=== PATIENT | male | born 1935 | race Caucasian/White ===

== ENCOUNTER 2018-02-05 09:19 | Inpatient (IN) ==
[2018-02-05] MEDS ORDERED: Diphtheria/Tetanus/Pertussis Vaccine Inj 0.5 ML Syringe IM ONE (10:17)
[2018-02-05 10:35] LABS: Baso # (Auto) 0.5 th/mm3 (0.0-0.2); Baso % (Auto) 2.2 % (0.0-2.0); Eos # (Auto) 0.1 th/mm3 (0.0-0.4); Eos % (Auto) 0.6 % (0.0-4.0); Hematocrit 30.2 % (39.0-51.0); Hemoglobin 9.6 gm/dL (13.0-17.0); Lymph # (Auto) 8.7 th/mm3 (1.0-4.8); Lymph % (Auto) 35.6 % (9.0-44.0); Mean Corpuscular Hemoglobin 27.3 pg (27.0-34.0); Mean Corpuscular Volume 85.4 fL (80.0-100.0); Mean Platelet Volume 8.2 fL (7.0-11.0); Mono # (Auto) 1.6 th/mm3 (0.0-0.9); Mono % (Auto) 6.5 % (0.0-8.0); Neut # (Auto) 13.5 th/mm3 (1.8-7.7); Neut % (Auto) 55.1 % (16.0-70.0); Platelet Count 221 th/mm3 (150-450); Red Blood Count 3.53 mil/mm3 (4.50-5.90); Red Cell Distribution Width 14.1 % (11.6-17.2); White Blood Count 24.4 th/mm3 (4.0-11.0)
[2018-02-05 10:59] LABS: Bilirubin,Urine Negative (Negative); Clarity,Urine Slightly Cloudy (Clear); Color,Urine Yellow (Yellw/Straw); Glucose,Urine (UA) Negative (Negative); Leukocyte Esterase,Urine Moderate (Negative); Nitrite,Urine Positive (Negative)
[2018-02-05 11:00] LABS: Chloride 103 meq/L (98-107); Lymphocytes 48 % (9-44); Monocytes 3 % (0-8); Potassium 4.5 meq/L (3.5-5.1); Sodium 138 meq/L (136-145)
[2018-02-05 11:01] LABS: Platelet Estimate Normal (Normal); Platelet Morphology Normal (Normal)
[2018-02-05] MEDS ORDERED: Tetanus/Diphtheria Toxoid Adult Vaccine Inj 0.5 ML Vial IM ONE (11:01)
[2018-02-05 11:03] LABS: Calcium 8.7 mg/dL (8.5-10.1)
[2018-02-05 11:04] LABS: Albumin 2.7 g/dL (3.4-5.0); Anion Gap 11 meq/L (5-15); Blood Urea Nitrogen 38 mg/dL (7-18); Carbon Dioxide 23.6 meq/L (21.0-32.0); Glucose,Random 108 mg/dL (74-106)
[2018-02-05 11:06] LABS: Prothrombin Time 94.6 sec (9.8-11.6)
[2018-02-05 11:07] LABS: Alanine Aminotransferase 26 U/L (12-78); Aspartate Aminotransferase 32 U/L (15-37); Glomerular Filtration Rate 49 mL/min (>89)
[2018-02-05 11:07] LABS: WBC,Urine 0-5 /hpf (0-5)
[2018-02-05 11:08] LABS: Bacteria,Urine Moderate /hpf; RBC,Urine 0-3 /hpf (0-3); Squamous Epithelial Cell,Urine 0-5 /hpf (0-5)
[2018-02-05 11:09] LABS: Total Protein 6.1 g/dL (6.4-8.2)
[2018-02-05 11:10] LABS: Alkaline Phosphatase 63 U/L (45-117)
[2018-02-05 11:49] LABS: INR 9.5 Ratio
--- NOTE | 2018-02-05 11:50 | CT ---
EXAM DATE: 02/05/2018 11:41 AM EDT AGE/SEX: 82 years / Male INDICATIONS: Multiple falls in three days. CLINICAL DATA: This is the patient's initial encounter. Patient reports that signs and symptoms have been present for 3 days and indicates a pain score of 6/10. MEDICAL/SURGICAL HISTORY: Hypertension. Cardiovascular disease. Anticoagulant therapy. Pacemaker. Bilateral hip repair. RADIATION DOSE: 63.01 CTDI (mGy) COMPARISON: [facility] – [place], MRI BRAIN W/O CONTRAST, 07/31/2011. . TECHNIQUE: CT of the head without contrast. Using automated exposure control and adjustment of the mA and/or kV according to patient size, radiation dose was kept as low as reasonably achievable to ob tain optimal diagnostic quality images. DICOM format image data is available electronically for revi ew and comparison. FINDINGS: There is no evidence for intracranial hemorrhage, mass effect, mass lesions, edema, or extra-axial fl uid collections. The visualized bony structures appear intact. The ventricles are normal size for t he patient's age. There are no signs of acute infarction for technique. CONCLUSION: Unremarkable study. Electronically signed by: Abby Keyes MD 02/05/2018 11:48 AM EDT
--- NOTE | 2018-02-05 12:00 | ED ---
HPI General Chief complaint: Fall Stated complaint: Rt Knee gave out Time Seen by Provider: 02/05/18 10:00 Source: patient and family Mode of arrival: ambulatory History of Present Illness HPI narrative: 82yM presenting with multiple falls. The patient states that he has chronic right knee "problems" but was told by his orthopedist that he is not a candidate for a knee replacement. He normally uses a walker to ambulate, and lives alone, but says over the past several days he's had multiple falls because "my knee keeps giving out from under me". He admits to hitting his head 1-2 times but denies LOC. Denies fever or chills, dizziness, headache, chest pain, palpitations, or dyspnea. He takes coumadin for A fib, denies any other anticoagulants/ antiplatelets. Family history is non-contributory. Related Data Home Medications Medication Instructions Recorded Confirmed hydrochlorothiazide 25 mg PO DAILY 02/05/18 02/05/18 lisinopril 10 mg PO DAILY 02/05/18 02/05/18 lovastatin 20 mg PO BID 02/05/18 02/05/18 metoprolol succinate 50 mg PO DAILY 02/05/18 02/05/18 warfarin 7.5 mg PO DAILY 02/05/18 02/05/18 Allergies Allergy/AdvReac Type Severity Reaction Status Date / Time No Known Allergies Allergy Unknown NKA Uncoded 02/05/18 09:31 Review of Systems Except as stated in HPI: all other systems reviewed are negative Constitutional Denies fever(s) Eyes Denies blurry vision ENT Denies nasal congestion Cardiovascular Denies chest pain Respiratory Denies cough Gastrointestinal Denies nausea Genitourinary Denies dysuria Musculoskeletal Comments: Chronic low back pain, unchanged from baseline Chronic right knee pain/ stiffness, unchanged from baseline Neurologic Denies confusion Psychiatric Denies confusion PMFSH History History Provided By: Patient Medical History Medical History A-fib (Acute) Hyperlipemia (Acute) Hypertension (Acute) Social History Social History Substance History: No History of Abuse Second Hand Smoke Exposure: No Smoking Status: Never smoker How Often Do You Have a Drink Containing Alcohol: Never Recent Travel in [facility] within the Last 8 Weeks: No Recent Out of Country Travel within the Last 8 Weeks: No Immunization History Tetanus Immunization: <5 Years Hx Influenza Vaccine This Season: No Exam Const General: healthy appearing and no acute distress [facility] Head: normocephalic and atraumatic Face and sinus: normal facial exam Other: No raccoon eyes or Blanchard's sign No epistaxis or septal hematoma No intraoral trauma Eyes General: appearance normal, both eyes and all related structures Other: Pupils 3 mm and reactive bilaterally Neck Other: No midline C spine tenderness Chest Chest: normal inspection of the chest Resp Effort & Inspection: normal respiratory effort Auscultation: no rhonchi and no wheezes Cardio Rate: regular rate Rhythm: abnormal rhythm GI Inspection: non-distended Palpation: soft and nontender Back/Spine/Pelvis Other: Ecchymoses to right posterior shoulder and back that appear to be of varying ages No midline thoracolumbar tenderness or step-off Pelvis stable, leg lengths equal No tenderness, normal ROM of right knee, negative anterior/ posterior drawer tests Skin Other: Scaly rash to bilateral lower extremities 2 cm skin tear to dorsum of right hand, no active bleeding Multiple ecchymoses to all 4 extremities that appear to be of varying ages Neuro General: alert, awake, oriented x3 and no focal motor deficits Other: GCS 15, speech clear and fluent, answers all questions appropriately, no focal deficits Psych Affect: normal affect Course Initial Documented Vital Signs Temperature 97.4 F L 02/05/18 09:25 Pulse Rate 95 H 02/05/18 09:25 Respiratory Rate 18 02/05/18 09:25 Blood Pressure 129/66 02/05/18 09:25 Pulse Oximetry 98 02/05/18 09:25 Last Documented Vital Signs Temperature 97.4 F L 02/05/18 09:25 Pulse Rate 95 H 02/05/18 09:25 Respiratory Rate 18 02/05/18 09:25 Blood Pressure 129/66 02/05/18 09:25 Pulse Oximetry 98 02/05/18 09:25 Medical Decision Making [facility] Narrative Medical decision making narrative: Assessment: 82yM presenting with multiple falls, on coumadin Plan: Update tetanus/ local wound care Labs, including INR [place]- CT scan Reassess Addendum: Patient found to have a UTI and supratherapeutic INR, BUN/ creat 38/ 1.40 (no previous labs on file). CT scan shows no ICH or fractures, but pancreatic mass with satellite lesions concerning for metastatic pancreatic cancer and portal vein thrombus. The patient reports 8 lb recent weight loss but no night sweats, early satiety, or abdominal pain. I had a long conversation with the patient regarding these results and my plan to keep him in the hospital. The patient does not wish to have chest compressions/ defibrillation or intubation, so I updated his code status to DNR/ DNI. I informed him of my plan to keep him in the hospital for IV fluids, antibiotics, consultation, and monitoring of INR. He understands and agrees with plan. An opportunity to ask questions was provided. Case discussed with Dr. Hickey, who agrees with admission and requests [facility] [place]. Patient's INR not reversed due to portal vein thrombus. Differential Diagnosis Differential Diagnosis: Differential diagnosis includes, but is not limited to: ICH, fracture, solid organ injury, UTI, electrolyte abnormality, dehydration, anemia, coagulopathy Lab Data Lab results reviewed: Yes I reviewed the patient's lab results. Result diagrams: 02/05/18 10:30 02/05/18 10:30 Lab Results 02/05/18 02/05/18 02/05/18 Range/Units 10:30 10:30 10:30 CBC w Diff Slide review pending WBC 24.4 H (4.0-11.0) th/mm3 RBC 3.53 L (4.50-5.90) mil/mm3 Hgb 9.6 L (13.0-17.0) gm/dL Hct 30.2 L (39.0-51.0) % MCV 85.4 (80.0-100.0) fL MCH 27.3 (27.0-34.0) pg MCHC 32.0 (32.0-36.0) % RDW 14.1 (11.6-17.2) % Plt Count 221 (150-450) th/mm3 MPV 8.2 (7.0-11.0) fL Neut % (Auto) 55.1 (16.0-70.0) % Lymph % (Auto) 35.6 (9.0-44.0) % Chaves % (Auto) 6.5 (0.0-8.0) % Eos % (Auto) 0.6 (0.0-4.0) % Baso % (Auto) 2.2 H (0.0-2.0) % Neut # (Auto) 13.5 H (1.8-7.7) th/mm3 Lymph # (Auto) 8.7 H (1.0-4.8) th/mm3 Chaves # (Auto) 1.6 H (0.0-0.9) th/mm3 Eos # (Auto) 0.1 (0.0-0.4) th/mm3 Baso # (Auto) 0.5 H (0.0-0.2) th/mm3 WBC Differential Manual diff final Seg Neuts % (Manual) 49 (16-70) % Lymphocytes % (Manual) 48 H (9-44) % Monocytes % (Manual) 3 (0-8) % Abs Neuts (Manual) 12.0 H (1.8-7.7) th/mm3 Differential Comment . Platelet Estimate Normal (Normal) Platelet Morphology Normal (Normal) PT 94.6 H (9.8-11.6) sec INR 9.5 H* Ratio Sodium 138 (136-145) meq/L Potassium 4.5 (3.5-5.1) meq/L Chloride 103 (98-107) meq/L Carbon Dioxide 23.6 (21.0-32.0) meq/L Anion Gap 11 (5-15) meq/L BUN 38 H (7-18) mg/dL Creatinine 1.40 H (0.60-1.30) mg/dL Estimated GFR 49 L (>89) mL/min Random Glucose 108 H (74-106) mg/dL Calcium 8.7 (8.5-10.1) mg/dL Total Bilirubin 0.8 (0.2-1.0) mg/dL AST 32 (15-37) U/L ALT 26 (12-78) U/L Alkaline Phosphatase 63 (45-117) U/L Total Protein 6.1 L (6.4-8.2) g/dL Albumin 2.7 L (3.4-5.0) g/dL Ur Collection Type Urine Color (Yellw/Straw) Urine Clarity (Clear) Urine pH (5.0-8.5) Ur Specific [place] (1.002-1.035) Urine Protein (Neg-Trace) mg/dL Urine Glucose (UA) (Negative) mg/dL Urine Ketones (Negative) mg/dL Urine Occult Blood (Negative) Urine Nitrate (Negative) Urine Bilirubin (Negative) Urine Urobilinogen (Less than 2) mg/dL Ur Leukocyte Esterase (Negative) Urine RBC (0-3) /hpf Urine WBC (0-5) /hpf Urine WBC Clumps (None) Ur Squamous Epith Cells (0-5) /hpf Urine Bacteria (None) /hpf Micro UA Comment Urine Culture Comments Blood Type Blood Type Recheck Antibody Screen 02/05/18 02/05/18 Range/Units 10:30 10:50 CBC w Diff WBC (4.0-11.0) th/mm3 RBC (4.50-5.90) mil/mm3 Hgb (13.0-17.0) gm/dL Hct (39.0-51.0) % MCV (80.0-100.0) fL MCH (27.0-34.0) pg MCHC (32.0-36.0) % RDW (11.6-17.2) % Plt Count (150-450) th/mm3 MPV (7.0-11.0) fL Neut % (Auto) (16.0-70.0) % Lymph % (Auto) (9.0-44.0) % Chaves % (Auto) (0.0-8.0) % Eos % (Auto) (0.0-4.0) % Baso % (Auto) (0.0-2.0) % Neut # (Auto) (1.8-7.7) th/mm3 Lymph # (Auto) (1.0-4.8) th/mm3 Chaves # (Auto) (0.0-0.9) th/mm3 Eos # (Auto) (0.0-0.4) th/mm3 Baso # (Auto) (0.0-0.2) th/mm3 WBC Differential Seg Neuts % (Manual) (16-70) % Lymphocytes % (Manual) (9-44) % Monocytes % (Manual) (0-8) % Abs Neuts (Manual) (1.8-7.7) th/mm3 Differential Comment Platelet Estimate (Normal) Platelet Morphology (Normal) PT (9.8-11.6) sec INR Ratio Sodium (136-145) meq/L Potassium (3.5-5.1) meq/L Chloride (98-107) meq/L Carbon Dioxide (21.0-32.0) meq/L Anion Gap (5-15) meq/L BUN (7-18) mg/dL Creatinine (0.60-1.30) mg/dL Estimated GFR (>89) mL/min Random Glucose (74-106) mg/dL Calcium (8.5-10.1) mg/dL Total Bilirubin (0.2-1.0) mg/dL AST (15-37) U/L ALT (12-78) U/L Alkaline Phosphatase (45-117) U/L Total Protein (6.4-8.2) g/dL Albumin (3.4-5.0) g/dL Ur Collection Type Clean catch Urine Color Yellow (Yellw/Straw) Urine Clarity Slightly cloudy (Clear) Urine pH 6.0 (5.0-8.5) Ur Specific [place] 1.010 (1.002-1.035) Urine Protein Trace (Neg-Trace) mg/dL Urine Glucose (UA) Negative (Negative) mg/dL Urine Ketones Negative (Negative) mg/dL Urine Occult Blood Trace (Negative) Urine Nitrate Positive H (Negative) Urine Bilirubin Negative (Negative) Urine Urobilinogen 1.0 (Less than 2) mg/dL Ur Leukocyte Esterase Moderate H (Negative) Urine RBC 0-3 (0-3) /hpf Urine WBC 0-5 (0-5) /hpf Urine WBC Clumps Occasional H (None) Ur Squamous Epith Cells 0-5 (0-5) /hpf Urine Bacteria Moderate H (None) /hpf Micro UA Comment Culture indicated Urine Culture Comments Culture indicated Blood Type O Negative Blood Type Recheck Not needed Antibody Screen Negative Imaging Data Radiologist's impression: Cervical Spine CT 02/05/18 10:17 CONCLUSION: 1. Extensive bilateral neck lymphadenopathy suspicious for metastatic disease or lymphoma. 2. There is a lytic bone lesion within the T3 vertebral body. 3. Multilevel degenerative disc disease throughout the cervical spine, as above. No spinal canal stenosis is identified. There areas of neural foraminal narrowing at multiple levels but is most severe on the right at C5-C6. Head CT 02/05/18 10:17 CONCLUSION: Unremarkable study. Abdomen/Pelvis CT 02/05/18 11:10 CONCLUSION: 1. 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 2. Pathological adenopathy throughout the abdomen and pelvis highly suspicious for metastatic disease. 3. Lytic lesion involving the bony structures the largest one involving the T11 vertebrae and right posterior iliac bone almost certainly metastatic. 4. Possible thrombus within main portal vein. Chest CT 02/05/18 11:10 CONCLUSION: Mass process involving the T10 vertebral body with some degree of canal encroachment which is not optimally evaluated on this conventional CT. CT myelography may be useful for correlation. At least a couple of small right lung nodules and enlarged mediastinal lymph nodes noted. Discharge Plan Discharge Disposition Patient Disposition: 30 Still Patient Discharge Condition Condition: Fair Discharge Details Diagnosis: Acute UTI, Acute kidney injury, Metastasis from pancreatic cancer, Portal vein thrombosis, Supratherapeutic INR, Multiple falls, Multiple contusions Physicians Team ED Provider: Marialuisa Ortega Primary Care Provider: Alexandro Moeller Rxs /Orders / Referrals /Forms Prescriptions: No Action metoprolol succinate 50 mg Tablet Extended Release 24 Hr 50 mg PO DAILY RF: 0 lisinopril 10 mg Tablet 10 mg PO DAILY RF: 0 hydrochlorothiazide 25 mg Tablet 25 mg PO DAILY RF: 0 lovastatin 20 mg Tablet 20 mg PO BID RF: 0 warfarin 7.5 mg Tablet 7.5 mg PO DAILY RF: 0 Status ED Status: Ready for Discharge
--- NOTE | 2018-02-05 12:01 | CT ---
EXAM DATE: 02/05/2018 11:49 AM EDT AGE/SEX: 82 years / Male INDICATIONS: Multiple falls in three days. CLINICAL DATA: This is the patient's initial encounter. Patient reports that signs and symptoms have been present for 3 days and indicates a pain score of 6/10. MEDICAL/SURGICAL HISTORY: Hypertension. Cardiovascular disease. Anticoagulant therapy. Pacema ker. Bilateral hip repair. RADIATION DOSE: 26.64 CTDI (mGy) COMPARISON: No prior exams available for comparison. TECHNIQUE: Contiguous axial images were obtained using helical multirow detector technique. The vol umetric data was post-processed with multiplanar reconstruction in oblique axial, sagittal, and coron al planes. Using automated exposure control and adjustment of the mA and/or kV according to patient s ize, radiation dose was kept as low as reasonably achievable to obtain optimal diagnostic quality emperatriz ges. DICOM format image data is available electronically for review and comparison. FINDINGS: Vertebrae: No fracture is identified. Vertebral body height is maintained. There is a 13 mm lucent l esion within the right superior aspect of the T3 vertebral body with an appearance suspicious for a b one lesion. No other bone lesion is seen in the cervical spine. There is no prevertebral soft tissue swelling. Alignment: No anterolisthesis or retrolisthesis. The craniocervical junction and C1-C2 level demonstrate no significant abnormality. C2-C3: There is bilateral facet arthrosis with fusion of the facet joints on the right. No disc josé iation, spinal canal stenosis, or neural foraminal stenosis is appreciated. C3-C4: There is severe left facet arthrosis with possible fusion of the facet joints. There is a sma ll posterior disc osteophyte complex with bilateral uncovertebral osteophytes. No spinal canal stenos is is present. There is mild to moderate left neural foraminal stenosis. C4-C5: Decreased disc height with endplate osteophytes anteriorly. There is mild right sided arthros is. Diffuse posterior disc osteophyte complex is present with right uncovertebral osteophyte. There i s mild bilateral neural foraminal stenosis, right greater than left. No canal stenosis is appreciated . C5-C6: Decreased disc height with endplate osteophytes anteriorly and chronic degenerative endplate changes. There is diffuse posterior disc osteophyte complex with right uncovertebral osteophyte. No s unruly canal stenosis is present. There is moderate to severe right neural foraminal stenosis. Minimal left neural foraminal narrowing is also present. C6-C7: Decreased disc height with endplate sclerosis and anterior endplate osteophytes. There is a d iffuse disc bulge. No significant spinal canal stenosis is appreciated. C7-T1: The canal is not well visualized but no definite canal or neural foraminal stenosis is seen. Other: There is extensive lymphadenopathy within the neck bilaterally in the visualized superior aspe ct of the mediastinum. CONCLUSION: 1. Extensive bilateral neck lymphadenopathy suspicious for metastatic disease or lymphoma. 2. There is a lytic bone lesion within the T3 vertebral body. 3. Multilevel degenerative disc disease throughout the cervical spine, as above. No spinal canal mario nosis is identified. There areas of neural foraminal narrowing at multiple levels but is most severe on the right at C5-C6. Electronically signed by: Anant Chilel MD 02/05/2018 12:00 PM EDT
--- NOTE | 2018-02-05 12:03 | CT ---
EXAM DATE: 02/05/2018 11:45 AM EDT AGE/SEX: 82 years / Male INDICATIONS: Multiple falls in three days. CLINICAL DATA: This is the patient's initial encounter. Patient reports that signs and symptoms have been present for 3 days and indicates a pain score of 7/10. MEDICAL/SURGICAL HISTORY: Hypertension. Cardiovascular disease. Anticoagulant therapy. Pacema ker. Bilateral hip repair. RADIATION DOSE: 24.88 CTDI (mGy) ; Combined studies COMPARISON: No prior exams available for comparison. TECHNIQUE: Multiple contiguous axial images were obtained through the abdomen. Images were obtained using multiple row detector helical technique. Using automated exposure control and adjustment of the mA and/or kV according to patient size, radiation dose was kept as low as reasonably achievable to o btain optimal diagnostic quality images. DICOM format image data is available electronically for rev iew and comparison. FINDINGS: Abdomen CT: The liver, spleen, adrenals are unremarkable. There are multiple simple cysts in the kidneys the larg est measures almost 5.1 cm on the right and there is a small approximate 7 mm spontaneously dense nod ule in the right kidney with a separate one that measures almost the same probably complicated cyst a s well. There is an approximate 3.5 cm mass in the region of the head of the pancreas. This could be a necrotic lymph node versus a primary pancreatic malignancy and there are smaller lymph nodes surrou nding it extending into the marya hepatis. There is question of thrombus within the main portal vein measures almost 2 cm in size. There is no evidence for any appreciable free fluid, or bowel obstructi on. There is retroperitoneal adenopathy which extends all the way down to iliac bifurcation and invol ves bilateral common iliac regions the largest one measures almost 2.3 cm in size at the level of the renal hilum on the left side. There are also multiple small mesenteric lymph nodes throughout with h azy appearance the mesentery. There is a lytic lesion involving the T11 vertebrae measures 2.8 cm in size with slight degree of retropulsed fragment towards the left side without any significant thecal sac stenosis. There is also an approximate 2.9 cm lytic lesion in the right posterior iliac bone. The se are suspicious for metastatic disease. There may be other lytic lesions involving the posterior po rtion of L4 vertebrae on the left side. Coronary calcifications are seen and the bilateral total hip arthroplasties bilaterally. Pelvic CT: There is no evidence for mass, abscess formation within the pelvis. Significant facet arthrosis is s een L5-S1 bilaterally. There is an approximate 2.2 cm lymph node in the left groin which is pathologi sariah with smaller lymph nodes in bilateral groin which may not be pathological. There is an approximat e 3 cm lymph node in the right external iliac chain with pathological lymph nodes involving bilateral external iliac chains the largest one on the left side measures almost 2 cm in size. Multiple lymph nodes are seen bilaterally and metastatic disease is suspected. There is no evidence for acute fractu re. CONCLUSION: 1. 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 2. Pathological adenopathy throughout the abdomen and pelvis highly suspicious for metastatic diseas e. 3. Lytic lesion involving the bony structures the largest one involving the T11 vertebrae and right posterior iliac bone almost certainly metastatic. 4. Possible thrombus within main portal vein. Electronically signed by: Abby Keyes MD 02/05/2018 12:02 PM EDT
--- NOTE | 2018-02-05 12:12 | CT ---
EXAM DATE: 02/05/2018 11:46 AM EDT AGE/SEX: 82 years / Male INDICATIONS: Multiple falls in three days. CLINICAL DATA: This is the patient's initial encounter. Patient reports that signs and symptoms have been present for 3 days and indicates a pain score of 7/10. MEDICAL/SURGICAL HISTORY: Hypertension. Cardiovascular disease. Anticoagulant therapy. Pacemaker. Bilateral hip repair. RADIATION DOSE: 24.88 CTDI (mGy) ; Combined studies COMPARISON: No prior exams available for comparison. TECHNIQUE: Multiple contiguous axial images were obtained through the chest without contrast. Image s were obtained in suspended respiration using multiple row detector helical technique. Using automa talib exposure control and adjustment of the mA and/or kV according to patient size, radiation dose was kept as low as reasonably achievable to obtain optimal diagnostic quality images. DICOM format imag e data is available electronically for review and comparison. FINDINGS: There are couple small nodular densities in the right lung, largest a 9 mm spiculated nodule in the c entral right lung. There is no evidence of consolidative infiltrate. There are multiple moderately prominent central mediastinal lymph nodes with enlarged nodes seen in t he paratracheal, precarinal, subcarinal and prevascular regions. Coronary artery calcifications are present. There is no evidence of axillary adenopathy. There is a soft tissue density process replacing much of the T10 vertebral body and there is associat ed pathologic fracturing and collapse of the vertebra. There is minimal bony retropulsion. Small righ t paracentral posterior vertebral body lesion appears to encroach somewhat on the epidural space. CONCLUSION: Mass process involving the T10 vertebral body with some degree of canal encroachment which is not opt imally evaluated on this conventional CT. CT myelography may be useful for correlation. At least a couple of small right lung nodules and enlarged mediastinal lymph nodes noted. Electronically signed by: Anant Young MD 02/05/2018 12:11 PM EDT
[2018-02-05] MEDS ORDERED: Sodium Chlor 0.9% Inj 500 ML IV.SIG ONE (12:31)
[2018-02-05] MEDS ORDERED: Temazepam 15 MG Capsule PO PRN (13:08)
[2018-02-05] MEDS ORDERED: Bisacodyl 10 MG Supp RECTAL PRN (13:08)
--- NOTE | 2018-02-05 14:34 | P.PNPAL ---
Palliative care consulted to assist with goals of medical treatment for Mr. Fish. Spoke with patient's niece, Bessy to obtain additional information. Bessy was unaware Mr. Fish was in the hospital. Verbalizes she spoke with him on Monday and knew he was having more frequent falls and was going to follow-up with his PCP today. Bessy tells me Mr. Fish has a pacemaker, no defibrillator. Verbalizes he was diagnosed with a blood disorder in previous years. Unaware of other medical conditions. Bessy tells me Mr. Fish has no family. He is , no children, parents (per previous records: mother-stomach [place], father- [place]), and no siblings. She states her and her sister are the only family he has. Bessy is unaware of any written advanced directives but believes Mr. Fish would designate her as health care surrogate as they are close and remain in close contact. She seems to have reasonable knowledge of his medical condition. Also states Mr. Fish has no issues with his cognition and has remained able to make his own medical decisions. States he has a friend who moved over from the [facility] to assist Mr. Fish with his ADLs. I have asked patient's RN to assist with completing health care surrogate designation and connecting patient and niece while he is here in the hospital. Palliative care will meet with Mr. Fish for full consultation Monday02/06/18.
--- NOTE | 2018-02-05 15:09 | P.HPIM ---
History of Present Illness Primary Care Physician: Alexandro Moeller MD Chief Complaint: falls History of Present Illness: Patient is an 82-year-old gentleman with a history of atrial fibrillation on Coumadin who comes in after progressive weakness and a fall. He called his friend and his friend around to the hospital. Over the last several months patient has progressive lower extremity weakness. He attributed this to his right knee which has significant osteoarthritic changes. He has also experienced some urinary incontinence over the last several weeks. He has at least 2 falls and had progressively used canes and now a walker. He notes no fevers or chills. He notes no back pain is not any nausea and vomiting or belly pain. He finally came to the emergency room today and was found to have profound weakness. In the course of the ER visit patient did have both CT of the chest and abdomen which showed pancreatic mass as well as metastatic changes to T10 through 11 as well and is progressive adenopathy from previous evaluations. Patient has not had any fevers or chills. He notes no nelly back pain. He was also found to have an INR of 9.6. He takes Coumadin for atrial fibrillation. He notes no new antibiotics or changes in his prescription. Normally he also with the events and cardiology office and his INR has been in the 2-3 range appropriately for his diagnosis. He had fallen does have significant amount of ecchymotic skin injuries. There is no nelly bleeding. He has not had any belly pain or jaundice. He has been admitted to the hospital for further evaluation. He is recommended for admission and treatment in the hospital - Diagnosis (1) Acute UTI (2) Metastasis from pancreatic cancer (3) Portal vein thrombosis (4) Supratherapeutic INR (5) Multiple falls (6) Afib (7) HTN (hypertension) (8) Lymphoma Inpatient Certification: I certify that the inpatient services were ordered in accordance with Medicare regulations governing the order. This includes certification that hospital inpatient services are reasonable and necessary and in the case of services not specified as inpatient-only under 42 CFR 419.22(n), that they are appropriately provided as inpatient services in accordance to with the 2-midnight benchmark under 43 CFR 412.3(e) Estimated Total Length of Stay (Days): 3 Plans for Post Hospital Care: Not yet determined Review of Systems All other systems reviewed negative except as stated in HPI Constitutional: Reports weight loss (Intentional due to cardiology suggested lifestyle changes) Cardiovascular: Reports leg swelling (Which is chronic) Genitourinary: Reports urinary incontinence (For several week) Musculoskeletal: Reports abnormal walking, Reports back pain Neurologic: Reports unsteadiness, Reports weakness Hematologic/Lymphatic: Reports easy bruising PMFSH - History History Provided By: Patient - Medical History Medical History: Medical History (Last Updated 02/05/18 @ 15:44 by Rama Hickey MD) A-fib Bladder cancer Hyperlipemia Hypertension Lymphoma - Surgical History Surgical History: Surgical History (Last Updated 02/05/18 @ 15:29 by Rama Hickey MD) History of hip replacement - Family History Family History: Family History (Last Updated 02/05/18 @ 15:30 by Rama Hickey MD) Other CAD (coronary artery disease) Colon cancer Stomach cancer - Tobacco History Second Hand Smoke Exposure: No Tobacco Use In Past 30 Days: No Smoking Status: Never smoker - Alcohol History How Often Do You Have a Drink Containing Alcohol: 4 or more times a week - Substance Use History Substance History: No History of Abuse - Travel History Recent Travel in the USA Within the Last 8 Weeks: No Recent Travel Out of the Country Within the Last 8 Weeks: No - Immunization History Tetanus Immunization: <5 Years Hx Influenza Vaccine This Season: Yes Medications and Allergies Active Medications: Active Medications Al Hydroxide/Mg Hydroxide (Milk Of Magnesia Liq) 30 ml PO Q12H PRN PRN Reason: Mild Constipation Bisacodyl (Dulcolax Supp) 10 mg RECTAL DAILY PRN PRN Reason: SEVERE CONSITIPATION Lactulose (Lactulose Liq) 30 ml PO DAILY PRN PRN Reason: SEVERE CONSITIPATION Senna/Docusate Sodium (Angela-Colace) 1 tab PO BID SORIN Sennosides (Senokot) 17.2 mg PO Q12HR PRN PRN Reason: Moderate Constipation Temazepam (Restoril) 15 mg PO HS PRN PRN Reason: INSOMNIA Allergies Allergy/AdvReac Type Severity Reaction Status Date / Time No Known Allergies Allergy Unknown NKA Uncoded 02/05/18 09:31 Home Medications Medication Instructions Recorded Confirmed Type hydrochlorothiazide 25 mg PO DAILY 02/05/18 02/05/18 History lisinopril 10 mg PO DAILY 02/05/18 02/05/18 History lovastatin 20 mg PO BID 02/05/18 02/05/18 History metoprolol succinate 50 mg PO DAILY 02/05/18 02/05/18 History warfarin 7.5 mg PO DAILY 02/05/18 02/05/18 History Exam Vital signs: Vital Signs 02/05/18 09:25 02/05/18 13:35 Temperature 97.4 F L 98.0 F Pulse Rate 95 H 66 Respiratory Rate 18 19 Blood Pressure 129/66 111/57 L Pulse Oximetry 98 97 Intake & Output 02/04/18 02/05/18 02/05/18 18:59 06:59 18:59 Weight 97.8 kg Narrative: GENERAL: Patient calm resting and without complaints SKIN: Warm and dry. diffuse ecchymotic injuries, wound legs bilat EYES: Pupils equal and round. No scleral icterus. No injection or drainage. ENT: External ear exam normal. No acute nasal bleeding or discharge. Mucous membranes pink and moist. CARDIOVASCULAR: Regular rate and rhythm. No murmurs gallops or rubs appreciated RESPIRATORY: Good air flow and effort without accessory muscle use. Clear to auscultation. Breath sounds equal bilaterally. GASTROINTESTINAL: Abdomen soft, non-tender, nondistended. Hepatic and splenic margins not palpable. MUSCULOSKELETAL: Extremities without clubbing, cyanosis, but there is woody edema bilat legs. No obvious deformities. NEUROLOGICAL: Awake and alert. No obvious cranial nerve deficits. Motor grossly within normal limits. Five out of 5 muscle strength in the arms and legs. Normal speech. Results - Labs CBC & Chem 7: 02/05/18 10:30 02/05/18 10:30 Labs: Short CBC 02/05/18 Range/Units 10:30 WBC 24.4 H (4.0-11.0) th/mm3 Hgb 9.6 L (13.0-17.0) gm/dL Hct 30.2 L (39.0-51.0) % Plt Count 221 (150-450) th/mm3 BMP 02/05/18 10:30 Sodium 138 Potassium 4.5 Chloride 103 Carbon Dioxide 23.6 BUN 38 H Creatinine 1.40 H Calcium 8.7 Liver Function 02/05/18 Range/Units 10:30 Total Bilirubin 0.8 (0.2-1.0) mg/dL AST 32 (15-37) U/L ALT 26 (12-78) U/L Alkaline Phosphatase 63 (45-117) U/L Albumin 2.7 L (3.4-5.0) g/dL Urine 02/05/18 Range/Units 10:50 Urine Color Yellow (Yellw/Straw) Urine Clarity Slightly cloudy (Clear) Urine pH 6.0 (5.0-8.5) Ur Specific Badger 1.010 (1.002-1.035) Urine Protein Trace (Neg-Trace) mg/dL Urine Glucose (UA) Negative (Negative) mg/dL - Imaging Impressions Cervical Spine CT 02/05/18 10:17 CONCLUSION: 1. Extensive bilateral neck lymphadenopathy suspicious for metastatic disease or lymphoma. 2. There is a lytic bone lesion within the T3 vertebral body. 3. Multilevel degenerative disc disease throughout the cervical spine, as above. No spinal canal stenosis is identified. There areas of neural foraminal narrowing at multiple levels but is most severe on the right at C5-C6. Head CT 02/05/18 10:17 CONCLUSION: Unremarkable study. Abdomen/Pelvis CT 02/05/18 11:10 CONCLUSION: 1. 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 2. Pathological adenopathy throughout the abdomen and pelvis highly suspicious for metastatic disease. 3. Lytic lesion involving the bony structures the largest one involving the T11 vertebrae and right posterior iliac bone almost certainly metastatic. 4. Possible thrombus within main portal vein. Chest CT 02/05/18 11:10 CONCLUSION: Mass process involving the T10 vertebral body with some degree of canal encroachment which is not optimally evaluated on this conventional CT. CT myelography may be useful for correlation. At least a couple of small right lung nodules and enlarged mediastinal lymph nodes noted. Caprini VTE Risk Assessment Caprini VTE Risk Assessment: Moderate/High Risk (score >= 2) VTE Pharmacological Exception Reason: Coagulopathy,INR elevated Caprini Risk Assessment Model: Point Value = 1 Point Value = 2 Point Value = 3 Point Value = 5 Age 41-60 Minor surgery BMI > 25 kg/m2 Swollen legs Varicose veins or History of unexplained or recurrent spontaneous Oral contraceptives or hormone replacement Sepsis (< 1 month) Serious lung disease, including pneumonia (< 1 month) Abnormal pulmonary function Acute myocardial infarction Congestive heart failure (< 1 month) History of inflammatory bowel disease Medical patient at bed rest Age 61-74 Arthroscopic surgery Major open surgery (> 45 min) Laparoscopic surgery (> 45 min) Malignancy Confined to bed (> 72 hours) Immobilizing plaster cast Central venous access Age >= 75 History of VTE Family history of VTE Factor V Leiden Prothrombin [id number] Lupus anticoagulant Anticardiolipin antibodies Elevated serum homocysteine Heparin-induced thrombocytopenia Other congenital or acquired thrombophilia Stroke (< 1 month) Elective arthroplasty Hip, pelvis, or leg fracture Acute spinal cord injury (< 1 month) Prophylaxis Regimen: Total Risk Factor Score Risk Level Prophylaxis Regimen 0-1 Low Early ambulation 2 Moderate Order ONE of the following: *Sequential Compression Device (SCD) *Heparin 5000 units SQ BID 3-4 Higher Order ONE of the following medications: *Heparin 5000 units SQ TID *Enoxaparin/Lovenox 40 mg SQ daily (WT < 150 kg, CrCl > 30 mL/min) *Enoxaparin/Lovenox 30 mg SQ daily (WT < 150 kg, CrCl > 10-29 mL/min) *Enoxaparin/Lovenox 30 mg SQ BID (WT < 150 kg, CrCl > 30 mL/min) AND/OR *Sequential Compression Device (SCD) 5 or more Highest Order ONE of the following medications: *Heparin 5000 units SQ TID (Preferred with Epidurals) *Enoxaparin/Lovenox 40 mg SQ daily (WT < 150 kg, CrCl > 30 mL/min) *Enoxaparin/Lovenox 30 mg SQ daily (WT < 150 kg, CrCl > 10-29 mL/min) *Enoxaparin/Lovenox 30 mg SQ BID (WT < 150 kg, CrCl > 30 mL/min) AND *Sequential Compression Device (SCD) Assessment and Plan - Assessment (1) Acute UTI Code(s): N39.0 - Urinary tract infection, site not specified Status: Acute Plan: rocephin, follow cultures (2) Metastasis from pancreatic cancer Code(s): C79.9 - Secondary malignant neoplasm of unspecified site; C25.9 - Malignant neoplasm of pancreas, unspecified Status: Acute Plan: Likely pancreatic cancer with metastases to bone, follow-up with oncology Continue with palliative care care consult to help plan goals of care Continue with hydrocodone for pain as needed Patient would not like to be aggressive if there is no life expectancy to be gained (3) Portal vein thrombosis Code(s): I81 - Portal vein thrombosis Status: Acute Plan: Currently anticoagulated with Coumadin, INR 9.6 We will continue to follow INR Avoid reversal due to thrombotic event Coumadin diagnosis atrial fibrillation (4) Supratherapeutic INR Code(s): R79.1 - Abnormal coagulation profile Status: Acute Plan: The allergy clear may be from hypermetabolic status due to malignancy Hold warfarin for now and follow up INR Patient does have a portal vein thrombus which will require anticoagulation (5) Multiple falls Code(s): R29.6 - Repeated falls Status: Acute Plan: Worrisome due to recent urinary incontinence, with new vertebral metastases (T10 , T11, T3), patient denies lower extremity pain and has chronic osteoarthritis of the right knee May be a candidate for neurosurgical intervention versus kyphoplasty Cord impingement concerning Patient would like to avoid back surgery if at all possible Continue supportive care for now Rehab measures (6) Afib Code(s): I48.91 - Unspecified atrial fibrillation Status: Acute Plan: Currently controlled on metoprolol, warfarin held due to elevated INR (7) HTN (hypertension) Code(s): I10 - Essential (primary) hypertension Status: Acute Plan: stable on HCTZ, lisinopril, metoprolol (8) Lymphoma Code(s): C85.90 - Non-Hodgkin lymphoma, unspecified, unspecified site Status: Acute Plan: History of stable lymphoma under observation, also history of bladder cancer Patient leukocytosis may be due to dehydration versus acute phase reaction from urinary tract infection Follow closely H&P: Quality - VTE Deep Vein Thrombosis/Pulmonary Embolism Present on Admission: No
[2018-02-05] MEDS ORDERED: Phytonadione 5 MG/SWFI 5 ML Oral Syringe PO ONE (19:00)
--- NOTE | 2018-02-05 19:00 | P.CON ---
History of Present Illness Service: Hematology/oncology Consult date: 02/05/18 Primary Care Provider: Alexandro Moeller MD Chief Complaint: Recurrent falls at home. Severe back pain. History of Present Illness: Mr. 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 He was diagnosed initially in 1979 while living in [place], he had been under the care of my associate Dr. Pate and her most recent notes dating back to 2016 the patient had been on observation alone. Additionally, the patient reports having a history of bladder cancer, he reports being diagnosed in the year 1999, for management of his bladder carcinoma he underwent transurethral resection of the bladder tumor (TURBT followed by BCG infusions within the bladder). Mr. Fish reports being in his usual fair state of health up until last Monday, he reports falling on 2 occasions that day which prompted his presentation to the [facility]. The emergency department he underwent multiple scans including CT scan of the head, CT scan of the neck, CT scan of the thorax, abdomen and pelvis. Multiple abnormalities were identified including diffuse shotty lymphadenopathy involving the cervical lymph nodes, mediastinal lymph nodes and intra-abdominal lymph nodes. These findings are consistent with his history of chronic lymphocytic leukemia/small lymphocytic lymphoma (CLL/SLL). Additional concerning findings included lytic/destructive lesions involving multiple vertebral bodies as well as findings concerning for a portal vein thrombosis (CT imaging was performed without intravenous contrast) . Additional abnormalities included supratherapeutic INR; the patient had been on therapeutic anticoagulation with warfarin which typically had been under good control. Patient's INR at the time of presentation was 9.6. Mr. Fish himself is a poor historian, he did not mention any history of chronic lymphocytic leukemia, much of the historical details have been obtained from the EMR. Subjectively; his only complaint is that of pain in his shoulder (right shoulder ) as well as his mid and lower back. He tells me his legs feel weak and are chronically swollen. Review of Systems other (Poor historian.) Constitutional: Reports body ache(s), Reports fatigue, Reports weight loss (15 pound weight loss.), Denies chills, Denies increased appetite, Denies lack of energy Eyes: Denies blind spots, Denies blurry vision, Denies bulging eyes, Denies change in vision Ears, Nose, Mouth, and Throat: Reports dizziness, Denies abnormal hearing, Denies bleeding gums, Denies bad breath, Denies change in voice, Denies dental pain, Denies difficulty swallowing, Denies dry mouth, Denies facial pain, Denies headache(s), Denies hearing loss Cardiovascular: Reports shortness of breath with activity, Denies chest pain, Denies chest pain at rest, Denies chest pain with activity, Denies excessive sweating, Denies fainting, Denies fast heart rate, Denies foot swelling, Denies generalized swelling Respiratory: Denies change in phlegm color, Denies chest congestion, Denies cough, Denies coughing up blood, Denies excessive phlegm production, Denies pain on inspiration, Denies pain with cough, Denies shortness of breath, Denies shortness of breath with activity Gastrointestinal: Denies abdominal pain, Denies belching, Denies black, tarry stools, Denies bright, red blood in stools, Denies change in stools, Denies difficulty swallowing, Denies heartburn, Denies incontinent of stools, Denies nausea, Denies pain with swallowing, Denies vomiting, Denies vomiting blood Genitourinary: Denies blood in urine, Denies difficulty urinating Musculoskeletal: Reports abnormal walking, Reports back pain, Reports body aches , Reports decreased muscle mass, Reports joint pain, Denies deformity, Denies joint swelling, Denies limited joint movement, Denies loss of height Skin/Breast: Denies bleeding lesions Comments: Chronic lower extremity edema and redness. Neurologic: Reports abnormal walking, Reports lack of coordination, Denies localized weakness Comments: Difficulty balancing. Psychiatric: Reports memory loss, Denies abnormal sleep pattern, Denies anxiety , Denies change in appetite, Denies confusion, Denies depression Endocrine: Denies cold intolerance, Denies excessive sweating, Denies flushing Hematologic/Lymphatic: Denies easy bleeding Allergic/Immunologic: Denies GI upset with certain foods, Denies hives, Denies itchy eyes PMFSH - History History Provided By: Patient - Medical History Medical History: Medical History (Last Updated 02/05/18 @ 18:51 by Roque Singh MD) A-fib Bladder cancer Bladder cancer Chronic lymphocytic leukemia Hyperlipemia Hypertension Lymphoma - Surgical History Surgical History: Surgical History (Last Updated 02/05/18 @ 18:51 by Roque Singh MD) H/O cystoscopy History of cystoscopy History of hip replacement - Family History Family History: Family History (Last Updated 02/05/18 @ 15:30 by Rama Hickey MD) Other CAD (coronary artery disease) Colon cancer Stomach cancer - Tobacco History Second Hand Smoke Exposure: No Tobacco Use In Past 30 Days: No Smoking Status: Former smoker Tobacco Type: Cigarettes Packs Per Day: 0.5 Years Smoked: 15 - Alcohol History How Often Do You Have a Drink Containing Alcohol: 4 or more times a week - Substance Use History Substance History: No History of Abuse - Travel History Recent Travel in the [place] Within the Last 8 Weeks: No Recent Travel Out of the Country Within the Last 8 Weeks: No - Immunization History Tetanus Immunization: <5 Years Hx Influenza Vaccine This Season: Yes Medications and Allergies Active Medications: Active Medications Hydrocodone Bitart/Acetaminophen ([place] 7.5/325) 1 tab PO Q6H PRN PRN Reason: PAIN SCALE 1 TO 10 Al Hydroxide/Mg Hydroxide (Milk Of Magnesia Liq) 30 ml PO Q12H PRN PRN Reason: Mild Constipation Bisacodyl (Dulcolax Supp) 10 mg RECTAL DAILY PRN PRN Reason: SEVERE CONSITIPATION Ceftriaxone Sodium 1,000 mg/ (Sodium Chloride) 100 mls @ 200 mls/hr IV.SIG Q24H SORIN Lactulose (Lactulose Liq) 30 ml PO DAILY PRN PRN Reason: SEVERE CONSITIPATION Phytonadione (Mephyton) 5 mg PO ONCE ONE Stop: 02/05/18 18:38 Senna/Docusate Sodium (Angela-Colace) 1 tab PO BID SORIN Sennosides (Senokot) 17.2 mg PO Q12HR PRN PRN Reason: Moderate Constipation Temazepam (Restoril) 15 mg PO HS PRN PRN Reason: INSOMNIA Allergies Allergy/AdvReac Type Severity Reaction Status Date / Time No Known Allergies Allergy Unknown NKA Uncoded 02/05/18 09:31 Home Medications Medication Instructions Recorded Confirmed Type hydrochlorothiazide 25 mg PO DAILY 02/05/18 02/05/18 History lisinopril 10 mg PO DAILY 02/05/18 02/05/18 History lovastatin 20 mg PO BID 02/05/18 02/05/18 History metoprolol succinate 50 mg PO DAILY 02/05/18 02/05/18 History warfarin 7.5 mg PO DAILY 02/05/18 02/05/18 History Physical Exam Vital signs: Vital Signs 02/05/18 09:25 02/05/18 13:35 Temperature 97.4 F L 98.0 F Pulse Rate 95 H 66 Respiratory Rate 18 19 Blood Pressure 129/66 111/57 L Pulse Oximetry 98 97 Intake & Output 02/04/18 02/05/18 02/05/18 18:59 06:59 18:59 Weight 97.8 kg - Constitutional no acute distress - Routine HEENT Exam Head: Present: normocephalic Eye: Present: EOMI, PERRL, conjunctivae pink. Absent: conjunctival icterus, scleral injection ENT: Present: mucous membranes moist, oropharynx clear. Absent: mucous membranes dry - Routine Neck Exam Present: supple, full ROM, lymphadenopathy. Absent: JVD - Routine Respiratory Exam Present: CTA bilaterally. Absent: accessory muscle use, respiratory distress, rhonchi, wheezes, crackles - Routine Cardiovascular Exam Present: RRR, S1, S2, murmur - Routine Abdominal Exam Present: soft. Absent: tenderness, distended, rebound, guarding, mass, hernia - Routine Extremities Exam Present: edema. Absent: cyanosis - Routine Skin Exam Present: intact (Erythema, chronic venous stasis changes and scaling of bilateral lower extremities.) - Routine Neurological Exam Present: alert, oriented X3, CN II-XII intact. Absent: sensory deficit, motor deficit - Detailed Neurological Exam: Coma Scale Eye Opening: Spontaneous - Routine Psychiatric Exam Present: normal affect, anxious Assessment and Plan - Plan Mr. Fish is an 82-year-old man with a long-standing history of chronic lymphocytic leukemia/small lymphocytic lymphoma (low-grade) initially diagnosed in 1979. He also reportedly has a history of bladder carcinoma which was treated in the early 1999s with "scraping" of the bladder followed by BCG instillation within the bladder. Additional medical comorbid conditions include A. fib, chronic anticoagulation with warfarin, hypertension as well as osteoarthritis. The patient reports being in his usual fair state of health up until last February 02, he reports falling twice. As a result he reports having impact to his right shoulder as well as on his mid and lower back. He reports having persistent pain in these areas which is why he came into the emergency department. Imaging studies revealed destructive bony lesions which are described as lytic involving the vertebral bodies. Additional findings include shoddy lymphadenopathy diffusely involving the cervical, mediastinal and intra- abdominal lymph nodes, there was some concern of possible underlying portal vein thrombosis as well though the CT scan was without intravenous contrast. Recommendations: 1. Supratherapeutic INR: I requested oral vitamin K 5 mg p.o. 1. Repeat PT/ INR levels in the morning. Re-dose oral vitamin K if PT/INR remains supratherapeutic. 2. Diffuse shotty lymphadenopathy: Related to chronic lymphocytic leukemia/ small lymphocytic lymphoma. Therapeutic intervention at this time is not needed. This dates back to 1979 and his CLL has to date not require therapeutic intervention. 3. Destructive/lytic bony lesions: In my opinion this represents a secondary disorder, I will request a PSA level and a serum protein electrophoresis and serum immunofixation. Differential diagnoses include metastatic epithelioid malignancy such as prostate carcinoma or bladder carcinoma and also includes malignant hematologic disorder such as plasma cell disorders i.e. multiple myeloma. Ultimately, a CT-guided biopsy of the right posterior iliac spine which is heavily involved with a destructive lesion may be the most easy to access involved bony lesion to obtain tissue for pathologic evaluation. 4. Metastatic disease to the vertebral bodies: This patient may require MRI evaluation to rule out spinal cord compression. I did talk to him about referral to the [facility] for evaluation by neurosurgery and radiation oncology, the patient interestingly declines. He tells me he would not like to be transferred anywhere at least for 2 days because he is expecting company. Continue ongoing care. Code Status: Full. Discussed Condition With: Patient. Nurse.
[2018-02-05] MEDS: Senna/Docusate Sodium 8.6/50 MG Tablet PO SCH (20:03)
[2018-02-06 05:22] LABS: INR 5.5 Ratio; Prothrombin Time 55.5 sec (9.8-11.6)
--- NOTE | 2018-02-06 09:04 | P.PN ---
Subjective Interval history: Pt is sitting on the bed in mild discomfort secondary to inability to move around. Reports 5/10 localized pain in midback, unchanged from previous days. Denies SOB, CP, Abdominal pain, fever, chills. Pt states that yesterday he met with Dr. Singh who recommended moving the [facility] hospital for further management of his condition. He states that he is considering that option and would like his friend to speak with Dr. Singh so he can get a better understanding of what his treatment in the [facility] hospital might entail. Physical Exam Vital signs: Vital Signs 02/05/18 09:25 02/05/18 13:35 02/05/18 20:00 Temperature 97.4 F L 98.0 F 99.4 F Pulse Rate 95 H 66 66 Respiratory Rate 18 19 18 Blood Pressure 129/66 111/57 L 95/45 L Pulse Oximetry 98 97 100 02/06/18 00:00 02/06/18 00:39 02/06/18 04:00 Temperature 99 F 98.9 F Pulse Rate 70 67 Respiratory Rate 20 24 Blood Pressure 98/46 L 128/65 100/50 L Pulse Oximetry 98 100 Intake & Output 02/05/18 02/06/18 02/06/18 18:59 06:59 18:59 Intake Total 120 / 120 Output Total 360 / 360 200 / 200 Balance -360 / -360 -80 / -80 Weight 97.8 kg 94 kg Intake: Oral 120 / 120 Output: Urine 360 / 360 200 / 200 Other: # Incontinent Voids 2 - Constitutional no acute distress - Routine HEENT Exam Head: Present: normocephalic, atraumatic Eye: Present: EOMI, PERRL, normal accommodation ENT: Present: mucous membranes moist - Routine Neck Exam Present: supple, full ROM - Routine Respiratory Exam Present: CTA bilaterally. Absent: accessory muscle use - Routine Cardiovascular Exam Present: RRR, S1, S2 - Routine Abdominal Exam Present: soft, normoactive bowel sounds - Routine Skin Exam Present: wounds, ecchymosis - Routine Neurological Exam Present: alert, oriented X3, CN II-XII intact - Routine Psychiatric Exam Present: normal affect Results - Labs CBC & Chem 7: 02/05/18 10:30 02/05/18 10:30 Laboratory Results - last 24 hr 02/05/18 02/05/18 02/05/18 10:30 10:30 10:30 CBC w Diff Slide review pending WBC 24.4 H RBC 3.53 L Hgb 9.6 L Hct 30.2 L MCV 85.4 MCH 27.3 MCHC 32.0 RDW 14.1 Plt Count 221 MPV 8.2 Neut % (Auto) 55.1 Lymph % (Auto) 35.6 Clay % (Auto) 6.5 Eos % (Auto) 0.6 Baso % (Auto) 2.2 H Neut # (Auto) 13.5 H Lymph # (Auto) 8.7 H Clay # (Auto) 1.6 H Eos # (Auto) 0.1 Baso # (Auto) 0.5 H WBC Differential Manual diff final Seg Neuts % (Manual) 49 Lymphocytes % (Manual) 48 H Monocytes % (Manual) 3 Abs Neuts (Manual) 12.0 H Differential Comment . Platelet Estimate Normal Platelet Morphology Normal PT 94.6 H INR 9.5 H* Sodium 138 Potassium 4.5 Chloride 103 Carbon Dioxide 23.6 Anion Gap 11 BUN 38 H Creatinine 1.40 H Estimated GFR 49 L Random Glucose 108 H Calcium 8.7 Total Bilirubin 0.8 AST 32 ALT 26 Alkaline Phosphatase 63 Total Creatine Kinase Total Protein 6.1 L Albumin 2.7 L Ur Collection Type Urine Color Urine Clarity Urine pH Ur Specific [place] Urine Protein Urine Glucose (UA) Urine Ketones Urine Occult Blood Urine Nitrate Urine Bilirubin Urine Urobilinogen Ur Leukocyte Esterase Urine RBC Urine WBC Urine WBC Clumps Ur Squamous Epith Cells Urine Bacteria Micro UA Comment Urine Culture Comments Blood Type Blood Type Recheck Antibody Screen 02/05/18 02/05/18 02/05/18 10:30 10:50 16:35 CBC w Diff WBC RBC Hgb Hct MCV MCH MCHC RDW Plt Count MPV Neut % (Auto) Lymph % (Auto) Clay % (Auto) Eos % (Auto) Baso % (Auto) Neut # (Auto) Lymph # (Auto) Clay # (Auto) Eos # (Auto) Baso # (Auto) WBC Differential Seg Neuts % (Manual) Lymphocytes % (Manual) Monocytes % (Manual) Abs Neuts (Manual) Differential Comment Platelet Estimate Platelet Morphology PT INR Sodium Potassium Chloride Carbon Dioxide Anion Gap BUN Creatinine Estimated GFR Random Glucose Calcium Total Bilirubin AST ALT Alkaline Phosphatase Total Creatine Kinase 197 Total Protein Albumin Ur Collection Type Clean catch Urine Color Yellow Urine Clarity Slightly cloudy Urine pH 6.0 Ur Specific [place] 1.010 Urine Protein Trace Urine Glucose (UA) Negative Urine Ketones Negative Urine Occult Blood Trace Urine Nitrate Positive H Urine Bilirubin Negative Urine Urobilinogen 1.0 Ur Leukocyte Esterase Moderate H Urine RBC 0-3 Urine WBC 0-5 Urine WBC Clumps Occasional H Ur Squamous Epith Cells 0-5 Urine Bacteria Moderate H Micro UA Comment Culture indicated Urine Culture Comments Culture indicated Blood Type O Negative Blood Type Recheck Not needed Antibody Screen Negative 02/06/18 04:40 CBC w Diff WBC RBC Hgb Hct MCV MCH MCHC RDW Plt Count MPV Neut % (Auto) Lymph % (Auto) Clay % (Auto) Eos % (Auto) Baso % (Auto) Neut # (Auto) Lymph # (Auto) Clay # (Auto) Eos # (Auto) Baso # (Auto) WBC Differential Seg Neuts % (Manual) Lymphocytes % (Manual) Monocytes % (Manual) Abs Neuts (Manual) Differential Comment Platelet Estimate Platelet Morphology PT 55.5 H D INR 5.5 Sodium Potassium Chloride Carbon Dioxide Anion Gap BUN Creatinine Estimated GFR Random Glucose Calcium Total Bilirubin AST ALT Alkaline Phosphatase Total Creatine Kinase Total Protein Albumin Ur Collection Type Urine Color Urine Clarity Urine pH Ur Specific [place] Urine Protein Urine Glucose (UA) Urine Ketones Urine Occult Blood Urine Nitrate Urine Bilirubin Urine Urobilinogen Ur Leukocyte Esterase Urine RBC Urine WBC Urine WBC Clumps Ur Squamous Epith Cells Urine Bacteria Micro UA Comment Urine Culture Comments Blood Type Blood Type Recheck Antibody Screen - Imaging Impressions Cervical Spine CT 02/05/18 10:17 CONCLUSION: 1. Extensive bilateral neck lymphadenopathy suspicious for metastatic disease or lymphoma. 2. There is a lytic bone lesion within the T3 vertebral body. 3. Multilevel degenerative disc disease throughout the cervical spine, as above. No spinal canal stenosis is identified. There areas of neural foraminal narrowing at multiple levels but is most severe on the right at C5-C6. Head CT 02/05/18 10:17 CONCLUSION: Unremarkable study. Abdomen/Pelvis CT 02/05/18 11:10 CONCLUSION: 1. 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 2. Pathological adenopathy throughout the abdomen and pelvis highly suspicious for metastatic disease. 3. Lytic lesion involving the bony structures the largest one involving the T11 vertebrae and right posterior iliac bone almost certainly metastatic. 4. Possible thrombus within main portal vein. Chest CT 02/05/18 11:10 CONCLUSION: Mass process involving the T10 vertebral body with some degree of canal encroachment which is not optimally evaluated on this conventional CT. CT myelography may be useful for correlation. At least a couple of small right lung nodules and enlarged mediastinal lymph nodes noted. Assessment and Plan - Plan 1. Supratherapeutic INR: VITAMIN k 5 MG POx1 was ordered by Dr. Singh. INR levels have come down to 5.5. maintain INR at the therapeutic level of 2.5
--- NOTE | 2018-02-06 10:18 | P.CONPAL ---
Consult Service: Palliative Care Requesting Physician: Rama Hickey Reason for Consult: a. To assist with evaluation and management of symptoms including: Pain, weakness b. To assist medical decision maker(s) with: better understanding of current medical conditions; weighing benefits/burdens of medical treatment options; making medical treatment decisions. Primary Care Provider: Alexandro Moeller MD History of Present Illness History of Present Illness: This is a very pleasant 82-year-old male who presents to [facility] p.o. with multiple falls. He does have chronic right knee weakness but is not a candidate for knee replacement. He does complain of progressive lower extremity weakness which he previously attributed to his right knee, which has significant osteoarthritic changes. He also complains of some recent urinary incontinence. He normally ambulates with a walker, lives alone but has had several falls over the last few days due to progressive knee weakness. He states he hit the right side of his head on a bench during his last fall but denies loss of consciousness. He presented to [facility] with profound lower extremity weakness. He complains of back pain secondary to immobility radiating down the right leg primarily which is relieved by repositioning and movement. He has a history of atrial fibrillation for which he takes Coumadin and his presenting INR was 9.5. He received vitamin K and repeat INR today shows 5.5. He also has a history of chronic, low-grade, lymphocytic leukemia/small lymphocytic lymphoma for which he follows with Dr. Pate, which has not required treatment. He also has a history of bladder cancer diagnosed in 1999 and underwent TURBT followed by BCG infusions within the bladder. Presenting labs showed WBC 24.4, hemoglobin 9.6, hematocrit 30.2, platelets 221 , PT 94.6, INR 9.5, sodium 138, potassium 4.5, BUN 2038, creatinine 1.40, random glucose 108, calcium 8.7, AST 32, ALT 26, alkaline phosphatase 63, total protein 6.1, albumin 2.7, urinalysis is submitted for culture, showing positive nitrite, moderate leukocyte esterase and moderate bacteria. Imaging studies were completed with CT of the cervical spine showing extensive bilateral neck lymphadenopathy suspicious for metastatic disease or lymphoma, lytic bone lesion within the T3 vertebral body, multilevel degenerative disc disease throughout the C-spine, no spinal canal stenosis identified, areas of neural foraminal narrowing at multiple levels, most severe on the right side of C5-C6. CT of the head was unremarkable. CT of the abdomen and pelvis without contrast showed a large necrotic mass in the head of the pancreas versus malignant adenopathy, pathological adenopathy throughout the abdomen and pelvis , highly suspicious for metastatic disease, lytic lesion involving the bony structures, largest involving the T11 vertebrae and right posterior iliac bone, almost certainly metastatic and possible thrombus within the main portal vein. Chest CT showed a mass process involving the T10 vertebral body with some degree of canal encroachment, not optimally evaluated on the conventional CT. CT myelography recommended. At least a couple of small right lung nodules and enlarged mediastinal lymph nodes were noted. This is an alert, oriented elderly male, sitting up in bed with his friend at bedside giving a clear history and expressing his wishes to simply. He has determined that he will accept the transfer to the [facility] to be evaluated by neurosurgery but states he "does not want to have any kind of surgery". He will consider chemotherapy and radiation for treatment if offered but states he wants to be a DO NOT RESUSCITATE status. He has identified his knees Bessy and his friend, NITHYA as his primary and secondary healthcare surrogate respectively and that paperwork has been placed on the chart. He is pending transfer at this time. Palliative care has been consulted to assist with symptom management and goals of care. . Function/Cognitive Trajectory: He lives alone and has been experiencing progressive weakness over the last few months. Initially walking with a cane he then progressed to ambulating with a walker and is now suffering recurrent falls secondary to lower extremity weakness, likely related to the metastatic processes affecting the spine. Review of the records indicate that his mentation has been intermittently diminished over his hospital course, but today he is quite clear and cognitively sharp. . Review of Systems Constitutional: Reports body ache(s), Reports fatigue, Reports weakness, Reports weight loss Ears, Nose, Mouth, and Throat: Reports poor balance Cardiovascular: Reports irregular heart rhythm, Reports leg sores Genitourinary: Reports urinary frequency (Intermittent, new onset) Musculoskeletal: Reports abnormal walking, Reports back pain, Reports muscle weakness Skin/Breast: Reports dry skin Neurologic: Reports frequent falls Hematologic/Lymphatic: Reports easy bruising PMFSH - History History Provided By: Patient - Medical History Medical History: Medical History (Last Reviewed 02/21/18 @ 09:02 by Rama Anton) A-fib Bladder cancer Bladder cancer Chronic lymphocytic leukemia Hyperlipemia Hypertension Lymphoma - Surgical History Surgical History: Surgical History (Last Reviewed 02/21/18 @ 09:02 by Rama Anton) H/O cystoscopy History of cystoscopy History of hip replacement - Family History Family History: Family History (Last Reviewed 02/15/18 @ 18:38 by Abran Gonsales MD) Other CAD (coronary artery disease) Colon cancer Stomach cancer - Tobacco History Second Hand Smoke Exposure: No Tobacco Use In Past 30 Days: No Smoking Status: Former smoker Tobacco Type: Cigarettes Packs Per Day: 0.5 Years Smoked: 15 - Alcohol History How Often Do You Have a Drink Containing Alcohol: 4 or more times a week - Substance Use History Substance History: No History of Abuse - Travel History Recent Travel in the [place] Within the Last 8 Weeks: No Recent Travel Out of the Country Within the Last 8 Weeks: No - Immunization History Tetanus Immunization: <5 Years Hx Influenza Vaccine This Season: Yes Medications and Allergies Allergies Allergy/AdvReac Type Severity Reaction Status Date / Time No Known Allergies Allergy Unknown NKA Uncoded 02/05/18 09:31 Active Medications: Active Medications Hydrocodone Bitart/Acetaminophen ([place] 7.5/325) 1 tab PO Q6H PRN PRN Reason: PAIN SCALE 1 TO 10 Al Hydroxide/Mg Hydroxide (Milk Of Magnesia Liq) 30 ml PO Q12H PRN PRN Reason: Mild Constipation Bisacodyl (Dulcolax Supp) 10 mg RECTAL DAILY PRN PRN Reason: SEVERE CONSITIPATION Ceftriaxone Sodium 1,000 mg/ (Sodium Chloride) 100 mls @ 200 mls/hr IV.SIG Q24H SORIN Lactulose (Lactulose Liq) 30 ml PO DAILY PRN PRN Reason: SEVERE CONSITIPATION Senna/Docusate Sodium (Angela-Colace) 1 tab PO BID SORIN Last Admin: 02/05/18 20:03 Dose: 1 tab Sennosides (Senokot) 17.2 mg PO Q12HR PRN PRN Reason: Moderate Constipation Temazepam (Restoril) 15 mg PO HS PRN PRN Reason: INSOMNIA Advance Directives Living Will: Unknown Healthcare Surrogate: Yes Health Care Surrogate Name and Number: Primary) Bessy Jimenez (Neice) ; NITHYA Boucher (friend) (73 Power of Inspector Agricultural Commodities: Unknown Documented care wishes: States his advanced directives are at home and not available to us at this time. He has made himself a DO NOT RESUSCITATE status. . Today's verbally stated goals: He is willing to extend his workup to evaluate possible interventions, but states he is not interested in surgical interventions. He may consider interventional radiology for kyphoplasty and chemotherapy and radiation, dependent on the results of further workup. . Family/friends goals: NITHYA, friend, at bedside supports patient's wishes. . Ethical and Legal Issues: None noted. . Physical Exam Vital Signs: Vital Signs - 24 hr 02/05/18 13:35 02/05/18 20:00 02/06/18 00:00 Temperature 98.0 F 99.4 F 99 F Pulse Rate 66 66 70 Respiratory Rate 19 18 20 Blood Pressure 111/57 L 95/45 L 98/46 L Pulse Oximetry 97 100 98 02/06/18 00:39 02/06/18 04:00 Temperature 98.9 F Pulse Rate 67 Respiratory Rate 24 Blood Pressure 128/65 100/50 L Pulse Oximetry 100 I&O: Intake & Output 02/04/18 02/05/18 02/06/18 02/07/18 06:59 06:59 06:59 06:59 Intake Total 120 / 120 Output Total 560 / 560 Balance -440 / -440 Weight 215 lb 9.793 oz 207 lb 3.752 oz Physical Exam: CONSTITUTIONAL/GENERAL: This is an adequately nourished patient, in no apparent distress. TUBES/LINES/DRAINS: PIV SKIN: No jaundice, rashes, or lesions. Ecchymoses on all extremities. Small, dressed wounds on lower extremities. Skin temperature appropriate. Not diaphoretic. HEAD: Atraumatic. Normocephalic. EYES: Pupils equal and round and reactive. Extraocular motions intact. No scleral icterus. No injection or drainage. Fundi not examined. ENT: Hearing grossly normal. Nose without bleeding or purulent drainage. Throat without visible erythema, exudates, masses, or lesions. NECK: Trachea midline. Supple, nontender. No palpable thyroid enlargement or nodularity. CARDIOVASCULAR: S1, S2, irregular rhythm, controlled rate, 2/6 systolic ejection murmur, no rub no gallop. Pacer spikes seen on bedside EKG monitoring. No JVD. Peripheral pulses symmetric. RESPIRATORY/CHEST: Symmetric, unlabored respirations. Clear to auscultation. Breath sounds equal bilaterally. No wheezes, rales, or rhonchi. GASTROINTESTINAL: Abdomen soft, non-tender, nondistended. No hepato-splenomegaly , or palpable masses. No guarding. Bowel sounds present. GENITOURINARY: Without palpable bladder distension. Escobedo catheter in place. MUSCULOSKELETAL: Extremities without clubbing, cyanosis, or edema. Lower extremity skin darkened with bruising and chronic vascular changes. No mottling or clubbing. LYMPHATICS: Palpable cervical adenopathy. NEUROLOGICAL: Awake and alert. Motor and sensory grossly within normal limits. Follows commands. Cognitively sharp. Moves all extremities. PSYCHIATRIC: No obvious anxiety/depression. no apparent hallucinations or other psychotic thought process. . Diagnostic Tests Laboratory: Laboratory Results - last 72 hr 02/05/18 02/05/18 02/05/18 10:30 10:30 10:30 CBC w Diff Slide review pending WBC 24.4 H RBC 3.53 L Hgb 9.6 L Hct 30.2 L MCV 85.4 MCH 27.3 MCHC 32.0 RDW 14.1 Plt Count 221 MPV 8.2 Neut % (Auto) 55.1 Lymph % (Auto) 35.6 [place] % (Auto) 6.5 Eos % (Auto) 0.6 Baso % (Auto) 2.2 H Neut # (Auto) 13.5 H Lymph # (Auto) 8.7 H [place] # (Auto) 1.6 H Eos # (Auto) 0.1 Baso # (Auto) 0.5 H WBC Differential Manual diff final Seg Neuts % (Manual) 49 Lymphocytes % (Manual) 48 H Monocytes % (Manual) 3 Abs Neuts (Manual) 12.0 H Differential Comment . Platelet Estimate Normal Platelet Morphology Normal PT 94.6 H INR 9.5 H* Sodium 138 Potassium 4.5 Chloride 103 Carbon Dioxide 23.6 Anion Gap 11 BUN 38 H Creatinine 1.40 H Estimated GFR 49 L Random Glucose 108 H Calcium 8.7 Total Bilirubin 0.8 AST 32 ALT 26 Alkaline Phosphatase 63 Total Creatine Kinase Total Protein 6.1 L Albumin 2.7 L Ur Collection Type Urine Color Urine Clarity Urine pH Ur Specific [place] Urine Protein Urine Glucose (UA) Urine Ketones Urine Occult Blood Urine Nitrate Urine Bilirubin Urine Urobilinogen Ur Leukocyte Esterase Urine RBC Urine WBC Urine WBC Clumps Ur Squamous Epith Cells Urine Bacteria Micro UA Comment Urine Culture Comments Blood Type Blood Type Recheck Antibody Screen 02/05/18 02/05/18 02/05/18 10:30 10:50 16:35 CBC w Diff WBC RBC Hgb Hct MCV MCH MCHC RDW Plt Count MPV Neut % (Auto) Lymph % (Auto) [place] % (Auto) Eos % (Auto) Baso % (Auto) Neut # (Auto) Lymph # (Auto) [place] # (Auto) Eos # (Auto) Baso # (Auto) WBC Differential Seg Neuts % (Manual) Lymphocytes % (Manual) Monocytes % (Manual) Abs Neuts (Manual) Differential Comment Platelet Estimate Platelet Morphology PT INR Sodium Potassium Chloride Carbon Dioxide Anion Gap BUN Creatinine Estimated GFR Random Glucose Calcium Total Bilirubin AST ALT Alkaline Phosphatase Total Creatine Kinase 197 Total Protein Albumin Ur Collection Type Clean catch Urine Color Yellow Urine Clarity Slightly cloudy Urine pH 6.0 Ur Specific [place] 1.010 Urine Protein Trace Urine Glucose (UA) Negative Urine Ketones Negative Urine Occult Blood Trace Urine Nitrate Positive H Urine Bilirubin Negative Urine Urobilinogen 1.0 Ur Leukocyte Esterase Moderate H Urine RBC 0-3 Urine WBC 0-5 Urine WBC Clumps Occasional H Ur Squamous Epith Cells 0-5 Urine Bacteria Moderate H Micro UA Comment Culture indicated Urine Culture Comments Culture indicated Blood Type O Negative Blood Type Recheck Not needed Antibody Screen Negative 02/06/18 04:40 CBC w Diff WBC RBC Hgb Hct MCV MCH MCHC RDW Plt Count MPV Neut % (Auto) Lymph % (Auto) [place] % (Auto) Eos % (Auto) Baso % (Auto) Neut # (Auto) Lymph # (Auto) [place] # (Auto) Eos # (Auto) Baso # (Auto) WBC Differential Seg Neuts % (Manual) Lymphocytes % (Manual) Monocytes % (Manual) Abs Neuts (Manual) Differential Comment Platelet Estimate Platelet Morphology PT 55.5 H D INR 5.5 Sodium Potassium Chloride Carbon Dioxide Anion Gap BUN Creatinine Estimated GFR Random Glucose Calcium Total Bilirubin AST ALT Alkaline Phosphatase Total Creatine Kinase Total Protein Albumin Ur Collection Type Urine Color Urine Clarity Urine pH Ur Specific [place] Urine Protein Urine Glucose (UA) Urine Ketones Urine Occult Blood Urine Nitrate Urine Bilirubin Urine Urobilinogen Ur Leukocyte Esterase Urine RBC Urine WBC Urine WBC Clumps Ur Squamous Epith Cells Urine Bacteria Micro UA Comment Urine Culture Comments Blood Type Blood Type Recheck Antibody Screen Result Diagrams: 02/21/18 09:02 02/21/18 09:02 Imaging: Cervical Spine CT 02/05/18 10:17 CONCLUSION: 1. Extensive bilateral neck lymphadenopathy suspicious for metastatic disease or lymphoma. 2. There is a lytic bone lesion within the T3 vertebral body. 3. Multilevel degenerative disc disease throughout the cervical spine, as above. No spinal canal stenosis is identified. There areas of neural foraminal narrowing at multiple levels but is most severe on the right at C5-C6. Head CT 02/05/18 10:17 CONCLUSION: Unremarkable study. Abdomen/Pelvis CT 02/05/18 11:10 CONCLUSION: 1. 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 2. Pathological adenopathy throughout the abdomen and pelvis highly suspicious for metastatic disease. 3. Lytic lesion involving the bony structures the largest one involving the T11 vertebrae and right posterior iliac bone almost certainly metastatic. 4. Possible thrombus within main portal vein. Chest CT 02/05/18 11:10 CONCLUSION: Mass process involving the T10 vertebral body with some degree of canal encroachment which is not optimally evaluated on this conventional CT. CT myelography may be useful for correlation. At least a couple of small right lung nodules and enlarged mediastinal lymph nodes noted. Patient/Family Conference Present at Family Conference: Spoke with patient and his friend NITHYA at bedside. Reviewed palliative care purpose and focus, as well as below listed items. Patient stated that he did have all of his advanced directives in order at home. I did explain that we did not have access to that information and that a healthcare surrogate completion during hospitalization would ensure that those he chose would be his decision makers, rather than defaulting to [facility] statutes hierarchy for decision-makers. Patient was agreeable to complete the form which was done with his nurse, Freddy. Patient did state that as of yesterday he was unclear about his goals but after consideration overnight, he was in agreement with transfer to the [facility] for evaluation by neurosurgery and to hear their recommendations as well as further oncology workup. Per my discussion with Dr. Hickey, that transfer has been requested and is pending. Palliative care contact information was provided to the patient for any further questions or concerns. Patient advised that we would follow him once transferred to the [facility]. . Issues Discussed: * Palliative care role, purpose, approach * Additional medical, psychosocial, and spiritual history * Patients general health, functional status, and cognitive changes in the months leading up to the current hospitalization * Patient/family understanding of the current medical problems * Patient/family understanding of prognosis * Patients goals of care as best understood from advance directives and/or conversations and/or values * Current medical treatment options and benefits/burdens of those options * Likely scenarios comparing ongoing aggressive care with a transition to comfort measures only * Questions answered to the best of my ability * Palliative care contact information provided Assessment and Plan Pertinent Non-Medical Issues: Psychosocial: He was born in [facility] and moved to [place] in 1994 for better weather. He retired from the [employer], where he worked most of his life. He was previously but now . He has no children. His parents and his siblings are . 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 Legal: Healthcare surrogate form has been completed naming his niece, Bessy Jimenez , as primary and Gerardo Boucher as secondary. Ethical issues impacting care: None noted. . Important Contacts: Niece: Bessy Jimenez , Friend: Gerardo Boucher . Prognosis: His prognosis is guarded. He has progressive weakness in his spine and imaging studies show multiple nearly certain metastatic lesions affecting the spinal column as well as a mass in the pancreas and widespread lymphadenopathy, which may be related to his CLL or metastatic malignancy. While he is willing to undergo chemotherapy and radiation, he is unwilling to undergo surgery. Given the comorbidities and his current state of debility, he is likely to suffer further decline and complications. Further workup planned once transferred to the [facility] which may clarify the diagnosis and prognosis. . Code Status: No Code DNR Plan: PLAN: Legal decision maker: Patient is currently capacitated to make his own decisions but has completed a healthcare surrogate naming his niece, Bessy and his friend, Gerardo, as primary and alternate surrogates in case of his incapacitation. Goals: Aggressive short of resuscitation. CODE STATUS: DO NOT RESUSCITATE SYMPTOMS: * Pain: He complains of sharp intermittent pain in his back and right leg secondary to immobility which he states resolved with repositioning and movement. He has multiple wounds on his legs, right forehead and also complains of right shoulder pain status post fall. He has hydrocodone/ acetaminophen 7.5/325 mg available every 6 hours as needed. He has taken no doses thus far. * Weakness: Likely secondary to spinal compression related to metastatic process. He is being transferred to [facility] for neurosurgery evaluation but is at this time declining any surgical interventions. He would consider kyphoplasty but does not wish surgery at this time. Without surgery this is likely to be progressive and debilitating. SUMMARY This is an 82-year-old male with a history of CLL, chronically monitored by Dr. Pate, not under active treatment at this time. He now presents with progressive weakness, pancreatic mass, widespread lymphadenopathy and destructive lesions of the spine, highly suspicious for metastasis. He is willing to undergo further workup to determine if chemotherapy and radiation are viable options, once further evaluated by oncology, but is unwilling to proceed with surgery at this time. Prognosis is guarded pending further oncology workup and possible biopsy to further delineate the type of cancer and any potential treatments. . Palliative care will continue to follow the patient during hospital course as condition evolves, to assist patient/decision-maker with understanding of their medical conditions, weighing benefits/burdens of treatment options, for clarification of goals of treatment. Additionally will assist with any symptoms of palliative concern. . Appreciation Thank you for the opportunity to participate in the care of Alen Fish. Attestation Collaborating Comments: Chart reviewed. Case discussed with palliative care FAMILY SERVICES SPECIALIST. Above FAMILY SERVICES SPECIALIST note reviewed and I concur. . Attestation: To help prompt me to consider important information that might be impacting today's encounter and assessment, information from prior notes written by myself or my colleagues may have been "brought forward" into today's note. My signature on this note, however, is an attestation that I personally performed the exam, history, and/or decision-making noted today, and, unless otherwise indicated, the interactions with patient, family, and staff as well as the review of records all occurred today. I also attest that the listed assessment and stated plan reflect my best clinical judgment today based on the combination of historical information, prior notes, and today's exam/ interactions. When time spent is documented, it refers only to time spent today by the signer, or if indicated, combined time spent today by collaborating physician/nurse practitioner. .
--- NOTE | 2018-02-06 10:34 | P.PNIM ---
Subjective Interval history: Patient seen and evaluated in follow-up for new possibly metastatic lesions, back pain and elevated INR. No bleeding overnight. Hemoglobin is stable, INR is 5.5 after vitamin K. Patient is now agreeable to further evaluation and possible treatment at the main hospital. Hematology oncology down palliative care. Patient reports some pain and was educated on as needed administration of medications by nursing staff. Care plan discussed with SCREENING NURSE Physical Exam Vital signs: Vital Signs 02/05/18 13:35 02/05/18 20:00 02/06/18 00:00 Temperature 98.0 F 99.4 F 99 F Pulse Rate 66 66 70 Respiratory Rate 19 18 20 Blood Pressure 111/57 L 95/45 L 98/46 L Pulse Oximetry 97 100 98 02/06/18 00:39 02/06/18 04:00 Temperature 98.9 F Pulse Rate 67 Respiratory Rate 24 Blood Pressure 128/65 100/50 L Pulse Oximetry 100 Intake & Output 02/05/18 02/06/18 02/06/18 18:59 06:59 18:59 Intake Total 120 / 120 Output Total 360 / 360 200 / 200 Balance -360 / -360 -80 / -80 Weight 97.8 kg 94 kg Intake: Oral 120 / 120 Output: Urine 360 / 360 200 / 200 Other: # Incontinent Voids 2 Results - Labs CBC & Chem 7: 02/05/18 10:30 02/05/18 10:30 Laboratory Results - last 24 hr 02/05/18 02/05/18 02/05/18 10:30 10:30 10:30 CBC w Diff Slide review pending WBC 24.4 H RBC 3.53 L Hgb 9.6 L Hct 30.2 L MCV 85.4 MCH 27.3 MCHC 32.0 RDW 14.1 Plt Count 221 MPV 8.2 Neut % (Auto) 55.1 Lymph % (Auto) 35.6 Wood % (Auto) 6.5 Eos % (Auto) 0.6 Baso % (Auto) 2.2 H Neut # (Auto) 13.5 H Lymph # (Auto) 8.7 H Wood # (Auto) 1.6 H Eos # (Auto) 0.1 Baso # (Auto) 0.5 H WBC Differential Manual diff final Seg Neuts % (Manual) 49 Lymphocytes % (Manual) 48 H Monocytes % (Manual) 3 Abs Neuts (Manual) 12.0 H Differential Comment . Platelet Estimate Normal Platelet Morphology Normal PT 94.6 H INR 9.5 H* Sodium 138 Potassium 4.5 Chloride 103 Carbon Dioxide 23.6 Anion Gap 11 BUN 38 H Creatinine 1.40 H Estimated GFR 49 L Random Glucose 108 H Calcium 8.7 Total Bilirubin 0.8 AST 32 ALT 26 Alkaline Phosphatase 63 Total Creatine Kinase Total Protein 6.1 L Albumin 2.7 L Ur Collection Type Urine Color Urine Clarity Urine pH Ur Specific [place] Urine Protein Urine Glucose (UA) Urine Ketones Urine Occult Blood Urine Nitrate Urine Bilirubin Urine Urobilinogen Ur Leukocyte Esterase Urine RBC Urine WBC Urine WBC Clumps Ur Squamous Epith Cells Urine Bacteria Micro UA Comment Urine Culture Comments Blood Type Blood Type Recheck Antibody Screen 02/05/18 02/05/18 02/05/18 10:30 10:50 16:35 CBC w Diff WBC RBC Hgb Hct MCV MCH MCHC RDW Plt Count MPV Neut % (Auto) Lymph % (Auto) Wood % (Auto) Eos % (Auto) Baso % (Auto) Neut # (Auto) Lymph # (Auto) Wood # (Auto) Eos # (Auto) Baso # (Auto) WBC Differential Seg Neuts % (Manual) Lymphocytes % (Manual) Monocytes % (Manual) Abs Neuts (Manual) Differential Comment Platelet Estimate Platelet Morphology PT INR Sodium Potassium Chloride Carbon Dioxide Anion Gap BUN Creatinine Estimated GFR Random Glucose Calcium Total Bilirubin AST ALT Alkaline Phosphatase Total Creatine Kinase 197 Total Protein Albumin Ur Collection Type Clean catch Urine Color Yellow Urine Clarity Slightly cloudy Urine pH 6.0 Ur Specific [place] 1.010 Urine Protein Trace Urine Glucose (UA) Negative Urine Ketones Negative Urine Occult Blood Trace Urine Nitrate Positive H Urine Bilirubin Negative Urine Urobilinogen 1.0 Ur Leukocyte Esterase Moderate H Urine RBC 0-3 Urine WBC 0-5 Urine WBC Clumps Occasional H Ur Squamous Epith Cells 0-5 Urine Bacteria Moderate H Micro UA Comment Culture indicated Urine Culture Comments Culture indicated Blood Type O Negative Blood Type Recheck Not needed Antibody Screen Negative 02/06/18 04:40 CBC w Diff WBC RBC Hgb Hct MCV MCH MCHC RDW Plt Count MPV Neut % (Auto) Lymph % (Auto) Wood % (Auto) Eos % (Auto) Baso % (Auto) Neut # (Auto) Lymph # (Auto) Wood # (Auto) Eos # (Auto) Baso # (Auto) WBC Differential Seg Neuts % (Manual) Lymphocytes % (Manual) Monocytes % (Manual) Abs Neuts (Manual) Differential Comment Platelet Estimate Platelet Morphology PT 55.5 H D INR 5.5 Sodium Potassium Chloride Carbon Dioxide Anion Gap BUN Creatinine Estimated GFR Random Glucose Calcium Total Bilirubin AST ALT Alkaline Phosphatase Total Creatine Kinase Total Protein Albumin Ur Collection Type Urine Color Urine Clarity Urine pH Ur Specific [place] Urine Protein Urine Glucose (UA) Urine Ketones Urine Occult Blood Urine Nitrate Urine Bilirubin Urine Urobilinogen Ur Leukocyte Esterase Urine RBC Urine WBC Urine WBC Clumps Ur Squamous Epith Cells Urine Bacteria Micro UA Comment Urine Culture Comments Blood Type Blood Type Recheck Antibody Screen - Imaging Impressions Cervical Spine CT 02/05/18 10:17 CONCLUSION: 1. Extensive bilateral neck lymphadenopathy suspicious for metastatic disease or lymphoma. 2. There is a lytic bone lesion within the T3 vertebral body. 3. Multilevel degenerative disc disease throughout the cervical spine, as above. No spinal canal stenosis is identified. There areas of neural foraminal narrowing at multiple levels but is most severe on the right at C5-C6. Head CT 02/05/18 10:17 CONCLUSION: Unremarkable study. Abdomen/Pelvis CT 02/05/18 11:10 CONCLUSION: 1. 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 2. Pathological adenopathy throughout the abdomen and pelvis highly suspicious for metastatic disease. 3. Lytic lesion involving the bony structures the largest one involving the T11 vertebrae and right posterior iliac bone almost certainly metastatic. 4. Possible thrombus within main portal vein. Chest CT 02/05/18 11:10 CONCLUSION: Mass process involving the T10 vertebral body with some degree of canal encroachment which is not optimally evaluated on this conventional CT. CT myelography may be useful for correlation. At least a couple of small right lung nodules and enlarged mediastinal lymph nodes noted. Assessment and Plan - Assessment (1) Acute UTI Code(s): N39.0 - Urinary tract infection, site not specified Status: Acute Plan: rocephin, follow cultures (2) Portal vein thrombosis Code(s): I81 - Portal vein thrombosis Status: Acute Plan: Currently anticoagulated with Coumadin, INR 5.5 after vitamin K Goal 2.5 Coumadin diagnosis atrial fibrillation (3) Supratherapeutic INR Code(s): R79.1 - Abnormal coagulation profile Status: Acute Plan: Etiology unclear from hypermetabolic status due to malignancy Hold warfarin for now and follow up INR, vitamin K per hematology Patient does have a portal vein thrombus which will require anticoagulation (4) Multiple falls Code(s): R29.6 - Repeated falls Status: Acute Plan: Worrisome due to recent urinary incontinence, with new vertebral metastases (T10 , T11, T3), patient denies lower extremity pain but has back pain and has chronic osteoarthritis of the right knee May be a candidate for neurosurgical intervention versus kyphoplasty Cord impingement concerning Follow-up neurosurgery, consult pending Possible IR for biopsy (5) Afib Code(s): I48.91 - Unspecified atrial fibrillation Status: Acute Plan: Currently controlled on metoprolol, warfarin held due to elevated INR (6) HTN (hypertension) Code(s): I10 - Essential (primary) hypertension Status: Acute Plan: stable on HCTZ, lisinopril, metoprolol (7) Lymphoma Code(s): C85.90 - Non-Hodgkin lymphoma, unspecified, unspecified site Status: Acute Plan: History of stable lymphoma under observation, also history of bladder cancer Patient leukocytosis may be due to dehydration versus acute phase reaction from urinary tract infection Follow closely (8) Multiple lesions of metastatic malignancy Code(s): C79.9 - Secondary malignant neoplasm of unspecified site Status: Acute Plan: Rule out metastatic malignancy to bone (possible pancreatic, prostatic versus plasma cell source) workup in progress, oncology consult appreciated Continue with palliative care care consult to help plan goals of care Continue with hydrocodone for pain as needed Patient agreeable to exploring options of treatment - Plan Discharge Planning: Transfer to main hospital for further evaluation by neurosurgery and possible vertebral biopsy when INR improved
[2018-02-06] MEDS: Senna/Docusate Sodium 8.6/50 MG Tablet PO SCH ×2 (11:13→21:06)
[2018-02-07 03:29] LABS: Free PSA/PSA Ratio 0.26 ratio
[2018-02-07 04:39] LABS: Hematocrit 28.3 % (39.0-51.0); Hemoglobin 8.8 gm/dL (13.0-17.0); Mean Corpuscular HGB Conc 31.2 % (32.0-36.0); Mean Corpuscular Hemoglobin 26.8 pg (27.0-34.0); Mean Corpuscular Volume 85.8 fL (80.0-100.0); Mean Platelet Volume 8.3 fL (7.0-11.0); Platelet Count 193 th/mm3 (150-450); Red Cell Distribution Width 13.8 % (11.6-17.2)
[2018-02-07 04:50] LABS: Potassium 4.3 meq/L (3.5-5.1)
[2018-02-07 04:52] LABS: INR 1.7 Ratio; Prothrombin Time 17.6 sec (9.8-11.6)
[2018-02-07 04:53] LABS: Calcium 8.5 mg/dL (8.5-10.1); Carbon Dioxide 25.7 meq/L (21.0-32.0)
[2018-02-07] MEDS: Senna/Docusate Sodium 8.6/50 MG Tablet PO SCH ×2 (09:24→20:28)
[2018-02-07] MEDS ORDERED: Heparin Drip 25,000 UNIT/250 ML BAG IV.CONT PRN (10:02)
[2018-02-07 11:21] LABS: Hematocrit 28.2 % (39.0-51.0); Hemoglobin 9.3 gm/dL (13.0-17.0); Mean Corpuscular Hemoglobin 27.9 pg (27.0-34.0); Mean Corpuscular Volume 84.6 fL (80.0-100.0); Mean Platelet Volume 8.5 fL (7.0-11.0); Platelet Count 197 th/mm3 (150-450); Red Blood Count 3.33 mil/mm3 (4.50-5.90); Red Cell Distribution Width 13.9 % (11.6-17.2); White Blood Count 19.3 th/mm3 (4.0-11.0)
--- NOTE | 2018-02-07 11:36 | P.PNIM ---
Subjective Interval history: Seen and evaluated in follow-up for possible spinal metastatic lesions. Continue with plans for diagnostic studies and treatment modalities per hematology INR improved 1.7. No active bleeding. Physical Exam Vital signs: Vital Signs 02/06/18 12:00 02/06/18 13:29 02/06/18 15:54 Temperature 99.3 F 98.2 F Pulse Rate 72 66 Respiratory Rate 25 H 31 H 28 H Blood Pressure 107/58 L Pulse Oximetry 95 97 02/06/18 16:00 02/06/18 20:00 02/06/18 21:07 Temperature 99 F Pulse Rate 72 67 Respiratory Rate 20 22 Blood Pressure 102/50 L Pulse Oximetry 93 L 02/07/18 00:00 02/07/18 04:00 02/07/18 08:00 Temperature 97.9 F 98.3 F 98.4 F Pulse Rate 65 69 76 Respiratory Rate 20 18 18 Blood Pressure 97/46 L 101/49 L 107/67 Pulse Oximetry 100 Intake & Output 02/06/18 02/07/18 02/07/18 18:59 06:59 18:59 Intake Total 940 / 940 240 / 240 Output Total 620 / 620 400 / 400 Balance 320 / 320 -160 / -160 Weight 94 kg 95.3 kg Intake: IV 700 / 700 Rocephin Inj 1,000 MG In NS Inj 100 / 100 100 ML @ 200 mls/hr IV.SIG Q24H SORIN Rx#:[id number] Oral 240 / 240 240 / 240 Output: Urine 620 / 620 400 / 400 Other: # Bowel Movements 0 0 Narrative: GENERAL: Patient calm resting and without complaints SKIN: Multiple ecchymotic skin EYES: Pupils equal and round. No scleral icterus. No injection or drainage. ENT: External ear exam normal. No acute nasal bleeding or discharge. Mucous membranes pink and moist. CARDIOVASCULAR: Regular rate and rhythm. No murmurs gallops or rubs appreciated RESPIRATORY: Good air flow and effort without accessory muscle use. Clear to auscultation. Breath sounds equal bilaterally. GASTROINTESTINAL: Abdomen soft, non-tender, nondistended. Hepatic and splenic margins not palpable. MUSCULOSKELETAL: Extremities without clubbing, cyanosis, or edema. No obvious deformities. NEUROLOGICAL: Awake and alert. No obvious cranial nerve deficits. Motor grossly within normal limits. 3 out of 5 muscle strength in the arms and legs. Normal speech. Results - Labs CBC & Chem 7: 02/07/18 11:07 02/07/18 04:15 Laboratory Results - last 24 hr 02/05/18 02/06/18 02/06/18 10:50 04:40 04:40 WBC RBC Hgb Hct MCV MCH MCHC RDW Plt Count MPV PT INR Sodium Potassium Chloride Carbon Dioxide Anion Gap BUN Creatinine Estimated GFR Random Glucose Calcium CA 19-9 Antigen Less than 1.2 Free PSA 1.1 Total PSA 4.3 PSA Free/Total Ratio 0.26 Ur Collection Type Clean catch Urine Color Yellow Urine Clarity Slightly cloudy Urine pH 6.0 Ur Specific [place] 1.010 Urine Protein Trace Urine Glucose (UA) Negative Urine Ketones Negative Urine Occult Blood Trace Urine Nitrate Positive H Urine Bilirubin Negative Urine Urobilinogen 1.0 Ur Leukocyte Esterase Moderate H Urine RBC 0-3 Urine WBC 0-5 Urine WBC Clumps Occasional H Ur Squamous Epith Cells 0-5 Urine Bacteria Moderate H Micro UA Comment Culture indicated Urine Culture Comments Culture indicated 02/07/18 02/07/18 02/07/18 04:15 04:15 04:15 WBC 21.0 H RBC 3.30 L Hgb 8.8 L Hct 28.3 L MCV 85.8 MCH 26.8 L MCHC 31.2 L RDW 13.8 Plt Count 193 MPV 8.3 PT 17.6 H D INR 1.7 Sodium 140 Potassium 4.3 Chloride 107 Carbon Dioxide 25.7 Anion Gap 7 BUN 26 H Creatinine 1.10 Estimated GFR 64 L Random Glucose 102 Calcium 8.5 CA 19-9 Antigen Free PSA Total PSA PSA Free/Total Ratio Ur Collection Type Urine Color Urine Clarity Urine pH Ur Specific [place] Urine Protein Urine Glucose (UA) Urine Ketones Urine Occult Blood Urine Nitrate Urine Bilirubin Urine Urobilinogen Ur Leukocyte Esterase Urine RBC Urine WBC Urine WBC Clumps Ur Squamous Epith Cells Urine Bacteria Micro UA Comment Urine Culture Comments 02/07/18 11:07 WBC 19.3 H RBC 3.33 L Hgb 9.3 L Hct 28.2 L MCV 84.6 MCH 27.9 MCHC 33.0 RDW 13.9 Plt Count 197 MPV 8.5 PT INR Sodium Potassium Chloride Carbon Dioxide Anion Gap BUN Creatinine Estimated GFR Random Glucose Calcium CA 19-9 Antigen Free PSA Total PSA PSA Free/Total Ratio Ur Collection Type Urine Color Urine Clarity Urine pH Ur Specific [place] Urine Protein Urine Glucose (UA) Urine Ketones Urine Occult Blood Urine Nitrate Urine Bilirubin Urine Urobilinogen Ur Leukocyte Esterase Urine RBC Urine WBC Urine WBC Clumps Ur Squamous Epith Cells Urine Bacteria Micro UA Comment Urine Culture Comments Microbiology 02/05/18 10:50 Clean Catch Urine Urine Culture - Final Klebsiella oxytoca Assessment and Plan - Assessment (1) Acute UTI Code(s): N39.0 - Urinary tract infection, site not specified Status: Acute Plan: Klebsiella oxytoca Bactrim twice daily (2) Portal vein thrombosis Code(s): I81 - Portal vein thrombosis Status: Acute Plan: Currently anticoagulated with Coumadin, INR 1.5 after vitamin K Goal 2.5, add heparin gtt Coumadin diagnosis atrial fibrillation, portal vein thrombosis (3) Supratherapeutic INR Code(s): R79.1 - Abnormal coagulation profile Status: Acute Plan: s/p vit k per hematology (4) Multiple falls Code(s): R29.6 - Repeated falls Status: Acute Plan: Worrisome due to recent urinary incontinence, with new vertebral metastases (T10 , T11, T3), patient denies lower extremity pain but has back pain and has chronic osteoarthritis of the right knee May be a candidate for neurosurgical intervention versus kyphoplasty Cord impingement concerning Follow-up neurosurgery, consult pending Possible IR for biopsy (5) Afib Code(s): I48.91 - Unspecified atrial fibrillation Status: Acute Plan: Currently controlled on metoprolol, warfarin held due to elevated INR (6) HTN (hypertension) Code(s): I10 - Essential (primary) hypertension Status: Acute Plan: stable on HCTZ, lisinopril, metoprolol (7) Lymphoma Code(s): C85.90 - Non-Hodgkin lymphoma, unspecified, unspecified site Status: Acute Plan: History of stable lymphoma under observation, also history of bladder cancer Patient leukocytosis may be due to dehydration versus acute phase reaction from urinary tract infection Follow closely (8) Multiple lesions of metastatic malignancy Code(s): C79.9 - Secondary malignant neoplasm of unspecified site Status: Acute Plan: Rule out metastatic malignancy to bone (possible pancreatic, prostatic versus plasma cell source) workup in progress, oncology consult appreciated Continue with palliative care care consult to help plan goals of care Continue with hydrocodone for pain as needed Patient agreeable to exploring options of treatment - Plan Discharge Planning: Transfer to [facility] for further evaluation by neurosurgery and possible vertebral biopsy when INR improved
[2018-02-07 11:40] LABS: Activated Partial Thrombo Time 38.7 sec (24.3-30.1); INR 1.7 Ratio; Prothrombin Time 16.7 sec (9.8-11.6)
--- NOTE | 2018-02-07 12:23 | P.DIET ---
Nutritional Evaluation Type of nutrition evaluation: initial Nutrition screening: Weight Loss > 10 lbs Screening comments: 15-lb loss in the last 10-months Subjective Subjective Comments: Pt reports a good appetite. PO intake 100% for breakfast today. Objective - Diagnosis Metastatic Pancreatic Cancer, ABRAHAN, UTI, Supratherapeutic INR - Objective Shell body weight: 75.5 kg (166-lb) % IBW: 125 Body Weight Used for Calculations: IBW Energy Needs - Lower Range (kCal/kg): 25 Energy Needs - Upper Range (kCal/kg): 30 Lower Limit kCal/kg (kCals): 1,886 Upper Limit kCal/kg (kCals): 2,265 Lower Limit Protein Factor (Grams per Kg): 1.1 Upper Limit Protein Factor (Grams per Kg): 1.4 Lower Protein Needs (Protein): 83 Upper Protein Needs (Protein): 106 Fluid Factor (ml/kg): 30 Estimated Fluid Needs (ml): 2,265 Dietitian Reviewed in Medical Record: Current diet, Curent medications, Intake & Output, Labs, Medical history Diet Order: Regular Oral Diet Intake Amount: Good 75-90% Objective Comments: PMH: AFib, HTN, hyperlipidemia, bladder cancer, lymphocytic leukemia/small lymphocytic lymphoma -BM, -UOP 1020ml Assessment Assessment: Pt is at nutritional risk r/t diagnosis and recent unintentional wt loss. Adequate po intake 50% or greater for meals here. Assess need for a nutritional supplement as appropriate. Labs reviewed. Dietitian will follow. Recommendations: 1. Assess need for a nutritional supplement as appropriate 2. Dietitian will follow Dietitian to Monitor: Lab values, Intake & Output, Weight change, PO Intake, Medical course
[2018-02-08 06:08] LABS: Hematocrit 28.1 % (39.0-51.0); Hemoglobin 8.7 gm/dL (13.0-17.0); Mean Corpuscular HGB Conc 31.1 % (32.0-36.0); Mean Corpuscular Hemoglobin 26.4 pg (27.0-34.0); Mean Corpuscular Volume 84.7 fL (80.0-100.0); Mean Platelet Volume 8.3 fL (7.0-11.0); Platelet Count 180 th/mm3 (150-450); Red Blood Count 3.31 mil/mm3 (4.50-5.90); Red Cell Distribution Width 14.8 % (11.6-17.2)
[2018-02-08 06:14] LABS: INR 1.7 Ratio; Prothrombin Time 17.4 sec (9.8-11.6)
[2018-02-08] MEDS: hydroCHLOROthiazide 25 MG Tablet PO SCH (08:43)
[2018-02-08] MEDS: Lisinopril 10 MG Tablet PO SCH (08:43)
[2018-02-08] MEDS: Senna/Docusate Sodium 8.6/50 MG Tablet PO SCH ×2 (08:43→23:59)
--- NOTE | 2018-02-08 12:59 | P.PN ---
Physical Exam Vital signs: Vital Signs 02/07/18 16:00 02/07/18 17:31 02/07/18 20:00 Temperature 98.2 F 98.6 F 98.7 F Pulse Rate 78 86 74 Respiratory Rate 18 18 Blood Pressure 115/56 L 119/65 119/64 Pulse Oximetry 98 94 L 97 02/08/18 00:00 02/08/18 04:00 02/08/18 08:00 Temperature 99 F 98.3 F 99.7 F H Pulse Rate 79 63 79 Respiratory Rate 16 16 18 Blood Pressure 163/77 H 138/75 116/60 Pulse Oximetry 98 94 L 97 Intake & Output 02/07/18 02/08/18 02/08/18 18:59 06:59 18:59 Intake Total 280 / 280 480 / 480 Output Total 475 / 475 300 / 300 Balance -195 / -195 180 / 180 Weight 93.7 kg Intake: IV 40 / 40 Heparin/D5W 25,000 U/250 mL 25, 40 / 40 000 unit In 250 ml @ Per Protocol IV.CONT TITRATE PRN Rx #:[id number] Oral 240 / 240 480 / 480 Output: Urine 475 / 475 300 / 300 Other: # Voids 3 Date of Last Bowel Movement 02/03/18 02/01/18 Narrative: Subjective Interval history: Follow-up for possible spinal metastatic lesions. The patient is in bed he does not appear in acute distress he says he feels fairly well. Patient complains of back pain and thinks his arthritis and does not believe his anything else however wants further workup. No radiculopathy. Continue with plans for diagnostic studies and treatment modalities per hematology. Patient denies any fever or chills. No nausea or vomiting no diarrhea or constipation. No active bleeding. Physical Exam GENERAL: Patient calm resting and without complaints SKIN: Multiple ecchymotic skin CARDIOVASCULAR: Regular rate and rhythm. No murmurs gallops or rubs appreciated RESPIRATORY: Good air flow and effort without accessory muscle use. Clear to auscultation. Breath sounds equal bilaterally. GASTROINTESTINAL: Abdomen soft, non-tender, nondistended. Hepatic and splenic margins not palpable. MUSCULOSKELETAL: Extremities without clubbing, cyanosis, or edema. No obvious deformities. NEUROLOGICAL: Awake and alert. No obvious cranial nerve deficits. Motor grossly within normal limits. 3 out of 5 muscle strength in the arms and legs. Normal speech. Assessment and Plan (1) Acute UTI Code(s): N39.0 - Urinary tract infection, site not specified Status: Acute Plan: Klebsiella oxytoca Bactrim twice daily (2) Portal vein thrombosis Code(s): I81 - Portal vein thrombosis Status: Acute Plan: Currently anticoagulated with Coumadin, INR 1.5 after vitamin K Goal 2.5, add heparin gtt Coumadin diagnosis atrial fibrillation, portal vein thrombosis (3) Supratherapeutic INR Code(s): R79.1 - Abnormal coagulation profile Status: Acute Plan: s/p vit k per hematology (4) Multiple falls Code(s): R29.6 - Repeated falls Status: Acute Plan: Worrisome due to recent urinary incontinence, with new vertebral metastases (T10 , T11, T3), patient denies lower extremity pain but has back pain and has chronic osteoarthritis of the right knee May be a candidate for neurosurgical intervention versus kyphoplasty Cord impingement concerning Follow-up neurosurgery, consult pending Possible IR for biopsy (5) Afib Code(s): I48.91 - Unspecified atrial fibrillation Status: Acute Plan: Currently controlled on metoprolol, warfarin held due to elevated INR (6) HTN (hypertension) Code(s): I10 - Essential (primary) hypertension Status: Acute Plan: stable on HCTZ, lisinopril, metoprolol (7) Lymphoma Code(s): C85.90 - Non-Hodgkin lymphoma, unspecified, unspecified site Status: Acute Plan: History of stable lymphoma under observation, also history of bladder cancer Patient leukocytosis may be due to dehydration versus acute phase reaction from urinary tract infection Follow closely (8) Multiple lesions of metastatic malignancy Code(s): C79.9 - Secondary malignant neoplasm of unspecified site Status: Acute Plan: Rule out metastatic malignancy to bone (possible pancreatic, prostatic versus plasma cell source) workup in progress, oncology consult appreciated Continue with palliative care care consult to help plan goals of care Continue with hydrocodone for pain as needed Patient agreeable to exploring options of treatment Discharge Planning: Pending improvement, neurosurgery eval, poss BM Bx Results - Labs CBC & Chem 7: 02/08/18 05:40 02/07/18 04:15 Laboratory Results - last 24 hr 02/07/18 02/08/18 02/08/18 16:04 05:40 05:40 WBC 18.0 H RBC 3.31 L Hgb 8.7 L Hct 28.1 L MCV 84.7 MCH 26.4 L MCHC 31.1 L RDW 14.8 Plt Count 180 MPV 8.3 PT 17.4 H INR 1.7 APTT 35.1 H Microbiology 02/05/18 10:50 Clean Catch Urine Urine Culture - Final Klebsiella oxytoca Assessment and Plan - Assessment (1) Acute UTI Code(s): N39.0 - Urinary tract infection, site not specified Status: Acute Plan: Klebsiella oxytoca Bactrim twice daily (2) Portal vein thrombosis Code(s): I81 - Portal vein thrombosis Status: Acute Plan: Currently anticoagulated with Coumadin, INR 1.5 after vitamin K Goal 2.5, add heparin gtt Coumadin diagnosis atrial fibrillation, portal vein thrombosis (3) Supratherapeutic INR Code(s): R79.1 - Abnormal coagulation profile Status: Acute Plan: s/p vit k per hematology (4) Multiple falls Code(s): R29.6 - Repeated falls Status: Acute Plan: Worrisome due to recent urinary incontinence, with new vertebral metastases (T10 , T11, T3), patient denies lower extremity pain but has back pain and has chronic osteoarthritis of the right knee May be a candidate for neurosurgical intervention versus kyphoplasty Cord impingement concerning Follow-up neurosurgery, consult pending Possible IR for biopsy (5) Afib Code(s): I48.91 - Unspecified atrial fibrillation Status: Acute Plan: Currently controlled on metoprolol, warfarin held due to elevated INR (6) HTN (hypertension) Code(s): I10 - Essential (primary) hypertension Status: Acute Plan: stable on HCTZ, lisinopril, metoprolol (7) Lymphoma Code(s): C85.90 - Non-Hodgkin lymphoma, unspecified, unspecified site Status: Acute Plan: History of stable lymphoma under observation, also history of bladder cancer Patient leukocytosis may be due to dehydration versus acute phase reaction from urinary tract infection Follow closely (8) Multiple lesions of metastatic malignancy Code(s): C79.9 - Secondary malignant neoplasm of unspecified site Status: Acute Plan: Rule out metastatic malignancy to bone (possible pancreatic, prostatic versus plasma cell source) workup in progress, oncology consult appreciated Continue with palliative care care consult to help plan goals of care Continue with hydrocodone for pain as needed Patient agreeable to exploring options of treatment
[2018-02-08 22:24] LABS: Kappa Lambda Ratio 1.63 (1.57-3.93)
[2018-02-09 07:55] LABS: Hematocrit 29.8 % (39.0-51.0); Hemoglobin 9.3 gm/dL (13.0-17.0); Mean Corpuscular HGB Conc 31.3 % (32.0-36.0); Mean Corpuscular Hemoglobin 26.9 pg (27.0-34.0); Mean Corpuscular Volume 86.1 fL (80.0-100.0); Mean Platelet Volume 8.9 fL (7.0-11.0); Platelet Count 190 th/mm3 (150-450); Red Blood Count 3.46 mil/mm3 (4.50-5.90); Red Cell Distribution Width 14.8 % (11.6-17.2); White Blood Count 23.2 th/mm3 (4.0-11.0)
[2018-02-09 08:03] LABS: INR 1.8 Ratio; Prothrombin Time 18.5 sec (9.8-11.6)
[2018-02-09] MEDS: Senna/Docusate Sodium 8.6/50 MG Tablet PO SCH ×2 (08:26→22:04)
[2018-02-09] MEDS: Lisinopril 10 MG Tablet PO SCH (08:27)
[2018-02-09] MEDS: hydroCHLOROthiazide 25 MG Tablet PO SCH (08:27)
--- NOTE | 2018-02-09 08:49 | P.PN ---
Physical Exam Vital signs: Vital Signs 02/08/18 12:00 02/08/18 16:00 02/08/18 20:00 Temperature 98.7 F 99.1 F Pulse Rate 89 88 74 Respiratory Rate 18 18 Blood Pressure 102/50 L 106/78 Pulse Oximetry 97 100 02/08/18 21:15 02/09/18 00:00 02/09/18 04:00 Temperature 98.7 F 98.5 F Pulse Rate 68 69 65 Respiratory Rate 17 17 Blood Pressure 121/54 L 115/54 L Pulse Oximetry 100 02/09/18 04:32 02/09/18 08:00 Temperature 98.4 F 98.5 F Pulse Rate 79 69 Respiratory Rate 17 18 Blood Pressure 108/60 118/66 Pulse Oximetry 99 94 L Intake & Output 02/08/18 02/09/18 02/09/18 18:59 06:59 18:59 Intake Total 710 / 710 150 / 150 Output Total 600 / 600 450 / 450 Balance 110 / 110 -300 / -300 Weight 90.8 kg Intake: Oral 710 / 710 150 / 150 Output: Urine 600 / 600 450 / 450 Other: Date of Last Bowel Movement 02/01/18 02/09/18 # Incontinent Bowel Movements 5 Narrative: Subjective Interval history: Follow-up for possible spinal metastatic lesions. With pain in his back. No radiculopathy. Feels tired. No chest pain or shortness of breath. Physical Exam GENERAL: Patient calm resting and without complaints SKIN: Multiple ecchymotic skin CARDIOVASCULAR: Regular rate and rhythm. No murmurs gallops or rubs appreciated RESPIRATORY: Good air flow and effort without accessory muscle use. Clear to auscultation. Breath sounds equal bilaterally. GASTROINTESTINAL: Abdomen soft, non-tender, nondistended. Hepatic and splenic margins not palpable. MUSCULOSKELETAL: Extremities without clubbing, cyanosis, or edema. No obvious deformities. NEUROLOGICAL: Awake and alert. No obvious cranial nerve deficits. Motor grossly within normal limits. 3 out of 5 muscle strength in the arms and legs. Normal speech. Assessment and Plan (1) Acute UTI Code(s): N39.0 - Urinary tract infection, site not specified Status: Acute Plan: Klebsiella oxytoca Bactrim twice daily (2) Portal vein thrombosis Code(s): I81 - Portal vein thrombosis Status: Acute Plan: Currently anticoagulated with Coumadin, INR 1.5 after vitamin K Goal 2.5, add heparin gtt Coumadin diagnosis atrial fibrillation, portal vein thrombosis (3) Supratherapeutic INR Code(s): R79.1 - Abnormal coagulation profile Status: Acute Plan: s/p vit k per hematology (4) Multiple falls Code(s): R29.6 - Repeated falls Status: Acute Plan: Worrisome due to recent urinary incontinence, with new vertebral metastases (T10 , T11, T3), patient denies lower extremity pain but has back pain and has chronic osteoarthritis of the right knee May be a candidate for neurosurgical intervention versus kyphoplasty Cord impingement concerning Follow-up neurosurgery, consult pending Possible IR for biopsy (5) Afib Code(s): I48.91 - Unspecified atrial fibrillation Status: Acute Plan: Currently controlled on metoprolol, warfarin held due to elevated INR (6) HTN (hypertension) Code(s): I10 - Essential (primary) hypertension Status: Acute Plan: stable on HCTZ, lisinopril, metoprolol (7) Lymphoma Code(s): C85.90 - Non-Hodgkin lymphoma, unspecified, unspecified site Status: Acute Plan: History of stable lymphoma under observation, also history of bladder cancer Patient leukocytosis may be due to dehydration versus acute phase reaction from urinary tract infection Follow closely (8) Multiple lesions of metastatic malignancy Code(s): C79.9 - Secondary malignant neoplasm of unspecified site Status: Acute Plan: Rule out metastatic malignancy to bone (possible pancreatic, prostatic versus plasma cell source) workup in progress, oncology consult appreciated Continue with palliative care care consult to help plan goals of care Continue with hydrocodone for pain as needed Patient agreeable to exploring options of treatment Status post biopsy posterior right ilac bone by IR on 02/09/18 Discharge Planning: Pending improvement, neurosurgery eval, poss BM Bx Results - Labs CBC & Chem 7: 02/09/18 05:50 02/07/18 04:15 Laboratory Results - last 24 hr 02/06/18 02/06/18 02/09/18 04:40 04:40 05:50 WBC 23.2 H RBC 3.46 L Hgb 9.3 L Hct 29.8 L MCV 86.1 MCH 26.9 L MCHC 31.3 L RDW 14.8 Plt Count 190 MPV 8.9 PT INR Total Protein (PEP) 5.0 L Albumin (PEP) 2.79 L Albumin/Globulin Ratio 1.26 L Klobz-9-Zzyaglmuk 0.40 H Ukpge-3-Xxidweojd 0.88 Beta Globulins 0.66 Gamma Globulins 0.28 L IgG 214 L IgA 53 L IgM 17 L [place]/Lambda Ratio 1.63 [place] Light Chain Anal 52 L Lambda Light Chain Anal 32 L 02/09/18 05:50 WBC RBC Hgb Hct MCV MCH MCHC RDW Plt Count MPV PT 18.5 H INR 1.8 Total Protein (PEP) Albumin (PEP) Albumin/Globulin Ratio Kiylr-8-Arfmfitzh Hrgvp-6-Bxzvhlfxe Beta Globulins Gamma Globulins IgG IgA IgM [place]/Lambda Ratio [place] Light Chain Anal Lambda Light Chain Anal - Procedures Status post biopsy posterior right ilac bone by IR on 02/09/18 Assessment and Plan - Assessment (1) Acute UTI Code(s): N39.0 - Urinary tract infection, site not specified Status: Acute Plan: Klebsiella oxytoca Bactrim twice daily (2) Portal vein thrombosis Code(s): I81 - Portal vein thrombosis Status: Acute Plan: Currently anticoagulated with Coumadin, INR 1.5 after vitamin K Goal 2.5, add heparin gtt Coumadin diagnosis atrial fibrillation, portal vein thrombosis (3) Supratherapeutic INR Code(s): R79.1 - Abnormal coagulation profile Status: Acute Plan: s/p vit k per hematology (4) Multiple falls Code(s): R29.6 - Repeated falls Status: Acute Plan: Worrisome due to recent urinary incontinence, with new vertebral metastases (T10 , T11, T3), patient denies lower extremity pain but has back pain and has chronic osteoarthritis of the right knee May be a candidate for neurosurgical intervention versus kyphoplasty Cord impingement concerning Follow-up neurosurgery, consult pending Possible IR for biopsy (5) Afib Code(s): I48.91 - Unspecified atrial fibrillation Status: Acute Plan: Currently controlled on metoprolol, warfarin held due to elevated INR (6) HTN (hypertension) Code(s): I10 - Essential (primary) hypertension Status: Acute Plan: stable on HCTZ, lisinopril, metoprolol (7) Lymphoma Code(s): C85.90 - Non-Hodgkin lymphoma, unspecified, unspecified site Status: Acute Plan: History of stable lymphoma under observation, also history of bladder cancer Patient leukocytosis may be due to dehydration versus acute phase reaction from urinary tract infection Follow closely (8) Multiple lesions of metastatic malignancy Code(s): C79.9 - Secondary malignant neoplasm of unspecified site Status: Acute Plan: Rule out metastatic malignancy to bone (possible pancreatic, prostatic versus plasma cell source) workup in progress, oncology consult appreciated Continue with palliative care care consult to help plan goals of care Continue with hydrocodone for pain as needed Patient agreeable to exploring options of treatment
[2018-02-09] MEDS ORDERED: fentaNYL Citrate Inj 100 MCG/2 ML Ampul ONE ×2 (09:38)
--- NOTE | 2018-02-09 10:33 | P.RAD ---
Post CT Procedure Prog Note - Pre Procedure Diagnosis (1) Bone lesion - Post Procedure Diagnosis (1) Bone lesion - Procedure Information Supervising Radiologist: Anant Chilel MD Estimated blood loss (mL): 1 Anesthesia: Conscious Sedation - Plan of Activity Patient to Unit: ROPU Patient condition: Good See PACS Report for procedural detail/treatment. Biopsy CT right Bone Site: posterior right ilac bone Specimen: Core Biopsy Plan: to ROPU for one hour then return to floor
--- NOTE | 2018-02-09 15:14 | P.PNONC ---
Subjective Interval history: Afebrile Pt resting in bed, just returned from biopsy. States he feel "out of sorts" since his CT biopsy. Denies SOB Denies chest pain Objective Vital Signs/Intake & Output: Vital Signs 02/08/18 16:00 02/08/18 20:00 02/08/18 21:15 Temperature 99.1 F 98.7 F Pulse Rate 88 74 68 Respiratory Rate 18 17 Blood Pressure 106/78 121/54 L Pulse Oximetry 100 02/09/18 00:00 02/09/18 04:00 02/09/18 04:32 Temperature 98.5 F 98.4 F Pulse Rate 69 65 79 Respiratory Rate 17 17 Blood Pressure 115/54 L 108/60 Pulse Oximetry 100 99 02/09/18 08:00 02/09/18 10:29 02/09/18 10:40 Temperature 98.5 F 97.8 F 97.9 F Pulse Rate 60 69 68 Respiratory Rate 18 18 18 Blood Pressure 118/66 93/50 L 96/51 L Pulse Oximetry 94 L 92 L 91 L 02/09/18 10:44 02/09/18 11:14 02/09/18 11:44 Temperature Pulse Rate 68 62 79 Respiratory Rate 18 20 18 Blood Pressure 101/54 L 106/62 115/46 L Pulse Oximetry 96 95 90 L 02/09/18 12:14 Temperature Pulse Rate 71 Respiratory Rate 18 Blood Pressure 122/56 L Pulse Oximetry 92 L Intake & Output 02/08/18 02/09/18 02/09/18 18:59 06:59 18:59 Intake Total 710 / 710 150 / 150 Output Total 600 / 600 450 / 450 100 / 100 Balance 110 / 110 -300 / -300 -100 / -100 Weight 200 lb 2.876 oz Intake: Oral 710 / 710 150 / 150 Output: Urine 600 / 600 450 / 450 100 / 100 Other: Date of Last Bowel Movement 02/01/18 02/09/18 02/09/18 # Incontinent Bowel Movements 5 Result Diagrams: 02/09/18 05:50 02/07/18 04:15 Laboratory Results: Laboratory Results - last 24 hr 02/06/18 02/06/18 02/09/18 04:40 04:40 05:50 WBC 23.2 H RBC 3.46 L Hgb 9.3 L Hct 29.8 L MCV 86.1 MCH 26.9 L MCHC 31.3 L RDW 14.8 Plt Count 190 MPV 8.9 PT INR Total Protein (PEP) 5.0 L Albumin (PEP) 2.79 L Albumin/Globulin Ratio 1.26 L Rqbpc-8-Wbfgkwset 0.40 H Wmbwx-3-Wmizxuosp 0.88 Beta Globulins 0.66 Gamma Globulins 0.28 L PEP Pathologist Comment IgG 214 L IgA 53 L IgM 17 L [place]/Lambda Ratio 1.63 [facility] Interpretation [place] Light Chain Anal 52 L Lambda Light Chain Anal 32 L 02/09/18 05:50 WBC RBC Hgb Hct MCV MCH MCHC RDW Plt Count MPV PT 18.5 H INR 1.8 Total Protein (PEP) Albumin (PEP) Albumin/Globulin Ratio Sbtay-0-Ynqhiqubs Geixq-1-Vxwdbxzat Beta Globulins Gamma Globulins PEP Pathologist Comment IgG IgA IgM [place]/Lambda Ratio [facility] Interpretation [place] Light Chain Anal Lambda Light Chain Anal Culture Results: Microbiology 02/05/18 10:50 Urine Culture - Final Clean Catch Urine Klebsiella oxytoca Medications: Active Medications Generic Name Dose Route Start Last Admin Trade Name Freq PRN Reason Stop Dose Admin Hydrocodone Bitart/Acetaminophen 1 tab 02/05/18 15:37 02/08/18 08:48 [place] 7.5/325 PO 1 tab Q6H PRN Administration PAIN SCALE 1 TO 10 Al Hydroxide/Mg Hydroxide 30 ml 02/05/18 13:08 02/08/18 15:27 Milk Of Magnesia Liq PO 30 ml Q12H PRN Administration Mild Constipation Hydrochlorothiazide 25 mg 02/08/18 09:00 02/09/18 08:27 Hydrodiuril PO 25 mg DAILY SORIN Administration Heparin Sodium/Dextrose 25,000 unit in 250 mls @ 0 mls/hr 02/07/18 10:02 14:50 Heparin/D5w 25,000 U/250 Ml IV.CONT Infused TITRATE PRN Titration Per Protocol Protocol Per Protocol Lactulose 30 ml 02/05/18 13:08 02/08/18 17:19 Lactulose Liq PO 30 ml DAILY PRN Administration SEVERE CONSITIPATION Lisinopril 10 mg 02/08/18 09:00 02/09/18 08:27 Prinivil PO 10 mg DAILY SORIN Administration Metoprolol Succinate 50 mg 02/08/18 09:00 02/09/18 08:26 Toprol Xl PO 50 mg DAILY SORIN Administration Senna/Docusate Sodium 1 tab 02/05/18 21:00 02/09/18 08:26 [place]-Colace PO Not Given BID SORIN Trimethoprim/Sulfamethoxazole 1 tab 02/07/18 11:30 02/09/18 08:27 Bactrim Ds PO 1 tab Q12HR SORIN Administration Objective Remarks: GENERAL: Elderly male resting in bed in no obvious distress SKIN: Warm and dry. HEAD: Normocephalic. EYES: No scleral icterus. No injection or drainage. NECK: Supple, trachea midline. No JVD or lymphadenopathy. CARDIOVASCULAR: Regular rate and rhythm without murmurs. RESPIRATORY: Breath sounds equal bilaterally. No accessory muscle use. GASTROINTESTINAL: Abdomen soft, non-tender, nondistended. EXTREMITIES: Skin dry. No edema. MUSCULOSKELETAL: Adequate muscle tone. NEUROLOGICAL: Normal speech. Moving all extremities. No obvious focal deficit. Assessment/Plan - Plan 82-year-old male with history of low-grade CLL admitted with multiple falls found to have portal vein thrombosis, pancreatic head mass and multiple lytic lesions on T11 vertebra and right posterior iliac bone 1. Await biopsy results 2. Consult physical therapy for evaluation - Attending Statement The exam, history, and the medical decision-making described in the above note were completed with the assistance of the mid-level provider. I reviewed and agree with the findings presented. I attest that I had a [id number]-[id number] encounter with the patient on the same day, and personally performed and documented my assessment and findings in the medical record. c/o weakness and pain at the bx site. Chart reviewed, pt seen. s/p bx bone lesion today. Pt has PPM , can not do MRI. Will get CT T/L spine for possible cord compression.
--- NOTE | 2018-02-09 16:17 | CT ---
EXAM DATE: 02/09/2018 12:57 PM EDT AGE/SEX: 82 years / Male INDICATIONS: Anemia. CLINICAL DATA: This is the patient's initial encounter. Patient reports that signs and symptoms have been present for 1 day and indicates a pain score of 0/10. MEDICAL/SURGICAL HISTORY: Carcinoma, bladder. Leukemia. Lymphoma. . Bilateral hip replacement COMPARISON: [facility], CT ABDOMEN & PELVIS W/O CONTRAST, 02/05/2018. . BIOPSY SITE: Left pelvic MEDICATION(S): 2mg midazolam (Versed) IV 100mcg fentanyl (Sublimaze) IV DEVICE(S): 11 gauge Bone marrow biopsy needle . . PROCEDURE: CT guided right posterior iliac bone biopsy Prior to the procedure informed consent was obtained. Any appropriate prior imaging studies were rev iewed. Using automated exposure control and adjustment of the mA and/or kV according to patient size, radiat ion dose was kept as low as reasonably achievable to obtain optimal diagnostic quality images. DICOM format image data is available electronically for review and comparison. The site was prepped in a sterile fashion. Full sterile technique was used, including cap, mask, mario rile gloves and gown and a large sterile sheet. Hand hygiene and 2% chlorhexidine and/or betadine/al cohol prep was utilized per protocol for cutaneous antisepsis. The skin and subcutaneous tissues wer e infiltrated with local anesthetic solution. With CT guidance the lytic lesion in the right posterior iliac bone was localized. Biopsy was perform ed using the prescribed needle as above. Adequate hemostasis was obtained with compression at the pu ncture site. Follow-up CT scan reveals no hemorrhage. The patient tolerated the procedure well and there were no complications. The patient was returned to the Radiology Outpatient Unit in stable condition. CONCLUSION: Uncomplicated CT guided biopsy of the lytic lesion in the right posterior iliac bone. Electronically signed by: Anant Chilel MD 02/09/2018 4:16 PM EDT
[2018-02-10] MEDS: Lisinopril 10 MG Tablet PO SCH (08:24)
[2018-02-10] MEDS: hydroCHLOROthiazide 25 MG Tablet PO SCH (08:24)
[2018-02-10] MEDS: Senna/Docusate Sodium 8.6/50 MG Tablet PO SCH ×2 (08:24→20:51)
--- NOTE | 2018-02-10 10:09 | P.PNONC ---
Subjective Interval history: Afebrile Patient resting in bed in no obvious distress Per nurse he was refusing CT scan Discussed with patient that he will be unable to get out of bed until he has had this to rule out cord compression Patient now agrees No acute complaints Objective Vital Signs/Intake & Output: Vital Signs 02/09/18 10:29 02/09/18 10:40 02/09/18 10:44 Temperature 97.8 F 97.9 F Pulse Rate 69 68 68 Respiratory Rate 18 18 18 Blood Pressure 93/50 L 96/51 L 101/54 L Pulse Oximetry 92 L 91 L 96 02/09/18 11:14 02/09/18 11:44 02/09/18 12:14 Temperature Pulse Rate 62 79 71 Respiratory Rate 20 18 18 Blood Pressure 106/62 115/46 L 122/56 L Pulse Oximetry 95 90 L 92 L 02/09/18 16:00 02/09/18 20:00 02/10/18 00:00 Temperature 98.6 F 98.2 F 98.6 F Pulse Rate 76 68 83 Respiratory Rate 18 16 18 Blood Pressure 116/63 110/54 L 96/46 L Pulse Oximetry 92 L 94 L 93 L 02/10/18 04:00 02/10/18 04:51 02/10/18 07:00 Temperature 97.6 F Pulse Rate 69 76 75 Respiratory Rate 18 Blood Pressure 120/66 Pulse Oximetry 99 02/10/18 08:17 Temperature 98.4 F Pulse Rate 74 Respiratory Rate 18 Blood Pressure 106/54 L Pulse Oximetry 97 Intake & Output 02/09/18 02/10/18 02/10/18 18:59 06:59 18:59 Intake Total 670 / 670 240 / 240 Output Total 500 / 500 300 / 300 Balance 170 / 170 -60 / -60 Intake: Oral 670 / 670 240 / 240 Output: Urine 500 / 500 300 / 300 Other: # Voids 1 Date of Last Bowel Movement 02/09/18 02/09/18 02/09/18 Result Diagrams: 02/09/18 05:50 02/07/18 04:15 Laboratory Results: Laboratory Results - last 24 hr 02/06/18 02/06/18 04:40 04:40 PEP Pathologist Comment [facility] Interpretation Culture Results: Microbiology 02/05/18 10:50 Urine Culture - Final Clean Catch Urine Klebsiella oxytoca Imaging Studies: Impressions Bone Biopsy CT 02/09/18 09:38 CONCLUSION: Uncomplicated CT guided biopsy of the lytic lesion in the right posterior iliac bone. Medications: Active Medications Generic Name Dose Route Start Last Admin Trade Name Freq PRN Reason Stop Dose Admin Hydrocodone Bitart/Acetaminophen 1 tab 02/05/18 15:37 02/09/18 19:33 [place] 7.5/325 PO 1 tab Q6H PRN Administration PAIN SCALE 1 TO 10 Al Hydroxide/Mg Hydroxide 30 ml 02/05/18 13:08 02/08/18 15:27 Milk Of Magnesia Liq PO 30 ml Q12H PRN Administration Mild Constipation Hydrochlorothiazide 25 mg 02/08/18 09:00 02/10/18 08:24 Hydrodiuril PO 25 mg DAILY SORIN Administration Heparin Sodium/Dextrose 25,000 unit in 250 mls @ 0 mls/hr 02/07/18 10:02 14:50 Heparin/D5w 25,000 U/250 Ml IV.CONT Infused TITRATE PRN Titration Per Protocol Protocol Per Protocol Lactulose 30 ml 02/05/18 13:08 02/08/18 17:19 Lactulose Liq PO 30 ml DAILY PRN Administration SEVERE CONSITIPATION Lisinopril 10 mg 02/08/18 09:00 02/10/18 08:24 Prinivil PO 10 mg DAILY SORIN Administration Metoprolol Succinate 50 mg 02/08/18 09:00 02/10/18 08:24 Toprol Xl PO 50 mg DAILY SORIN Administration Senna/Docusate Sodium 1 tab 02/05/18 21:00 02/10/18 08:24 Angela-Colace PO Not Given BID SORIN Trimethoprim/Sulfamethoxazole 1 tab 02/07/18 11:30 02/10/18 08:24 Bactrim Ds PO 1 tab Q12HR SORIN Administration Objective Remarks: GENERAL: Elderly male resting in bed in no obvious distress SKIN: Warm and dry. HEAD: Normocephalic. EYES: No scleral icterus. No injection or drainage. NECK: Supple, trachea midline. No JVD or lymphadenopathy. CARDIOVASCULAR: Regular rate and rhythm without murmurs. RESPIRATORY: Breath sounds equal bilaterally. No accessory muscle use. GASTROINTESTINAL: Abdomen soft, non-tender, nondistended. EXTREMITIES: Chronic venous stasis changes to bilateral lower extremities with scaling noted MUSCULOSKELETAL: Adequate muscle tone. NEUROLOGICAL: Normal speech. Moving all extremities. No obvious focal deficit. Assessment/Plan - Plan 82-year-old male with history of low-grade CLL as well as bladder cancer admitted with multiple falls found to have portal vein thrombosis, pancreatic head mass and multiple lytic lesions on T11 vertebra and right posterior iliac bone 1. Await biopsy results 2. Patient to have CT scan of the lumbar and thoracic today to rule out cord compression. 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 3. Anticipate resuming anticoagulation later today for patient's history of A. fib and new finding of portal vein thrombosis. Will check coags and CBC prior. - Attending Statement The exam, history, and the medical decision-making described in the above note were completed with the assistance of the mid-level provider. I reviewed and agree with the findings presented. I attest that I had a [id number]-ufgn encounter with the patient on the same day, and personally performed and documented my assessment and findings in the medical record. Large Necrotic pancreatic mass CT guided biopsy of right iliac pending Afib with RVR--now rate controlled with metoprolol Start Heparin 5000unit sq q8 monitor for bleeding
--- NOTE | 2018-02-10 10:09 | P.PN ---
Physical Exam Vital signs: Vital Signs 02/09/18 10:29 02/09/18 10:40 02/09/18 10:44 Temperature 97.8 F 97.9 F Pulse Rate 69 68 68 Respiratory Rate 18 18 18 Blood Pressure 93/50 L 96/51 L 101/54 L Pulse Oximetry 92 L 91 L 96 02/09/18 11:14 02/09/18 11:44 02/09/18 12:14 Temperature Pulse Rate 62 79 71 Respiratory Rate 20 18 18 Blood Pressure 106/62 115/46 L 122/56 L Pulse Oximetry 95 90 L 92 L 02/09/18 16:00 02/09/18 20:00 02/10/18 00:00 Temperature 98.6 F 98.2 F 98.6 F Pulse Rate 76 68 83 Respiratory Rate 18 16 18 Blood Pressure 116/63 110/54 L 96/46 L Pulse Oximetry 92 L 94 L 93 L 02/10/18 04:00 02/10/18 04:51 02/10/18 07:00 Temperature 97.6 F Pulse Rate 69 76 75 Respiratory Rate 18 Blood Pressure 120/66 Pulse Oximetry 99 02/10/18 08:17 Temperature 98.4 F Pulse Rate 74 Respiratory Rate 18 Blood Pressure 106/54 L Pulse Oximetry 97 Intake & Output 02/09/18 02/10/18 02/10/18 18:59 06:59 18:59 Intake Total 670 / 670 240 / 240 Output Total 500 / 500 300 / 300 Balance 170 / 170 -60 / -60 Intake: Oral 670 / 670 240 / 240 Output: Urine 500 / 500 300 / 300 Other: # Voids 1 Date of Last Bowel Movement 02/09/18 02/09/18 02/09/18 Narrative: Subjective Interval history: Follow-up for possible spinal metastatic lesions. Pain in his back is improved. No radiculopathy. Feels tired. No chest pain or shortness of breath. Physical Exam GENERAL: Patient calm resting and without complaints SKIN: Multiple ecchymotic skin CARDIOVASCULAR: Regular rate and rhythm. No murmurs gallops or rubs appreciated RESPIRATORY: Good air flow and effort without accessory muscle use. Clear to auscultation. Breath sounds equal bilaterally. GASTROINTESTINAL: Abdomen soft, non-tender, nondistended. Hepatic and splenic margins not palpable. MUSCULOSKELETAL: Extremities without clubbing, cyanosis, or edema. No obvious deformities. NEUROLOGICAL: Awake and alert. No obvious cranial nerve deficits. Motor grossly within normal limits. 3 out of 5 muscle strength in the arms and legs. Normal speech. Assessment and Plan (1) Acute UTI Code(s): N39.0 - Urinary tract infection, site not specified Status: Acute Plan: Klebsiella oxytoca Bactrim twice daily (2) Portal vein thrombosis Code(s): I81 - Portal vein thrombosis Status: Acute Plan: Currently anticoagulated with Coumadin, INR 1.5 after vitamin K Goal 2.5, add heparin gtt Coumadin diagnosis atrial fibrillation, portal vein thrombosis (3) Supratherapeutic INR Code(s): R79.1 - Abnormal coagulation profile Status: Acute Plan: s/p vit k per hematology (4) Multiple falls Code(s): R29.6 - Repeated falls Status: Acute Plan: Worrisome due to recent urinary incontinence, with new vertebral metastases (T10 , T11, T3), patient denies lower extremity pain but has back pain and has chronic osteoarthritis of the right knee May be a candidate for neurosurgical intervention versus kyphoplasty Cord impingement concerning Follow-up neurosurgery, consult pending S/p bone marrow biopsy results pending Plan for CT scan of the lumbar and thoracic today to rule out cord compression. 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 Discussed with hem/onc plan for resuming anticoagulation later today for patient's history of A. fib and new finding of portal vein thrombosis. Check coags and CBC prior. (5) Afib Code(s): I48.91 - Unspecified atrial fibrillation Status: Acute Plan: Currently controlled on metoprolol, warfarin held due to elevated INR (6) HTN (hypertension) Code(s): I10 - Essential (primary) hypertension Status: Acute Plan: stable on HCTZ, lisinopril, metoprolol (7) Lymphoma Code(s): C85.90 - Non-Hodgkin lymphoma, unspecified, unspecified site Status: Acute Plan: History of stable lymphoma under observation, also history of bladder cancer Patient leukocytosis may be due to dehydration versus acute phase reaction from urinary tract infection Follow closely (8) Multiple lesions of metastatic malignancy Code(s): C79.9 - Secondary malignant neoplasm of unspecified site Status: Acute Plan: Rule out metastatic malignancy to bone (possible pancreatic, prostatic versus plasma cell source) workup in progress, oncology consult appreciated Continue with palliative care care consult to help plan goals of care Continue with hydrocodone for pain as needed Patient agreeable to exploring options of treatment Status post biopsy posterior right ilac bone by IR on 02/09/18 Discharge Planning: Pending improvement, had bone marrow bx. Plan for CT patient initially refused. He agrees to it today Discussed with the patient, nurse, Shannan WEI from hem/onc Resume anticoagulation for Afib when cleared by Hem/onc Results - Labs CBC & Chem 7: 02/09/18 05:50 02/07/18 04:15 Laboratory Results - last 24 hr 02/06/18 02/06/18 04:40 04:40 PEP Pathologist Comment [facility] Interpretation - Imaging Impressions Bone Biopsy CT 02/09/18 09:38 CONCLUSION: Uncomplicated CT guided biopsy of the lytic lesion in the right posterior iliac bone. - Procedures Status post biopsy posterior right ilac bone by IR on 02/09/18 Assessment and Plan - Assessment (1) Acute UTI Code(s): N39.0 - Urinary tract infection, site not specified Status: Acute Plan: Klebsiella oxytoca Bactrim twice daily (2) Portal vein thrombosis Code(s): I81 - Portal vein thrombosis Status: Acute Plan: Currently anticoagulated with Coumadin, INR 1.5 after vitamin K Goal 2.5, add heparin gtt Coumadin diagnosis atrial fibrillation, portal vein thrombosis (3) Supratherapeutic INR Code(s): R79.1 - Abnormal coagulation profile Status: Acute Plan: s/p vit k per hematology (4) Multiple falls Code(s): R29.6 - Repeated falls Status: Acute Plan: Worrisome due to recent urinary incontinence, with new vertebral metastases (T10 , T11, T3), patient denies lower extremity pain but has back pain and has chronic osteoarthritis of the right knee May be a candidate for neurosurgical intervention versus kyphoplasty Cord impingement concerning Follow-up neurosurgery, consult pending Possible IR for biopsy (5) Afib Code(s): I48.91 - Unspecified atrial fibrillation Status: Acute Plan: Currently controlled on metoprolol, warfarin held due to elevated INR (6) HTN (hypertension) Code(s): I10 - Essential (primary) hypertension Status: Acute Plan: stable on HCTZ, lisinopril, metoprolol (7) Lymphoma Code(s): C85.90 - Non-Hodgkin lymphoma, unspecified, unspecified site Status: Acute Plan: History of stable lymphoma under observation, also history of bladder cancer Patient leukocytosis may be due to dehydration versus acute phase reaction from urinary tract infection Follow closely (8) Multiple lesions of metastatic malignancy Code(s): C79.9 - Secondary malignant neoplasm of unspecified site Status: Acute Plan: Rule out metastatic malignancy to bone (possible pancreatic, prostatic versus plasma cell source) workup in progress, oncology consult appreciated Continue with palliative care care consult to help plan goals of care Continue with hydrocodone for pain as needed Patient agreeable to exploring options of treatment
[2018-02-10 12:57] LABS: INR 2.3 Ratio; Prothrombin Time 23.5 sec (9.8-11.6)
[2018-02-10] MEDS ORDERED: Heparin - SQ 10,000 UNITS/ML Vial SQ SCH (14:00)
--- NOTE | 2018-02-10 17:21 | CT ---
EXAM DATE: 02/10/2018 4:33 PM EDT AGE/SEX: 82 years / Male INDICATIONS: Upper back pain. CLINICAL DATA: This is the patient's initial encounter. Patient reports that signs and symptoms have been present for 1 day and indicates a pain score of 7/10. MEDICAL/SURGICAL HISTORY: Carcinoma, bladder. Leukemia. Lymphoma. None. RADIATION DOSE: 39.86 CTDI (mGy) ; Combined studies COMPARISON: [facility], CT CERVICAL SPINE W/O CONTRAST, 02/05/2018. . TECHNIQUE: Contiguous axial images were acquired using a multirow detector CT scanner without contra st. Multiplanar reconstruction in the sagittal and coronal planes was performed. Using automated exp osure control and adjustment of the mA and/or kV according to patient size, radiation dose was kept a s low as reasonably achievable to obtain optimal diagnostic quality images. DICOM format image data is available electronically for review and comparison. FINDINGS: Vertebrae: Sagittal images demonstrate destructive change and sclerosis involving the T10 vertebral body with mild invagination of the superior and inferior endplates and mild loss of height of the lef t side of the vertebral body. The other vertebral bodies are intact. There are mild degenerative colin ges and osteopenia. There is a mild scoliosis. Alignment: Normal. No subluxation. The axial images demonstrate mild diffuse degenerative changes. Destructive changes are again noted i nvolving the T10 vertebral body with areas of abnormal lucency as well as sclerosis. There is surroun ding soft tissue swelling. There is mild retropulsion of portions of the posterior vertebral body wit h mild mass effect on the anterior thecal sac. The neural foramina are patent. Sclerosis and destruct real change extends into the pedicles. No definite anterior extradural component is identified on the soft tissue images. The other vertebral bodies are intact and there is no visualized disc protrusion. Small bilateral pleural effusions are noted. CONCLUSION: 1. Destructive change and sclerosis involving the T10 vertebra consistent with metastatic disease. T here is mild retropulsion of portions of vertebral body with mild flattening the anterior thecal sac. There is surrounding soft tissue prominence. Electronically signed by: Joao Baez MD 02/10/2018 5:19 PM EDT
--- NOTE | 2018-02-10 18:01 | CT ---
EXAM DATE: 02/10/2018 5:36 PM EDT AGE/SEX: 82 years / Male INDICATIONS: Lower back pain. CLINICAL DATA: This is the patient's initial encounter. Patient reports that signs and symptoms have been present for 1 day and indicates a pain score of 7/10. MEDICAL/SURGICAL HISTORY: Carcinoma, bladder. Lymphoma. Leukemia. None. RADIATION DOSE: 39.86 CTDI (mGy) ; Combined studies COMPARISON: No prior exams available for comparison. TECHNIQUE: Contiguous axial images were acquired with a multirow detector CT scanner without contras t. Multiplanar reconstructions in the sagittal and coronal plane were also performed. Using automate d exposure control and adjustment of the mA and/or kV according to patient size, radiation dose was k ept as low as reasonably achievable to obtain optimal diagnostic quality images. DICOM format image data is available electronically for review and comparison. FINDINGS: Destructive lesion of the anterior and mid T10 vertebral body as described on thoracic CT report. Devyn tebral body height in the lumbar vertebral bodies is maintained. There is grade 1 anterolisthesis at L5-S1.. There is mild curvature of the lumbar spine convex to the left. Interspace narrowing with end plate sclerosis and vacuum phenomenon is present at L2-S1. 4 cm exophytic cyst from the lower pole of the right kidney. There is a destructive lesion in the posterior right iliac bone medial and superio rly measuring 3 cm. There is cortical destruction and some expansion; this lesion has recently been b iopsied.. T12-L1: The thecal sac has a normal diameter. No evidence of disc bulge or protrusion. The neural foramina are patent bilaterally. L1-L2: The thecal sac has a normal diameter. No evidence of disc bulge or protrusion. The neural f oramina are patent bilaterally. L2-L3: Broad ridge of osteophytes causes flattening of the ventral margin of thecal sac and stop south ral foramen remain patent. L3-L4: Broad ridge of osteophytes causes flattening the ventral margin of thecal sac. There is later al disc protrusion in the far lateral position on the right side. L4-L5: Osteophytic ridging asymmetric to the left side causes severe left-sided bony neural foramina l stenosis. There is moderate neural foraminal stenosis on the right side. L5-S1: Bilateral pars defects with sclerosis bilaterally. The thecal sac is normal dimension. There is mild bony neural foraminal stenosis. CONCLUSION: 1. Expansile, lytic, lesion involving the posterior superior medial iliac bone measuring 3 cm, suspi cious for metastatic disease. 2. 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 3. Multilevel discogenic degenerative changes throughout the lumbar spine with left lumbar scoliosis . Electronically signed by: Gerardo Nava MD 02/10/2018 6:00 PM EDT
[2018-02-11 06:04] LABS: Baso # (Auto) 0.1 th/mm3 (0.0-0.2); Baso % (Auto) 0.3 % (0.0-2.0); Eos # (Auto) 0.3 th/mm3 (0.0-0.4); Eos % (Auto) 1.4 % (0.0-4.0); Hematocrit 28.6 % (39.0-51.0); Lymph # (Auto) 12.2 th/mm3 (1.0-4.8); Lymph % (Auto) 61.6 % (9.0-44.0); Mean Corpuscular HGB Conc 31.5 % (32.0-36.0); Mean Corpuscular Hemoglobin 26.9 pg (27.0-34.0); Mean Corpuscular Volume 85.6 fL (80.0-100.0); Mean Platelet Volume 8.5 fL (7.0-11.0); Mono # (Auto) 0.3 th/mm3 (0.0-0.9); Mono % (Auto) 1.8 % (0.0-8.0); Neut # (Auto) 6.9 th/mm3 (1.8-7.7); Neut % (Auto) 34.9 % (16.0-70.0); Platelet Count 180 th/mm3 (150-450); Red Blood Count 3.34 mil/mm3 (4.50-5.90); Red Cell Distribution Width 14.9 % (11.6-17.2); White Blood Count 19.8 th/mm3 (4.0-11.0)
--- NOTE | 2018-02-11 08:37 | P.PN ---
Physical Exam Vital signs: Vital Signs 02/10/18 11:00 02/10/18 11:15 02/10/18 14:54 Temperature 98.4 F 98.7 F Pulse Rate 67 70 74 Respiratory Rate 18 18 Blood Pressure 120/67 111/63 Pulse Oximetry 98 97 02/10/18 15:00 02/10/18 20:00 02/10/18 20:29 Temperature 98.3 F Pulse Rate 69 73 89 Respiratory Rate 18 Blood Pressure 108/54 L Pulse Oximetry 99 02/11/18 00:00 02/11/18 04:00 02/11/18 04:15 Temperature 97.9 F 98.3 F Pulse Rate 71 75 81 Respiratory Rate 18 16 Blood Pressure 114/79 109/66 Pulse Oximetry 94 L 95 Intake & Output 02/10/18 02/11/18 02/11/18 18:59 06:59 18:59 Intake Total 960 / 960 240 / 240 Output Total 600 / 600 500 / 500 Balance 360 / 360 -260 / -260 Intake: Oral 960 / 960 240 / 240 Output: Urine 600 / 600 500 / 500 Other: Date of Last Bowel Movement 02/09/18 02/09/18 # Bowel Movements 0 Narrative: Subjective Interval history: Follow-up for possible spinal metastatic lesions. He is in bed says he feels improved today however he feels weak he might need correction facility. He however will prefer to go home with home health says he has support at home. Less back pain today. No radiculopathy. CT scan review with radiology sees no compression of the spinal cord. PT consulted. Physical Exam GENERAL: Patient calm resting and without complaints SKIN: Multiple ecchymotic skin CARDIOVASCULAR: Regular rate and rhythm. No murmurs gallops or rubs appreciated RESPIRATORY: Good air flow and effort without accessory muscle use. Clear to auscultation. Breath sounds equal bilaterally. GASTROINTESTINAL: Abdomen soft, non-tender, nondistended. Hepatic and splenic margins not palpable. MUSCULOSKELETAL: Extremities without clubbing, cyanosis, or edema. No obvious deformities. NEUROLOGICAL: Awake and alert. No obvious cranial nerve deficits. Motor grossly within normal limits. 3 out of 5 muscle strength in the arms and legs. Normal speech. Assessment and Plan (1) Acute UTI Code(s): N39.0 - Urinary tract infection, site not specified Status: Acute Plan: Klebsiella oxytoca Bactrim twice daily (2) Portal vein thrombosis Code(s): I81 - Portal vein thrombosis Status: Acute Plan: Currently anticoagulated with Coumadin, INR 1.5 after vitamin K Goal 2.5, add heparin gtt Coumadin diagnosis atrial fibrillation, portal vein thrombosis (3) Supratherapeutic INR Code(s): R79.1 - Abnormal coagulation profile Status: Acute Plan: s/p vit k per hematology (4) Multiple falls Code(s): R29.6 - Repeated falls Status: Acute Plan: Worrisome due to recent urinary incontinence, with new vertebral metastases (T10 , T11, T3), patient denies lower extremity pain but has back pain and has chronic osteoarthritis of the right knee May be a candidate for neurosurgical intervention versus kyphoplasty Cord impingement concerning Follow-up neurosurgery, consult pending S/p bone marrow biopsy results pending S/p CT scan of the lumbar and thoracic no cord compression. 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 Discussed with hem/onc plan for resuming anticoagulation for patient's history of A. fib and new finding of portal vein thrombosis. (5) Afib Code(s): I48.91 - Unspecified atrial fibrillation Status: Acute Plan: Currently controlled on metoprolol, warfarin held due to elevated INR (6) HTN (hypertension) Code(s): I10 - Essential (primary) hypertension Status: Acute Plan: stable on HCTZ, lisinopril, metoprolol (7) Lymphoma Code(s): C85.90 - Non-Hodgkin lymphoma, unspecified, unspecified site Status: Acute Plan: History of stable lymphoma under observation, also history of bladder cancer Patient leukocytosis may be due to dehydration versus acute phase reaction from urinary tract infection Follow closely (8) Multiple lesions of metastatic malignancy Code(s): C79.9 - Secondary malignant neoplasm of unspecified site Status: Acute Plan: Rule out metastatic malignancy to bone (possible pancreatic, prostatic versus plasma cell source) workup in progress, oncology consult appreciated Continue with palliative care care consult to help plan goals of care Continue with hydrocodone for pain as needed Patient agreeable to exploring options of treatment Status post biopsy posterior right ilac bone by IR on 02/09/18 Discharge Planning: Pending improvement, had bone marrow bx. Plan for CT patient initially refused. He agrees to it today Discussed with the patient, nurse, Shannan PA from hem/onc Resume anticoagulation for Afib per Hem/onc Results - Labs CBC & Chem 7: 02/11/18 04:31 02/07/18 04:15 Laboratory Results - last 24 hr 02/10/18 02/10/18 02/11/18 11:43 11:43 04:31 WBC 19.8 H RBC 3.34 L Hgb 9.0 L Hct 28.6 L MCV 85.6 MCH 26.9 L MCHC 31.5 L RDW 14.9 Plt Count 180 MPV 8.5 Prelim Diff (Auto) Slide review pending Neut % (Auto) 34.9 Lymph % (Auto) 61.6 H Gallia % (Auto) 1.8 Eos % (Auto) 1.4 Baso % (Auto) 0.3 Neut # (Auto) 6.9 Lymph # (Auto) 12.2 H Gallia # (Auto) 0.3 Eos # (Auto) 0.3 Baso # (Auto) 0.1 Differential Comment . PT 23.5 H INR 2.3 APTT 49.1 H - Imaging Impressions Lumbar Spine CT 02/10/18 00:00 CONCLUSION: 1. Expansile, lytic, lesion involving the posterior superior medial iliac bone measuring 3 cm, suspicious for metastatic disease. 2. 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 3. Multilevel discogenic degenerative changes throughout the lumbar spine with left lumbar scoliosis. Thoracic Spine CT 02/10/18 00:00 CONCLUSION: 1. Destructive change and sclerosis involving the T10 vertebra consistent with metastatic disease. There is mild retropulsion of portions of vertebral body with mild flattening the anterior thecal sac. There is surrounding soft tissue prominence. - Procedures Status post biopsy posterior right ilac bone by IR on 02/09/18 Assessment and Plan - Assessment (1) Acute UTI Code(s): N39.0 - Urinary tract infection, site not specified Status: Acute Plan: Klebsiella oxytoca Bactrim twice daily (2) Portal vein thrombosis Code(s): I81 - Portal vein thrombosis Status: Acute Plan: Currently anticoagulated with Coumadin, INR 1.5 after vitamin K Goal 2.5, add heparin gtt Coumadin diagnosis atrial fibrillation, portal vein thrombosis (3) Supratherapeutic INR Code(s): R79.1 - Abnormal coagulation profile Status: Acute Plan: s/p vit k per hematology (4) Multiple falls Code(s): R29.6 - Repeated falls Status: Acute Plan: Worrisome due to recent urinary incontinence, with new vertebral metastases (T10 , T11, T3), patient denies lower extremity pain but has back pain and has chronic osteoarthritis of the right knee May be a candidate for neurosurgical intervention versus kyphoplasty Cord impingement concerning Follow-up neurosurgery, consult pending Possible IR for biopsy (5) Afib Code(s): I48.91 - Unspecified atrial fibrillation Status: Acute Plan: Currently controlled on metoprolol, warfarin held due to elevated INR (6) HTN (hypertension) Code(s): I10 - Essential (primary) hypertension Status: Acute Plan: stable on HCTZ, lisinopril, metoprolol (7) Lymphoma Code(s): C85.90 - Non-Hodgkin lymphoma, unspecified, unspecified site Status: Acute Plan: History of stable lymphoma under observation, also history of bladder cancer Patient leukocytosis may be due to dehydration versus acute phase reaction from urinary tract infection Follow closely (8) Multiple lesions of metastatic malignancy Code(s): C79.9 - Secondary malignant neoplasm of unspecified site Status: Acute Plan: Rule out metastatic malignancy to bone (possible pancreatic, prostatic versus plasma cell source) workup in progress, oncology consult appreciated Continue with palliative care care consult to help plan goals of care Continue with hydrocodone for pain as needed Patient agreeable to exploring options of treatment
[2018-02-11] MEDS: Senna/Docusate Sodium 8.6/50 MG Tablet PO SCH ×2 (08:50→20:33)
[2018-02-11] MEDS: hydroCHLOROthiazide 25 MG Tablet PO SCH (08:50)
[2018-02-11] MEDS: Lisinopril 10 MG Tablet PO SCH (08:50)
[2018-02-11 09:34] LABS: Lymphocytes 53 % (9-44); Monocytes 3 % (0-8); Platelet Estimate Normal (Normal); Platelet Morphology Normal (Normal)
--- NOTE | 2018-02-11 10:02 | P.PNONC ---
Subjective Interval history: Afebrile Patient reports he had some back pain after his CAT scan last night Denies any radiculopathy Has some left leg weakness however he reports this is been going on for years Objective Vital Signs/Intake & Output: Vital Signs 02/10/18 11:00 02/10/18 11:15 02/10/18 14:54 Temperature 98.4 F 98.7 F Pulse Rate 67 70 74 Respiratory Rate 18 18 Blood Pressure 120/67 111/63 Pulse Oximetry 98 97 02/10/18 15:00 02/10/18 20:00 02/10/18 20:29 Temperature 98.3 F Pulse Rate 69 73 89 Respiratory Rate 18 Blood Pressure 108/54 L Pulse Oximetry 99 02/11/18 00:00 02/11/18 04:00 02/11/18 04:15 Temperature 97.9 F 98.3 F Pulse Rate 71 75 81 Respiratory Rate 18 16 Blood Pressure 114/79 109/66 Pulse Oximetry 94 L 95 02/11/18 07:00 02/11/18 08:42 Temperature 97.6 F Pulse Rate 74 66 Respiratory Rate 18 Blood Pressure 120/64 Pulse Oximetry 98 Intake & Output 02/10/18 02/11/18 02/11/18 18:59 06:59 18:59 Intake Total 960 / 960 240 / 240 Output Total 600 / 600 500 / 500 Balance 360 / 360 -260 / -260 Intake: Oral 960 / 960 240 / 240 Output: Urine 600 / 600 500 / 500 Other: Date of Last Bowel Movement 02/09/18 02/09/18 02/09/18 # Bowel Movements 0 Result Diagrams: 02/11/18 04:31 02/07/18 04:15 Laboratory Results: Laboratory Results - last 24 hr 02/10/18 02/10/18 02/11/18 11:43 11:43 04:31 WBC 19.8 H RBC 3.34 L Hgb 9.0 L Hct 28.6 L MCV 85.6 MCH 26.9 L MCHC 31.5 L RDW 14.9 Plt Count 180 MPV 8.5 Prelim Diff (Auto) Slide review pending Neut % (Auto) 34.9 Lymph % (Auto) 61.6 H [place] % (Auto) 1.8 Eos % (Auto) 1.4 Baso % (Auto) 0.3 Neut # (Auto) 6.9 Lymph # (Auto) 12.2 H [place] # (Auto) 0.3 Eos # (Auto) 0.3 Baso # (Auto) 0.1 WBC Differential Manual diff final Seg Neuts % (Manual) 44 Lymphocytes % (Manual) 53 H Monocytes % (Manual) 3 Abs Neuts (Manual) 8.7 H Differential Comment . Platelet Estimate Normal Platelet Morphology Normal PT 23.5 H INR 2.3 APTT 49.1 H Imaging Studies: Impressions Lumbar Spine CT 02/10/18 00:00 CONCLUSION: 1. Expansile, lytic, lesion involving the posterior superior medial iliac bone measuring 3 cm, suspicious for metastatic disease. 2. 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 3. Multilevel discogenic degenerative changes throughout the lumbar spine with left lumbar scoliosis. Thoracic Spine CT 02/10/18 00:00 CONCLUSION: 1. Destructive change and sclerosis involving the T10 vertebra consistent with metastatic disease. There is mild retropulsion of portions of vertebral body with mild flattening the anterior thecal sac. There is surrounding soft tissue prominence. Medications: Active Medications Generic Name Dose Route Start Last Admin Trade Name Freq PRN Reason Stop Dose Admin Hydrocodone Bitart/Acetaminophen 1 tab 02/05/18 15:37 02/10/18 20:50 [place] 7.5/325 PO 1 tab Q6H PRN Administration PAIN SCALE 1 TO 10 Al Hydroxide/Mg Hydroxide 30 ml 02/05/18 13:08 02/08/18 15:27 Milk Of Magnesia Liq PO 30 ml Q12H PRN Administration Mild Constipation Heparin Sodium (Porcine) 5,000 units 02/10/18 14:00 02/10/18 13:09 Heparin Inj SQ 5,000 units Q8HR SORIN Administration Hydrochlorothiazide 25 mg 02/08/18 09:00 02/11/18 08:50 Hydrodiuril PO 25 mg DAILY SORIN Administration Lactulose 30 ml 02/05/18 13:08 02/08/18 17:19 Lactulose Liq PO 30 ml DAILY PRN Administration SEVERE CONSITIPATION Lisinopril 10 mg 02/08/18 09:00 02/11/18 08:50 Prinivil PO 10 mg DAILY SORIN Administration Metoprolol Succinate 50 mg 02/08/18 09:00 02/11/18 08:50 Toprol Xl PO 50 mg DAILY SORIN Administration Senna/Docusate Sodium 1 tab 02/05/18 21:00 02/11/18 08:50 Angela-Colace PO 1 tab BID SORIN Administration Trimethoprim/Sulfamethoxazole 1 tab 02/07/18 11:30 02/11/18 08:50 Bactrim Ds PO 1 tab Q12HR SORIN Administration Objective Remarks: GENERAL: Elderly male resting in bed in no obvious distress SKIN: Warm and dry. HEAD: Normocephalic. EYES: No scleral icterus. No injection or drainage. NECK: Supple, trachea midline. No JVD or lymphadenopathy. CARDIOVASCULAR: Regular rate and rhythm without murmurs. RESPIRATORY: Breath sounds equal bilaterally. No accessory muscle use. GASTROINTESTINAL: Abdomen soft, non-tender, nondistended. EXTREMITIES: Chronic venous stasis changes to bilateral lower extremities with scaling noted MUSCULOSKELETAL: Generalized weakness. NEUROLOGICAL: Normal speech. Moving all extremities. No obvious focal deficit. Assessment/Plan - Plan 82-year-old male with history of low-grade CLL as well as bladder cancer admitted with multiple falls found to have portal vein thrombosis, pancreatic head mass and multiple lytic lesions on T11 vertebra and right posterior iliac bone 1. Await biopsy results 2. CT scan of lumbar and thoracic spine show no obvious cord compression. Discussed with radiologist Dr. Baez over the phone. 3. Patient continues to have coagulopathy with elevated INR. Subcu heparin on hold. 4. Anticipate physical therapy today. - Attending Statement The exam, history, and the medical decision-making described in the above note were completed with the assistance of the mid-level provider. I reviewed and agree with the findings presented. I attest that I had a [id number] encounter with the patient on the same day, and personally performed and documented my assessment and findings in the medical record. Biopsy results pending Coagulopathy Vitamin K depletion. give vitamin K prn Start Heparin 5000 sq bid
[2018-02-11 14:21] LABS: Activated Partial Thrombo Time 45.3 sec (24.3-30.1); INR 2.4 Ratio; Prothrombin Time 23.8 sec (9.8-11.6)
[2018-02-11 16:53] LABS: Hepatitits B Surface Antigen Nonreactive (Nonreactive)
[2018-02-11 17:27] LABS: Hepatitis A IgM Antibody Nonreactive (Nonreactive)
[2018-02-11] MEDS ORDERED: Phytonadione 2.5 MG/SWFI 2.5 ML Oral Syringe PO ONE (19:46)
[2018-02-11] MEDS ORDERED: Phytonadione 5 MG/SWFI 5 ML Oral Syringe PO ONE (21:45)
[2018-02-12] MEDS: Lisinopril 10 MG Tablet PO SCH (08:34)
[2018-02-12] MEDS: Senna/Docusate Sodium 8.6/50 MG Tablet PO SCH ×2 (08:34→20:32)
[2018-02-12] MEDS: Heparin - SQ 10,000 UNITS/ML Vial SQ SCH ×2 (08:34→20:32)
[2018-02-12] MEDS: hydroCHLOROthiazide 25 MG Tablet PO SCH (08:34)
[2018-02-12 09:37] LABS: Prothrombin Time 20.7 sec (9.8-11.6)
[2018-02-12 09:49] LABS: Albumin 2.4 g/dL (3.4-5.0); Anion Gap 9 meq/L (5-15); Aspartate Aminotransferase 19 U/L (15-37); Blood Urea Nitrogen 21 mg/dL (7-18); Calcium 8.6 mg/dL (8.5-10.1); Carbon Dioxide 26.8 meq/L (21.0-32.0); Chloride 101 meq/L (98-107); Glomerular Filtration Rate 51 mL/min (>89); Glucose,Random 86 mg/dL (74-106); Potassium 4.7 meq/L (3.5-5.1); Sodium 137 meq/L (136-145)
[2018-02-12 09:51] LABS: Alanine Aminotransferase 21 U/L (12-78)
[2018-02-12 09:53] LABS: Alkaline Phosphatase 75 U/L (45-117); Total Protein 5.9 g/dL (6.4-8.2)
[2018-02-12 10:08] LABS: Baso % (Auto) 0.2 % (0.0-2.0); Eos # (Auto) 0.2 th/mm3 (0.0-0.4); Hematocrit 28.8 % (39.0-51.0); Lymph # (Auto) 9.3 th/mm3 (1.0-4.8); Lymph % (Auto) 49.7 % (9.0-44.0); Mean Corpuscular HGB Conc 31.4 % (32.0-36.0); Mean Corpuscular Hemoglobin 26.2 pg (27.0-34.0); Mean Corpuscular Volume 83.6 fL (80.0-100.0); Mean Platelet Volume 8.6 fL (7.0-11.0); Mono # (Auto) 0.5 th/mm3 (0.0-0.9); Mono % (Auto) 2.9 % (0.0-8.0); Neut # (Auto) 8.7 th/mm3 (1.8-7.7); Neut % (Auto) 46.2 % (16.0-70.0); Platelet Count 179 th/mm3 (150-450); Red Blood Count 3.45 mil/mm3 (4.50-5.90); Red Cell Distribution Width 14.7 % (11.6-17.2); White Blood Count 18.8 th/mm3 (4.0-11.0)
[2018-02-12 12:32] LABS: Eosinophils 1 % (0-4); Lymphocytes 67 % (9-44); Monocytes 1 % (0-8)
--- NOTE | 2018-02-12 12:34 | P.PNONC ---
Subjective Interval history: Afebrile. Patient denies any pain at this time, stating that the pain medications are controlling his pain. He is sitting in the chair, visiting with some friend. He reports that he is urinating and having bowel movements and he was able to walk with assistance however he states his balance is off and this is frightening to him. Objective Vital Signs/Intake & Output: Vital Signs 02/11/18 15:00 02/11/18 15:09 02/11/18 20:00 Temperature 98.1 F 98.3 F Pulse Rate 67 74 67 Respiratory Rate 18 18 Blood Pressure 104/56 L 113/58 L Pulse Oximetry 94 L 93 L 02/12/18 00:00 02/12/18 04:00 02/12/18 04:03 Temperature 98.0 F 98.3 F Pulse Rate 66 71 68 Respiratory Rate 18 18 Blood Pressure 110/62 115/58 L Pulse Oximetry 94 L 93 L 02/12/18 08:40 02/12/18 10:33 02/12/18 12:03 Temperature 98.5 F 98.2 F Pulse Rate 79 77 76 Respiratory Rate 20 18 Blood Pressure 112/57 L 104/62 Pulse Oximetry 93 L 95 Intake & Output 02/11/18 02/12/18 02/12/18 18:59 06:59 18:59 Intake Total 720 / 720 240 / 240 Output Total 750 / 750 550 / 550 Balance -30 / -30 -310 / -310 Intake: Oral 720 / 720 240 / 240 Output: Urine 750 / 750 550 / 550 Other: # Voids 6 Date of Last Bowel Movement 02/09/18 02/09/18 02/09/18 Result Diagrams: 02/12/18 08:15 02/12/18 08:15 Laboratory Results: Laboratory Results - last 24 hr 02/11/18 02/11/18 02/12/18 13:49 15:39 08:15 WBC RBC Hgb Hct MCV MCH MCHC RDW Plt Count MPV Prelim Diff (Auto) Neut % (Auto) Lymph % (Auto) [place] % (Auto) Eos % (Auto) Baso % (Auto) Neut # (Auto) Lymph # (Auto) [place] # (Auto) Eos # (Auto) Baso # (Auto) Differential Comment PT 23.8 H 20.7 H INR 2.4 2.0 APTT 45.3 H 46.0 H Sodium Potassium Chloride Carbon Dioxide Anion Gap BUN Creatinine Estimated GFR Random Glucose Calcium Total Bilirubin AST ALT Alkaline Phosphatase Total Protein Albumin Hepatitis A IgM Ab Nonreactive Hep Bs Antigen Nonreactive Hep B Core IgM Ab Nonreactive Hep C IgG Ab Nonreactive 02/12/18 02/12/18 08:15 08:15 WBC 18.8 H RBC 3.45 L Hgb 9.0 L Hct 28.8 L MCV 83.6 MCH 26.2 L MCHC 31.4 L RDW 14.7 Plt Count 179 MPV 8.6 Prelim Diff (Auto) Slide review pending Neut % (Auto) 46.2 Lymph % (Auto) 49.7 H [place] % (Auto) 2.9 Eos % (Auto) 1.0 Baso % (Auto) 0.2 Neut # (Auto) 8.7 H Lymph # (Auto) 9.3 H [place] # (Auto) 0.5 Eos # (Auto) 0.2 Baso # (Auto) 0.0 Differential Comment . PT INR APTT Sodium 137 Potassium 4.7 Chloride 101 Carbon Dioxide 26.8 Anion Gap 9 BUN 21 H Creatinine 1.34 H Estimated GFR 51 L Random Glucose 86 Calcium 8.6 Total Bilirubin 0.6 AST 19 ALT 21 Alkaline Phosphatase 75 Total Protein 5.9 L Albumin 2.4 L Hepatitis A IgM Ab Hep Bs Antigen Hep B Core IgM Ab Hep C IgG Ab Medications: Active Medications Generic Name Dose Route Start Last Admin Trade Name Freq PRN Reason Stop Dose Admin Hydrocodone Bitart/Acetaminophen 1 tab 02/05/18 15:37 02/12/18 12:04 [place] 7.5/325 PO 1 tab Q6H PRN Administration PAIN SCALE 1 TO 10 Al Hydroxide/Mg Hydroxide 30 ml 02/05/18 13:08 02/08/18 15:27 Milk Of Magnesia Liq PO 30 ml Q12H PRN Administration Mild Constipation Heparin Sodium (Porcine) 5,000 units 02/11/18 21:00 02/12/18 08:34 Heparin Inj SQ 5,000 units Q12HR SORIN Administration Hydrochlorothiazide 25 mg 02/08/18 09:00 02/12/18 08:34 Hydrodiuril PO 25 mg DAILY SORIN Administration Lactulose 30 ml 02/05/18 13:08 02/08/18 17:19 Lactulose Liq PO 30 ml DAILY PRN Administration SEVERE CONSITIPATION Lisinopril 10 mg 02/08/18 09:00 02/12/18 08:34 Prinivil PO 10 mg DAILY SORIN Administration Metoprolol Succinate 50 mg 02/08/18 09:00 02/12/18 08:34 Toprol Xl PO 50 mg DAILY SORIN Administration Senna/Docusate Sodium 1 tab 02/05/18 21:00 02/12/18 08:34 Angela-Colace PO 1 tab BID SORIN Administration Trimethoprim/Sulfamethoxazole 1 tab 02/07/18 11:30 02/12/18 08:34 Bactrim Ds PO 1 tab Q12HR SORIN Administration Objective Remarks: GENERAL: Elderly male sitting in the chair. In no acute distress. SKIN: Warm and dry. HEAD: Normocephalic. EYES: No scleral icterus. No injection or drainage. NECK: Supple, trachea midline. CARDIOVASCULAR: Regular rate and rhythm without murmurs. RESPIRATORY: Breath sounds equal bilaterally. No accessory muscle use. GASTROINTESTINAL: Abdomen soft, non-tender, nondistended. EXTREMITIES: Chronic venous stasis changes to bilateral lower extremities with scaling noted. One small dressing to bilateral shins, dry/intact. MUSCULOSKELETAL: Generalized weakness. NEUROLOGICAL: Normal speech. Moving all extremities. No obvious focal deficit. Assessment/Plan - Plan 82-year-old male with history of low-grade CLL as well as bladder cancer admitted with multiple falls found to have portal vein thrombosis, pancreatic head mass and multiple lytic lesions on T11 vertebra and right posterior iliac bone 1. Biopsy results are still pending. 2. Patient continues to have coagulopathy with elevated INR, suspect vitamin K deficiency. Subcu heparin has been restarted and the patient received vitamin K yesterday. We will continue to monitor coags. 3. Anticipate physical therapy today. 4. Awaiting neuro-surg consultation. - Attending Statement The exam, history, and the medical decision-making described in the above note were completed with the assistance of the mid-level provider. I reviewed and agree with the findings presented. I attest that I had a [id number] encounter with the patient on the same day, and personally performed and documented my assessment and findings in the medical record. C/O back pain and leg weakness. Bx result still pending. N/S input pending. Vit K for coagulopathy
[2018-02-12 12:37] LABS: Smudge Cells Present
[2018-02-12 12:38] LABS: Platelet Estimate Normal (Normal); Platelet Morphology Normal (Normal)
--- NOTE | 2018-02-12 14:22 | P.PN ---
Physical Exam Vital signs: Vital Signs 02/11/18 15:00 02/11/18 15:09 02/11/18 20:00 Temperature 98.1 F 98.3 F Pulse Rate 67 74 67 Respiratory Rate 18 18 Blood Pressure 104/56 L 113/58 L Pulse Oximetry 94 L 93 L 02/12/18 00:00 02/12/18 04:00 02/12/18 04:03 Temperature 98.0 F 98.3 F Pulse Rate 66 71 68 Respiratory Rate 18 18 Blood Pressure 110/62 115/58 L Pulse Oximetry 94 L 93 L 02/12/18 08:40 02/12/18 10:33 02/12/18 12:03 Temperature 98.5 F 98.2 F Pulse Rate 79 77 76 Respiratory Rate 20 18 Blood Pressure 112/57 L 104/62 Pulse Oximetry 93 L 95 Intake & Output 02/11/18 02/12/18 02/12/18 18:59 06:59 18:59 Intake Total 720 / 720 240 / 240 Output Total 750 / 750 550 / 550 Balance -30 / -30 -310 / -310 Intake: Oral 720 / 720 240 / 240 Output: Urine 750 / 750 550 / 550 Other: # Voids 6 Date of Last Bowel Movement 02/09/18 02/09/18 02/09/18 Narrative: Subjective Interval history: Follow-up for possible spinal metastatic lesions. He is in the chair says he feels very weak in his legs since the weakness is not new however denies radiculopathy or focal deficit. Wounds lower extremity are getting worse will consult wound care. No fever or chills no nausea or vomiting. Eating fairly well Physical Exam GENERAL: Patient calm resting and without complaints SKIN: Multiple ecchymotic skin, bilateral lower extremity wounds CARDIOVASCULAR: Regular rate and rhythm. No murmurs gallops or rubs appreciated RESPIRATORY: Good air flow and effort without accessory muscle use. Clear to auscultation. Breath sounds equal bilaterally. GASTROINTESTINAL: Abdomen soft, non-tender, nondistended. Hepatic and splenic margins not palpable. MUSCULOSKELETAL: Extremities without clubbing, cyanosis, or edema. No obvious deformities. NEUROLOGICAL: Awake and alert. No obvious cranial nerve deficits. Motor grossly within normal limits. 3 out of 5 muscle strength in the arms and legs. Normal speech. Assessment and Plan (1) Acute UTI Code(s): N39.0 - Urinary tract infection, site not specified Status: Acute Plan: Klebsiella oxytoca Bactrim twice daily (2) Portal vein thrombosis Code(s): I81 - Portal vein thrombosis Status: Acute Plan: Currently anticoagulated with Coumadin, INR 1.5 after vitamin K Goal 2.5, add heparin gtt Coumadin diagnosis atrial fibrillation, portal vein thrombosis (3) Supratherapeutic INR Code(s): R79.1 - Abnormal coagulation profile Status: Acute Plan: s/p vit k per hematology (4) Multiple falls Code(s): R29.6 - Repeated falls Status: Acute Plan: Worrisome due to recent urinary incontinence, with new vertebral metastases (T10 , T11, T3), patient denies lower extremity pain but has back pain and has chronic osteoarthritis of the right knee May be a candidate for neurosurgical intervention versus kyphoplasty Cord impingement concerning Follow-up neurosurgery, consult pending S/p bone marrow biopsy results pending S/p CT scan of the lumbar and thoracic no cord compression. 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 Discussed with hem/onc plan for resuming anticoagulation for patient's history of A. fib and new finding of portal vein thrombosis. (5) Afib Code(s): I48.91 - Unspecified atrial fibrillation Status: Acute Plan: Currently controlled on metoprolol, warfarin held due to elevated INR (6) HTN (hypertension) Code(s): I10 - Essential (primary) hypertension Status: Acute Plan: stable on HCTZ, lisinopril, metoprolol (7) Lymphoma Code(s): C85.90 - Non-Hodgkin lymphoma, unspecified, unspecified site Status: Acute Plan: History of stable lymphoma under observation, also history of bladder cancer Patient leukocytosis may be due to dehydration versus acute phase reaction from urinary tract infection Follow closely (8) Multiple lesions of metastatic malignancy Code(s): C79.9 - Secondary malignant neoplasm of unspecified site Status: Acute Plan: Rule out metastatic malignancy to bone (possible pancreatic, prostatic versus plasma cell source) workup in progress, oncology consult appreciated Continue with palliative care care consult to help plan goals of care Continue with hydrocodone for pain as needed Patient agreeable to exploring options of treatment Status post biopsy posterior right ilac bone by IR on 02/09/18 9. Bilateral lower extremity wounds. Consult wound care Discharge Planning: Pending improvement, had bone marrow bx. Plan for CT patient initially refused. He agrees to it today Discussed with the patient, nurse, Shannan WEI from hem/onc Resume anticoagulation for Afib per Hem/onc Results - Labs CBC & Chem 7: 02/12/18 08:15 02/12/18 08:15 Laboratory Results - last 24 hr 02/11/18 02/11/18 02/12/18 13:49 15:39 08:15 WBC RBC Hgb Hct MCV MCH MCHC RDW Plt Count MPV Prelim Diff (Auto) Neut % (Auto) Lymph % (Auto) [place] % (Auto) Eos % (Auto) Baso % (Auto) Neut # (Auto) Lymph # (Auto) [place] # (Auto) Eos # (Auto) Baso # (Auto) WBC Differential Seg Neuts % (Manual) Band Neuts % (Manual) Lymphocytes % (Manual) Monocytes % (Manual) Eosinophils % (Manual) Abs Neuts (Manual) Differential Comment Smudge Cells Platelet Estimate Platelet Morphology PT 23.8 H 20.7 H INR 2.4 2.0 APTT 45.3 H 46.0 H Sodium Potassium Chloride Carbon Dioxide Anion Gap BUN Creatinine Estimated GFR Random Glucose Calcium Total Bilirubin AST ALT Alkaline Phosphatase Total Protein Albumin Hepatitis A IgM Ab Nonreactive Hep Bs Antigen Nonreactive Hep B Core IgM Ab Nonreactive Hep C IgG Ab Nonreactive 02/12/18 02/12/18 08:15 08:15 WBC 18.8 H RBC 3.45 L Hgb 9.0 L Hct 28.8 L MCV 83.6 MCH 26.2 L MCHC 31.4 L RDW 14.7 Plt Count 179 MPV 8.6 Prelim Diff (Auto) Slide review pending Neut % (Auto) 46.2 Lymph % (Auto) 49.7 H [place] % (Auto) 2.9 Eos % (Auto) 1.0 Baso % (Auto) 0.2 Neut # (Auto) 8.7 H Lymph # (Auto) 9.3 H [place] # (Auto) 0.5 Eos # (Auto) 0.2 Baso # (Auto) 0.0 WBC Differential Manual diff final Seg Neuts % (Manual) 30 Band Neuts % (Manual) 1 Lymphocytes % (Manual) 67 H Monocytes % (Manual) 1 Eosinophils % (Manual) 1 Abs Neuts (Manual) 5.8 Differential Comment . Smudge Cells Present H Platelet Estimate Normal Platelet Morphology Normal PT INR APTT Sodium 137 Potassium 4.7 Chloride 101 Carbon Dioxide 26.8 Anion Gap 9 BUN 21 H Creatinine 1.34 H Estimated GFR 51 L Random Glucose 86 Calcium 8.6 Total Bilirubin 0.6 AST 19 ALT 21 Alkaline Phosphatase 75 Total Protein 5.9 L Albumin 2.4 L Hepatitis A IgM Ab Hep Bs Antigen Hep B Core IgM Ab Hep C IgG Ab - Procedures Status post biopsy posterior right ilac bone by IR on 02/09/18 Assessment and Plan - Assessment (1) Acute UTI Code(s): N39.0 - Urinary tract infection, site not specified Status: Acute Plan: Klebsiella oxytoca Bactrim twice daily (2) Portal vein thrombosis Code(s): I81 - Portal vein thrombosis Status: Acute Plan: Currently anticoagulated with Coumadin, INR 1.5 after vitamin K Goal 2.5, add heparin gtt Coumadin diagnosis atrial fibrillation, portal vein thrombosis (3) Supratherapeutic INR Code(s): R79.1 - Abnormal coagulation profile Status: Acute Plan: s/p vit k per hematology (4) Multiple falls Code(s): R29.6 - Repeated falls Status: Acute Plan: Worrisome due to recent urinary incontinence, with new vertebral metastases (T10 , T11, T3), patient denies lower extremity pain but has back pain and has chronic osteoarthritis of the right knee May be a candidate for neurosurgical intervention versus kyphoplasty Cord impingement concerning Follow-up neurosurgery, consult pending Possible IR for biopsy (5) Afib Code(s): I48.91 - Unspecified atrial fibrillation Status: Acute Plan: Currently controlled on metoprolol, warfarin held due to elevated INR (6) HTN (hypertension) Code(s): I10 - Essential (primary) hypertension Status: Acute Plan: stable on HCTZ, lisinopril, metoprolol (7) Lymphoma Code(s): C85.90 - Non-Hodgkin lymphoma, unspecified, unspecified site Status: Acute Plan: History of stable lymphoma under observation, also history of bladder cancer Patient leukocytosis may be due to dehydration versus acute phase reaction from urinary tract infection Follow closely (8) Multiple lesions of metastatic malignancy Code(s): C79.9 - Secondary malignant neoplasm of unspecified site Status: Acute Plan: Rule out metastatic malignancy to bone (possible pancreatic, prostatic versus plasma cell source) workup in progress, oncology consult appreciated Continue with palliative care care consult to help plan goals of care Continue with hydrocodone for pain as needed Patient agreeable to exploring options of treatment
--- NOTE | 2018-02-12 15:33 | P.CONNS ---
History of Present Illness Service: neurosurg Consult date: 02/12/18 Requesting Physician: Karina Morrow Reason for Consult: spine metastasis Primary Care Provider: Alexandro Moeller MD Chief Complaint: Recurrent falls at home. Severe back pain. History of Present Illness: This is an 82-year-old male with a history of atrial fibrillation on Coumadin who was admitted to [facility] after progressive weakness and a fall. He called his friend and his friend around to the hospital. Over the last several months he developed back pain and progressive lower extremity weakness. He attributed this to his right knee which has significant osteoarthritic changes. He has also experienced some urinary incontinence over the last several weeks. He has at least 2 falls and had progressively used canes and now a walker. He notes no fevers or chills. He notes no back pain is not any nausea and vomiting or belly pain. He finally came to the emergency room today and was found to have profound weakness. In the course of the ER visit patient did have both CT of the chest and abdomen which showed pancreatic mass as well as metastatic changes to T10 through 11 as well and is progressive adenopathy from previous evaluations. Patient has not had any fevers or chills. He was also found to have an INR of 9.6. He takes Coumadin for atrial fibrillation. He notes no new antibiotics or changes in his prescription. Normally he also with the events and cardiology office and his INR has been in the 2-3 range appropriately for his diagnosis. He had fallen does have significant amount of ecchymotic skin injuries. There is no bleeding at this time. He has been admitted to the hospital for further evaluation. He then. Neurosurgical consultation was requested Review of Systems All other systems reviewed negative except as stated in HPI PMFSH - History History Provided By: Patient - Medical History Medical History: Medical History (Last Reviewed 02/15/18 @ 18:38 by Abran Gonsales MD) A-fib Bladder cancer Bladder cancer Chronic lymphocytic leukemia Hyperlipemia Hypertension Lymphoma - Surgical History Surgical History: Surgical History (Last Reviewed 02/15/18 @ 18:38 by Abran Gonsales MD) H/O cystoscopy History of cystoscopy History of hip replacement - Family History Family History: Family History (Last Reviewed 02/15/18 @ 18:38 by Abran Gonsales MD) Other CAD (coronary artery disease) Colon cancer Stomach cancer - Tobacco History Second Hand Smoke Exposure: No Tobacco Use In Past 30 Days: No Smoking Status: Former smoker Tobacco Type: Cigarettes Packs Per Day: 0.5 Years Smoked: 15 - Alcohol History How Often Do You Have a Drink Containing Alcohol: 4 or more times a week - Substance Use History Substance History: No History of Abuse - Travel History Recent Travel in the [place] Within the Last 8 Weeks: No Recent Travel Out of the Country Within the Last 8 Weeks: No - Immunization History Tetanus Immunization: <5 Years Hx Influenza Vaccine This Season: Yes Medications and Allergies Active Medications: Active Medications Hydrocodone Bitart/Acetaminophen ([place] 7.5/325) 1 tab PO Q6H PRN PRN Reason: PAIN SCALE 1 TO 10 Last Admin: 02/12/18 12:04 Dose: 1 tab Al Hydroxide/Mg Hydroxide (Milk Of Magnesia Liq) 30 ml PO Q12H PRN PRN Reason: Mild Constipation Last Admin: 02/08/18 15:27 Dose: 30 ml Bisacodyl (Dulcolax Supp) 10 mg RECTAL DAILY PRN PRN Reason: SEVERE CONSITIPATION Heparin Sodium (Porcine) (Heparin Inj) 5,000 units SQ Q12HR [facility] Last Admin: 02/12/18 08:34 Dose: 5,000 units Hydrochlorothiazide (Hydrodiuril) 25 mg PO DAILY [facility] Last Admin: 02/12/18 08:34 Dose: 25 mg Lactulose (Lactulose Liq) 30 ml PO DAILY PRN PRN Reason: SEVERE CONSITIPATION Last Admin: 02/08/18 17:19 Dose: 30 ml Lisinopril (Prinivil) 10 mg PO DAILY [facility] Last Admin: 02/12/18 08:34 Dose: 10 mg Metoprolol Succinate (Toprol Xl) 50 mg PO DAILY [facility] Last Admin: 02/12/18 08:34 Dose: 50 mg Senna/Docusate Sodium (Angela-Colace) 1 tab PO BID [facility] Last Admin: 02/12/18 08:34 Dose: 1 tab Sennosides (Senokot) 17.2 mg PO Q12HR PRN PRN Reason: Moderate Constipation Temazepam (Restoril) 15 mg PO HS PRN PRN Reason: INSOMNIA Trimethoprim/Sulfamethoxazole (Bactrim Ds) 1 tab PO Q12HR [facility] Last Admin: 02/12/18 08:34 Dose: 1 tab Allergies Allergy/AdvReac Type Severity Reaction Status Date / Time No Known Allergies Allergy Unknown NKA Uncoded 02/05/18 09:31 Home Medications Medication Instructions Recorded Confirmed Type hydrochlorothiazide 25 mg PO DAILY 02/05/18 02/05/18 History lisinopril 10 mg PO DAILY 02/05/18 02/05/18 History lovastatin 20 mg PO BID 02/05/18 02/05/18 History metoprolol succinate 50 mg PO DAILY 02/05/18 02/05/18 History warfarin 7.5 mg PO DAILY 02/05/18 02/05/18 History gabapentin 200 mg PO HS 02/10/18 02/10/18 History Exam Vital signs: Vital Signs 02/11/18 20:00 02/12/18 00:00 02/12/18 04:00 Temperature 98.3 F 98.0 F 98.3 F Pulse Rate 67 66 71 Respiratory Rate 18 18 18 Blood Pressure 113/58 L 110/62 115/58 L Pulse Oximetry 93 L 94 L 93 L 02/12/18 04:03 02/12/18 08:40 02/12/18 10:33 Temperature 98.5 F Pulse Rate 68 79 77 Respiratory Rate 20 Blood Pressure 112/57 L Pulse Oximetry 93 L 02/12/18 12:03 Temperature 98.2 F Pulse Rate 76 Respiratory Rate 18 Blood Pressure 104/62 Pulse Oximetry 95 Intake & Output 02/11/18 02/12/18 02/12/18 18:59 06:59 18:59 Intake Total 720 / 720 240 / 240 Output Total 750 / 750 550 / 550 Balance -30 / -30 -310 / -310 Intake: Oral 720 / 720 240 / 240 Output: Urine 750 / 750 550 / 550 Other: # Voids 6 Date of Last Bowel Movement 02/09/18 02/09/18 02/09/18 Narrative: The patient is alert, awake. Comfortable, in no acute distress. Speech is fluent. Cranial nerve examination: pupils to be equal, round and reactive to light. Extra-ocular movements are intact. Facial motor and sensory function are normal and symmetrical. Gross hearing appears intact. Sternocleidomastoid and trapezius muscles are symmetrical. Other cranial nerves are intact. Neck is soft and supple with a good range of motion without pain. Muscle strength is normal in all muscle groups of both upper and lower extremities. Sensory examination is intact to light touch and pin prick in both the upper and lower extremities. Deep tendon reflexes are symmetrical in both upper and lower extremities. There is a bilateral plantar flexion response. Cerebellar examination is unremarkable, without deficits. Lungs are clear Heart regular rhythm is regular rate Skin warm and dry Results - Laboratory Findings CBC and BMP: 02/12/18 08:15 02/12/18 08:15 Abnormal lab findings: Abnormal Labs 02/05/18 02/05/18 02/05/18 10:30 10:30 10:30 WBC 24.4 H RBC 3.53 L Hgb 9.6 L Hct 30.2 L MCH MCHC Lymph % (Auto) Baso % (Auto) 2.2 H Neut # (Auto) 13.5 H Lymph # (Auto) 8.7 H [place] # (Auto) 1.6 H Baso # (Auto) 0.5 H Lymphocytes % (Manual) 48 H Abs Neuts (Manual) 12.0 H Smudge Cells PT 94.6 H INR 9.5 H* APTT BUN 38 H Creatinine 1.40 H Estimated GFR 49 L Random Glucose 108 H Total Protein 6.1 L Total Protein (PEP) Albumin 2.7 L Albumin (PEP) Albumin/Globulin Ratio Ajrxh-2-Azfyrtszl Gamma Globulins Urine Nitrate Ur Leukocyte Esterase Urine WBC Clumps Urine Bacteria IgG IgA IgM Farner Light Chain Anal Lambda Light Chain Anal 02/05/18 02/06/18 02/06/18 10:50 04:40 04:40 WBC RBC Hgb Hct MCH MCHC Lymph % (Auto) Baso % (Auto) Neut # (Auto) Lymph # (Auto) [place] # (Auto) Baso # (Auto) Lymphocytes % (Manual) Abs Neuts (Manual) Smudge Cells PT INR APTT BUN Creatinine Estimated GFR Random Glucose Total Protein Total Protein (PEP) 5.0 L Albumin Albumin (PEP) 2.79 L Albumin/Globulin Ratio 1.26 L Imeij-9-Yjjlpdmmi 0.40 H Gamma Globulins 0.28 L Urine Nitrate Positive H Ur Leukocyte Esterase Moderate H Urine WBC Clumps Occasional H Urine Bacteria Moderate H IgG 214 L IgA 53 L IgM 17 L Farner Light Chain Anal 52 L Lambda Light Chain Anal 32 L 02/06/18 02/07/18 02/07/18 04:40 04:15 04:15 WBC 21.0 H RBC 3.30 L Hgb 8.8 L Hct 28.3 L MCH 26.8 L MCHC 31.2 L Lymph % (Auto) Baso % (Auto) Neut # (Auto) Lymph # (Auto) [place] # (Auto) Baso # (Auto) Lymphocytes % (Manual) Abs Neuts (Manual) Smudge Cells PT 55.5 H D 17.6 H D INR APTT BUN Creatinine Estimated GFR Random Glucose Total Protein Total Protein (PEP) Albumin Albumin (PEP) Albumin/Globulin Ratio Mzokf-6-Mwxtjmoie Gamma Globulins Urine Nitrate Ur Leukocyte Esterase Urine WBC Clumps Urine Bacteria IgG IgA IgM Farner Light Chain Anal Lambda Light Chain Anal 02/07/18 02/07/18 02/07/18 04:15 11:07 11:07 WBC 19.3 H RBC 3.33 L Hgb 9.3 L Hct 28.2 L MCH MCHC Lymph % (Auto) Baso % (Auto) Neut # (Auto) Lymph # (Auto) [place] # (Auto) Baso # (Auto) Lymphocytes % (Manual) Abs Neuts (Manual) Smudge Cells PT 16.7 H INR APTT 38.7 H BUN 26 H Creatinine Estimated GFR 64 L Random Glucose Total Protein Total Protein (PEP) Albumin Albumin (PEP) Albumin/Globulin Ratio Ceedg-0-Yjmaclqky Gamma Globulins Urine Nitrate Ur Leukocyte Esterase Urine WBC Clumps Urine Bacteria IgG IgA IgM Farner Light Chain Anal Lambda Light Chain Anal 02/07/18 02/08/18 02/08/18 16:04 05:40 05:40 WBC 18.0 H RBC 3.31 L Hgb 8.7 L Hct 28.1 L MCH 26.4 L MCHC 31.1 L Lymph % (Auto) Baso % (Auto) Neut # (Auto) Lymph # (Auto) [place] # (Auto) Baso # (Auto) Lymphocytes % (Manual) Abs Neuts (Manual) Smudge Cells PT 17.4 H INR APTT 35.1 H BUN Creatinine Estimated GFR Random Glucose Total Protein Total Protein (PEP) Albumin Albumin (PEP) Albumin/Globulin Ratio Ovbes-2-Bmyilowql Gamma Globulins Urine Nitrate Ur Leukocyte Esterase Urine WBC Clumps Urine Bacteria IgG IgA IgM Farner Light Chain Anal Lambda Light Chain Anal 02/09/18 02/09/18 02/10/18 05:50 05:50 11:43 WBC 23.2 H RBC 3.46 L Hgb 9.3 L Hct 29.8 L MCH 26.9 L MCHC 31.3 L Lymph % (Auto) Baso % (Auto) Neut # (Auto) Lymph # (Auto) [place] # (Auto) Baso # (Auto) Lymphocytes % (Manual) Abs Neuts (Manual) Smudge Cells PT 18.5 H INR APTT 49.1 H BUN Creatinine Estimated GFR Random Glucose Total Protein Total Protein (PEP) Albumin Albumin (PEP) Albumin/Globulin Ratio Jczif-8-Xopghprps Gamma Globulins Urine Nitrate Ur Leukocyte Esterase Urine WBC Clumps Urine Bacteria IgG IgA IgM Farner Light Chain Anal Lambda Light Chain Anal 02/10/18 02/11/18 02/11/18 11:43 04:31 13:49 WBC 19.8 H RBC 3.34 L Hgb 9.0 L Hct 28.6 L MCH 26.9 L MCHC 31.5 L Lymph % (Auto) 61.6 H Baso % (Auto) Neut # (Auto) Lymph # (Auto) 12.2 H [place] # (Auto) Baso # (Auto) Lymphocytes % (Manual) 53 H Abs Neuts (Manual) 8.7 H Smudge Cells PT 23.5 H 23.8 H INR APTT 45.3 H BUN Creatinine Estimated GFR Random Glucose Total Protein Total Protein (PEP) Albumin Albumin (PEP) Albumin/Globulin Ratio Ykpfv-5-Adjvdcxta Gamma Globulins Urine Nitrate Ur Leukocyte Esterase Urine WBC Clumps Urine Bacteria IgG IgA IgM Farner Light Chain Anal Lambda Light Chain Anal 02/12/18 02/12/18 02/12/18 08:15 08:15 08:15 WBC 18.8 H RBC 3.45 L Hgb 9.0 L Hct 28.8 L MCH 26.2 L MCHC 31.4 L Lymph % (Auto) 49.7 H Baso % (Auto) Neut # (Auto) 8.7 H Lymph # (Auto) 9.3 H [place] # (Auto) Baso # (Auto) Lymphocytes % (Manual) 67 H Abs Neuts (Manual) Smudge Cells Present H PT 20.7 H INR APTT 46.0 H BUN 21 H Creatinine 1.34 H Estimated GFR 51 L Random Glucose Total Protein 5.9 L Total Protein (PEP) Albumin 2.4 L Albumin (PEP) Albumin/Globulin Ratio Yfeui-1-Qixfqsmkv Gamma Globulins Urine Nitrate Ur Leukocyte Esterase Urine WBC Clumps Urine Bacteria IgG IgA IgM Farner Light Chain Anal Lambda Light Chain Anal Assessment and Plan - Plan I reviewed his clinical and radiological studies including Cervical Spine CT 02/05/18 10:17 CONCLUSION: 1. Extensive bilateral neck lymphadenopathy suspicious for metastatic disease or lymphoma. 2. There is a lytic bone lesion within the T3 vertebral body. 3. Multilevel degenerative disc disease throughout the cervical spine, as above. No spinal canal stenosis is identified. There areas of neural foraminal narrowing at multiple levels but is most severe on the right at C5-C6. Head CT 02/05/18 10:17 CONCLUSION: Unremarkable study. Abdomen/Pelvis CT 02/05/18 11:10 CONCLUSION: 1. 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 2. Pathological adenopathy throughout the abdomen and pelvis highly suspicious for metastatic disease. 3. Lytic lesion involving the bony structures the largest one involving the T11 vertebrae and right posterior iliac bone almost certainly metastatic. 4. Possible thrombus within main portal vein. Chest CT 02/05/18 11:10 CONCLUSION: Mass process involving the T10 vertebral body with some degree of canal encroachment which is not optimally evaluated on this conventional CT. CT myelography may be useful for correlation. At least a couple of small right lung nodules and enlarged mediastinal lymph nodes noted. Bone Biopsy CT 02/09/18 09:38 CONCLUSION: Uncomplicated CT guided biopsy of the lytic lesion in the right posterior iliac bone. Lumbar Spine CT 02/10/18 00:00 CONCLUSION: 1. Expansile, lytic, lesion involving the posterior superior medial iliac bone measuring 3 cm, suspicious for metastatic disease. 2. 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 3. Multilevel discogenic degenerative changes throughout the lumbar spine with left lumbar scoliosis. Thoracic Spine CT 02/10/18 00:00 CONCLUSION: 1. Destructive change and sclerosis involving the T10 vertebra consistent with metastatic disease. There is mild retropulsion of portions of vertebral body with mild flattening the anterior thecal sac. There is surrounding soft tissue prominence. 82 year old male T10 destructive lesion. Awaiting biopsy results CT scan of lumbar and thoracic spine show no obvious cord compression. 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, follow-up with oncology Continue with palliative care care consult to help plan goals of care Continue with hydrocodone for pain as needed Patient would not like to be aggressive if there is no life expectancy to be gained Portal vein thrombosis Code(s): I81 - Portal vein thrombosis Status: Acute Plan: Currently anticoagulated with Coumadin, INR 9.6 We will continue to follow INR Avoid reversal due to thrombotic event Coumadin diagnosis atrial fibrillation Supratherapeutic INR Code(s): R79.1 - Abnormal coagulation profile Status: Acute Plan: The allergy clear may be from hypermetabolic status due to malignancy Hold warfarin for now and follow up INR Patient does have a portal vein thrombus which will require anticoagulation Multiple falls Code(s): R29.6 - Repeated falls Status: Acute Plan: Worrisome due to recent urinary incontinence, with new vertebral metastases (T10 , T11, T3), patient denies lower extremity pain and has chronic osteoarthritis of the right knee May be a candidate for neurosurgical intervention versus kyphoplasty Cord impingement concerning Patient would like to avoid back surgery if at all possible Continue supportive care for now Rehab measures Afib Code(s): I48.91 - Unspecified atrial fibrillation Status: Acute Plan: Currently controlled on metoprolol, warfarin held due to elevated INR HTN (hypertension) Code(s): I10 - Essential (primary) hypertension Status: Acute Plan: stable on HCTZ, lisinopril, metoprolol Lymphoma Code(s): 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 Consult wound care, greatly appreciate recommendations, orders for wound care are in. Right shoulder pain. History of fall 2 weeks prior to admission. X-ray rviewed no fractures. Patient has limited ROM. Will consult OT. Moderate to severe protein sariah malnutrition. Low albumin, muscle waisting, weak handgrip, decrease PO intake. Change diet to regular add ensure to diet. consult funeral greeter. Encourage PO intake. Caprini VTE Risk Assessment Caprini VTE Risk Assessment: Moderate/High Risk (score >= 2) VTE Pharmacological Exception Reason: Coagulopathy,INR elevated Caprini Risk Assessment Model: Point Value = 1 Point Value = 2 Point Value = 3 Point Value = 5 Age 41-60 Minor surgery BMI > 25 kg/m2 Swollen legs Varicose veins or History of unexplained or recurrent spontaneous Oral contraceptives or hormone replacement Sepsis (< 1 month) Serious lung disease, including pneumonia (< 1 month) Abnormal pulmonary function Acute myocardial infarction Congestive heart failure (< 1 month) History of inflammatory bowel disease Medical patient at bed rest Age 61-74 Arthroscopic surgery Major open surgery (> 45 min) Laparoscopic surgery (> 45 min) Malignancy Confined to bed (> 72 hours) Immobilizing plaster cast Central venous access Age >= 75 History of VTE Family history of VTE Factor V Leiden Prothrombin [id number] Lupus anticoagulant Anticardiolipin antibodies Elevated serum homocysteine Heparin-induced thrombocytopenia Other congenital or acquired thrombophilia Stroke (< 1 month) Elective arthroplasty Hip, pelvis, or leg fracture Acute spinal cord injury (< 1 month) Prophylaxis Regimen: Total Risk Factor Score Risk Level Prophylaxis Regimen 0-1 Low Early ambulation 2 Moderate Order ONE of the following: *Sequential Compression Device (SCD) *Heparin 5000 units SQ BID 3-4 Higher Order ONE of the following medications: *Heparin 5000 units SQ TID *Enoxaparin/Lovenox 40 mg SQ daily (WT < 150 kg, CrCl > 30 mL/min) *Enoxaparin/Lovenox 30 mg SQ daily (WT < 150 kg, CrCl > 10-29 mL/min) *Enoxaparin/Lovenox 30 mg SQ BID (WT < 150 kg, CrCl > 30 mL/min) AND/OR *Sequential Compression Device (SCD) 5 or more Highest Order ONE of the following medications: *Heparin 5000 units SQ TID (Preferred with Epidurals) *Enoxaparin/Lovenox 40 mg SQ daily (WT < 150 kg, CrCl > 30 mL/min) *Enoxaparin/Lovenox 30 mg SQ daily (WT < 150 kg, CrCl > 10-29 mL/min) *Enoxaparin/Lovenox 30 mg SQ BID (WT < 150 kg, CrCl > 30 mL/min) AND *Sequential Compression Device (SCD)
[2018-02-13] MEDS: Phytonadione 5 MG/SWFI 5 ML Oral Syringe PO SCH ×2 (00:11→09:16)
[2018-02-13] MEDS: Lisinopril 10 MG Tablet PO SCH (09:16)
[2018-02-13] MEDS: hydroCHLOROthiazide 25 MG Tablet PO SCH (09:16)
[2018-02-13] MEDS: Senna/Docusate Sodium 8.6/50 MG Tablet PO SCH ×2 (09:17→22:13)
[2018-02-13] MEDS: Heparin - SQ 10,000 UNITS/ML Vial SQ SCH ×2 (09:17→22:13)
--- NOTE | 2018-02-13 13:05 | P.PN ---
Physical Exam Vital signs: Vital Signs 02/12/18 17:02 02/12/18 20:20 02/13/18 00:00 Temperature 98.0 F 98.0 F 98 F Pulse Rate 77 66 60 Respiratory Rate 18 Blood Pressure 117/58 L 125/72 116/62 Pulse Oximetry 94 L 95 02/13/18 04:36 02/13/18 08:05 02/13/18 11:18 Temperature 98.4 F 98.5 F 98.2 F Pulse Rate 70 68 71 Respiratory Rate 18 Blood Pressure 126/71 109/54 L 114/62 Pulse Oximetry 93 L 95 93 L 02/13/18 11:35 Temperature Pulse Rate Respiratory Rate 18 Blood Pressure Pulse Oximetry Intake & Output 02/12/18 02/13/18 02/13/18 18:59 06:59 18:59 Intake Total 860 / 860 Output Total 900 / 900 1250 / 1250 Balance -40 / -40 -1250 / -1250 Intake: Oral 860 / 860 Output: Urine 900 / 900 1250 / 1250 Other: Date of Last Bowel Movement 02/09/18 02/11/18 02/09/18 Narrative: Subjective Interval history: Follow-up for possible spinal metastatic lesions. Complaining of right shoulder pain since he fell 2 weeks ago will do x-ray. Otherwise since no back pain. No nausea vomiting not eating much as he does not have much appetite. Had some physical therapy Physical Exam GENERAL: Patient calm resting and without complaints SKIN: Multiple ecchymotic skin, bilateral lower extremity wounds CARDIOVASCULAR: Regular rate and rhythm. No murmurs gallops or rubs appreciated RESPIRATORY: Good air flow and effort without accessory muscle use. Clear to auscultation. Breath sounds equal bilaterally. GASTROINTESTINAL: Abdomen soft, non-tender, nondistended. Hepatic and splenic margins not palpable. MUSCULOSKELETAL: Extremities without clubbing, cyanosis, or edema. No obvious deformities. NEUROLOGICAL: Awake and alert. No obvious cranial nerve deficits. Motor grossly within normal limits. 3 out of 5 muscle strength in the arms and legs. Normal speech. Assessment and Plan (1) Acute UTI Code(s): N39.0 - Urinary tract infection, site not specified Status: Acute Plan: Klebsiella oxytoca Bactrim twice daily (2) Portal vein thrombosis Code(s): I81 - Portal vein thrombosis Status: Acute Plan: Currently anticoagulated with Coumadin, INR 1.5 after vitamin K Goal 2.5, add heparin gtt Coumadin diagnosis atrial fibrillation, portal vein thrombosis (3) Supratherapeutic INR Code(s): R79.1 - Abnormal coagulation profile Status: Acute Plan: s/p vit k per hematology (4) Multiple falls Code(s): R29.6 - Repeated falls Status: Acute Plan: Worrisome due to recent urinary incontinence, with new vertebral metastases (T10 , T11, T3), patient denies lower extremity pain but has back pain and has chronic osteoarthritis of the right knee May be a candidate for neurosurgical intervention versus kyphoplasty Cord impingement concerning Follow-up neurosurgery, consult pending S/p bone marrow biopsy results pending S/p CT scan of the lumbar and thoracic no cord compression. 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 Discussed with hem/onc plan for resuming anticoagulation for patient's history of A. fib and new finding of portal vein thrombosis. (5) Afib Code(s): I48.91 - Unspecified atrial fibrillation Status: Acute Plan: Currently controlled on metoprolol, warfarin held due to elevated INR (6) HTN (hypertension) Code(s): I10 - Essential (primary) hypertension Status: Acute Plan: stable on HCTZ, lisinopril, metoprolol (7) Lymphoma Code(s): C85.90 - Non-Hodgkin lymphoma, unspecified, unspecified site Status: Acute Plan: History of stable lymphoma under observation, also history of bladder cancer Patient leukocytosis may be due to dehydration versus acute phase reaction from urinary tract infection Follow closely (8) Multiple lesions of metastatic malignancy Code(s): C79.9 - Secondary malignant neoplasm of unspecified site Status: Acute Plan: Rule out metastatic malignancy to bone (possible pancreatic, prostatic versus plasma cell source) workup in progress, oncology consult appreciated Continue with palliative care care consult to help plan goals of care Continue with hydrocodone for pain as needed Patient agreeable to exploring options of treatment Status post biopsy posterior right ilac bone by IR on 02/09/18 9. Bilateral lower extremity wounds. Consult wound care 10. Right shoulder pain. History of fall 2 weeks prior to admission. X-ray. Discharge Planning: Pending improvement, had bone marrow bx. Plan for CT patient initially refused. He agrees to it today Discussed with the patient, nurse Resume anticoagulation for Afib per Hem/onc Results - Labs CBC & Chem 7: 02/12/18 08:15 02/12/18 08:15 - Procedures Status post biopsy posterior right ilac bone by IR on 02/09/18 Assessment and Plan - Assessment (1) Acute UTI Code(s): N39.0 - Urinary tract infection, site not specified Status: Acute Plan: Klebsiella oxytoca Bactrim twice daily (2) Portal vein thrombosis Code(s): I81 - Portal vein thrombosis Status: Acute Plan: Currently anticoagulated with Coumadin, INR 1.5 after vitamin K Goal 2.5, add heparin gtt Coumadin diagnosis atrial fibrillation, portal vein thrombosis (3) Supratherapeutic INR Code(s): R79.1 - Abnormal coagulation profile Status: Acute Plan: s/p vit k per hematology (4) Multiple falls Code(s): R29.6 - Repeated falls Status: Acute Plan: Worrisome due to recent urinary incontinence, with new vertebral metastases (T10 , T11, T3), patient denies lower extremity pain but has back pain and has chronic osteoarthritis of the right knee May be a candidate for neurosurgical intervention versus kyphoplasty Cord impingement concerning Follow-up neurosurgery, consult pending Possible IR for biopsy (5) Afib Code(s): I48.91 - Unspecified atrial fibrillation Status: Acute Plan: Currently controlled on metoprolol, warfarin held due to elevated INR (6) HTN (hypertension) Code(s): I10 - Essential (primary) hypertension Status: Acute Plan: stable on HCTZ, lisinopril, metoprolol (7) Lymphoma Code(s): C85.90 - Non-Hodgkin lymphoma, unspecified, unspecified site Status: Acute Plan: History of stable lymphoma under observation, also history of bladder cancer Patient leukocytosis may be due to dehydration versus acute phase reaction from urinary tract infection Follow closely (8) Multiple lesions of metastatic malignancy Code(s): C79.9 - Secondary malignant neoplasm of unspecified site Status: Acute Plan: Rule out metastatic malignancy to bone (possible pancreatic, prostatic versus plasma cell source) workup in progress, oncology consult appreciated Continue with palliative care care consult to help plan goals of care Continue with hydrocodone for pain as needed Patient agreeable to exploring options of treatment
--- NOTE | 2018-02-13 14:33 | P.PNWCN ---
Wound Care Nurse Consult Description: Consult for wound management of bilateral legs per Dr Morrow Communicated with: [id number] [address] Dr Recommendation: Change left anterior lower leg dressing Q5D and PRN for saturation or dislodgement. 1. Remove donovan and 4x4's. 2. Gently cleanse wound with NS and gauze. 3. Apply Puracol to wound bed and cover with 4x4's 4. Secure with rolled gauze and tape. 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 Additional information: Patient seen on [facility] for bilateral lower extremity wounds. Wound/Pressure Injury - Patient Status Premedicated for Pain Prior to Dressing Change: No - Wound Left Anterior Leg Wound Assessment: Ongoing Wound Type: Traumatic Wound Is This a Chronic Wound: Yes Requested from Provider a Wound Care Consult: Yes (Dr Morrow) Length: 2 (cm) Width: 3.3 (cm) Depth: 0.4 (cm) Wound Bed Appearance: Red Wound Bed Appearance: granulated tissue Surrounding Tissue Temperature: Warm (dry flaking) Drainage Description: Sanguinous Drainage Amount: Scant Drainage Odor: No Odor Dressing Status: Changed Cleansing Solution: Saline Wound Packing Type: Collagen (Puracol) Primary Dressing: Gauze Pad Cover Dressing: Gauze Roll/Wrap Wound Dressing Change Date: 02/13/18 Wound Margin Description: irregular Right Anterior Leg Wound Bed Appearance: Red (dry scab) Drainage Amount: None Dressing Status: Changed (hydrocolloid ) Cleansing Solution: Saline Primary Dressing: Hydrocolloid Wound Dressing Change Date: 02/13/18
--- NOTE | 2018-02-13 15:02 | P.PNONC ---
Subjective Interval history: c/o weakness and pain Objective Vital Signs/Intake & Output: Vital Signs 02/12/18 17:02 02/12/18 20:20 02/13/18 00:00 Temperature 98.0 F 98.0 F 98 F Pulse Rate 77 66 60 Respiratory Rate 18 17 17 Blood Pressure 117/58 L 125/72 116/62 Pulse Oximetry 94 L 95 02/13/18 04:36 02/13/18 08:05 02/13/18 11:18 Temperature 98.4 F 98.5 F 98.2 F Pulse Rate 70 68 71 Respiratory Rate 17 18 Blood Pressure 126/71 109/54 L 114/62 Pulse Oximetry 93 L 95 93 L 02/13/18 11:35 Temperature Pulse Rate Respiratory Rate 18 Blood Pressure Pulse Oximetry Intake & Output 02/12/18 02/13/18 02/13/18 18:59 06:59 18:59 Intake Total 860 / 860 Output Total 900 / 900 1250 / 1250 Balance -40 / -40 -1250 / -1250 Intake: Oral 860 / 860 Output: Urine 900 / 900 1250 / 1250 Other: Date of Last Bowel Movement 02/09/18 02/11/18 02/09/18 Result Diagrams: 02/12/18 08:15 02/12/18 08:15 Medications: Active Medications Generic Name Dose Route Start Last Admin Trade Name Freq PRN Reason Stop Dose Admin Hydrocodone Bitart/Acetaminophen 1 tab 02/05/18 15:37 02/13/18 09:54 [place] 7.5/325 PO 1 tab Q6H PRN Administration PAIN SCALE 1 TO 10 Al Hydroxide/Mg Hydroxide 30 ml 02/05/18 13:08 02/08/18 15:27 Milk Of Magnesia Liq PO 30 ml Q12H PRN Administration Mild Constipation Heparin Sodium (Porcine) 5,000 units 02/11/18 21:00 02/13/18 09:17 Heparin Inj SQ 5,000 units Q12HR SORIN Administration Hydrochlorothiazide 25 mg 02/08/18 09:00 02/13/18 09:16 Hydrodiuril PO 25 mg DAILY SORIN Administration Lactulose 30 ml 02/05/18 13:08 02/13/18 09:16 Lactulose Liq PO 30 ml DAILY PRN Administration SEVERE CONSITIPATION Lisinopril 10 mg 02/08/18 09:00 02/13/18 09:16 Prinivil PO 10 mg DAILY SORIN Administration Metoprolol Succinate 50 mg 02/08/18 09:00 02/13/18 09:17 Toprol Xl PO 50 mg DAILY SORIN Administration Phytonadione 5 mg 02/12/18 20:30 02/13/18 09:16 Mephyton Liq PO 5 mg DAILY SORIN Administration Senna/Docusate Sodium 1 tab 02/05/18 21:00 02/13/18 09:17 Angela-Colace PO 1 tab BID SORIN Administration Trimethoprim/Sulfamethoxazole 1 tab 02/07/18 11:30 02/13/18 09:17 Bactrim Ds PO 1 tab Q12HR SORIN Administration Objective Remarks: GENERAL: Well-nourished, well-developed patient. SKIN: Warm and dry. HEAD: Normocephalic. EYES: No scleral icterus. No injection or drainage. NECK: Supple, trachea midline. No JVD or lymphadenopathy. LYMPHATIC: No adenopathy. CARDIOVASCULAR: Regular rate and rhythm without murmurs. RESPIRATORY: Breath sounds equal bilaterally. No accessory muscle use. GASTROINTESTINAL: Abdomen soft, non-tender, nondistended. EXTREMITIES: No cyanosis, or edema. NEUROLOGICAL: Awake, alert, and oriented x3. PSYCHIATRIC: Appropriate mood and affect; insight and judgment normal. Assessment/Plan (1) Lytic lesion of bone on x-ray Code(s): M89.9 - Disorder of bone, unspecified Status: Acute (2) Pancreatic mass Code(s): K86.9 - Disease of pancreas, unspecified Status: Acute (3) Portal vein thrombosis Code(s): I81 - Portal vein thrombosis Status: Acute - Plan 82-year-old male with history of low-grade CLL as well as bladder cancer admitted with multiple falls found to have portal vein thrombosis, pancreatic head mass and multiple lytic lesions on T11 vertebra and right posterior iliac bone 1. Biopsy results are still pending. 2. Vit K for coagulopathy . We will continue to monitor coags. 3. Anticipate bx report soon. 4. neuro-surg consultation reviewed. Not a cadidate for surg. TLSO brace. 5. I will be OOT till monday and will ask Dr Roque Singh to follow him
--- NOTE | 2018-02-13 15:59 | XR ---
EXAM DATE: 02/13/2018 3:55 PM EDT AGE/SEX: 82 years / Male INDICATIONS: Hit lateral side of shoulder on the end of a table. CLINICAL DATA: This is the patient's initial encounter. Patient reports that signs and symptoms have been present for 1 day and indicates a pain score of 5/10. MEDICAL/SURGICAL HISTORY: None. None. COMPARISON: No prior exams available for comparison. FINDINGS: Bony structures are intact and in normal alignment. Mild degenerative changes are present in the acro mioclavicular joint. There is eburnation of the inferior chromium. Osseous density is normal. Soft t issues are unremarkable. No radiopaque foreign bodies seen. CONCLUSION: Negative trauma study with no acute fracture or malalignment. Electronically signed by: Joao Baez MD 02/13/2018 3:58 PM EDT
--- NOTE | 2018-02-13 17:18 | P.PNNS ---
Subjective Interval history: his is an 82-year-old male with a history of atrial fibrillation on Coumadin who was admitted to [facility] after progressive weakness and a fall. He called his friend and his friend around to the hospital. Over the last several months he developed back pain and progressive lower extremity weakness. He attributed this to his right knee which has significant osteoarthritic changes. He has also experienced some urinary incontinence over the last several weeks. He has at least 2 falls and had progressively used canes and now a walker. He notes no fevers or chills. He notes no back pain is not any nausea and vomiting or belly pain. He finally came to the emergency room today and was found to have profound weakness. In the course of the ER visit patient did have both CT of the chest and abdomen which showed pancreatic mass as well as metastatic changes to T10 through 11 as well and is progressive adenopathy from previous evaluations. Patient has not had any fevers or chills. He was also found to have an INR of 9.6. He takes Coumadin for atrial fibrillation. He notes no new antibiotics or changes in his prescription. Normally he also with the events and cardiology office and his INR has been in the 2-3 range appropriately for his diagnosis. He had fallen does have significant amount of ecchymotic skin injuries. There is no bleeding at this time. He has been admitted to the hospital for further evaluation. He then. Neurosurgical consultation was requested 02/13. back pain is controlled. Reports shoulder xray. Pathology is pending Physical Exam Vital signs: Vital Signs 02/12/18 20:20 02/13/18 00:00 02/13/18 04:36 Temperature 98.0 F 98 F 98.4 F Pulse Rate 66 60 70 Respiratory Rate 17 17 17 Blood Pressure 125/72 116/62 126/71 Pulse Oximetry 94 L 95 93 L 02/13/18 08:05 02/13/18 11:18 02/13/18 11:35 Temperature 98.5 F 98.2 F Pulse Rate 68 71 Respiratory Rate 18 18 18 Blood Pressure 109/54 L 114/62 Pulse Oximetry 95 93 L 02/13/18 15:15 Temperature 98 F Pulse Rate 71 Respiratory Rate 18 Blood Pressure 122/58 L Pulse Oximetry 96 Intake & Output 02/12/18 02/13/18 02/13/18 18:59 06:59 18:59 Intake Total 860 / 860 600 / 600 Output Total 900 / 900 1250 / 1250 Balance -40 / -40 -1250 / -1250 600 / 600 Intake: Oral 860 / 860 600 / 600 Output: Urine 900 / 900 1250 / 1250 Other: Date of Last Bowel Movement 02/09/18 02/11/18 02/09/18 # Bowel Movements 4 Narrative: Mr Fish is alert, awake. Comfortable, in no acute distress. Speech is fluent. Cranial nerve examination: pupils to be equal, round and reactive to light. Extra-ocular movements are intact. Facial motor and sensory function are normal and symmetrical. Gross hearing appears intact. Sternocleidomastoid and trapezius muscles are symmetrical. Other cranial nerves are intact. Neck is soft and supple with a good range of motion without pain. Muscle strength is normal in all muscle groups of both upper and lower extremities. Sensory examination is intact to light touch and pin prick in both the upper and lower extremities. Deep tendon reflexes are symmetrical in both upper and lower extremities. There is a bilateral plantar flexion response. Cerebellar examination is unremarkable, without deficits. Lungs are clear Heart regular rhythm is regular rate Skin warm and dry Assessment and Plan - Plan I reviewed his clinical and radiological studies including Cervical Spine CT 02/05/18 10:17 CONCLUSION: 1. Extensive bilateral neck lymphadenopathy suspicious for metastatic disease or lymphoma. 2. There is a lytic bone lesion within the T3 vertebral body. 3. Multilevel degenerative disc disease throughout the cervical spine, as above. No spinal canal stenosis is identified. There areas of neural foraminal narrowing at multiple levels but is most severe on the right at C5-C6. Head CT 02/05/18 10:17 CONCLUSION: Unremarkable study. Abdomen/Pelvis CT 02/05/18 11:10 CONCLUSION: 1. 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 2. Pathological adenopathy throughout the abdomen and pelvis highly suspicious for metastatic disease. 3. Lytic lesion involving the bony structures the largest one involving the T11 vertebrae and right posterior iliac bone almost certainly metastatic. 4. Possible thrombus within main portal vein. Chest CT 02/05/18 11:10 CONCLUSION: Mass process involving the T10 vertebral body with some degree of canal encroachment which is not optimally evaluated on this conventional CT. CT myelography may be useful for correlation. At least a couple of small right lung nodules and enlarged mediastinal lymph nodes noted. Bone Biopsy CT 02/09/18 09:38 CONCLUSION: Uncomplicated CT guided biopsy of the lytic lesion in the right posterior iliac bone. Lumbar Spine CT 02/10/18 00:00 CONCLUSION: 1. Expansile, lytic, lesion involving the posterior superior medial iliac bone measuring 3 cm, suspicious for metastatic disease. 2. 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 3. Multilevel discogenic degenerative changes throughout the lumbar spine with left lumbar scoliosis. Thoracic Spine CT 02/10/18 00:00 CONCLUSION: 1. Destructive change and sclerosis involving the T10 vertebra consistent with metastatic disease. There is mild retropulsion of portions of vertebral body with mild flattening the anterior thecal sac. There is surrounding soft tissue prominence. 82 year old male T10 destructive lesion. Awaiting biopsy results CT scan of lumbar and thoracic spine show no obvious cord compression. 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, follow-up with oncology Continue with palliative care care consult to help plan goals of care Continue with hydrocodone for pain as needed Patient would not like to be aggressive if there is no life expectancy to be gained Portal vein thrombosis Code(s): I81 - Portal vein thrombosis Status: Acute Plan: Currently anticoagulated with Coumadin, INR 9.6 We will continue to follow INR Avoid reversal due to thrombotic event Coumadin diagnosis atrial fibrillation Supratherapeutic INR Code(s): R79.1 - Abnormal coagulation profile Status: Acute Plan: The allergy clear may be from hypermetabolic status due to malignancy Hold warfarin for now and follow up INR Patient does have a portal vein thrombus which will require anticoagulation Multiple falls Code(s): R29.6 - Repeated falls Status: Acute Plan: Worrisome due to recent urinary incontinence, with new vertebral metastases (T10 , T11, T3), patient denies lower extremity pain and has chronic osteoarthritis of the right knee May be a candidate for neurosurgical intervention versus kyphoplasty Cord impingement concerning Patient would like to avoid back surgery if at all possible Continue supportive care for now Rehab measures Afib Code(s): I48.91 - Unspecified atrial fibrillation Status: Acute Plan: Currently controlled on metoprolol, warfarin held due to elevated INR HTN (hypertension) Code(s): I10 - Essential (primary) hypertension Status: Acute Plan: stable on HCTZ, lisinopril, metoprolol Lymphoma Code(s): C85.90 - Non-Hodgkin lymphoma, unspecified, unspecified site Status: Acute Plan: History of stable lymphoma under observation, also history of bladder cancer Patient leukocytosis may be due to dehydration versus acute phase reaction from urinary tract infection Follow closely Caprini VTE Risk Assessment Caprini VTE Risk Assessment: Moderate/High Risk (score >= 2) VTE Pharmacological Exception Reason: Coagulopathy,INR elevated Caprini Risk Assessment Model: Point Value = 1 Point Value = 2 Point Value = 3 Point Value = 5 Age 41-60 Minor surgery BMI > 25 kg/m2 Swollen legs Varicose veins or History of unexplained or recurrent spontaneous Oral contraceptives or hormone replacement Sepsis (< 1 month) Serious lung disease, including pneumonia (< 1 month) Abnormal pulmonary function Acute myocardial infarction Congestive heart failure (< 1 month) History of inflammatory bowel disease Medical patient at bed rest Age 61-74 Arthroscopic surgery Major open surgery (> 45 min) Laparoscopic surgery (> 45 min) Malignancy Confined to bed (> 72 hours) Immobilizing plaster cast Central venous access Age >= 75 History of VTE Family history of VTE Factor V Leiden Prothrombin [id number] Lupus anticoagulant Anticardiolipin antibodies Elevated serum homocysteine Heparin-induced thrombocytopenia Other congenital or acquired thrombophilia Stroke (< 1 month) Elective arthroplasty Hip, pelvis, or leg fracture Acute spinal cord injury (< 1 month) Prophylaxis Regimen: Total Risk Factor Score Risk Level Prophylaxis Regimen 0-1 Low Early ambulation 2 Moderate Order ONE of the following: *Sequential Compression Device (SCD) *Heparin 5000 units SQ BID 3-4 Higher Order ONE of the following medications: *Heparin 5000 units SQ TID *Enoxaparin/Lovenox 40 mg SQ daily (WT < 150 kg, CrCl > 30 mL/min) *Enoxaparin/Lovenox 30 mg SQ daily (WT < 150 kg, CrCl > 10-29 mL/min) *Enoxaparin/Lovenox 30 mg SQ BID (WT < 150 kg, CrCl > 30 mL/min) AND/OR *Sequential Compression Device (SCD) 5 or more Highest Order ONE of the following medications: *Heparin 5000 units SQ TID (Preferred with Epidurals) *Enoxaparin/Lovenox 40 mg SQ daily (WT < 150 kg, CrCl > 30 mL/min) *Enoxaparin/Lovenox 30 mg SQ daily (WT < 150 kg, CrCl > 10-29 mL/min) *Enoxaparin/Lovenox 30 mg SQ BID (WT < 150 kg, CrCl > 30 mL/min) AND *Sequential Compression Device (SCD)
[2018-02-13] MEDS: Lactic Acid (Ammonium Lactate) 12% Lotion 225 GM Bottle TOPICAL SCH (23:20)
[2018-02-14] MEDS: Phytonadione 5 MG/SWFI 5 ML Oral Syringe PO SCH (08:51)
[2018-02-14] MEDS: Lisinopril 10 MG Tablet PO SCH (08:51)
[2018-02-14] MEDS: Senna/Docusate Sodium 8.6/50 MG Tablet PO SCH ×2 (08:52→21:00)
[2018-02-14] MEDS: hydroCHLOROthiazide 25 MG Tablet PO SCH (08:52)
[2018-02-14] MEDS: Heparin - SQ 10,000 UNITS/ML Vial SQ SCH ×2 (08:53→21:00)
[2018-02-14] MEDS: Lactic Acid (Ammonium Lactate) 12% Lotion 225 GM Bottle TOPICAL SCH ×2 (09:00→21:01)
--- NOTE | 2018-02-14 14:23 | P.PN ---
Physical Exam Vital signs: Vital Signs 02/13/18 15:15 02/13/18 20:00 02/14/18 00:00 Temperature 98 F 99.8 F H 99.4 F Pulse Rate 71 67 68 Respiratory Rate 18 20 20 Blood Pressure 122/58 L 111/53 L 110/62 Pulse Oximetry 96 93 L 94 L 02/14/18 04:00 02/14/18 07:19 02/14/18 11:32 Temperature 97.5 F L 98.8 F 98.1 F Pulse Rate 71 89 80 Respiratory Rate 18 20 18 Blood Pressure 109/58 L 124/69 116/74 Pulse Oximetry 94 L 95 95 Intake & Output 02/13/18 02/14/18 02/14/18 18:59 06:59 18:59 Intake Total 1820 / 1820 150 / 150 720 / 720 Output Total 275 / 275 550 / 550 200 / 200 Balance 1545 / 1545 -400 / -400 520 / 520 Intake: Oral 1820 / 1820 150 / 150 720 / 720 Output: Urine 275 / 275 550 / 550 200 / 200 Other: Date of Last Bowel Movement 02/13/18 02/13/18 # Bowel Movements 5 Narrative: Subjective Interval history: Follow-up for possible spinal metastatic lesions. Complaining of getting aggravated by physical therapist yesterday. The patient says the physical therapist yesterday had no bed side manners and she should not work with people. Looking at the records patient was seen by Mrs Rosario PT yesterday. He says he was upset thereafter and and was not able to sleep last night also. I did apologize to the patient and I spent a significan amount of time reassuring the patient. Patient feels much better. Spoke with PT therapy today will get another physical therapist to work with the patient. Patient has no back pain at this time. No right shoulder pain however has some limitation with movement of his right shoulder , no fracture seen on X ray. Will consult OT. Wounds in his legs feels better after evaluation of wound care nurse. Physical Exam GENERAL: Patient is in bed appeared anxious and upset of the events happening yesterday with the physical therapist, however after talking with the patient and reassured, the patient felt much better he is less anxious and is very pleasant. SKIN: Multiple ecchymotic skin, bilateral lower extremity wounds dresing in place c/d/i. CARDIOVASCULAR: Regular rate and rhythm. No murmurs gallops or rubs appreciated RESPIRATORY: Good air flow and effort without accessory muscle use. Clear to auscultation. Breath sounds equal bilaterally. GASTROINTESTINAL: Abdomen soft, non-tender, nondistended. Hepatic and splenic margins not palpable. MUSCULOSKELETAL: Extremities without clubbing, cyanosis, or edema. No obvious deformities. NEUROLOGICAL: Awake and alert. No obvious cranial nerve deficits. Motor grossly within normal limits. 3 out of 5 muscle strength in the arms and legs. Normal speech. Assessment and Plan (1) Acute UTI Code(s): N39.0 - Urinary tract infection, site not specified Status: Acute Plan: Klebsiella oxytoca Rocephin IV (2) Portal vein thrombosis Code(s): I81 - Portal vein thrombosis Status: Acute Plan: anticoagulated with Coumadin, INR 1.5 after vitamin K. Presented with supratherapeutic INR of 9 Goal 2.5, add heparin gtt Coumadin diagnosis atrial fibrillation, portal vein thrombosis. Anticoagulation per hem/onc (3) Supratherapeutic INR Code(s): R79.1 - Abnormal coagulation profile Status: Acute Plan: s/p vit k per hematology (4) Multiple falls Code(s): R29.6 - Repeated falls Status: Acute Plan: Worrisome due to recent urinary incontinence, with new vertebral metastases (T10 , T11, T3), patient denies lower extremity pain but has back pain and has chronic osteoarthritis of the right knee May be a candidate for neurosurgical intervention versus kyphoplasty Cord impingement concerning Follow-up neurosurgery, consult pending S/p bone marrow biopsy results pending S/p CT scan of the lumbar and thoracic no cord compression. 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 Discussed with hem/onc plan for resuming anticoagulation for patient's history of A. fib and new finding of portal vein thrombosis. Anticoagulation oer hem/ onc. Patient with T10 destructive lesion. CT scan of lumbar and thoracic spine show no obvious cord compression. Neurosurgery consulted appreciate recommendations. TLSO brace for support He is not a surgical candidate at this time. Consider Radiation therapy (5) Afib Code(s): I48.91 - Unspecified atrial fibrillation Status: Acute Plan: Currently controlled on metoprolol, warfarin held due to elevated INR, coagulopathy . Anticoagulatio oer hem/onc (6) HTN (hypertension) Code(s): I10 - Essential (primary) hypertension Status: Acute Plan: stable on HCTZ, lisinopril, metoprolol Monitor (7) Lymphoma Code(s): C85.90 - Non-Hodgkin lymphoma, unspecified, unspecified site Status: Acute Plan: History of stable lymphoma under observation, also history of bladder cancer Patient leukocytosis may be due to dehydration versus acute phase reaction from urinary tract infection Follow closely (8) Multiple lesions of metastatic malignancy Code(s): C79.9 - Secondary malignant neoplasm of unspecified site Status: Acute Plan: Rule out metastatic malignancy to bone (possible pancreatic, prostatic versus plasma cell source) workup in progress, oncology consult appreciated Destructive change and sclerosis involving the T10 vertebra consistent with metastatic disease. Metastasis from pancreatic cancer. 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 Neurosurgery consulted recommends TLSO and conservative management ( 9 ) Bilateral lower extremity wounds. Consult wound care, greatly appreciate recommendations, orders for wound care are in. (10) Right shoulder pain. History of fall 2 weeks prior to admission. X-ray rviewed no fractures. Patient has limited ROM. Will consult OT. (11) Moderate to severe protein sariah malnutrition. Low albumin, muscle waisting, weak handgrip, decrease PO intake. Change diet to regular add ensure to diet. consult mft. Encourage PO intake. Discharge Planning: Pending improvement. Need rehab at [place]. CM consulted and ff. Had bone marrow bx. Plan for CT patient initially refused. He agreed. Per radiology cT report no evident signs of cord compression. Neurosurgery consulted recommends TLSO and conservative management Bone marrow biopsy is pending. Resume anticoagulation for Afib per Hem/onc Note: The patient complained of physical therapist Mrs Good chandler who evaluated the patient on 02/13/18, discussed with PT and will have other PT following the patient. Patient was reassured. Discussed with the patient, nurse, case management , PT rounding today. Results - Labs CBC & Chem 7: 02/12/18 08:15 02/12/18 08:15 - Imaging Impressions Shoulder X-Ray 02/13/18 00:00 CONCLUSION: Negative trauma study with no acute fracture or malalignment. - Procedures Status post biopsy posterior right ilac bone by IR on 02/09/18 Assessment and Plan - Assessment (1) Acute UTI Code(s): N39.0 - Urinary tract infection, site not specified Status: Acute (2) Portal vein thrombosis Code(s): I81 - Portal vein thrombosis Status: Acute (3) Supratherapeutic INR Code(s): R79.1 - Abnormal coagulation profile Status: Acute (4) Multiple falls Code(s): R29.6 - Repeated falls Status: Acute (5) Afib Code(s): I48.91 - Unspecified atrial fibrillation Status: Acute (6) HTN (hypertension) Code(s): I10 - Essential (primary) hypertension Status: Acute (7) Lymphoma Code(s): C85.90 - Non-Hodgkin lymphoma, unspecified, unspecified site Status: Acute (8) Multiple lesions of metastatic malignancy Code(s): C79.9 - Secondary malignant neoplasm of unspecified site Status: Acute Plan: Rule out metastatic malignancy to bone (possible pancreatic, prostatic versus plasma cell source) workup in progress, oncology consult appreciated Continue with palliative care care consult to help plan goals of care Continue with hydrocodone for pain as needed Patient agreeable to exploring options of treatment
--- NOTE | 2018-02-14 16:23 | CT ---
This report includes an Addendum and supersedes previous reports for this exam. There is a subtle lytic lesion also noted in the T3 vertebral body involving the anterior superior aspect. There is no retropulsion. There are also subtle tiny scattered sclerotic foci in multiple vertebral bodies which could represent early metastatic disease as well. Electronically signed by: Joao Baez MD 02/11/2018 8:43 AM EDT Addendum Dictated By: Joao Baez MD EXAM DATE: 02/10/2018 4:33 PM EDT AGE/SEX: 82 years / Male INDICATIONS: Upper back pain. CLINICAL DATA: This is the patient's initial encounter. Patient reports that signs and symptoms have been present for 1 day and indicates a pain score of 7/ 10. MEDICAL/SURGICAL HISTORY: Carcinoma, bladder. Leukemia. Lymphoma. None. RADIATION DOSE: 39.86 CTDI (mGy) ; Combined studies COMPARISON: [facility], CT CERVICAL SPINE W/O CONTRAST, 02/05/2018. . TECHNIQUE: Contiguous axial images were acquired using a multirow detector CT scanner without contrast. Multiplanar reconstruction in the sagittal and coronal planes was performed. Using automated exposure control and adjustment of the mA and/or kV according to patient size, radiation dose was kept as low as reasonably achievable to obtain optimal diagnostic quality images. DICOM format image data is available electronically for review and comparison. FINDINGS: Vertebrae: Sagittal images demonstrate destructive change and sclerosis involving the T10 vertebral body with mild invagination of the superior and inferior endplates and mild loss of height of the left side of the vertebral body. The other vertebral bodies are intact. There are mild degenerative changes and osteopenia. There is a mild scoliosis. Alignment: Normal. No subluxation. The axial images demonstrate mild diffuse degenerative changes. Destructive changes are again noted involving the T10 vertebral body with areas of abnormal lucency as well as sclerosis. There is surrounding soft tissue swelling. There is mild retropulsion of portions of the posterior vertebral body with mild mass effect on the anterior thecal sac. The neural foramina are patent. Sclerosis and destructive change extends into the pedicles. No definite anterior extradural component is identified on the soft tissue images. The other vertebral bodies are intact and there is no visualized disc protrusion. Small bilateral pleural effusions are noted. CONCLUSION: 1. Destructive change and sclerosis involving the T10 vertebra consistent with metastatic disease. There is mild retropulsion of portions of vertebral body with mild flattening the anterior thecal sac. There is surrounding soft tissue prominence. Electronically signed by: Joao Baez MD 02/10/2018 5:19 PM EDT MTDD
--- NOTE | 2018-02-14 16:50 | P.DIET ---
Nutritional Evaluation Type of nutrition evaluation: follow-up Nutrition screening: Weight Loss > 10 lbs (15# in 10months) Subjective Subjective Comments: Out of room on visit. Objective - Diagnosis Metastatic Pancreatic Cancer, ABRAHAN, UTI, Supratherapeutic INR - Objective % IBW: 120 (STK=238#) Body Weight Used for Calculations: IBW (75.5kg) Energy Needs - Lower Range (kCal/kg): 25 Energy Needs - Upper Range (kCal/kg): 30 Lower Limit kCal/kg (kCals): 1,886 Upper Limit kCal/kg (kCals): 2,265 Lower Limit Protein Factor (Grams per Kg): 1.1 Upper Limit Protein Factor (Grams per Kg): 1.4 Lower Protein Needs (Protein): 83 Upper Protein Needs (Protein): 106 Fluid Factor (ml/kg): 30 Estimated Fluid Needs (ml): 2,265 Dietitian Reviewed in Medical Record: Current diet, Curent medications, Intake & Output, Labs, Medical history Diet Order: Regular Oral Diet Intake Amount: Fair 50-75% Wound Care Note: Reviewed Objective Comments: Meds: Hydrodiuril, Lactulose Labs: BUN 21, crime prevention worker 1.34, eGFR 51 LBM 02/13 Assessment Assessment: Pt remains on a Regular diet. His PO intake is sporadic, oftentimes ranging from 25-75%. He was out of the room on my visit. Pt has hx of CLL. Will provide Ensure BID for added nutrition. Continue Regular diet. Dietitian following. Recommendations: 1. Ensure BID. Dietitian to Monitor: Lab values, Supplement acceptance, Intake & Output, Diet tolerance, Weight change, PO Intake, Medical course
--- NOTE | 2018-02-14 16:58 | P.PNNS ---
Subjective Interval history: This is an 82-year-old male with a history of atrial fibrillation on Coumadin who was admitted to [facility] after progressive weakness and a fall. He called his friend and his friend around to the hospital. Over the last several months he developed back pain and progressive lower extremity weakness. He attributed this to his right knee which has significant osteoarthritic changes. He has also experienced some urinary incontinence over the last several weeks. He has at least 2 falls and had progressively used canes and now a walker. He notes no fevers or chills. He notes no back pain is not any nausea and vomiting or belly pain. He finally came to the emergency room today and was found to have profound weakness. In the course of the ER visit patient did have both CT of the chest and abdomen which showed pancreatic mass as well as metastatic changes to T10 through 11 as well and is progressive adenopathy from previous evaluations. Patient has not had any fevers or chills. He was also found to have an INR of 9.6. He takes Coumadin for atrial fibrillation. He notes no new antibiotics or changes in his prescription. Normally he also with the events and cardiology office and his INR has been in the 2-3 range appropriately for his diagnosis. He had fallen does have significant amount of ecchymotic skin injuries. There is no bleeding at this time. He has been admitted to the hospital for further evaluation. He then. Neurosurgical consultation was requested 02/13. back pain is controlled. Reports shoulder xray. Pathology is pending 02/14. He reports shoulder pain. Xrays showed no fracture Physical Exam Vital signs: Vital Signs 02/13/18 20:00 02/14/18 00:00 02/14/18 04:00 Temperature 99.8 F H 99.4 F 97.5 F L Pulse Rate 67 68 71 Respiratory Rate 20 20 18 Blood Pressure 111/53 L 110/62 109/58 L Pulse Oximetry 93 L 94 L 94 L 02/14/18 07:19 02/14/18 11:32 02/14/18 16:53 Temperature 98.8 F 98.1 F 98.3 F Pulse Rate 89 80 67 Respiratory Rate 20 18 20 Blood Pressure 124/69 116/74 124/65 Pulse Oximetry 95 95 95 Intake & Output 02/13/18 02/14/18 02/14/18 18:59 06:59 18:59 Intake Total 1820 / 1820 150 / 150 960 / 960 Output Total 275 / 275 550 / 550 400 / 400 Balance 1545 / 1545 -400 / -400 560 / 560 Intake: Oral 1820 / 1820 150 / 150 960 / 960 Output: Urine 275 / 275 550 / 550 400 / 400 Other: Date of Last Bowel Movement 02/13/18 02/13/18 # Bowel Movements 5 Narrative: Mr Fish is alert, awake. Comfortable, in no acute distress. Speech is fluent. Cranial nerve examination: pupils to be equal, round and reactive to light. Extra-ocular movements are intact. Facial motor and sensory function are normal and symmetrical. Gross hearing appears intact. Sternocleidomastoid and trapezius muscles are symmetrical. Other cranial nerves are intact. Neck is soft and supple with a good range of motion without pain. Muscle strength is normal in all muscle groups of both upper and lower extremities. Sensory examination is intact to light touch and pin prick in both the upper and lower extremities. Deep tendon reflexes are symmetrical in both upper and lower extremities. There is a bilateral plantar flexion response. Cerebellar examination is unremarkable, without deficits. Lungs are clear Heart regular rhythm is regular rate Skin warm and dry Assessment and Plan - Plan I reviewed his clinical and radiological studies including Shoulder Xrays No fracture Bone Biopsy CT 02/09/18 09:38 CONCLUSION: Uncomplicated CT guided biopsy of the lytic lesion in the right posterior iliac bone. Lumbar Spine CT 02/10/18 00:00 CONCLUSION: 1. Expansile, lytic, lesion involving the posterior superior medial iliac bone measuring 3 cm, suspicious for metastatic disease. 2. 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 3. Multilevel discogenic degenerative changes throughout the lumbar spine with left lumbar scoliosis. Thoracic Spine CT 02/10/18 00:00 CONCLUSION: 1. Destructive change and sclerosis involving the T10 vertebra consistent with metastatic disease. There is mild retropulsion of portions of vertebral body with mild flattening the anterior thecal sac. There is surrounding soft tissue prominence. 82 year old male T10 destructive lesion.. PATHOLOGY is pending Still awaiting biopsy results CT scan of lumbar and thoracic spine show no obvious cord compression. 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, follow-up with oncology Continue with palliative care care consult to help plan goals of care Continue with hydrocodone for pain as needed Patient would not like to be aggressive if there is no life expectancy to be gained Portal vein thrombosis Code(s): I81 - Portal vein thrombosis Status: Acute Plan: Currently anticoagulated with Coumadin, INR 9.6 We will continue to follow INR Avoid reversal due to thrombotic event Coumadin diagnosis atrial fibrillation Supratherapeutic INR Code(s): R79.1 - Abnormal coagulation profile Status: Acute Plan: The allergy clear may be from hypermetabolic status due to malignancy Hold warfarin for now and follow up INR Patient does have a portal vein thrombus which will require anticoagulation Multiple falls Code(s): R29.6 - Repeated falls Status: Acute Plan: Worrisome due to recent urinary incontinence, with new vertebral metastases (T10 , T11, T3), patient denies lower extremity pain and has chronic osteoarthritis of the right knee May be a candidate for neurosurgical intervention versus kyphoplasty Cord impingement concerning Patient would like to avoid back surgery if at all possible Continue supportive care for now Rehab measures Afib Code(s): I48.91 - Unspecified atrial fibrillation Status: Acute Plan: Currently controlled on metoprolol, warfarin held due to elevated INR HTN (hypertension) Code(s): I10 - Essential (primary) hypertension Status: Acute Plan: stable on HCTZ, lisinopril, metoprolol Lymphoma Code(s): 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 Consult wound care, greatly appreciate recommendations, orders for wound care are in. Right shoulder pain. History of fall 2 weeks prior to admission. X-ray rviewed no fractures. Patient has limited ROM. Will consult OT. Moderate to severe protein sariah malnutrition. Low albumin, muscle waisting, weak handgrip, decrease PO intake. Change diet to regular add ensure to diet. consult monotypist. Encourage PO intake. Caprini VTE Risk Assessment Caprini VTE Risk Assessment: Moderate/High Risk (score >= 2) VTE Pharmacological Exception Reason: Coagulopathy,INR elevated Caprini Risk Assessment Model: Point Value = 1 Point Value = 2 Point Value = 3 Point Value = 5 Age 41-60 Minor surgery BMI > 25 kg/m2 Swollen legs Varicose veins or History of unexplained or recurrent spontaneous Oral contraceptives or hormone replacement Sepsis (< 1 month) Serious lung disease, including pneumonia (< 1 month) Abnormal pulmonary function Acute myocardial infarction Congestive heart failure (< 1 month) History of inflammatory bowel disease Medical patient at bed rest Age 61-74 Arthroscopic surgery Major open surgery (> 45 min) Laparoscopic surgery (> 45 min) Malignancy Confined to bed (> 72 hours) Immobilizing plaster cast Central venous access Age >= 75 History of VTE Family history of VTE Factor V Leiden Prothrombin [id number] Lupus anticoagulant Anticardiolipin antibodies Elevated serum homocysteine Heparin-induced thrombocytopenia Other congenital or acquired thrombophilia Stroke (< 1 month) Elective arthroplasty Hip, pelvis, or leg fracture Acute spinal cord injury (< 1 month) Prophylaxis Regimen: Total Risk Factor Score Risk Level Prophylaxis Regimen 0-1 Low Early ambulation 2 Moderate Order ONE of the following: *Sequential Compression Device (SCD) *Heparin 5000 units SQ BID 3-4 Higher Order ONE of the following medications: *Heparin 5000 units SQ TID *Enoxaparin/Lovenox 40 mg SQ daily (WT < 150 kg, CrCl > 30 mL/min) *Enoxaparin/Lovenox 30 mg SQ daily (WT < 150 kg, CrCl > 10-29 mL/min) *Enoxaparin/Lovenox 30 mg SQ BID (WT < 150 kg, CrCl > 30 mL/min) AND/OR *Sequential Compression Device (SCD) 5 or more Highest Order ONE of the following medications: *Heparin 5000 units SQ TID (Preferred with Epidurals) *Enoxaparin/Lovenox 40 mg SQ daily (WT < 150 kg, CrCl > 30 mL/min) *Enoxaparin/Lovenox 30 mg SQ daily (WT < 150 kg, CrCl > 10-29 mL/min) *Enoxaparin/Lovenox 30 mg SQ BID (WT < 150 kg, CrCl > 30 mL/min) AND *Sequential Compression Device (SCD)
[2018-02-15] MEDS: hydroCHLOROthiazide 25 MG Tablet PO SCH (08:31)
[2018-02-15] MEDS: Heparin - SQ 10,000 UNITS/ML Vial SQ SCH ×2 (08:32→20:52)
[2018-02-15] MEDS: Lisinopril 10 MG Tablet PO SCH (08:32)
[2018-02-15] MEDS: Senna/Docusate Sodium 8.6/50 MG Tablet PO SCH ×2 (08:32→20:52)
[2018-02-15] MEDS: Lactic Acid (Ammonium Lactate) 12% Lotion 225 GM Bottle TOPICAL SCH ×2 (11:00→20:52)
[2018-02-15] MEDS: Phytonadione 5 MG/SWFI 5 ML Oral Syringe PO SCH (11:00)
--- NOTE | 2018-02-15 14:38 | P.PN ---
Physical Exam Vital signs: Vital Signs 02/14/18 16:53 02/14/18 20:00 02/15/18 00:00 Temperature 98.3 F 99.1 F 98.2 F Pulse Rate 67 70 67 Respiratory Rate 20 16 17 Blood Pressure 124/65 124/65 121/83 Pulse Oximetry 95 94 L 99 02/15/18 04:00 02/15/18 08:00 Temperature 98.4 F 98.1 F Pulse Rate 72 71 Respiratory Rate 17 18 Blood Pressure 107/57 L 117/65 Pulse Oximetry 92 L 95 Intake & Output 02/14/18 02/15/18 02/15/18 18:59 06:59 18:59 Intake Total 960 / 960 120 / 120 Output Total 400 / 400 700 / 700 Balance 560 / 560 -700 / -700 120 / 120 Weight 88.4 kg Intake: Oral 960 / 960 120 / 120 Output: Urine 400 / 400 700 / 700 Other: Date of Last Bowel Movement 02/13/18 02/13/18 Narrative: Subjective Interval history: Follow-up for possible spinal metastatic lesions. Complaining of getting aggravated by physical therapist yesterday. The patient says the physical therapist yesterday had no bed side manners and she should not work with people. Looking at the records patient was seen by Mrs Rosario PT yesterday. He says he was upset thereafter and and was not able to sleep last night also. I did apologize to the patient and I spent a significan amount of time reassuring the patient. Patient feels much better. Spoke with PT therapy today will get another physical therapist to work with the patient. Patient has no back pain at this time. No right shoulder pain however has some limitation with movement of his right shoulder , no fracture seen on X ray. Will consult OT. Wounds in his legs feels better after evaluation of wound care nurse. Pathology came back, patient with poor prognosis, hospice was consulted. With anxiety start ativan Physical Exam GENERAL: Patient is in bed appeared anxious and upset of the events happening yesterday with the physical therapist, however after talking with the patient and reassured, the patient felt much better he is less anxious and is very pleasant. SKIN: Multiple ecchymotic skin, bilateral lower extremity wounds dresing in place c/d/i. CARDIOVASCULAR: Regular rate and rhythm. No murmurs gallops or rubs appreciated RESPIRATORY: Good air flow and effort without accessory muscle use. Clear to auscultation. Breath sounds equal bilaterally. GASTROINTESTINAL: Abdomen soft, non-tender, nondistended. Hepatic and splenic margins not palpable. MUSCULOSKELETAL: Extremities without clubbing, cyanosis, or edema. No obvious deformities. NEUROLOGICAL: Awake and alert. No obvious cranial nerve deficits. Motor grossly within normal limits. 3 out of 5 muscle strength in the arms and legs. Normal speech. Assessment and Plan (1) Acute UTI Code(s): N39.0 - Urinary tract infection, site not specified Status: Acute Plan: Klebsiella oxytoca Rocephin IV (2) Portal vein thrombosis Code(s): I81 - Portal vein thrombosis Status: Acute Plan: anticoagulated with Coumadin, INR 1.5 after vitamin K. Presented with supratherapeutic INR of 9 Goal 2.5, add heparin gtt Coumadin diagnosis atrial fibrillation, portal vein thrombosis. Anticoagulation per hem/onc (3) Supratherapeutic INR Code(s): R79.1 - Abnormal coagulation profile Status: Acute Plan: s/p vit k per hematology (4) Multiple falls Code(s): R29.6 - Repeated falls Status: Acute Plan: Worrisome due to recent urinary incontinence, with new vertebral metastases (T10 , T11, T3), patient denies lower extremity pain but has back pain and has chronic osteoarthritis of the right knee May be a candidate for neurosurgical intervention versus kyphoplasty Cord impingement concerning Follow-up neurosurgery, consult pending S/p bone marrow biopsy results pending S/p CT scan of the lumbar and thoracic no cord compression. 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 Discussed with hem/onc plan for resuming anticoagulation for patient's history of A. fib and new finding of portal vein thrombosis. Anticoagulation oer hem/ onc. Patient with T10 destructive lesion. CT scan of lumbar and thoracic spine show no obvious cord compression. Neurosurgery consulted appreciate recommendations. TLSO brace for support He is not a surgical candidate at this time. Consider Radiation therapy (5) Afib Code(s): I48.91 - Unspecified atrial fibrillation Status: Acute Plan: Currently controlled on metoprolol, warfarin held due to elevated INR, coagulopathy . 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 Dr Singh hem/onc recommends hospice. Consult hospice Plan: Rule out metastatic malignancy to bone (possible pancreatic, prostatic versus plasma cell source) workup in progress, oncology consult appreciated Destructive change and sclerosis involving the T10 vertebra consistent with metastatic disease. Metastasis from pancreatic cancer. 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 Neurosurgery consulted recommends TLSO and conservative management ( 9 ) Bilateral lower extremity wounds. Consult wound care, greatly appreciate recommendations, orders for wound care are in. (10) Right shoulder pain. History of fall 2 weeks prior to admission. X-ray rviewed no fractures. Patient has limited ROM. Will consult OT. (11) Moderate to severe protein sariah malnutrition. Low albumin, muscle waisting, weak handgrip, decrease PO intake. Change diet to regular add ensure to diet. consult sorter laundry articles. Encourage PO intake. Discharge Planning: Pending improvement. Need rehab at [place]. CM consulted and ff. Had bone marrow bx. Plan for CT patient initially refused. He agreed. Per radiology cT report no evident signs of cord compression. Neurosurgery consulted recommends TLSO and conservative management Bone marrow biopsy is pending. Resume anticoagulation for Afib per Hem/onc Note: The patient complained of physical therapist Mrs Rosariobenji chandler who evaluated the patient on 02/13/18, discussed with PT and will have other PT following the patient. Patient was reassured. Discussed with the patient, nurse, case management Results - Labs CBC & Chem 7: 02/12/18 08:15 02/12/18 08:15 - Imaging Impressions Thoracic Spine CT 02/10/18 00:00 CONCLUSION: 1. Destructive change and sclerosis involving the T10 vertebra consistent with metastatic disease. There is mild retropulsion of portions of vertebral body with mild flattening the anterior thecal sac. There is surrounding soft tissue prominence. - Procedures Status post biopsy posterior right ilac bone by IR on 02/09/18 Assessment and Plan - Assessment (1) Acute UTI Code(s): N39.0 - Urinary tract infection, site not specified Status: Acute Plan: Klebsiella oxytoca Bactrim twice daily (2) Portal vein thrombosis Code(s): I81 - Portal vein thrombosis Status: Acute Plan: Currently anticoagulated with Coumadin, INR 1.5 after vitamin K Goal 2.5, add heparin gtt Coumadin diagnosis atrial fibrillation, portal vein thrombosis (3) Supratherapeutic INR Code(s): R79.1 - Abnormal coagulation profile Status: Acute Plan: s/p vit k per hematology (4) Multiple falls Code(s): R29.6 - Repeated falls Status: Acute Plan: Worrisome due to recent urinary incontinence, with new vertebral metastases (T10 , T11, T3), patient denies lower extremity pain but has back pain and has chronic osteoarthritis of the right knee May be a candidate for neurosurgical intervention versus kyphoplasty Cord impingement concerning Follow-up neurosurgery, consult pending Possible IR for biopsy (5) Afib Code(s): I48.91 - Unspecified atrial fibrillation Status: Acute Plan: Currently controlled on metoprolol, warfarin held due to elevated INR (6) HTN (hypertension) Code(s): I10 - Essential (primary) hypertension Status: Acute Plan: stable on HCTZ, lisinopril, metoprolol (7) Lymphoma Code(s): C85.90 - Non-Hodgkin lymphoma, unspecified, unspecified site Status: Acute Plan: History of stable lymphoma under observation, also history of bladder cancer Patient leukocytosis may be due to dehydration versus acute phase reaction from urinary tract infection Follow closely (8) Multiple lesions of metastatic malignancy Code(s): C79.9 - Secondary malignant neoplasm of unspecified site Status: Acute Plan: Rule out metastatic malignancy to bone (possible pancreatic, prostatic versus plasma cell source) workup in progress, oncology consult appreciated Continue with palliative care care consult to help plan goals of care Continue with hydrocodone for pain as needed Patient agreeable to exploring options of treatment
--- NOTE | 2018-02-15 16:39 | P.PNONC ---
Subjective Interval history: Mr. Fish was seen and examined, vital signs labs, medications and pathology results were reviewed. Subjectively he reports chronic lower back pain and generalized weakness he also reports abdominal distention and lack of appetite. At today's visit I had a long discussion with Mr. 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 Objective Vital Signs/Intake & Output: Vital Signs 02/14/18 16:53 02/14/18 20:00 02/15/18 00:00 Temperature 98.3 F 99.1 F 98.2 F Pulse Rate 67 70 67 Respiratory Rate 20 16 17 Blood Pressure 124/65 124/65 121/83 Pulse Oximetry 95 94 L 99 02/15/18 04:00 02/15/18 08:00 Temperature 98.4 F 98.1 F Pulse Rate 72 71 Respiratory Rate 17 18 Blood Pressure 107/57 L 117/65 Pulse Oximetry 92 L 95 Intake & Output 02/14/18 02/15/18 02/15/18 18:59 06:59 18:59 Intake Total 960 / 960 120 / 120 Output Total 400 / 400 700 / 700 Balance 560 / 560 -700 / -700 120 / 120 Weight 88.4 kg Intake: Oral 960 / 960 120 / 120 Output: Urine 400 / 400 700 / 700 Other: Date of Last Bowel Movement 02/13/18 02/13/18 Result Diagrams: 02/12/18 08:15 02/12/18 08:15 Medications: Active Medications Generic Name Dose Route Start Last Admin Trade Name Freq PRN Reason Stop Dose Admin Hydrocodone Bitart/Acetaminophen 1 tab 02/05/18 15:37 02/15/18 08:32 [place] 7.5/325 PO 1 tab Q6H PRN Administration PAIN SCALE 1 TO 10 Al Hydroxide/Mg Hydroxide 30 ml 02/05/18 13:08 02/08/18 15:27 Milk Of Magnesia Liq PO 30 ml Q12H PRN Administration Mild Constipation Heparin Sodium (Porcine) 5,000 units 02/11/18 21:00 02/15/18 08:32 Heparin Inj SQ 5,000 units Q12HR SORIN Administration Hydrochlorothiazide 25 mg 02/08/18 09:00 02/15/18 08:31 Hydrodiuril PO 25 mg DAILY SORIN Administration Lactic Acid 1 applicatio 02/13/18 21:00 02/14/18 21:01 Lac-Hydrin 12% Lotion TOPICAL 1 applicatio BID SORIN Administration Lactulose 30 ml 02/05/18 13:08 02/13/18 09:16 Lactulose Liq PO 30 ml DAILY PRN Administration SEVERE CONSITIPATION Lisinopril 10 mg 02/08/18 09:00 02/15/18 08:32 Prinivil PO 10 mg DAILY SORIN Administration Metoprolol Succinate 50 mg 02/08/18 09:00 02/15/18 08:32 Toprol Xl PO 50 mg DAILY SORIN Administration Phytonadione 5 mg 02/12/18 20:30 02/14/18 08:51 Mephyton Liq PO 5 mg DAILY SORIN Administration Senna/Docusate Sodium 1 tab 02/05/18 21:00 02/15/18 08:32 Angela-Colace PO 1 tab BID SORIN Administration Trimethoprim/Sulfamethoxazole 1 tab 02/07/18 11:30 02/15/18 08:32 Bactrim Ds PO 1 tab Q12HR SORIN Administration Objective Remarks: GENERAL: Elderly male, chronically ill, sitting up in bed, not acutely distressed. SKIN: Warm and dry. HEAD: Normocephalic. EYES: No scleral icterus. No injection or drainage. NECK: Supple, trachea midline. No JVD or lymphadenopathy. LYMPHATIC: No adenopathy. CARDIOVASCULAR: Regular rhythm S1-S2 no obvious murmurs rubs gallops.. RESPIRATORY: Good air movement bilaterally decreased bibasilar breath sounds, poor inspiratory effort. GASTROINTESTINAL: Protuberant, soft no obvious organ enlargement epigastric tenderness positive bowel sounds. EXTREMITIES: No cyanosis, trace pretibial edema. MUSCULOSKELETAL: Atrophic muscle, decreased muscle mass. NEUROLOGICAL: No obvious focal deficit. Awake, alert, and oriented x3. PSYCHIATRIC: Appropriate mood and affect; insight and judgment normal. Assessment/Plan (1) Lytic lesion of bone on x-ray Code(s): M89.9 - Disorder of bone, unspecified Status: Acute (2) Pancreatic mass Code(s): K86.9 - Disease of pancreas, unspecified Status: Acute (3) Portal vein thrombosis Code(s): I81 - Portal vein thrombosis Status: Acute - Plan 82-year-old male with history of low-grade CLL as well as bladder cancer admitted with multiple falls found to have portal vein thrombosis, pancreatic head mass and multiple lytic lesions on T11 vertebra and right posterior iliac bone. 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 Pathologic findings are not consistent with lymphoma or a plasma cell disorder. 1. 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 Ultimately regardless of primary site pathologic findings suggest a very aggressive malignant process which is metastatic. Treatment options regardless of primary will be palliative in nature. I talked to the patient about various palliative systemic chemotherapy options, I explained to the patient that given his functional status which is quite poor the risk of adverse outcomes related to treatment related toxicity will likely be greater than potential benefit. He explains to me quite clearly that he would prefer no treatment as opposed to undergoing treatment for palliative purposes alone. He tells me he wishes not to deal with systemic therapy associated adverse effects to achieve very modest improvement in survival. He tells me he has been thinking about what he would do in a situation such as this, he would however like to talk to his nieces and some additional family members to let them know of his diagnosis and his decision. He would like to meet with a hospice care nurse just to learn a little bit more about hospice care services. At today's visit the patient's niece who is visiting him from [place] was phoned in on speaker phone and participated in this visit and conversation. She seems very supportive of her uncles decision. I will therefore at this point request hospice to involve themselves. Once the patient has formally made his decision known he may be discharged either to the hospice care center or to home with hospice services. The oncology service will now sign off. Please call should the patient have any additional questions or concerns.
--- NOTE | 2018-02-15 18:32 | P.PNNS ---
Subjective Interval history: This is an 82-year-old male with a history of atrial fibrillation on Coumadin who was admitted to [place] after progressive weakness and a fall. He called his friend and his friend around to the hospital. Over the last several months he developed back pain and progressive lower extremity weakness. He attributed this to his right knee which has significant osteoarthritic changes. He has also experienced some urinary incontinence over the last several weeks. He has at least 2 falls and had progressively used canes and now a walker. He notes no fevers or chills. He notes no back pain is not any nausea and vomiting or belly pain. He finally came to the emergency room today and was found to have profound weakness. In the course of the ER visit patient did have both CT of the chest and abdomen which showed pancreatic mass as well as metastatic changes to T10 through 11 as well and is progressive adenopathy from previous evaluations. Patient has not had any fevers or chills. He was also found to have an INR of 9.6. He takes Coumadin for atrial fibrillation. He notes no new antibiotics or changes in his prescription. Normally he also with the events and cardiology office and his INR has been in the 2-3 range appropriately for his diagnosis. He had fallen does have significant amount of ecchymotic skin injuries. There is no bleeding at this time. He has been admitted to the hospital for further evaluation. He then. Neurosurgical consultation was requested 02/13. back pain is controlled. Reports shoulder xray. Pathology is pending 02/14. He reports shoulder pain. Xrays showed no fracture 02/15. Complaining of getting aggravated by physical therapist yesterday. The patient says the physical therapist yesterday had no bed side manners and she should not work with people. Patient has no back pain at this time. No fracture seen on X ray. Pathology results obtained Physical Exam Vital signs: Vital Signs 02/14/18 20:00 02/15/18 00:00 02/15/18 04:00 Temperature 99.1 F 98.2 F 98.4 F Pulse Rate 70 67 72 Respiratory Rate 16 17 17 Blood Pressure 124/65 121/83 107/57 L Pulse Oximetry 94 L 99 92 L 02/15/18 08:00 02/15/18 12:00 02/15/18 17:41 Temperature 98.1 F 97.7 F 98.9 F Pulse Rate 71 77 67 Respiratory Rate Blood Pressure 117/65 99/58 L 109/56 L Pulse Oximetry 95 93 L 96 Intake & Output 02/14/18 02/15/18 02/15/18 18:59 06:59 18:59 Intake Total 960 / 960 120 / 120 Output Total 400 / 400 700 / 700 Balance 560 / 560 -700 / -700 120 / 120 Weight 88.4 kg Intake: Oral 960 / 960 120 / 120 Output: Urine 400 / 400 700 / 700 Other: Date of Last Bowel Movement 02/13/18 02/13/18 Narrative: Mr Fish is alert, awake. Comfortable, in no acute distress. Speech is fluent. Cranial nerve examination: pupils to be equal, round and reactive to light. Extra-ocular movements are intact. Facial motor and sensory function are normal and symmetrical. Gross hearing appears intact. Sternocleidomastoid and trapezius muscles are symmetrical. Other cranial nerves are intact. Neck is soft and supple with a good range of motion without pain. Muscle strength is normal in all muscle groups of both upper and lower extremities. Sensory examination is intact to light touch and pin prick in both the upper and lower extremities. Deep tendon reflexes are symmetrical in both upper and lower extremities. There is a bilateral plantar flexion response. Cerebellar examination is unremarkable, without deficits. Lungs are clear Heart regular rhythm is regular rate Skin warm and dry Assessment and Plan - Plan 82-year-old male with history of low-grade CLL as well as bladder cancer admitted with multiple falls found to have portal vein thrombosis, pancreatic head mass and multiple lytic lesions on T11 vertebra and right posterior iliac bone. T10 destructive lesion. Awaiting biopsy results CT scan of lumbar and thoracic spine show no obvious cord compression. 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 Pathologic findings are not consistent with lymphoma or a plasma cell disorder. The pathologic findings suggest a very aggressive malignant process which is metastatic. Treatment options regardless of primary will be palliative in nature. I Acute UTI Code(s): N39.0 - Urinary tract infection, site not specified Status: Acute Plan: rocephin, follow cultures Metastasis from pancreatic cancer Code(s): C79.9 - Secondary malignant neoplasm of unspecified site; C25.9 - Malignant neoplasm of pancreas, unspecified Status: Acute Plan: Given his functional status which is quite poor the risk of adverse outcomes related to treatment related toxicity will likely be greater than potential benefit. He explains to me quite clearly that he would prefer no treatment as opposed to undergoing treatment for palliative purposes alone. Portal vein thrombosis Code(s): I81 - Portal vein thrombosis Status: Acute Plan: Currently anticoagulated with Coumadin, INR 9.6 We will continue to follow INR Avoid reversal due to thrombotic event Coumadin diagnosis atrial fibrillation Supratherapeutic INR Code(s): R79.1 - Abnormal coagulation profile Status: Acute Plan: The allergy clear may be from hypermetabolic status due to malignancy Hold warfarin for now and follow up INR Patient does have a portal vein thrombus which will require anticoagulation Multiple falls Code(s): R29.6 - Repeated falls Status: Acute Plan: Worrisome due to recent urinary incontinence, with new vertebral metastases (T10 , T11, T3), patient denies lower extremity pain and has chronic osteoarthritis of the right knee May be a candidate for neurosurgical intervention versus kyphoplasty Cord impingement concerning Patient would like to avoid back surgery if at all possible Continue supportive care for now Rehab measures Afib Code(s): I48.91 - Unspecified atrial fibrillation Status: Acute Plan: Currently controlled on metoprolol, warfarin held due to elevated INR HTN (hypertension) Code(s): I10 - Essential (primary) hypertension Status: Acute Plan: stable on HCTZ, lisinopril, metoprolol Bilateral lower extremity wounds. Consult wound care, greatly appreciate recommendations, orders for wound care are in. Right shoulder pain. History of fall 2 weeks prior to admission. X-ray rviewed no fractures. Patient has limited ROM. Will consult OT. Moderate to severe protein sariah malnutrition. Low albumin, muscle waisting, weak handgrip, decrease PO intake. Change diet to regular add ensure to diet. consult screen roller. Encourage PO intake. Caprini VTE Risk Assessment Caprini VTE Risk Assessment: Moderate/High Risk (score >= 2) VTE Pharmacological Exception Reason: Coagulopathy,INR elevated Caprini Risk Assessment Model: Point Value = 1 Point Value = 2 Point Value = 3 Point Value = 5 Age 41-60 Minor surgery BMI > 25 kg/m2 Swollen legs Varicose veins or History of unexplained or recurrent spontaneous Oral contraceptives or hormone replacement Sepsis (< 1 month) Serious lung disease, including pneumonia (< 1 month) Abnormal pulmonary function Acute myocardial infarction Congestive heart failure (< 1 month) History of inflammatory bowel disease Medical patient at bed rest Age 61-74 Arthroscopic surgery Major open surgery (> 45 min) Laparoscopic surgery (> 45 min) Malignancy Confined to bed (> 72 hours) Immobilizing plaster cast Central venous access Age >= 75 History of VTE Family history of VTE Factor V Leiden Prothrombin [id number] Lupus anticoagulant Anticardiolipin antibodies Elevated serum homocysteine Heparin-induced thrombocytopenia Other congenital or acquired thrombophilia Stroke (< 1 month) Elective arthroplasty Hip, pelvis, or leg fracture Acute spinal cord injury (< 1 month) Prophylaxis Regimen: Total Risk Factor Score Risk Level Prophylaxis Regimen 0-1 Low Early ambulation 2 Moderate Order ONE of the following: *Sequential Compression Device (SCD) *Heparin 5000 units SQ BID 3-4 Higher Order ONE of the following medications: *Heparin 5000 units SQ TID *Enoxaparin/Lovenox 40 mg SQ daily (WT < 150 kg, CrCl > 30 mL/min) *Enoxaparin/Lovenox 30 mg SQ daily (WT < 150 kg, CrCl > 10-29 mL/min) *Enoxaparin/Lovenox 30 mg SQ BID (WT < 150 kg, CrCl > 30 mL/min) AND/OR *Sequential Compression Device (SCD) 5 or more Highest Order ONE of the following medications: *Heparin 5000 units SQ TID (Preferred with Epidurals) *Enoxaparin/Lovenox 40 mg SQ daily (WT < 150 kg, CrCl > 30 mL/min) *Enoxaparin/Lovenox 30 mg SQ daily (WT < 150 kg, CrCl > 10-29 mL/min) *Enoxaparin/Lovenox 30 mg SQ BID (WT < 150 kg, CrCl > 30 mL/min) AND *Sequential Compression Device (SCD)
[2018-02-15] MEDS: LORazepam 0.5 MG Tablet PO PRN (18:43)
[2018-02-16] MEDS: LORazepam 0.5 MG Tablet PO PRN (02:07)
[2018-02-16] MEDS: Senna/Docusate Sodium 8.6/50 MG Tablet PO SCH ×2 (11:27→20:34)
[2018-02-16] MEDS: Lisinopril 10 MG Tablet PO SCH (11:27)
[2018-02-16] MEDS: hydroCHLOROthiazide 25 MG Tablet PO SCH (11:28)
[2018-02-16] MEDS: Heparin - SQ 10,000 UNITS/ML Vial SQ SCH ×2 (11:28→20:34)
[2018-02-16] MEDS: Lactic Acid (Ammonium Lactate) 12% Lotion 225 GM Bottle TOPICAL SCH ×2 (11:29→20:34)
--- NOTE | 2018-02-16 15:21 | P.PN ---
Physical Exam Vital signs: Vital Signs 02/15/18 17:41 02/15/18 20:00 02/16/18 00:00 Temperature 98.9 F 98.4 F 97.9 F Pulse Rate 67 69 76 Respiratory Rate 18 Blood Pressure 109/56 L 101/57 L 126/66 Pulse Oximetry 96 99 98 02/16/18 04:00 02/16/18 08:00 02/16/18 11:31 Temperature 97.5 F L 97.5 F L Pulse Rate 70 72 Respiratory Rate 16 18 2 L Blood Pressure 109/54 L 102/51 L Pulse Oximetry 96 94 L 02/16/18 12:00 Temperature 98 F Pulse Rate 71 Respiratory Rate 18 Blood Pressure Pulse Oximetry 96 Intake & Output 02/15/18 02/16/18 02/16/18 18:59 06:59 18:59 Intake Total 840 / 840 Output Total 1400 / 1400 400 / 400 Balance -560 / -560 -400 / -400 Weight 86.7 kg Intake: Oral 840 / 840 Output: Urine 1400 / 1400 400 / 400 Other: Date of Last Bowel Movement 02/15/18 02/15/18 # Bowel Movements 1 Narrative: Subjective Interval history: Follow-up for possible spinal metastatic lesions. 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 Hem/onc signed off. Hospice consulted. The patient is in bed, he however says he feels fairly well. No n/v/d/c. Says he did sleep very well last night, says anxiety meds helps a lot. No fever or chills. Niece at bedside very supportive Awaiting hospice eval Physical Exam GENERAL: Patient is in bed appeared anxious and upset of the events happening yesterday with the physical therapist, however after talking with the patient and reassured, the patient felt much better he is less anxious and is very pleasant. SKIN: Multiple ecchymotic skin, bilateral lower extremity wounds dresing in place c/d/i. CARDIOVASCULAR: Regular rate and rhythm. No murmurs gallops or rubs appreciated RESPIRATORY: Good air flow and effort without accessory muscle use. Clear to auscultation. Breath sounds equal bilaterally. GASTROINTESTINAL: Abdomen soft, non-tender, nondistended. Hepatic and splenic margins not palpable. MUSCULOSKELETAL: Extremities without clubbing, cyanosis, or edema. No obvious deformities. NEUROLOGICAL: Awake and alert. No obvious cranial nerve deficits. Motor grossly within normal limits. 3 out of 5 muscle strength in the arms and legs. Normal speech. Assessment and Plan (1) Acute UTI Code(s): N39.0 - Urinary tract infection, site not specified Status: Acute Plan: Klebsiella oxytoca Rocephin IV (2) Portal vein thrombosis Code(s): I81 - Portal vein thrombosis Status: Acute Plan: anticoagulated with Coumadin, INR 1.5 after vitamin K. Presented with supratherapeutic INR of 9 Goal 2.5, add heparin gtt Coumadin diagnosis atrial fibrillation, portal vein thrombosis. Anticoagulation per hem/onc (3) Supratherapeutic INR Code(s): R79.1 - Abnormal coagulation profile Status: Acute Plan: s/p vit k per hematology (4) Multiple falls Code(s): R29.6 - Repeated falls Status: Acute Plan: Worrisome due to recent urinary incontinence, with new vertebral metastases (T10 , T11, T3), patient denies lower extremity pain but has back pain and has chronic osteoarthritis of the right knee May be a candidate for neurosurgical intervention versus kyphoplasty Cord impingement concerning Follow-up neurosurgery, consult pending S/p bone marrow biopsy results pending S/p CT scan of the lumbar and thoracic no cord compression. 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 Discussed with hem/onc plan for resuming anticoagulation for patient's history of A. fib and new finding of portal vein thrombosis. Anticoagulation oer hem/ onc. Patient with T10 destructive lesion. CT scan of lumbar and thoracic spine show no obvious cord compression. Neurosurgery consulted appreciate recommendations. TLSO brace for support He is not a surgical candidate at this time. Consider Radiation therapy (5) Afib Code(s): I48.91 - Unspecified atrial fibrillation Status: Acute Plan: Currently controlled on metoprolol, warfarin held due to elevated INR, coagulopathy . 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 Dr Singh hem/onc recommends hospice. Consult hospice Plan: Rule out metastatic malignancy to bone (possible pancreatic, prostatic versus plasma cell source) oncology consult appreciated Destructive change and sclerosis involving the T10 vertebra consistent with metastatic disease. Metastasis from pancreatic cancer. 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 Neurosurgery consulted recommends TLSO and conservative management ( 9 ) Bilateral lower extremity wounds. Consult wound care, greatly appreciate recommendations, orders for wound care are in. (10) Right shoulder pain. History of fall 2 weeks prior to admission. X-ray rviewed no fractures. Patient has limited ROM. Will consult OT. (11) Moderate to severe protein sariah malnutrition. Low albumin, muscle waisting, weak handgrip, decrease PO intake. Change diet to regular add ensure to diet. consult architect in training. Encourage PO intake. Discharge Planning: Pending improvement. Need rehab at [facility]. Patient is however a candidate for hospice. Hospice consulted. CM consulted as welll for DC plan and ff. Had bone marrow bx. Per radiology cT report no evident signs of cord compression. Neurosurgery consulted recommends TLSO and conservative management Bone marrow biopsy with pleyomorphic disease per Dr Singh patient is a candidate for hospice and hem/onc signed off Resume anticoagulation for Afib per Hem/onc Note: The patient complained of physical therapist Mrs Funk rosalino geraldine who evaluated the patient on 02/13/18, discussed with PT and will have other PT following the patient. Patient was reassured. Discussed with the patient, family at bedside his niece, nurse, Dr Singh hem onc DC poss to Hospice Results - Labs CBC & Chem 7: 02/12/18 08:15 02/12/18 08:15 - Procedures Status post biopsy posterior right ilac bone by IR on 02/09/18 Assessment and Plan - Assessment (1) Acute UTI Code(s): N39.0 - Urinary tract infection, site not specified Status: Acute Plan: Klebsiella oxytoca Bactrim twice daily (2) Portal vein thrombosis Code(s): I81 - Portal vein thrombosis Status: Acute Plan: Currently anticoagulated with Coumadin, INR 1.5 after vitamin K Goal 2.5, add heparin gtt Coumadin diagnosis atrial fibrillation, portal vein thrombosis (3) Supratherapeutic INR Code(s): R79.1 - Abnormal coagulation profile Status: Acute Plan: s/p vit k per hematology (4) Multiple falls Code(s): R29.6 - Repeated falls Status: Acute Plan: Worrisome due to recent urinary incontinence, with new vertebral metastases (T10 , T11, T3), patient denies lower extremity pain but has back pain and has chronic osteoarthritis of the right knee May be a candidate for neurosurgical intervention versus kyphoplasty Cord impingement concerning Follow-up neurosurgery, consult pending Possible IR for biopsy (5) Afib Code(s): I48.91 - Unspecified atrial fibrillation Status: Acute Plan: Currently controlled on metoprolol, warfarin held due to elevated INR (6) HTN (hypertension) Code(s): I10 - Essential (primary) hypertension Status: Acute Plan: stable on HCTZ, lisinopril, metoprolol (7) Lymphoma Code(s): C85.90 - Non-Hodgkin lymphoma, unspecified, unspecified site Status: Acute Plan: History of stable lymphoma under observation, also history of bladder cancer Patient leukocytosis may be due to dehydration versus acute phase reaction from urinary tract infection Follow closely (8) Multiple lesions of metastatic malignancy Code(s): C79.9 - Secondary malignant neoplasm of unspecified site Status: Acute Plan: Rule out metastatic malignancy to bone (possible pancreatic, prostatic versus plasma cell source) workup in progress, oncology consult appreciated Continue with palliative care care consult to help plan goals of care Continue with hydrocodone for pain as needed Patient agreeable to exploring options of treatment
--- NOTE | 2018-02-16 19:21 | P.PNNS ---
Subjective Interval history: 02/16. Pain is well controlled. Requests no aggressive therapy Physical Exam Vital signs: Vital Signs 02/15/18 20:00 02/16/18 00:00 02/16/18 04:00 Temperature 98.4 F 97.9 F 97.5 F L Pulse Rate 69 76 70 Respiratory Rate 16 Blood Pressure 101/57 L 126/66 109/54 L Pulse Oximetry 99 98 96 02/16/18 08:00 02/16/18 11:31 02/16/18 12:00 Temperature 97.5 F L 98 F Pulse Rate 72 71 Respiratory Rate 18 2 L 18 Blood Pressure 102/51 L Pulse Oximetry 94 L 96 02/16/18 16:00 Temperature 98.2 F Pulse Rate 70 Respiratory Rate 20 Blood Pressure 106/53 L Pulse Oximetry 93 L Intake & Output 02/16/18 02/16/18 02/17/18 06:59 18:59 06:59 Output Total 400 / 400 Balance -400 / -400 Weight 86.7 kg Output: Urine 400 / 400 Other: Date of Last Bowel Movement 02/15/18 02/15/18 # Bowel Movements 1 Narrative: Mr Fish is alert, awake. Comfortable, in no acute distress. Speech is fluent. Cranial nerve examination: pupils to be equal, round and reactive to light. Extra-ocular movements are intact. Facial motor and sensory function are normal and symmetrical. Gross hearing appears intact. Sternocleidomastoid and trapezius muscles are symmetrical. Other cranial nerves are intact. Neck is soft and supple with a good range of motion without pain. Muscle strength is normal in all muscle groups of both upper and lower extremities. Sensory examination is intact to light touch and pin prick in both the upper and lower extremities. Deep tendon reflexes are symmetrical in both upper and lower extremities. There is a bilateral plantar flexion response. Cerebellar examination is unremarkable, without deficits. Lungs are clear Heart regular rhythm is regular rate Skin warm and dry Assessment and Plan - Plan 82 year old male T10 destructive lesion. Awaiting biopsy results CT scan of lumbar and thoracic spine show no obvious cord compression. 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, follow-up with oncology Continue with palliative care care consult to help plan goals of care Continue with hydrocodone for pain as needed Patient would not like to be aggressive if there is no life expectancy to be gained Portal vein thrombosis Code(s): I81 - Portal vein thrombosis Status: Acute Plan: Currently anticoagulated with Coumadin, INR 9.6 We will continue to follow INR Avoid reversal due to thrombotic event Coumadin diagnosis atrial fibrillation Supratherapeutic INR Code(s): R79.1 - Abnormal coagulation profile Status: Acute Plan: The allergy clear may be from hypermetabolic status due to malignancy Hold warfarin for now and follow up INR Patient does have a portal vein thrombus which will require anticoagulation Multiple falls Code(s): R29.6 - Repeated falls Status: Acute Plan: Worrisome due to recent urinary incontinence, with new vertebral metastases (T10 , T11, T3), patient denies lower extremity pain and has chronic osteoarthritis of the right knee May be a candidate for neurosurgical intervention versus kyphoplasty Cord impingement concerning Patient would like to avoid back surgery if at all possible Continue supportive care for now Rehab measures Afib Code(s): I48.91 - Unspecified atrial fibrillation Status: Acute Plan: Currently controlled on metoprolol, warfarin held due to elevated INR HTN (hypertension) Code(s): I10 - Essential (primary) hypertension Status: Acute Plan: stable on HCTZ, lisinopril, metoprolol Lymphoma Code(s): 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 Consult wound care, greatly appreciate recommendations, orders for wound care are in. Right shoulder pain. History of fall 2 weeks prior to admission. X-ray rviewed no fractures. Patient has limited ROM. Will consult OT. Moderate to severe protein sariah malnutrition. Low albumin, muscle waisting, weak handgrip, decrease PO intake. Change diet to regular add ensure to diet. consult reimbursement specialist. Encourage PO intake. Caprini VTE Risk Assessment Caprini VTE Risk Assessment: Moderate/High Risk (score >= 2) VTE Pharmacological Exception Reason: Coagulopathy,INR elevated Caprini Risk Assessment Model: Point Value = 1 Point Value = 2 Point Value = 3 Point Value = 5 Age 41-60 Minor surgery BMI > 25 kg/m2 Swollen legs Varicose veins or History of unexplained or recurrent spontaneous Oral contraceptives or hormone replacement Sepsis (< 1 month) Serious lung disease, including pneumonia (< 1 month) Abnormal pulmonary function Acute myocardial infarction Congestive heart failure (< 1 month) History of inflammatory bowel disease Medical patient at bed rest Age 61-74 Arthroscopic surgery Major open surgery (> 45 min) Laparoscopic surgery (> 45 min) Malignancy Confined to bed (> 72 hours) Immobilizing plaster cast Central venous access Age >= 75 History of VTE Family history of VTE Factor V Leiden Prothrombin [id number] Lupus anticoagulant Anticardiolipin antibodies Elevated serum homocysteine Heparin-induced thrombocytopenia Other congenital or acquired thrombophilia Stroke (< 1 month) Elective arthroplasty Hip, pelvis, or leg fracture Acute spinal cord injury (< 1 month) Prophylaxis Regimen: Total Risk Factor Score Risk Level Prophylaxis Regimen 0-1 Low Early ambulation 2 Moderate Order ONE of the following: *Sequential Compression Device (SCD) *Heparin 5000 units SQ BID 3-4 Higher Order ONE of the following medications: *Heparin 5000 units SQ TID *Enoxaparin/Lovenox 40 mg SQ daily (WT < 150 kg, CrCl > 30 mL/min) *Enoxaparin/Lovenox 30 mg SQ daily (WT < 150 kg, CrCl > 10-29 mL/min) *Enoxaparin/Lovenox 30 mg SQ BID (WT < 150 kg, CrCl > 30 mL/min) AND/OR *Sequential Compression Device (SCD) 5 or more Highest Order ONE of the following medications: *Heparin 5000 units SQ TID (Preferred with Epidurals) *Enoxaparin/Lovenox 40 mg SQ daily (WT < 150 kg, CrCl > 30 mL/min) *Enoxaparin/Lovenox 30 mg SQ daily (WT < 150 kg, CrCl > 10-29 mL/min) *Enoxaparin/Lovenox 30 mg SQ BID (WT < 150 kg, CrCl > 30 mL/min) AND *Sequential Compression Device (SCD)
[2018-02-16] MEDS: Phytonadione 5 MG/SWFI 5 ML Oral Syringe PO SCH (20:14)
[2018-02-17] MEDS: LORazepam 0.5 MG Tablet PO PRN ×2 (00:06→20:55)
--- NOTE | 2018-02-17 09:26 | P.PN ---
Physical Exam Vital signs: Vital Signs 02/16/18 11:31 02/16/18 12:00 02/16/18 16:00 Temperature 98 F 98.2 F Pulse Rate 71 70 Respiratory Rate 2 L 18 20 Blood Pressure 106/53 L Pulse Oximetry 96 93 L 02/16/18 20:00 02/17/18 00:00 02/17/18 04:00 Temperature 98.0 F 98.3 F 97.6 F Pulse Rate 77 71 69 Respiratory Rate 18 18 18 Blood Pressure 95/52 L 98/55 L 103/59 L Pulse Oximetry 96 96 94 L 02/17/18 08:03 Temperature 98.5 F Pulse Rate 69 Respiratory Rate 16 Blood Pressure 106/58 L Pulse Oximetry 97 Intake & Output 02/16/18 02/17/18 02/17/18 18:59 06:59 18:59 Intake Total 600 / 600 Output Total 575 / 575 350 / 350 Balance 25 / -350 / -350 Weight 87.1 kg Intake: Oral 600 / 600 Output: Urine 575 / 575 350 / 350 Other: Date of Last Bowel Movement 02/15/18 02/15/18 Narrative: Subjective Interval history: Follow-up for spinal metastatic lesions. 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 Hem/onc signed off. Hospice consulted. Feels fairly good today. Says he has no back pain at this time. No n/v/d/c. Less anxious. Sleeping fairly well. No fever or chills. Niece at bedside very supportive, case management and palliative care hospice consulted and following Physical Exam GENERAL: Patient is in bed appeared anxious and upset of the events happening yesterday with the physical therapist, however after talking with the patient and reassured, the patient felt much better he is less anxious and is very pleasant. SKIN: Multiple ecchymotic skin, bilateral lower extremity wounds dresing in place c/d/i. CARDIOVASCULAR: Regular rate and rhythm. No murmurs gallops or rubs appreciated RESPIRATORY: Good air flow and effort without accessory muscle use. Clear to auscultation. Breath sounds equal bilaterally. GASTROINTESTINAL: Abdomen soft, non-tender, nondistended. Hepatic and splenic margins not palpable. MUSCULOSKELETAL: Extremities without clubbing, cyanosis, or edema. No obvious deformities. NEUROLOGICAL: Awake and alert. No obvious cranial nerve deficits. Motor grossly within normal limits. 3 out of 5 muscle strength in the arms and legs. Normal speech. Assessment and Plan (1) Acute UTI Code(s): N39.0 - Urinary tract infection, site not specified Status: Acute Plan: Klebsiella oxytoca Rocephin IV (2) Portal vein thrombosis Code(s): I81 - Portal vein thrombosis Status: Acute Plan: anticoagulated with Coumadin, INR 1.5 after vitamin K. Presented with supratherapeutic INR of 9 Goal 2.5, add heparin gtt Coumadin diagnosis atrial fibrillation, portal vein thrombosis. Anticoagulation per hem/onc (3) Supratherapeutic INR Code(s): R79.1 - Abnormal coagulation profile Status: Acute Plan: s/p vit k per hematology (4) Multiple falls Code(s): R29.6 - Repeated falls Status: Acute Plan: Worrisome due to recent urinary incontinence, with new vertebral metastases (T10 , T11, T3), patient denies lower extremity pain but has back pain and has chronic osteoarthritis of the right knee May be a candidate for neurosurgical intervention versus kyphoplasty Cord impingement concerning Follow-up neurosurgery, consult pending S/p bone marrow biopsy results pending S/p CT scan of the lumbar and thoracic no cord compression. 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 Discussed with hem/onc plan for resuming anticoagulation for patient's history of A. fib and new finding of portal vein thrombosis. Anticoagulation oer hem/ onc. Patient with T10 destructive lesion. CT scan of lumbar and thoracic spine show no obvious cord compression. Neurosurgery consulted appreciate recommendations. TLSO brace for support He is not a surgical candidate at this time. Consider Radiation therapy (5) Afib Code(s): I48.91 - Unspecified atrial fibrillation Status: Acute Plan: Currently controlled on metoprolol, warfarin held due to elevated INR, coagulopathy . 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 Dr Singh hem/onc recommends hospice. Consult hospice Plan: Rule out metastatic malignancy to bone (possible pancreatic, prostatic versus plasma cell source) oncology consult appreciated Destructive change and sclerosis involving the T10 vertebra consistent with metastatic disease. Metastasis from pancreatic cancer. 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 Neurosurgery consulted recommends TLSO and conservative management ( 9 ) Bilateral lower extremity wounds. Consult wound care, greatly appreciate recommendations, orders for wound care are in. (10) Right shoulder pain. History of fall 2 weeks prior to admission. X-ray rviewed no fractures. Patient has limited ROM. Will consult OT. (11) Moderate to severe protein sariah malnutrition. Low albumin, muscle waisting, weak handgrip, decrease PO intake. Change diet to regular add ensure to diet. consult nursing aide. Encourage PO intake. Discharge Planning: Pending improvement. Need rehab at [facility]. Patient is however a candidate for hospice. Hospice consulted. CM consulted as welll for DC plan and ff. Had bone marrow bx. Per radiology cT report no evident signs of cord compression. 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 Patient was reassured. Discussed with the patient, family at bedside his niece, nurse DC poss to Hospice However patient might go to correction facility first thing might consider following with hospice while correction facility. These management consulted for discharge planning. Results - Labs CBC & Chem 7: 02/12/18 08:15 02/12/18 08:15 - Procedures Status post biopsy posterior right ilac bone by IR on 02/09/18 Assessment and Plan - Assessment (1) Acute UTI Code(s): N39.0 - Urinary tract infection, site not specified Status: Acute Plan: Klebsiella oxytoca Bactrim twice daily (2) Portal vein thrombosis Code(s): I81 - Portal vein thrombosis Status: Acute Plan: Currently anticoagulated with Coumadin, INR 1.5 after vitamin K Goal 2.5, add heparin gtt Coumadin diagnosis atrial fibrillation, portal vein thrombosis (3) Supratherapeutic INR Code(s): R79.1 - Abnormal coagulation profile Status: Acute Plan: s/p vit k per hematology (4) Multiple falls Code(s): R29.6 - Repeated falls Status: Acute Plan: Worrisome due to recent urinary incontinence, with new vertebral metastases (T10 , T11, T3), patient denies lower extremity pain but has back pain and has chronic osteoarthritis of the right knee May be a candidate for neurosurgical intervention versus kyphoplasty Cord impingement concerning Follow-up neurosurgery, consult pending Possible IR for biopsy (5) Afib Code(s): I48.91 - Unspecified atrial fibrillation Status: Acute Plan: Currently controlled on metoprolol, warfarin held due to elevated INR (6) HTN (hypertension) Code(s): I10 - Essential (primary) hypertension Status: Acute Plan: stable on HCTZ, lisinopril, metoprolol (7) Lymphoma Code(s): C85.90 - Non-Hodgkin lymphoma, unspecified, unspecified site Status: Acute Plan: History of stable lymphoma under observation, also history of bladder cancer Patient leukocytosis may be due to dehydration versus acute phase reaction from urinary tract infection Follow closely (8) Multiple lesions of metastatic malignancy Code(s): C79.9 - Secondary malignant neoplasm of unspecified site Status: Acute Plan: Rule out metastatic malignancy to bone (possible pancreatic, prostatic versus plasma cell source) workup in progress, oncology consult appreciated Continue with palliative care care consult to help plan goals of care Continue with hydrocodone for pain as needed Patient agreeable to exploring options of treatment
[2018-02-17] MEDS: Senna/Docusate Sodium 8.6/50 MG Tablet PO SCH ×2 (10:06→20:40)
[2018-02-17] MEDS: Heparin - SQ 10,000 UNITS/ML Vial SQ SCH ×2 (10:06→20:41)
[2018-02-17] MEDS: Lisinopril 10 MG Tablet PO SCH (10:07)
[2018-02-17] MEDS: hydroCHLOROthiazide 25 MG Tablet PO SCH (10:08)
[2018-02-17] MEDS: Phytonadione 5 MG/SWFI 5 ML Oral Syringe PO SCH (10:08)
[2018-02-17] MEDS: Lactic Acid (Ammonium Lactate) 12% Lotion 225 GM Bottle TOPICAL SCH ×2 (10:10→20:56)
[2018-02-18] MEDS: Heparin - SQ 10,000 UNITS/ML Vial SQ SCH ×2 (08:37→20:20)
[2018-02-18] MEDS: Senna/Docusate Sodium 8.6/50 MG Tablet PO SCH ×2 (08:38→20:21)
[2018-02-18] MEDS: Lisinopril 10 MG Tablet PO SCH (08:38)
[2018-02-18] MEDS: hydroCHLOROthiazide 25 MG Tablet PO SCH (08:38)
[2018-02-18] MEDS: Lactic Acid (Ammonium Lactate) 12% Lotion 225 GM Bottle TOPICAL SCH ×2 (08:38→20:21)
[2018-02-18] MEDS: Phytonadione 5 MG/SWFI 5 ML Oral Syringe PO SCH (08:39)
[2018-02-18] MEDS ORDERED: Sodium Chlor 0.9% Inj 500 ML IV.SIG ONE (10:12)
--- NOTE | 2018-02-18 11:41 | P.PNIM ---
Subjective Interval history: 02-17 Follow-up for spinal metastatic lesions. 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 Hem/onc signed off. Hospice consulted. Feels fairly good today. Says he has no back pain at this time. No n/v/d/c. Less anxious. Sleeping fairly well. No fever or chills. Niece at bedside very supportive, case management and palliative care hospice consulted and following 02-18 being given fluids today hydrochlorothiazide has been stopped A.m. labs Discussed with RN and patient and case management and oncology Possibly to SNF and maybe hospice with some involved Physical Exam Vital signs: Vital Signs 02/17/18 12:00 02/17/18 16:00 02/17/18 20:00 Temperature 97.5 F L 97.8 F 97.8 F Pulse Rate 80 75 68 Respiratory Rate 18 16 14 Blood Pressure 104/57 L 115/73 117/48 L Pulse Oximetry 98 98 98 02/18/18 00:00 02/18/18 04:00 02/18/18 08:46 Temperature 98 F 97.5 F L 97.7 F Pulse Rate 70 68 81 Respiratory Rate 17 16 18 Blood Pressure 109/57 L 117/56 L 90/49 L Pulse Oximetry 95 95 02/18/18 08:47 02/18/18 08:54 Temperature Pulse Rate Respiratory Rate Blood Pressure 99/51 L Pulse Oximetry 95 Intake & Output 02/17/18 02/18/18 02/18/18 18:59 06:59 18:59 Intake Total 720 / 720 Output Total 725 / 725 375 / 375 Balance -5 / -5 -375 / -375 Weight 86.1 kg Intake: Oral 720 / 720 Output: Urine 725 / 725 375 / 375 Other: Date of Last Bowel Movement 02/15/18 Narrative: GENERAL: Awake alert and oriented 3 talkative and cooperative SKIN: Warm and dry. Wounds are dressed with the right lower extremity --brawny edema old bilateral lower extremity HEAD: Atraumatic. Normocephalic. EYES: Pupils equal and round. No scleral icterus. No injection or drainage. ENT: No nasal bleeding or discharge. Mucous membranes pink and moist. NECK: Trachea midline. No JVD. CARDIOVASCULAR: Regular rate and rhythm. RESPIRATORY: No accessory muscle use. Clear to auscultation. Breath sounds equal bilaterally. GASTROINTESTINAL: Abdomen soft, non-tender, nondistended. Hepatic and splenic margins not palpable. MUSCULOSKELETAL: Extremities without clubbing, cyanosis, or edema. No obvious deformities. NEUROLOGICAL: Awake and alert. No obvious cranial nerve deficits. Motor grossly within normal limits. 3 out of 5 muscle strength in the legs 4 out of 5 in the arms. Normal speech. PSYCHIATRIC: Appropriate mood and affect; insight and judgment normal. Results - Labs CBC & Chem 7: 02/12/18 08:15 02/12/18 08:15 Laboratory Tests 02/05/18 02/05/18 02/05/18 10:30 10:30 10:30 CBC w Diff Slide review pending WBC 24.4 H RBC 3.53 L Hgb 9.6 L Hct 30.2 L MCV 85.4 MCH 27.3 MCHC 32.0 RDW 14.1 Plt Count 221 MPV 8.2 Prelim Diff (Auto) Neut % (Auto) 55.1 Lymph % (Auto) 35.6 [place] % (Auto) 6.5 Eos % (Auto) 0.6 Baso % (Auto) 2.2 H Neut # (Auto) 13.5 H Lymph # (Auto) 8.7 H [place] # (Auto) 1.6 H Eos # (Auto) 0.1 Baso # (Auto) 0.5 H WBC Differential Manual diff final Seg Neuts % (Manual) 49 Band Neuts % (Manual) Lymphocytes % (Manual) 48 H Monocytes % (Manual) 3 Eosinophils % (Manual) Abs Neuts (Manual) 12.0 H Differential Comment . Smudge Cells Platelet Estimate Normal Platelet Morphology Normal PT 94.6 H INR 9.5 H* APTT Sodium 138 Potassium 4.5 Chloride 103 Carbon Dioxide 23.6 Anion Gap 11 BUN 38 H Creatinine 1.40 H Estimated GFR 49 L Random Glucose 108 H Calcium 8.7 Total Bilirubin 0.8 AST 32 ALT 26 Alkaline Phosphatase 63 Total Creatine Kinase Total Protein 6.1 L Total Protein (PEP) Albumin 2.7 L Albumin (PEP) Albumin/Globulin Ratio Qvhoa-1-Cnqhocqos Zhvnv-1-Eilurcjkx Beta Globulins Gamma Globulins PEP Pathologist Comment [place] 19-9 Antigen Free PSA Total PSA PSA Free/Total Ratio Ur Collection Type Urine Color Urine Clarity Urine pH Ur Specific [place] Urine Protein Urine Glucose (UA) Urine Ketones Urine Occult Blood Urine Nitrate Urine Bilirubin Urine Urobilinogen Ur Leukocyte Esterase Urine RBC Urine WBC Urine WBC Clumps Ur Squamous Epith Cells Urine Bacteria Micro UA Comment Urine Culture Comments IgG IgA IgM [place]/Lambda Ratio [place] Interpretation [place] Light Chain Anal Lambda Light Chain Anal Hepatitis A IgM Ab Hep Bs Antigen Hep B Core IgM Ab Hep C IgG Ab Blood Type Blood Type Recheck Antibody Screen 02/05/18 02/05/18 02/05/18 10:30 10:50 16:35 CBC w Diff WBC RBC Hgb Hct MCV MCH MCHC RDW Plt Count MPV Prelim Diff (Auto) Neut % (Auto) Lymph % (Auto) [place] % (Auto) Eos % (Auto) Baso % (Auto) Neut # (Auto) Lymph # (Auto) [place] # (Auto) Eos # (Auto) Baso # (Auto) WBC Differential Seg Neuts % (Manual) Band Neuts % (Manual) Lymphocytes % (Manual) Monocytes % (Manual) Eosinophils % (Manual) Abs Neuts (Manual) Differential Comment Smudge Cells Platelet Estimate Platelet Morphology PT INR APTT Sodium Potassium Chloride Carbon Dioxide Anion Gap BUN Creatinine Estimated GFR Random Glucose Calcium Total Bilirubin AST ALT Alkaline Phosphatase Total Creatine Kinase 197 Total Protein Total Protein (PEP) Albumin Albumin (PEP) Albumin/Globulin Ratio Wjqnr-7-Jfczhgkuu Imavj-2-Wydxloycu Beta Globulins Gamma Globulins PEP Pathologist Comment CA 19-9 Antigen Free PSA Total PSA PSA Free/Total Ratio Ur Collection Type Clean catch Urine Color Yellow Urine Clarity Slightly cloudy Urine pH 6.0 Ur Specific [place] 1.010 Urine Protein Trace Urine Glucose (UA) Negative Urine Ketones Negative Urine Occult Blood Trace Urine Nitrate Positive H Urine Bilirubin Negative Urine Urobilinogen 1.0 Ur Leukocyte Esterase Moderate H Urine RBC 0-3 Urine WBC 0-5 Urine WBC Clumps Occasional H Ur Squamous Epith Cells 0-5 Urine Bacteria Moderate H Micro UA Comment Culture indicated Urine Culture Comments Culture indicated IgG IgA IgM [place]/Lambda Ratio [place] Interpretation [place] Light Chain Anal Lambda Light Chain Anal Hepatitis A IgM Ab Hep Bs Antigen Hep B Core IgM Ab Hep C IgG Ab Blood Type O Negative Blood Type Recheck Not needed Antibody Screen Negative 02/06/18 02/06/18 02/06/18 04:40 04:40 04:40 CBC w Diff WBC RBC Hgb Hct MCV MCH MCHC RDW Plt Count MPV Prelim Diff (Auto) Neut % (Auto) Lymph % (Auto) [place] % (Auto) Eos % (Auto) Baso % (Auto) Neut # (Auto) Lymph # (Auto) [place] # (Auto) Eos # (Auto) Baso # (Auto) WBC Differential Seg Neuts % (Manual) Band Neuts % (Manual) Lymphocytes % (Manual) Monocytes % (Manual) Eosinophils % (Manual) Abs Neuts (Manual) Differential Comment Smudge Cells Platelet Estimate Platelet Morphology PT INR APTT Sodium Potassium Chloride Carbon Dioxide Anion Gap BUN Creatinine Estimated GFR Random Glucose Calcium Total Bilirubin AST ALT Alkaline Phosphatase Total Creatine Kinase Total Protein Total Protein (PEP) 5.0 L Albumin Albumin (PEP) 2.79 L Albumin/Globulin Ratio 1.26 L Yoije-8-Uibkeaayc 0.40 H Vqcsu-2-Trzsjraam 0.88 Beta Globulins 0.66 Gamma Globulins 0.28 L PEP Pathologist Comment [place] 19-9 Antigen Less than 1.2 Free PSA 1.1 Total PSA 4.3 PSA Free/Total Ratio 0.26 Ur Collection Type Urine Color Urine Clarity Urine pH Ur Specific [place] Urine Protein Urine Glucose (UA) Urine Ketones Urine Occult Blood Urine Nitrate Urine Bilirubin Urine Urobilinogen Ur Leukocyte Esterase Urine RBC Urine WBC Urine WBC Clumps Ur Squamous Epith Cells Urine Bacteria Micro UA Comment Urine Culture Comments IgG IgA IgM [place]/Lambda Ratio [place] Interpretation [place] Light Chain Anal Lambda Light Chain Anal Hepatitis A IgM Ab Hep Bs Antigen Hep B Core IgM Ab Hep C IgG Ab Blood Type Blood Type Recheck Antibody Screen 02/06/18 02/06/18 02/07/18 04:40 04:40 04:15 CBC w Diff WBC RBC Hgb Hct MCV MCH MCHC RDW Plt Count MPV Prelim Diff (Auto) Neut % (Auto) Lymph % (Auto) [place] % (Auto) Eos % (Auto) Baso % (Auto) Neut # (Auto) Lymph # (Auto) [place] # (Auto) Eos # (Auto) Baso # (Auto) WBC Differential Seg Neuts % (Manual) Band Neuts % (Manual) Lymphocytes % (Manual) Monocytes % (Manual) Eosinophils % (Manual) Abs Neuts (Manual) Differential Comment Smudge Cells Platelet Estimate Platelet Morphology PT 55.5 H D 17.6 H D INR 5.5 1.7 APTT Sodium Potassium Chloride Carbon Dioxide Anion Gap BUN Creatinine Estimated GFR Random Glucose Calcium Total Bilirubin AST ALT Alkaline Phosphatase Total Creatine Kinase Total Protein Total Protein (PEP) Albumin Albumin (PEP) Albumin/Globulin Ratio Jkudo-8-Jauxsqjeo Zhfik-2-Zymrfdvxz Beta Globulins Gamma Globulins PEP Pathologist Comment CA 19-9 Antigen Free PSA Total PSA PSA Free/Total Ratio Ur Collection Type Urine Color Urine Clarity Urine pH Ur Specific [place] Urine Protein Urine Glucose (UA) Urine Ketones Urine Occult Blood Urine Nitrate Urine Bilirubin Urine Urobilinogen Ur Leukocyte Esterase Urine RBC Urine WBC Urine WBC Clumps Ur Squamous Epith Cells Urine Bacteria Micro UA Comment Urine Culture Comments IgG 214 L IgA 53 L IgM 17 L [place]/Lambda Ratio 1.63 [place] Interpretation [place] Light Chain Anal 52 L Lambda Light Chain Anal 32 L Hepatitis A IgM Ab Hep Bs Antigen Hep B Core IgM Ab Hep C IgG Ab Blood Type Blood Type Recheck Antibody Screen 02/07/18 02/07/18 02/07/18 04:15 04:15 11:07 CBC w Diff WBC 21.0 H 19.3 H RBC 3.30 L 3.33 L Hgb 8.8 L 9.3 L Hct 28.3 L 28.2 L MCV 85.8 84.6 MCH 26.8 L 27.9 MCHC 31.2 L 33.0 RDW 13.8 13.9 Plt Count 193 197 MPV 8.3 8.5 Prelim Diff (Auto) Neut % (Auto) Lymph % (Auto) [place] % (Auto) Eos % (Auto) Baso % (Auto) Neut # (Auto) Lymph # (Auto) [place] # (Auto) Eos # (Auto) Baso # (Auto) WBC Differential Seg Neuts % (Manual) Band Neuts % (Manual) Lymphocytes % (Manual) Monocytes % (Manual) Eosinophils % (Manual) Abs Neuts (Manual) Differential Comment Smudge Cells Platelet Estimate Platelet Morphology PT INR APTT Sodium 140 Potassium 4.3 Chloride 107 Carbon Dioxide 25.7 Anion Gap 7 BUN 26 H Creatinine 1.10 Estimated GFR 64 L Random Glucose 102 Calcium 8.5 Total Bilirubin AST ALT Alkaline Phosphatase Total Creatine Kinase Total Protein Total Protein (PEP) Albumin Albumin (PEP) Albumin/Globulin Ratio Vnxbt-7-Wykntwkzv Oicen-1-Bsozujgyc Beta Globulins Gamma Globulins PEP Pathologist Comment CA 19-9 Antigen Free PSA Total PSA PSA Free/Total Ratio Ur Collection Type Urine Color Urine Clarity Urine pH Ur Specific [place] Urine Protein Urine Glucose (UA) Urine Ketones Urine Occult Blood Urine Nitrate Urine Bilirubin Urine Urobilinogen Ur Leukocyte Esterase Urine RBC Urine WBC Urine WBC Clumps Ur Squamous Epith Cells Urine Bacteria Micro UA Comment Urine Culture Comments IgG IgA IgM [place]/Lambda Ratio [place] Interpretation [place] Light Chain Anal Lambda Light Chain Anal Hepatitis A IgM Ab Hep Bs Antigen Hep B Core IgM Ab Hep C IgG Ab Blood Type Blood Type Recheck Antibody Screen 02/07/18 02/07/18 02/08/18 11:07 16:04 05:40 CBC w Diff WBC RBC Hgb Hct MCV MCH MCHC RDW Plt Count MPV Prelim Diff (Auto) Neut % (Auto) Lymph % (Auto) [place] % (Auto) Eos % (Auto) Baso % (Auto) Neut # (Auto) Lymph # (Auto) [place] # (Auto) Eos # (Auto) Baso # (Auto) WBC Differential Seg Neuts % (Manual) Band Neuts % (Manual) Lymphocytes % (Manual) Monocytes % (Manual) Eosinophils % (Manual) Abs Neuts (Manual) Differential Comment Smudge Cells Platelet Estimate Platelet Morphology PT 16.7 H 17.4 H INR 1.7 1.7 APTT 38.7 H 35.1 H Sodium Potassium Chloride Carbon Dioxide Anion Gap BUN Creatinine Estimated GFR Random Glucose Calcium Total Bilirubin AST ALT Alkaline Phosphatase Total Creatine Kinase Total Protein Total Protein (PEP) Albumin Albumin (PEP) Albumin/Globulin Ratio [place]-1-Hpecbhbdf Tvphq-0-Ozmqtkkxq Beta Globulins Gamma Globulins PEP Pathologist Comment CA 19-9 Antigen Free PSA Total PSA PSA Free/Total Ratio Ur Collection Type Urine Color Urine Clarity Urine pH Ur Specific [place] Urine Protein Urine Glucose (UA) Urine Ketones Urine Occult Blood Urine Nitrate Urine Bilirubin Urine Urobilinogen Ur Leukocyte Esterase Urine RBC Urine WBC Urine WBC Clumps Ur Squamous Epith Cells Urine Bacteria Micro UA Comment Urine Culture Comments IgG IgA IgM [place]/Lambda Ratio [place] Interpretation [place] Light Chain Anal Lambda Light Chain Anal Hepatitis A IgM Ab Hep Bs Antigen Hep B Core IgM Ab Hep C IgG Ab Blood Type Blood Type Recheck Antibody Screen 02/08/18 02/09/18 02/09/18 05:40 05:50 05:50 CBC w Diff WBC 18.0 H 23.2 H RBC 3.31 L 3.46 L Hgb 8.7 L 9.3 L Hct 28.1 L 29.8 L MCV 84.7 86.1 MCH 26.4 L 26.9 L MCHC 31.1 L 31.3 L RDW 14.8 14.8 Plt Count 180 190 MPV 8.3 8.9 Prelim Diff (Auto) Neut % (Auto) Lymph % (Auto) [place] % (Auto) Eos % (Auto) Baso % (Auto) Neut # (Auto) Lymph # (Auto) [place] # (Auto) Eos # (Auto) Baso # (Auto) WBC Differential Seg Neuts % (Manual) Band Neuts % (Manual) Lymphocytes % (Manual) Monocytes % (Manual) Eosinophils % (Manual) Abs Neuts (Manual) Differential Comment Smudge Cells Platelet Estimate Platelet Morphology PT 18.5 H INR 1.8 APTT Sodium Potassium Chloride Carbon Dioxide Anion Gap BUN Creatinine Estimated GFR Random Glucose Calcium Total Bilirubin AST ALT Alkaline Phosphatase Total Creatine Kinase Total Protein Total Protein (PEP) Albumin Albumin (PEP) Albumin/Globulin Ratio Nfotd-7-Dbpuknmsr Wqlof-3-Cwlyxdpbx Beta Globulins Gamma Globulins PEP Pathologist Comment [place] 19-9 Antigen Free PSA Total PSA PSA Free/Total Ratio Ur Collection Type Urine Color Urine Clarity Urine pH Ur Specific [place] Urine Protein Urine Glucose (UA) Urine Ketones Urine Occult Blood Urine Nitrate Urine Bilirubin Urine Urobilinogen Ur Leukocyte Esterase Urine RBC Urine WBC Urine WBC Clumps Ur Squamous Epith Cells Urine Bacteria Micro UA Comment Urine Culture Comments IgG IgA IgM [place]/Lambda Ratio [place] Interpretation [place] Light Chain Anal Lambda Light Chain Anal Hepatitis A IgM Ab Hep Bs Antigen Hep B Core IgM Ab Hep C IgG Ab Blood Type Blood Type Recheck Antibody Screen 02/10/18 02/10/18 02/11/18 11:43 11:43 04:31 CBC w Diff WBC 19.8 H RBC 3.34 L Hgb 9.0 L Hct 28.6 L MCV 85.6 MCH 26.9 L MCHC 31.5 L RDW 14.9 Plt Count 180 MPV 8.5 Prelim Diff (Auto) Slide review pending Neut % (Auto) 34.9 Lymph % (Auto) 61.6 H [place] % (Auto) 1.8 Eos % (Auto) 1.4 Baso % (Auto) 0.3 Neut # (Auto) 6.9 Lymph # (Auto) 12.2 H [place] # (Auto) 0.3 Eos # (Auto) 0.3 Baso # (Auto) 0.1 WBC Differential Manual diff final Seg Neuts % (Manual) 44 Band Neuts % (Manual) Lymphocytes % (Manual) 53 H Monocytes % (Manual) 3 Eosinophils % (Manual) Abs Neuts (Manual) 8.7 H Differential Comment . Smudge Cells Platelet Estimate Normal Platelet Morphology Normal PT 23.5 H INR 2.3 APTT 49.1 H Sodium Potassium Chloride Carbon Dioxide Anion Gap BUN Creatinine Estimated GFR Random Glucose Calcium Total Bilirubin AST ALT Alkaline Phosphatase Total Creatine Kinase Total Protein Total Protein (PEP) Albumin Albumin (PEP) Albumin/Globulin Ratio Ravzd-1-Hvdqtcxjq Hghum-8-Ectoxmlwa Beta Globulins Gamma Globulins PEP Pathologist Comment CA 19-9 Antigen Free PSA Total PSA PSA Free/Total Ratio Ur Collection Type Urine Color Urine Clarity Urine pH Ur Specific [place] Urine Protein Urine Glucose (UA) Urine Ketones Urine Occult Blood Urine Nitrate Urine Bilirubin Urine Urobilinogen Ur Leukocyte Esterase Urine RBC Urine WBC Urine WBC Clumps Ur Squamous Epith Cells Urine Bacteria Micro UA Comment Urine Culture Comments IgG IgA IgM [place]/Lambda Ratio [place] Interpretation [place] Light Chain Anal Lambda Light Chain Anal Hepatitis A IgM Ab Hep Bs Antigen Hep B Core IgM Ab Hep C IgG Ab Blood Type Blood Type Recheck Antibody Screen 02/11/18 02/11/18 02/12/18 13:49 15:39 08:15 CBC w Diff WBC RBC Hgb Hct MCV MCH MCHC RDW Plt Count MPV Prelim Diff (Auto) Neut % (Auto) Lymph % (Auto) [place] % (Auto) Eos % (Auto) Baso % (Auto) Neut # (Auto) Lymph # (Auto) [place] # (Auto) Eos # (Auto) Baso # (Auto) WBC Differential Seg Neuts % (Manual) Band Neuts % (Manual) Lymphocytes % (Manual) Monocytes % (Manual) Eosinophils % (Manual) Abs Neuts (Manual) Differential Comment Smudge Cells Platelet Estimate Platelet Morphology PT 23.8 H 20.7 H INR 2.4 2.0 APTT 45.3 H 46.0 H Sodium Potassium Chloride Carbon Dioxide Anion Gap BUN Creatinine Estimated GFR Random Glucose Calcium Total Bilirubin AST ALT Alkaline Phosphatase Total Creatine Kinase Total Protein Total Protein (PEP) Albumin Albumin (PEP) Albumin/Globulin Ratio Bvrtu-9-Nsiitcnwn Dqgbl-9-Ipdekumxv Beta Globulins Gamma Globulins PEP Pathologist Comment [place] 19-9 Antigen Free PSA Total PSA PSA Free/Total Ratio Ur Collection Type Urine Color Urine Clarity Urine pH Ur Specific [place] Urine Protein Urine Glucose (UA) Urine Ketones Urine Occult Blood Urine Nitrate Urine Bilirubin Urine Urobilinogen Ur Leukocyte Esterase Urine RBC Urine WBC Urine WBC Clumps Ur Squamous Epith Cells Urine Bacteria Micro UA Comment Urine Culture Comments IgG IgA IgM [place]/Lambda Ratio [place] Interpretation [place] Light Chain Anal Lambda Light Chain Anal Hepatitis A IgM Ab Nonreactive Hep Bs Antigen Nonreactive Hep B Core IgM Ab Nonreactive Hep C IgG Ab Nonreactive Blood Type Blood Type Recheck Antibody Screen 02/12/18 02/12/18 08:15 08:15 CBC w Diff WBC 18.8 H RBC 3.45 L Hgb 9.0 L Hct 28.8 L MCV 83.6 MCH 26.2 L MCHC 31.4 L RDW 14.7 Plt Count 179 MPV 8.6 Prelim Diff (Auto) Slide review pending Neut % (Auto) 46.2 Lymph % (Auto) 49.7 H [place] % (Auto) 2.9 Eos % (Auto) 1.0 Baso % (Auto) 0.2 Neut # (Auto) 8.7 H Lymph # (Auto) 9.3 H [place] # (Auto) 0.5 Eos # (Auto) 0.2 Baso # (Auto) 0.0 WBC Differential Manual diff final Seg Neuts % (Manual) 30 Band Neuts % (Manual) 1 Lymphocytes % (Manual) 67 H Monocytes % (Manual) 1 Eosinophils % (Manual) 1 Abs Neuts (Manual) 5.8 Differential Comment . Smudge Cells Present H Platelet Estimate Normal Platelet Morphology Normal PT INR APTT Sodium 137 Potassium 4.7 Chloride 101 Carbon Dioxide 26.8 Anion Gap 9 BUN 21 H Creatinine 1.34 H Estimated GFR 51 L Random Glucose 86 Calcium 8.6 Total Bilirubin 0.6 AST 19 ALT 21 Alkaline Phosphatase 75 Total Creatine Kinase Total Protein 5.9 L Total Protein (PEP) Albumin 2.4 L Albumin (PEP) Albumin/Globulin Ratio Myzrj-5-Pslehtsut Fqmei-0-Kjfwajmri Beta Globulins Gamma Globulins PEP Pathologist Comment CA 19-9 Antigen Free PSA Total PSA PSA Free/Total Ratio Ur Collection Type Urine Color Urine Clarity Urine pH Ur Specific [place] Urine Protein Urine Glucose (UA) Urine Ketones Urine Occult Blood Urine Nitrate Urine Bilirubin Urine Urobilinogen Ur Leukocyte Esterase Urine RBC Urine WBC Urine WBC Clumps Ur Squamous Epith Cells Urine Bacteria Micro UA Comment Urine Culture Comments IgG IgA IgM [place]/Lambda Ratio [place] Interpretation [place] Light Chain Anal Lambda Light Chain Anal Hepatitis A IgM Ab Hep Bs Antigen Hep B Core IgM Ab Hep C IgG Ab Blood Type Blood Type Recheck Antibody Screen - Imaging Cervical Spine CT 02/05/18 10:17 CONCLUSION: 1. Extensive bilateral neck lymphadenopathy suspicious for metastatic disease or lymphoma. 2. There is a lytic bone lesion within the T3 vertebral body. 3. Multilevel degenerative disc disease throughout the cervical spine, as above. No spinal canal stenosis is identified. There areas of neural foraminal narrowing at multiple levels but is most severe on the right at C5-C6. Head CT 02/05/18 10:17 CONCLUSION: Unremarkable study. Abdomen/Pelvis CT 02/05/18 11:10 CONCLUSION: 1. 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 2. Pathological adenopathy throughout the abdomen and pelvis highly suspicious for metastatic disease. 3. Lytic lesion involving the bony structures the largest one involving the T11 vertebrae and right posterior iliac bone almost certainly metastatic. 4. Possible thrombus within main portal vein. Chest CT 02/05/18 11:10 CONCLUSION: Mass process involving the T10 vertebral body with some degree of canal encroachment which is not optimally evaluated on this conventional CT. CT myelography may be useful for correlation. At least a couple of small right lung nodules and enlarged mediastinal lymph nodes noted. Bone Biopsy CT 02/09/18 09:38 CONCLUSION: Uncomplicated CT guided biopsy of the lytic lesion in the right posterior iliac bone. Lumbar Spine CT 02/10/18 00:00 CONCLUSION: 1. Expansile, lytic, lesion involving the posterior superior medial iliac bone measuring 3 cm, suspicious for metastatic disease. 2. 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 3. Multilevel discogenic degenerative changes throughout the lumbar spine with left lumbar scoliosis. Thoracic Spine CT 02/10/18 00:00 CONCLUSION: 1. Destructive change and sclerosis involving the T10 vertebra consistent with metastatic disease. There is mild retropulsion of portions of vertebral body with mild flattening the anterior thecal sac. There is surrounding soft tissue prominence. Shoulder X-Ray 02/13/18 00:00 CONCLUSION: Negative trauma study with no acute fracture or malalignment. - Procedures Status post biopsy posterior right ilac bone by IR on 02/09/18 Assessment and Plan - Assessment (1) Acute UTI Code(s): N39.0 - Urinary tract infection, site not specified Status: Acute (2) Portal vein thrombosis Code(s): I81 - Portal vein thrombosis Status: Acute (3) Supratherapeutic INR Code(s): R79.1 - Abnormal coagulation profile Status: Acute (4) Multiple falls Code(s): R29.6 - Repeated falls Status: Acute (5) Afib Code(s): I48.91 - Unspecified atrial fibrillation Status: Acute (6) HTN (hypertension) Code(s): I10 - Essential (primary) hypertension Status: Acute (7) Lymphoma Code(s): C85.90 - Non-Hodgkin lymphoma, unspecified, unspecified site Status: Acute (8) Multiple lesions of metastatic malignancy Code(s): C79.9 - Secondary malignant neoplasm of unspecified site Status: Acute - Plan (1) Acute UTI Code(s): N39.0 - Urinary tract infection, site not specified Status: Acute Plan: Klebsiella oxytoca Rocephin IV (2) Portal vein thrombosis Code(s): I81 - Portal vein thrombosis Status: Acute Plan: anticoagulated with Coumadin, INR 1.5 after vitamin K. Presented with supratherapeutic INR of 9 Goal 2.5, add heparin gtt Coumadin diagnosis atrial fibrillation, portal vein thrombosis. Anticoagulation per hem/onc (3) Supratherapeutic INR Code(s): R79.1 - Abnormal coagulation profile Status: Acute Plan: s/p vit k per hematology (4) Multiple falls Code(s): R29.6 - Repeated falls Status: Acute Plan: Worrisome due to recent urinary incontinence, with new vertebral metastases (T10 , T11, T3), patient denies lower extremity pain but has back pain and has chronic osteoarthritis of the right knee May be a candidate for neurosurgical intervention versus kyphoplasty Cord impingement concerning Follow-up neurosurgery, consult pending S/p bone marrow biopsy results pending S/p CT scan of the lumbar and thoracic no cord compression. 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 Discussed with hem/onc plan for resuming anticoagulation for patient's history of A. fib and new finding of portal vein thrombosis. Anticoagulation Per hem/ onc. Patient with T10 destructive lesion. CT scan of lumbar and thoracic spine show no obvious cord compression. Neurosurgery consulted appreciate recommendations. TLSO brace for support He is not a surgical candidate at this time. Consider Radiation therapy (5) Afib Code(s): I48.91 - Unspecified atrial fibrillation Status: Acute Plan: Currently controlled on metoprolol, warfarin held due to elevated INR, coagulopathy . Anticoagulatio oer hem/onc (6) HTN (hypertension) Code(s): I10 - Essential (primary) hypertension Status: Acute Plan: stable on lisinopril, metoprolol Monitor -Hold hydrochlorothiazide A.m. 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 Dr Singh hem/onc recommends hospice. Consult hospice Plan: Rule out metastatic malignancy to bone (possible pancreatic, prostatic versus plasma cell source) oncology consult appreciated Destructive change and sclerosis involving the T10 vertebra consistent with metastatic disease. Metastasis from pancreatic cancer. 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 Neurosurgery consulted recommends TLSO and conservative management ( 9 ) Bilateral lower extremity wounds. Consult wound care, greatly appreciate recommendations, orders for wound care are in. (10) Right shoulder pain. History of fall 2 weeks prior to admission. X-ray reviewed no fractures. Patient has limited ROM. Will consult OT. (11) Moderate to severe protein sariah malnutrition. Low albumin, muscle waisting, weak handgrip, decrease PO intake. Change diet to regular add ensure to diet. consult flight deck officer. Encourage PO intake. Discharge Planning: Pending improvement. Need rehab [place]. Patient is however a candidate for hospice. Hospice consulted. CM consulted as well for DC plan and ff. Had bone marrow bx. Per radiology cT report no evident signs of cord compression. 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 These management consulted for discharge planning. Code Status: DNR Discussed Condition With: RN and patient and family and case management and hematology oncology Discharge Planning: Hopefully home in the next day or 2 to rehab may be We will give fluids today A.m. labs
[2018-02-19 07:01] LABS: Alanine Aminotransferase 12 U/L (12-78); Albumin 2.3 g/dL (3.4-5.0); Anion Gap 6 meq/L (5-15); Aspartate Aminotransferase 13 U/L (15-37); Blood Urea Nitrogen 32 mg/dL (7-18); Calcium 8.1 mg/dL (8.5-10.1); Carbon Dioxide 27.4 meq/L (21.0-32.0); Chloride 101 meq/L (98-107); Glomerular Filtration Rate 34 mL/min (>89); Glucose,Random 92 mg/dL (74-106); Magnesium 2.3 mg/dL (1.5-2.5); Phosphorus 3.8 mg/dL (2.5-4.9); Potassium 4.9 meq/L (3.5-5.1); Sodium 134 meq/L (136-145)
[2018-02-19 07:03] LABS: Alkaline Phosphatase 81 U/L (45-117); Total Protein 5.4 g/dL (6.4-8.2)
[2018-02-19] MEDS: Phytonadione 5 MG/SWFI 5 ML Oral Syringe PO SCH (08:24)
[2018-02-19] MEDS: Heparin - SQ 10,000 UNITS/ML Vial SQ SCH ×2 (08:25→21:43)
[2018-02-19] MEDS: Senna/Docusate Sodium 8.6/50 MG Tablet PO SCH ×2 (08:26→21:42)
[2018-02-19] MEDS: Lactic Acid (Ammonium Lactate) 12% Lotion 225 GM Bottle TOPICAL SCH ×2 (08:26→21:43)
[2018-02-19] MEDS: Lisinopril 10 MG Tablet PO SCH (08:31)
[2018-02-19] MEDS ORDERED: Sod Chloride 0.9% Inj 1,000 ML IV.SIG ONE (08:47)
[2018-02-19 11:22] LABS: Baso % (Auto) 0.2 % (0.0-2.0); Eos # (Auto) 0.1 th/mm3 (0.0-0.4); Eos % (Auto) 0.3 % (0.0-4.0); Hematocrit 29.7 % (39.0-51.0); Hemoglobin 9.3 gm/dL (13.0-17.0); Lymph # (Auto) 7.6 th/mm3 (1.0-4.8); Lymph % (Auto) 43.2 % (9.0-44.0); Mean Corpuscular HGB Conc 31.4 % (32.0-36.0); Mean Corpuscular Hemoglobin 26.4 pg (27.0-34.0); Mean Corpuscular Volume 83.9 fL (80.0-100.0); Mean Platelet Volume 8.9 fL (7.0-11.0); Mono # (Auto) 0.9 th/mm3 (0.0-0.9); Mono % (Auto) 5.3 % (0.0-8.0); Platelet Count 191 th/mm3 (150-450); Red Blood Count 3.54 mil/mm3 (4.50-5.90); Red Cell Distribution Width 14.9 % (11.6-17.2); White Blood Count 17.6 th/mm3 (4.0-11.0)
[2018-02-19 11:25] LABS: INR 1.2 Ratio
--- NOTE | 2018-02-19 11:46 | P.PNONC ---
Subjective Interval history: Afebrile. Patient resting comfortably in bed. He has no complaints at this time. He is awaiting discharge to possibly [facility] rehab. He states he ideally would want to just go home, however he lives in a mobile home which is not handicapped accessible. His niece has been assisting him in his affairs. Objective Vital Signs/Intake & Output: Vital Signs 02/18/18 12:00 02/18/18 16:40 02/18/18 20:00 Temperature 97.9 F 98.1 F 97.1 F L Pulse Rate 62 77 73 Respiratory Rate 16 16 16 Blood Pressure 92/47 L 93/55 L 96/49 L Pulse Oximetry 95 95 96 02/19/18 00:00 02/19/18 04:00 02/19/18 08:10 Temperature 98 F 97.5 F L 99.4 F Pulse Rate 75 67 74 Respiratory Rate 16 16 18 Blood Pressure 92/56 L 97/47 L 91/49 L Pulse Oximetry 96 98 94 L 02/19/18 11:12 Temperature 98.7 F Pulse Rate 71 Respiratory Rate 18 Blood Pressure 99/50 L Pulse Oximetry 96 Intake & Output 02/18/18 02/19/18 02/19/18 18:59 06:59 18:59 Intake Total 1940 / 1940 480 / 480 Output Total 650 / 650 250 / 250 Balance 1290 / 1290 230 / 230 Weight 87.1 kg Intake: IV 500 / 500 NS Inj 500 ML @ As Directed IV. 500 / 500 SIG BOLUS ONE Rx#:[id number] Oral 1440 / 1440 480 / 480 Output: Urine 650 / 650 250 / 250 Other: # Voids 2 3 Date of Last Bowel Movement 02/15/18 02/16/18 Result Diagrams: 02/19/18 10:45 02/19/18 06:22 Laboratory Results: Laboratory Results - last 24 hr 02/19/18 02/19/18 02/19/18 06:22 10:45 10:45 WBC 17.6 H RBC 3.54 L Hgb 9.3 L Hct 29.7 L MCV 83.9 MCH 26.4 L MCHC 31.4 L RDW 14.9 Plt Count 191 MPV 8.9 Prelim Diff (Auto) Slide review pending Neut % (Auto) 51.0 Lymph % (Auto) 43.2 [place] % (Auto) 5.3 Eos % (Auto) 0.3 Baso % (Auto) 0.2 Neut # (Auto) 9.0 H Lymph # (Auto) 7.6 H [place] # (Auto) 0.9 Eos # (Auto) 0.1 Baso # (Auto) 0.0 Differential Comment . PT 12.0 H INR 1.2 Sodium 134 L Potassium 4.9 Chloride 101 Carbon Dioxide 27.4 Anion Gap 6 BUN 32 H Creatinine 1.92 H Estimated GFR 34 L Random Glucose 92 Calcium 8.1 L Phosphorus 3.8 Magnesium 2.3 Total Bilirubin 0.5 AST 13 L ALT 12 Alkaline Phosphatase 81 Total Protein 5.4 L Albumin 2.3 L Medications: Active Medications Generic Name Dose Route Start Last Admin Trade Name Freq PRN Reason Stop Dose Admin Hydrocodone Bitart/Acetaminophen 1 tab 02/05/18 15:37 02/19/18 08:25 [place] 7.5/325 PO 1 tab Q6H PRN Administration PAIN SCALE 1 TO 10 Al Hydroxide/Mg Hydroxide 30 ml 02/05/18 13:08 02/08/18 15:27 Milk Of Magnesia Liq PO 30 ml Q12H PRN Administration Mild Constipation Heparin Sodium (Porcine) 5,000 units 02/11/18 21:00 02/19/18 08:25 Heparin Inj SQ 5,000 units Q12HR SORIN Administration Sodium Chloride 1,000 mls @ 75 mls/hr 02/19/18 08:47 02/19/18 09:24 Ns Inj IV.SIG 02/19/18 22:06 75 mls/hr CONT ONE Administration Lactic Acid 1 applicatio 02/13/18 21:00 02/19/18 08:26 Lac-Hydrin 12% Lotion TOPICAL 1 applicatio BID SORIN Administration Lactulose 30 ml 02/05/18 13:08 02/19/18 08:24 Lactulose Liq PO 30 ml DAILY PRN Administration SEVERE CONSITIPATION Lisinopril 10 mg 02/08/18 09:00 02/19/18 08:31 Prinivil PO Not Given DAILY SORIN Lorazepam 0.5 mg 02/15/18 17:39 02/17/18 20:55 Ativan PO 0.5 mg Q6H PRN Administration anxiety/insomnia Metoprolol Succinate 50 mg 02/08/18 09:00 02/19/18 08:31 Toprol Xl PO Not Given DAILY SORIN Phytonadione 5 mg 02/12/18 20:30 02/19/18 08:24 Mephyton Liq PO 5 mg DAILY SORIN Administration Senna/Docusate Sodium 1 tab 02/05/18 21:00 02/19/18 08:26 Angela-Colace PO 1 tab BID SORIN Administration Trimethoprim/Sulfamethoxazole 1 tab 02/07/18 11:30 02/19/18 08:25 Bactrim Ds PO 1 tab Q12HR SORIN Administration Objective Remarks: GENERAL: Elderly male lying in bed, in no acute distress. SKIN: Warm and dry. Dressing to left [place], dry and intact. HEAD: Normocephalic. EYES: No scleral icterus. No injection or drainage. NECK: Supple, trachea midline. CARDIOVASCULAR: Regular rate and rhythm without murmurs. RESPIRATORY: Breath sounds equal bilaterally. No accessory muscle use. GASTROINTESTINAL: Abdomen soft, non-tender, nondistended. EXTREMITIES: Chronic venous stasis changes to bilateral lower extremities with scaling noted. No edema. MUSCULOSKELETAL: Generalized weakness. NEUROLOGICAL: Normal speech. Moving all extremities. No obvious focal deficit. Assessment/Plan (1) Lytic lesion of bone on x-ray Code(s): M89.9 - Disorder of bone, unspecified Status: Acute (2) Pancreatic mass Code(s): K86.9 - Disease of pancreas, unspecified Status: Acute (3) Portal vein thrombosis Code(s): I81 - Portal vein thrombosis Status: Acute - Plan 82-year-old male with history of low-grade CLL as well as bladder cancer admitted with multiple falls found to have portal vein thrombosis, pancreatic head mass and multiple lytic lesions on T11 vertebra and right posterior iliac bone. 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 Pathologic findings are not consistent with lymphoma or a plasma cell disorder. 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 Ultimately regardless of primary site pathologic findings suggest a very aggressive malignant process which is metastatic. Treatment options regardless of primary will be palliative in nature. Options were discussed with the patient about various palliative systemic chemotherapy options. The patient preferred no treatment as opposed to undergoing treatment for palliative purposes alone. The patient, with the assistance of his knees, have decided to pursue a rehab with the possibility of hospice care services if needed upon discharge from rehab. 1. Patient awaiting discharge to a rehab facility. 2. Patient cleared for discharge from an oncology standpoint. Please call if the patient should have any questions or concerns. - Attending Statement The exam, history, and the medical decision-making described in the above note were completed with the assistance of the mid-level provider. I reviewed and agree with the findings presented. I attest that I had a [id number] encounter with the patient on the same day, and personally performed and documented my assessment and findings in the medical record. Denies any new c/o D/W pt path report. He has stage IV incurable cancer. pt has elected for no chemotherapy and desire BSC with hospice. Consult hospice. Pt will be d/c to PO rehab Pt is cleared to be d/c from onc standpoint. Sign off available prn.
[2018-02-19 12:41] LABS: Lymphocytes 38 % (9-44); Monocytes 5 % (0-8); Platelet Estimate Normal (Normal); Platelet Morphology Normal (Normal)
--- NOTE | 2018-02-19 16:27 | P.PNIM ---
Subjective Interval history: 02-17 Follow-up for spinal metastatic lesions. 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 Hem/onc signed off. Hospice consulted. Feels fairly good today. Says he has no back pain at this time. No n/v/d/c. Less anxious. Sleeping fairly well. No fever or chills. Niece at bedside very supportive, case management and palliative care hospice consulted and following 02-18 being given fluids today hydrochlorothiazide has been stopped A.m. labs Discussed with RN and patient and case management and oncology Possibly to SNF and maybe hospice with some involved 02-19 RENAL FUNCTIONS ARE WORSE- GIVE FLUIDS NO NEPHROTOXIC AGENTS HOPEFULLY IMPROVES AND CAN BE DCED TO SNF TOMORROW AM LABS DW RN AND PT AND CM AND ONCOLOGY Physical Exam Vital signs: Vital Signs 02/18/18 16:40 02/18/18 20:00 02/19/18 00:00 Temperature 98.1 F 97.1 F L 98 F Pulse Rate 77 73 75 Respiratory Rate 16 16 16 Blood Pressure 93/55 L 96/49 L 92/56 L Pulse Oximetry 95 96 96 02/19/18 04:00 02/19/18 08:10 02/19/18 11:12 Temperature 97.5 F L 99.4 F 98.7 F Pulse Rate 67 74 71 Respiratory Rate 16 18 18 Blood Pressure 97/47 L 91/49 L 99/50 L Pulse Oximetry 98 94 L 96 02/19/18 14:58 Temperature 89.7 F L Pulse Rate 69 Respiratory Rate 18 Blood Pressure 100/52 L Pulse Oximetry 96 Intake & Output 02/18/18 02/19/18 02/19/18 18:59 06:59 18:59 Intake Total 1940 / 1940 480 / 480 Output Total 650 / 650 250 / 250 Balance 1290 / 1290 230 / 230 Weight 87.1 kg Intake: IV 500 / 500 NS Inj 500 ML @ As Directed IV. 500 / 500 SIG BOLUS ONE Rx#:[id number] Oral 1440 / 1440 480 / 480 Output: Urine 650 / 650 250 / 250 Other: # Voids 2 3 Date of Last Bowel Movement 02/15/18 02/16/18 Narrative: GENERAL: Awake alert and oriented 3 talkative and cooperative SKIN: Warm and dry. Wounds are dressed with the right lower extremity --brawny edema old bilateral lower extremity HEAD: Atraumatic. Normocephalic. EYES: Pupils equal and round. No scleral icterus. No injection or drainage. ENT: No nasal bleeding or discharge. Mucous membranes pink and moist. NECK: Trachea midline. No JVD. CARDIOVASCULAR: Regular rate and rhythm. RESPIRATORY: No accessory muscle use. Clear to auscultation. Breath sounds equal bilaterally. GASTROINTESTINAL: Abdomen soft, non-tender, nondistended. Hepatic and splenic margins not palpable. MUSCULOSKELETAL: Extremities without clubbing, cyanosis, or edema. No obvious deformities. NEUROLOGICAL: Awake and alert. No obvious cranial nerve deficits. Motor grossly within normal limits. 3 out of 5 muscle strength in the legs 4 out of 5 in the arms. Normal speech. PSYCHIATRIC: Appropriate mood and affect; insight and judgment normal. Results - Labs CBC & Chem 7: 02/19/18 10:45 02/19/18 06:22 Laboratory Results - last 24 hr 02/19/18 02/19/18 02/19/18 06:22 10:45 10:45 WBC 17.6 H RBC 3.54 L Hgb 9.3 L Hct 29.7 L MCV 83.9 MCH 26.4 L MCHC 31.4 L RDW 14.9 Plt Count 191 MPV 8.9 Prelim Diff (Auto) Slide review pending Neut % (Auto) 51.0 Lymph % (Auto) 43.2 [place] % (Auto) 5.3 Eos % (Auto) 0.3 Baso % (Auto) 0.2 Neut # (Auto) 9.0 H Lymph # (Auto) 7.6 H [place] # (Auto) 0.9 Eos # (Auto) 0.1 Baso # (Auto) 0.0 WBC Differential Manual diff final Seg Neuts % (Manual) 56 Band Neuts % (Manual) 1 Lymphocytes % (Manual) 38 Monocytes % (Manual) 5 Abs Neuts (Manual) 10.0 H Differential Comment . Platelet Estimate Normal Platelet Morphology Normal PT 12.0 H INR 1.2 Sodium 134 L Potassium 4.9 Chloride 101 Carbon Dioxide 27.4 Anion Gap 6 BUN 32 H Creatinine 1.92 H Estimated GFR 34 L Random Glucose 92 Calcium 8.1 L Phosphorus 3.8 Magnesium 2.3 Total Bilirubin 0.5 AST 13 L ALT 12 Alkaline Phosphatase 81 Total Protein 5.4 L Albumin 2.3 L - Procedures Status post biopsy posterior right ilac bone by IR on 02/09/18 Assessment and Plan - Assessment (1) Acute UTI Code(s): N39.0 - Urinary tract infection, site not specified Status: Acute (2) Portal vein thrombosis Code(s): I81 - Portal vein thrombosis Status: Acute (3) Supratherapeutic INR Code(s): R79.1 - Abnormal coagulation profile Status: Acute (4) Multiple falls Code(s): R29.6 - Repeated falls Status: Acute (5) Afib Code(s): I48.91 - Unspecified atrial fibrillation Status: Acute (6) HTN (hypertension) Code(s): I10 - Essential (primary) hypertension Status: Acute (7) Lymphoma Code(s): C85.90 - Non-Hodgkin lymphoma, unspecified, unspecified site Status: Acute (8) Multiple lesions of metastatic malignancy Code(s): C79.9 - Secondary malignant neoplasm of unspecified site Status: Acute - Plan (1) Acute UTI Code(s): N39.0 - Urinary tract infection, site not specified Status: Acute Plan: Klebsiella oxytoca Rocephin IV (2) Portal vein thrombosis Code(s): I81 - Portal vein thrombosis Status: Acute Plan: anticoagulated with Coumadin, INR 1.5 after vitamin K. Presented with supratherapeutic INR of 9 Goal 2.5, add heparin gtt Coumadin diagnosis atrial fibrillation, portal vein thrombosis. Anticoagulation per hem/onc (3) Supratherapeutic INR Code(s): R79.1 - Abnormal coagulation profile Status: Acute Plan: s/p vit k per hematology (4) Multiple falls Code(s): R29.6 - Repeated falls Status: Acute Plan: Worrisome due to recent urinary incontinence, with new vertebral metastases (T10 , T11, T3), patient denies lower extremity pain but has back pain and has chronic osteoarthritis of the right knee May be a candidate for neurosurgical intervention versus kyphoplasty Cord impingement concerning Follow-up neurosurgery, consult pending S/p bone marrow biopsy results pending S/p CT scan of the lumbar and thoracic no cord compression. 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 Discussed with hem/onc plan for resuming anticoagulation for patient's history of A. fib and new finding of portal vein thrombosis. Anticoagulation Per hem/ onc. Patient with T10 destructive lesion. CT scan of lumbar and thoracic spine show no obvious cord compression. Neurosurgery consulted appreciate recommendations. TLSO brace for support He is not a surgical candidate at this time. Consider Radiation therapy (5) Afib Code(s): I48.91 - Unspecified atrial fibrillation Status: Acute Plan: Currently controlled on metoprolol, warfarin held due to elevated INR, coagulopathy . Anticoagulatio oer hem/onc (6) HTN (hypertension) Code(s): I10 - Essential (primary) hypertension Status: Acute Plan: stable on lisinopril, metoprolol Monitor -Hold hydrochlorothiazide A.m. 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 Dr Singh hem/onc recommends hospice. Consult hospice Plan: Rule out metastatic malignancy to bone (possible pancreatic, prostatic versus plasma cell source) oncology consult appreciated Destructive change and sclerosis involving the T10 vertebra consistent with metastatic disease. Metastasis from pancreatic cancer. 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 Neurosurgery consulted recommends TLSO and conservative management ( 9 ) Bilateral lower extremity wounds. Consult wound care, greatly appreciate recommendations, orders for wound care are in. (10) Right shoulder pain. History of fall 2 weeks prior to admission. X-ray reviewed no fractures. Patient has limited ROM. Will consult OT. (11) Moderate to severe protein sariah malnutrition. Low albumin, muscle waisting, weak handgrip, decrease PO intake. Change diet to regular add ensure to diet. consult process consultant. Encourage PO intake. Discharge Planning: Pending improvement. Need rehab at [place]. Patient is however a candidate for hospice. Hospice consulted. CM consulted as well for DC plan and ff. Had bone marrow bx. Per radiology cT report no evident signs of cord compression. 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 These management consulted for discharge planning. RENAL FUNCTIONS A LITTLE WORSE MONITOR TODAY AND GIVE FLUIDS IF IMPROVED THEN TO SNF TOMORROW Code Status: DNR Discussed Condition With: RN AND CM AND PT AND ONCOLOGY Discharge Planning: Hopefully home in the next day or 2 to rehab may be We will give fluids today A.m. labs
[2018-02-20 07:19] LABS: Hematocrit 28.3 % (39.0-51.0); Hemoglobin 8.8 gm/dL (13.0-17.0); Mean Corpuscular HGB Conc 31.1 % (32.0-36.0); Mean Corpuscular Hemoglobin 26.1 pg (27.0-34.0); Mean Corpuscular Volume 83.9 fL (80.0-100.0); Mean Platelet Volume 9.2 fL (7.0-11.0); Platelet Count 181 th/mm3 (150-450); Red Blood Count 3.38 mil/mm3 (4.50-5.90); Red Cell Distribution Width 15.3 % (11.6-17.2); White Blood Count 17.7 th/mm3 (4.0-11.0)
[2018-02-20 07:53] LABS: Albumin 2.4 g/dL (3.4-5.0); Anion Gap 8 meq/L (5-15); Aspartate Aminotransferase 11 U/L (15-37); Blood Urea Nitrogen 26 mg/dL (7-18); Calcium 8.5 mg/dL (8.5-10.1); Chloride 102 meq/L (98-107); Glomerular Filtration Rate 39 mL/min (>89); Glucose,Random 81 mg/dL (74-106); Magnesium 2.5 mg/dL (1.5-2.5); Potassium 4.6 meq/L (3.5-5.1); Sodium 134 meq/L (136-145)
[2018-02-20 07:54] LABS: Alanine Aminotransferase 12 U/L (12-78); Phosphorus 3.4 mg/dL (2.5-4.9)
[2018-02-20 07:56] LABS: Alkaline Phosphatase 89 U/L (45-117); Total Protein 5.8 g/dL (6.4-8.2)
[2018-02-20] MEDS: Senna/Docusate Sodium 8.6/50 MG Tablet PO SCH ×2 (08:30→20:22)
[2018-02-20] MEDS: Heparin - SQ 10,000 UNITS/ML Vial SQ SCH ×2 (08:30→20:21)
[2018-02-20] MEDS: Phytonadione 5 MG/SWFI 5 ML Oral Syringe PO SCH (08:30)
[2018-02-20] MEDS: Lactic Acid (Ammonium Lactate) 12% Lotion 225 GM Bottle TOPICAL SCH ×2 (08:30→20:22)
[2018-02-20 08:58] LABS: Lymphocytes 51 % (9-44); Monocytes 2 % (0-8); Platelet Estimate Normal (Normal); Platelet Morphology Normal (Normal); Smudge Cells Present
--- NOTE | 2018-02-20 13:37 | P.PNIM ---
Subjective Interval history: 02-17 Follow-up for spinal metastatic lesions. 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 Hem/onc signed off. Hospice consulted. Feels fairly good today. Says he has no back pain at this time. No n/v/d/c. Less anxious. Sleeping fairly well. No fever or chills. Niece at bedside very supportive, case management and palliative care hospice consulted and following 02-18 being given fluids today hydrochlorothiazide has been stopped A.m. labs Discussed with RN and patient and case management and oncology Possibly to SNF and maybe hospice with some involved 02-19 RENAL FUNCTIONS ARE WORSE- GIVE FLUIDS NO NEPHROTOXIC AGENTS HOPEFULLY IMPROVES AND CAN BE DCED TO SNF TOMORROW AM LABS DW RN AND PT AND CM AND ONCOLOGY 02-20 RENAL FUNCTIONS SLOW IMPROVEMENT AM LABS CONTINUE FLUIDS Physical Exam Vital signs: Vital Signs 02/19/18 14:58 02/19/18 20:00 02/20/18 00:00 Temperature 89.7 F L 98.7 F 97.9 F Pulse Rate 69 81 75 Respiratory Rate 18 17 17 Blood Pressure 100/52 L 122/53 L 112/51 L Pulse Oximetry 96 95 99 02/20/18 04:00 02/20/18 08:20 02/20/18 11:21 Temperature 98.8 F 98.4 F 98.4 F Pulse Rate 78 68 65 Respiratory Rate 17 18 18 Blood Pressure 102/49 L 94/71 L 111/59 L Pulse Oximetry 100 96 96 Intake & Output 02/19/18 02/20/18 02/20/18 18:59 06:59 18:59 Intake Total 1680 / 1680 150 / 150 Output Total 725 / 725 1000 / 1000 Balance 955 / 955 -850 / -850 Weight 87 kg Intake: Oral 1680 / 1680 150 / 150 Output: Urine 725 / 725 1000 / 1000 Other: Date of Last Bowel Movement 02/16/18 02/16/18 02/16/18 Narrative: GENERAL: Awake alert and oriented 3 talkative and cooperative SKIN: Warm and dry. Wounds are dressed with the right lower extremity --brawny edema old bilateral lower extremity HEAD: Atraumatic. Normocephalic. EYES: Pupils equal and round. No scleral icterus. No injection or drainage. ENT: No nasal bleeding or discharge. Mucous membranes pink and moist. NECK: Trachea midline. No JVD. CARDIOVASCULAR: Regular rate and rhythm. RESPIRATORY: No accessory muscle use. Clear to auscultation. Breath sounds equal bilaterally. GASTROINTESTINAL: Abdomen soft, non-tender, nondistended. Hepatic and splenic margins not palpable. MUSCULOSKELETAL: Extremities without clubbing, cyanosis, or edema. No obvious deformities. NEUROLOGICAL: Awake and alert. No obvious cranial nerve deficits. Motor grossly within normal limits. 3 out of 5 muscle strength in the legs 4 out of 5 in the arms. Normal speech. PSYCHIATRIC: Appropriate mood and affect; insight and judgment normal. Results - Labs CBC & Chem 7: 02/20/18 05:56 02/20/18 05:56 Laboratory Results - last 24 hr 02/20/18 02/20/18 05:56 05:56 WBC 17.7 H RBC 3.38 L Hgb 8.8 L Hct 28.3 L MCV 83.9 MCH 26.1 L MCHC 31.1 L RDW 15.3 Plt Count 181 MPV 9.2 Prelim Diff (Auto) Manual diff required WBC Differential Manual diff final Seg Neuts % (Manual) 46 Band Neuts % (Manual) 1 Lymphocytes % (Manual) 51 H Monocytes % (Manual) 2 Abs Neuts (Manual) 8.3 H Differential Comment . Smudge Cells Present H Platelet Estimate Normal Platelet Morphology Normal Sodium 134 L Potassium 4.6 Chloride 102 Carbon Dioxide 24.0 Anion Gap 8 BUN 26 H Creatinine 1.68 H Estimated GFR 39 L Random Glucose 81 Calcium 8.5 Phosphorus 3.4 Magnesium 2.5 Total Bilirubin 0.6 AST 11 L ALT 12 Alkaline Phosphatase 89 Total Protein 5.8 L Albumin 2.4 L - Procedures Status post biopsy posterior right ilac bone by IR on 02/09/18 Assessment and Plan - Assessment (1) Acute UTI Code(s): N39.0 - Urinary tract infection, site not specified Status: Acute Plan: Klebsiella ox (2) Portal vein thrombosis Code(s): I81 - Portal vein thrombosis Status: Acute (3) Supratherapeutic INR Code(s): R79.1 - Abnormal coagulation profile Status: Acute (4) Multiple falls Code(s): R29.6 - Repeated falls Status: Acute (5) Afib Code(s): I48.91 - Unspecified atrial fibrillation Status: Acute (6) HTN (hypertension) Code(s): I10 - Essential (primary) hypertension Status: Acute (7) Lymphoma Code(s): C85.90 - Non-Hodgkin lymphoma, unspecified, unspecified site Status: Acute (8) Multiple lesions of metastatic malignancy Code(s): C79.9 - Secondary malignant neoplasm of unspecified site Status: Acute - Plan (1) Acute UTI Code(s): N39.0 - Urinary tract infection, site not specified Status: Acute Plan: Klebsiella oxytoca Rocephin IV (2) Portal vein thrombosis Code(s): I81 - Portal vein thrombosis Status: Acute Plan: anticoagulated with Coumadin, INR 1.5 after vitamin K. Presented with supratherapeutic INR of 9 Goal 2.5, add heparin gtt Coumadin diagnosis atrial fibrillation, portal vein thrombosis. Anticoagulation per hem/onc (3) Supratherapeutic INR Code(s): R79.1 - Abnormal coagulation profile Status: Acute Plan: s/p vit k per hematology (4) Multiple falls Code(s): R29.6 - Repeated falls Status: Acute Plan: Worrisome due to recent urinary incontinence, with new vertebral metastases (T10 , T11, T3), patient denies lower extremity pain but has back pain and has chronic osteoarthritis of the right knee May be a candidate for neurosurgical intervention versus kyphoplasty Cord impingement concerning Follow-up neurosurgery, consult pending S/p bone marrow biopsy results pending S/p CT scan of the lumbar and thoracic no cord compression. 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 Discussed with hem/onc plan for resuming anticoagulation for patient's history of A. fib and new finding of portal vein thrombosis. Anticoagulation Per hem/ onc. Patient with T10 destructive lesion. CT scan of lumbar and thoracic spine show no obvious cord compression. Neurosurgery consulted appreciate recommendations. TLSO brace for support He is not a surgical candidate at this time. Consider Radiation therapy (5) Afib Code(s): I48.91 - Unspecified atrial fibrillation Status: Acute Plan: Currently controlled on metoprolol, warfarin held due to elevated INR, coagulopathy . Anticoagulatio oer hem/onc (6) HTN (hypertension) Code(s): I10 - Essential (primary) hypertension Status: Acute Plan: stable on lisinopril, metoprolol Monitor -Hold hydrochlorothiazide A.m. 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 Dr Singh hem/onc recommends hospice. Consult hospice Plan: Rule out metastatic malignancy to bone (possible pancreatic, prostatic versus plasma cell source) oncology consult appreciated Destructive change and sclerosis involving the T10 vertebra consistent with metastatic disease. Metastasis from pancreatic cancer. 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 Neurosurgery consulted recommends TLSO and conservative management ( 9 ) Bilateral lower extremity wounds. Consult wound care, greatly appreciate recommendations, orders for wound care are in. (10) Right shoulder pain. History of fall 2 weeks prior to admission. X-ray reviewed no fractures. Patient has limited ROM. Will consult OT. (11) Moderate to severe protein sariah malnutrition. Low albumin, muscle waisting, weak handgrip, decrease PO intake. Change diet to regular add ensure to diet. consult bus girl. Encourage PO intake. Discharge Planning: Pending improvement. Need rehab at [place]. Patient is however a candidate for hospice. Hospice consulted. CM consulted as well for DC plan and ff. Had bone marrow bx. Per radiology cT report no evident signs of cord compression. Neurosurgery consulted recommends TLSO and conservative management Bone marrow biopsy with pleomorphic disease per Dr Singh patient is a candidate for hospice and hem/onc signed off Resume anticoagulation for Afib per Hem/onc Discussed with the patient, family at bedside his niece, nurse DC poss to Hospice However patient might go to assisted facility first thing might consider following with hospice while assisted facility. These management consulted for discharge planning. RENAL FUNCTIONS A LITTLE IMPROVED MONITOR TODAY AND GIVE FLUIDS IF IMPROVED THEN TO SNF TOMORROW Code Status: DNR Discussed Condition With: RN AND PT AND FAMILY Discharge Planning: Hopefully home in the next day or 2 to rehab may be We will give fluids today A.m. labs
[2018-02-20] MEDS ORDERED: Sod Chloride 0.9% Inj 1,000 ML IV.CONT SCH (13:45)
[2018-02-21 05:08] VITALS: O2SAT 100
[2018-02-21 08:06] VITALS: BP 109/66; PULSE 68; RESP 18; TEMP 97.3
--- NOTE | 2018-02-21 08:57 | P.PNIM ---
Subjective Interval history: 02-17 Follow-up for spinal metastatic lesions. 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 Hem/onc signed off. Hospice consulted. Feels fairly good today. Says he has no back pain at this time. No n/v/d/c. Less anxious. Sleeping fairly well. No fever or chills. Niece at bedside very supportive, case management and palliative care hospice consulted and following 02-18 being given fluids today hydrochlorothiazide has been stopped A.m. labs Discussed with RN and patient and case management and oncology Possibly to SNF and maybe hospice with some involved 02-19 RENAL FUNCTIONS ARE WORSE- GIVE FLUIDS NO NEPHROTOXIC AGENTS HOPEFULLY IMPROVES AND CAN BE DCED TO SNF TOMORROW AM LABS DW RN AND PT AND CM AND ONCOLOGY 02-20 RENAL FUNCTIONS SLOW IMPROVEMENT AM LABS CONTINUE FLUIDS 02-21 RENAL FUNCTIONS BETTER CAN GO TO SNF TODAY NEEDS AGGRESSIVE PT AND OT AT SNF DW RN AND PT WILL DC TO [facility] TODAY Physical Exam Vital signs: Vital Signs 02/20/18 11:21 02/20/18 15:09 02/20/18 20:00 Temperature 98.4 F 98.3 F 98.3 F Pulse Rate 65 74 61 Respiratory Rate 18 18 17 Blood Pressure 111/59 L 107/60 108/47 L Pulse Oximetry 96 98 97 02/21/18 00:00 02/21/18 04:00 02/21/18 08:03 Temperature 98.2 F 98.2 F 97.3 F L Pulse Rate 72 69 68 Respiratory Rate 16 17 18 Blood Pressure 115/54 L 122/57 L 109/66 Pulse Oximetry 96 100 100 Intake & Output 02/20/18 02/21/18 02/21/18 18:59 06:59 18:59 Intake Total 1680 / 1680 Output Total 1075 / 1075 950 / 950 Balance 605 / 605 -950 / -950 Weight 87.3 kg Intake: Oral 1680 / 1680 Output: Urine 1075 / 1075 950 / 950 Other: Date of Last Bowel Movement 02/20/18 02/20/18 # Bowel Movements 1 Narrative: GENERAL: Awake alert and oriented 3 talkative and cooperative SKIN: Warm and dry. Wounds are dressed with the right lower extremity --brawny edema old bilateral lower extremity HEAD: Atraumatic. Normocephalic. EYES: Pupils equal and round. No scleral icterus. No injection or drainage. ENT: No nasal bleeding or discharge. Mucous membranes pink and moist. NECK: Trachea midline. No JVD. CARDIOVASCULAR: Regular rate and rhythm. RESPIRATORY: No accessory muscle use. Clear to auscultation. Breath sounds equal bilaterally. GASTROINTESTINAL: Abdomen soft, non-tender, nondistended. Hepatic and splenic margins not palpable. MUSCULOSKELETAL: Extremities without clubbing, cyanosis, or edema. No obvious deformities. NEUROLOGICAL: Awake and alert. No obvious cranial nerve deficits. Motor grossly within normal limits. 3 out of 5 muscle strength in the legs 4 out of 5 in the arms. Normal speech. PSYCHIATRIC: Appropriate mood and affect; insight and judgment normal. Results - Labs CBC & Chem 7: 02/21/18 09:02 02/21/18 09:02 Laboratory Results - last 24 hr 02/20/18 05:56 WBC Differential Manual diff final Seg Neuts % (Manual) 46 Band Neuts % (Manual) 1 Lymphocytes % (Manual) 51 H Monocytes % (Manual) 2 Abs Neuts (Manual) 8.3 H Smudge Cells Present H Platelet Estimate Normal Platelet Morphology Normal - Imaging Cervical Spine CT 02/05/18 10:17 CONCLUSION: 1. Extensive bilateral neck lymphadenopathy suspicious for metastatic disease or lymphoma. 2. There is a lytic bone lesion within the T3 vertebral body. 3. Multilevel degenerative disc disease throughout the cervical spine, as above. No spinal canal stenosis is identified. There areas of neural foraminal narrowing at multiple levels but is most severe on the right at C5-C6. Head CT 02/05/18 10:17 CONCLUSION: Unremarkable study. Abdomen/Pelvis CT 02/05/18 11:10 CONCLUSION: 1. 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 2. Pathological adenopathy throughout the abdomen and pelvis highly suspicious for metastatic disease. 3. Lytic lesion involving the bony structures the largest one involving the T11 vertebrae and right posterior iliac bone almost certainly metastatic. 4. Possible thrombus within main portal vein. Chest CT 02/05/18 11:10 CONCLUSION: Mass process involving the T10 vertebral body with some degree of canal encroachment which is not optimally evaluated on this conventional CT. CT myelography may be useful for correlation. At least a couple of small right lung nodules and enlarged mediastinal lymph nodes noted. Bone Biopsy CT 02/09/18 09:38 CONCLUSION: Uncomplicated CT guided biopsy of the lytic lesion in the right posterior iliac bone. Lumbar Spine CT 02/10/18 00:00 CONCLUSION: 1. Expansile, lytic, lesion involving the posterior superior medial iliac bone measuring 3 cm, suspicious for metastatic disease. 2. 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 3. Multilevel discogenic degenerative changes throughout the lumbar spine with left lumbar scoliosis. Thoracic Spine CT 02/10/18 00:00 CONCLUSION: 1. Destructive change and sclerosis involving the T10 vertebra consistent with metastatic disease. There is mild retropulsion of portions of vertebral body with mild flattening the anterior thecal sac. There is surrounding soft tissue prominence. Shoulder X-Ray 02/13/18 00:00 CONCLUSION: Negative trauma study with no acute fracture or malalignment. - Procedures Status post biopsy posterior right iliac bone by IR on 02/09/18 Assessment and Plan - Assessment (1) Acute UTI Code(s): N39.0 - Urinary tract infection, site not specified Status: Resolved (2) Portal vein thrombosis Code(s): I81 - Portal vein thrombosis Status: Acute Plan: Currently anticoagulated with Coumadin, INR 1.5 after vitamin K Goal 2.5, add heparin gtt Coumadin diagnosis atrial fibrillation, portal vein thrombosis (3) Supratherapeutic INR Code(s): R79.1 - Abnormal coagulation profile Status: Acute Plan: s/p vit k per hematology (4) Multiple falls Code(s): R29.6 - Repeated falls Status: Acute Plan: Worrisome due to recent urinary incontinence, with new vertebral metastases (T10 , T11, T3), patient denies lower extremity pain but has back pain and has chronic osteoarthritis of the right knee May be a candidate for neurosurgical intervention versus kyphoplasty Cord impingement concerning Follow-up neurosurgery, consult pending Possible IR for biopsy (5) Afib Code(s): I48.91 - Unspecified atrial fibrillation Status: Acute Plan: Currently controlled on metoprolol, warfarin held due to elevated INR (6) HTN (hypertension) Code(s): I10 - Essential (primary) hypertension Status: Acute Plan: stable on HCTZ, lisinopril, metoprolol (7) Lymphoma Code(s): C85.90 - Non-Hodgkin lymphoma, unspecified, unspecified site Status: Acute Plan: History of stable lymphoma under observation, also history of bladder cancer Patient leukocytosis may be due to dehydration versus acute phase reaction from urinary tract infection Follow closely (8) Multiple lesions of metastatic malignancy Code(s): C79.9 - Secondary malignant neoplasm of unspecified site Status: Acute Plan: Rule out metastatic malignancy to bone (possible pancreatic, prostatic versus plasma cell source) workup in progress, oncology consult appreciated Continue with palliative care care consult to help plan goals of care Continue with hydrocodone for pain as needed Patient agreeable to exploring options of treatment - Plan (1) Acute UTI Code(s): N39.0 - Urinary tract infection, site not specified Status: Acute Plan: Klebsiella oxytoca Rocephin IV (2) Portal vein thrombosis Code(s): I81 - Portal vein thrombosis Status: Acute Plan: anticoagulated with Coumadin, INR 1.5 after vitamin K. Presented with supratherapeutic INR of 9 Goal 2.5, add heparin gtt Coumadin diagnosis atrial fibrillation, portal vein thrombosis. Anticoagulation per hem/onc (3) Supratherapeutic INR Code(s): R79.1 - Abnormal coagulation profile Status: Acute Plan: s/p vit k per hematology (4) Multiple falls Code(s): R29.6 - Repeated falls Status: Acute Plan: Worrisome due to recent urinary incontinence, with new vertebral metastases (T10 , T11, T3), patient denies lower extremity pain but has back pain and has chronic osteoarthritis of the right knee May be a candidate for neurosurgical intervention versus kyphoplasty Cord impingement concerning Follow-up neurosurgery, consult pending S/p bone marrow biopsy results pending S/p CT scan of the lumbar and thoracic no cord compression. 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 Discussed with hem/onc plan for resuming anticoagulation for patient's history of A. fib and new finding of portal vein thrombosis. Anticoagulation Per hem/ onc. Patient with T10 destructive lesion. CT scan of lumbar and thoracic spine show no obvious cord compression. Neurosurgery consulted appreciate recommendations. TLSO brace for support He is not a surgical candidate at this time. Consider Radiation therapy (5) Afib Code(s): I48.91 - Unspecified atrial fibrillation Status: Acute Plan: Currently controlled on metoprolol, warfarin held due to elevated INR, coagulopathy . Anticoagulatio oer hem/onc (6) HTN (hypertension) Code(s): I10 - Essential (primary) hypertension Status: Acute Plan: stable on lisinopril, metoprolol Monitor -Hold hydrochlorothiazide A.m. 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 Dr Singh hem/onc recommends hospice. Consult hospice Plan: Rule out metastatic malignancy to bone (possible pancreatic, prostatic versus plasma cell source) oncology consult appreciated Destructive change and sclerosis involving the T10 vertebra consistent with metastatic disease. Metastasis from pancreatic cancer. 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 Neurosurgery consulted recommends TLSO and conservative management ( 9 ) Bilateral lower extremity wounds. Consult wound care, greatly appreciate recommendations, orders for wound care are in. (10) Right shoulder pain. History of fall 2 weeks prior to admission. X-ray reviewed no fractures. Patient has limited ROM. Will consult OT. (11) Moderate to severe protein sariah malnutrition. Low albumin, muscle waisting, weak handgrip, decrease PO intake. Change diet to regular add ensure to diet. consult coin machine assembler. Encourage PO intake. Discharge Planning: Pending improvement. Need rehab at [place]. Patient is however a candidate for hospice. Hospice consulted. CM consulted as well for DC plan and ff. Had bone marrow bx. Per radiology cT report no evident signs of cord compression. Neurosurgery consulted recommends TLSO and conservative management Bone marrow biopsy with pleomorphic disease per Dr Singh patient is a candidate for hospice and hem/onc signed off Resume anticoagulation for Afib per Hem/onc Discussed with the patient, family at bedside his niece, nurse DC poss to Hospice However patient might go to halfway facility first thing might consider following with hospice while halfway facility. These management consulted for discharge planning. RENAL FUNCTIONS A LITTLE IMPROVED dc to SNF TODAY SEE MED REC SEE DC SUMMARY 9970 FILLED OUT Code Status: DNR Discussed Condition With: RN AND PT AND ONCOLOGY Discharge Planning: TO SNF TODAY
[2018-02-21 09:51] LABS: Baso % (Auto) 0.1 % (0.0-2.0); Eos # (Auto) 0.1 th/mm3 (0.0-0.4); Eos % (Auto) 0.5 % (0.0-4.0); Hematocrit 27.5 % (39.0-51.0); Hemoglobin 8.7 gm/dL (13.0-17.0); Lymph # (Auto) 7.4 th/mm3 (1.0-4.8); Lymph % (Auto) 46.5 % (9.0-44.0); Mean Corpuscular HGB Conc 31.6 % (32.0-36.0); Mean Corpuscular Hemoglobin 26.5 pg (27.0-34.0); Mean Corpuscular Volume 84.1 fL (80.0-100.0); Mean Platelet Volume 8.9 fL (7.0-11.0); Mono # (Auto) 0.9 th/mm3 (0.0-0.9); Mono % (Auto) 5.7 % (0.0-8.0); Neut # (Auto) 7.5 th/mm3 (1.8-7.7); Neut % (Auto) 47.2 % (16.0-70.0); Platelet Count 185 th/mm3 (150-450); Red Blood Count 3.27 mil/mm3 (4.50-5.90); Red Cell Distribution Width 15.4 % (11.6-17.2); White Blood Count 15.9 th/mm3 (4.0-11.0)
[2018-02-21 10:14] LABS: Albumin 2.2 g/dL (3.4-5.0); Anion Gap 8 meq/L (5-15); Aspartate Aminotransferase 10 U/L (15-37); Blood Urea Nitrogen 21 mg/dL (7-18); Calcium 8.4 mg/dL (8.5-10.1); Chloride 104 meq/L (98-107); Glomerular Filtration Rate 51 mL/min (>89); Glucose,Random 113 mg/dL (74-106); Magnesium 2.2 mg/dL (1.5-2.5); Potassium 4.4 meq/L (3.5-5.1); Sodium 137 meq/L (136-145)
[2018-02-21 10:15] LABS: Alanine Aminotransferase 12 U/L (12-78); Phosphorus 2.9 mg/dL (2.5-4.9)
[2018-02-21 10:18] LABS: Alkaline Phosphatase 79 U/L (45-117); Total Protein 5.5 g/dL (6.4-8.2)
[2018-02-21] MEDS: Heparin - SQ 10,000 UNITS/ML Vial SQ SCH (11:06)
[2018-02-21] MEDS: Senna/Docusate Sodium 8.6/50 MG Tablet PO SCH (11:07)
[2018-02-21] MEDS: Phytonadione 5 MG/SWFI 5 ML Oral Syringe PO SCH (11:07)
--- NOTE | 2018-02-21 11:18 | P.DS ---
Date of admission: 02/05/18 12:52 Primary care physician: Alexandro Moeller MD Attending physician on discharge: Keven Song Anticipated date of discharge: 02/21/18 Brief History from admission: Patient is an 82-year-old gentleman with a history of atrial fibrillation on Coumadin who comes in after progressive weakness and a fall. He called his friend and his friend around to the hospital. Over the last several months patient has progressive lower extremity weakness. He attributed this to his right knee which has significant osteoarthritic changes. He has also experienced some urinary incontinence over the last several weeks. He has at least 2 falls and had progressively used canes and now a walker. He notes no fevers or chills. He notes no back pain is not any nausea and vomiting or belly pain. He finally came to the emergency room today and was found to have profound weakness. In the course of the ER visit patient did have both CT of the chest and abdomen which showed pancreatic mass as well as metastatic changes to T10 through 11 as well and is progressive adenopathy from previous evaluations. Patient has not had any fevers or chills. He notes no nelly back pain. He was also found to have an INR of 9.6. He takes Coumadin for atrial fibrillation. He notes no new antibiotics or changes in his prescription. Normally he also with the events and cardiology office and his INR has been in the 2-3 range appropriately for his diagnosis. He had fallen does have significant amount of ecchymotic skin injuries. There is no nelly bleeding. He has not had any belly pain or jaundice. He has been admitted to the hospital for further evaluation. He is recommended for admission and treatment in the hospital DS: Diagnosis - Discharge Diagnosis (1) Acute UTI Status: Resolved (2) Portal vein thrombosis Status: Acute (3) Supratherapeutic INR Status: Acute (4) Multiple falls Status: Acute (5) Afib Status: Acute (6) HTN (hypertension) Status: Acute (7) Lymphoma Status: Acute (8) Multiple lesions of metastatic malignancy Status: Acute DS: Medications - Discharge Medications Prescriptions: gabapentin 200 mg PO HS #60 cap hydrocodone-acetaminophen 1 tab PO Q6H PRN #12 tab PRN Reason: Pain Scale 1 To 10 lisinopril 10 mg PO DAILY #30 tab lorazepam 0.5 mg PO Q6H PRN #12 tab PRN Reason: anxiety/insomnia lovastatin 20 mg PO BID #60 tab metoprolol succinate 50 mg PO DAILY #30 tab sennosides-docusate sodium [Senna Plus] 2 tab PO BID #120 tab sulfamethoxazole-trimethoprim 1 tab PO Q12HR #20 tab temazepam 15 mg PO HS PRN #30 cap PRN Reason: Insomnia DS: Summary Hospital Course: 02-17 Follow-up for spinal metastatic lesions. 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 Hem/onc signed off. Hospice consulted. Feels fairly good today. Says he has no back pain at this time. No n/v/d/c. Less anxious. Sleeping fairly well. No fever or chills. Niece at bedside very supportive, case management and palliative care hospice consulted and following 02-18 being given fluids today hydrochlorothiazide has been stopped A.m. labs Discussed with RN and patient and case management and oncology Possibly to SNF and maybe hospice with some involved 02-19 RENAL FUNCTIONS ARE WORSE- GIVE FLUIDS NO NEPHROTOXIC AGENTS HOPEFULLY IMPROVES AND CAN BE DCED TO SNF TOMORROW AM LABS DW RN AND PT AND CM AND ONCOLOGY 02-20 RENAL FUNCTIONS SLOW IMPROVEMENT AM LABS CONTINUE FLUIDS 8- RENAL FUNCTIONS BETTER CAN GO TO SNF TODAY NEEDS AGGRESSIVE PT AND OT AT SNF DW RN AND PT WILL DC TO [place] TODAY e-forcse was viewed RECENT hydrocodone is/acetaminophen 11/23 to [facility] on January 11 but patient is going to SNF and will need pain control there We will give prescription for hydrocodoneacetaminophen 7.5325 mg tablets 1 tablet orally every 6 hours as needed #12 for treatment at the SNF We will give temazepam 15 mg p.o. at bedtime #30 We will give Lorazepam 0.5 mg p.o. every 6 hours as needed #12 - Time Spent with Patient Total time spent providing and/or coordinating discharge services: Greater than 30 minutes - Quality: VTE Deep Vein Thrombosis/Pulmonary Embolism Present on Admission: No Exam Vital signs: Vital Signs 02/20/18 11:21 02/20/18 15:09 02/20/18 20:00 Temperature 98.4 F 98.3 F 98.3 F Pulse Rate 65 74 61 Respiratory Rate 18 18 17 Blood Pressure 111/59 L 107/60 108/47 L Pulse Oximetry 96 98 97 02/21/18 00:00 02/21/18 04:00 02/21/18 08:03 Temperature 98.2 F 98.2 F 97.3 F L Pulse Rate 72 69 68 Respiratory Rate 16 17 18 Blood Pressure 115/54 L 122/57 L 109/66 Pulse Oximetry 96 100 100 Intake & Output 02/20/18 02/21/18 02/21/18 18:59 06:59 18:59 Intake Total 1680 / 1680 Output Total 1075 / 1075 950 / 950 Balance 605 / 605 -950 / -950 Weight 87.3 kg Intake: Oral 1680 / 1680 Output: Urine 1075 / 1075 950 / 950 Other: Date of Last Bowel Movement 02/20/18 02/20/18 # Bowel Movements 1 Narrative: GENERAL: Awake alert and oriented 3 talkative and cooperative SKIN: Warm and dry. Wounds are dressed with the right lower extremity --brawny edema old bilateral lower extremity HEAD: Atraumatic. Normocephalic. EYES: Pupils equal and round. No scleral icterus. No injection or drainage. ENT: No nasal bleeding or discharge. Mucous membranes pink and moist. NECK: Trachea midline. No JVD. CARDIOVASCULAR: Regular rate and rhythm. RESPIRATORY: No accessory muscle use. Clear to auscultation. Breath sounds equal bilaterally. GASTROINTESTINAL: Abdomen soft, non-tender, nondistended. Hepatic and splenic margins not palpable. MUSCULOSKELETAL: Extremities without clubbing, cyanosis, or edema. No obvious deformities. NEUROLOGICAL: Awake and alert. No obvious cranial nerve deficits. Motor grossly within normal limits. 3 out of 5 muscle strength in the legs 4 out of 5 in the arms. Normal speech. PSYCHIATRIC: Appropriate mood and affect; insight and judgment normal. Results Procedures completed during hospitalization: Status post biopsy posterior right iliac bone by IR on 02/09/18 Completed studies during hospitalization: Laboratory Results CBC w Diff Slide review pending 02/05/18 10:30 WBC 15.9 th/mm3 (4.0-11.0) H 02/21/18 09:02 RBC 3.27 mil/mm3 (4.50-5.90) L 02/21/18 09:02 Hgb 8.7 gm/dL (13.0-17.0) L 02/21/18 09:02 Hct 27.5 % (39.0-51.0) L 02/21/18 09:02 MCV 84.1 fL (80.0-100.0) 02/21/18 09:02 MCH 26.5 pg (27.0-34.0) L 02/21/18 09:02 MCHC 31.6 % (32.0-36.0) L 02/21/18 09:02 RDW 15.4 % (11.6-17.2) 02/21/18 09:02 Plt Count 185 th/mm3 (150-450) 02/21/18 09:02 MPV 8.9 fL (7.0-11.0) 02/21/18 09:02 Prelim Diff (Auto) Slide review pending 02/21/18 09:02 Neut % (Auto) 47.2 % (16.0-70.0) 02/21/18 09:02 Lymph % (Auto) 46.5 % (9.0-44.0) H 02/21/18 09:02 [place] % (Auto) 5.7 % (0.0-8.0) 02/21/18 09:02 Eos % (Auto) 0.5 % (0.0-4.0) 02/21/18 09:02 Baso % (Auto) 0.1 % (0.0-2.0) 02/21/18 09:02 Neut # (Auto) 7.5 th/mm3 (1.8-7.7) 02/21/18 09:02 Lymph # (Auto) 7.4 th/mm3 (1.0-4.8) H 02/21/18 09:02 [place] # (Auto) 0.9 th/mm3 (0.0-0.9) 02/21/18 09:02 Eos # (Auto) 0.1 th/mm3 (0.0-0.4) 02/21/18 09:02 Baso # (Auto) 0.0 th/mm3 (0.0-0.2) 02/21/18 09:02 WBC Differential Manual diff final 02/20/18 05:56 Seg Neuts % (Manual) 46 % (16-70) 02/20/18 05:56 Band Neuts % (Manual) 1 % (0-6) 02/20/18 05:56 Lymphocytes % (Manual) 51 % (9-44) H 02/20/18 05:56 Monocytes % (Manual) 2 % (0-8) 02/20/18 05:56 Eosinophils % (Manual) 1 % (0-4) 02/12/18 08:15 Abs Neuts (Manual) 8.3 th/mm3 (1.8-7.7) H 02/20/18 05:56 Differential Comment . 02/21/18 09:02 Smudge Cells Present (None) H 02/20/18 05:56 Platelet Estimate Normal (Normal) 02/20/18 05:56 Platelet Morphology Normal (Normal) 02/20/18 05:56 PT 12.0 sec (9.8-11.6) H 02/19/18 10:45 INR 1.2 Ratio 02/19/18 10:45 APTT 46.0 sec (24.3-30.1) H 02/12/18 08:15 Sodium 137 meq/L (136-145) 02/21/18 09:02 Potassium 4.4 meq/L (3.5-5.1) 02/21/18 09:02 Chloride 104 meq/L (98-107) 02/21/18 09:02 Carbon Dioxide 25.0 meq/L (21.0-32.0) 02/21/18 09:02 Anion Gap 8 meq/L (5-15) 02/21/18 09:02 BUN 21 mg/dL (7-18) H 02/21/18 09:02 Creatinine 1.33 mg/dL (0.60-1.30) H 02/21/18 09:02 Estimated GFR 51 mL/min (>89) L 02/21/18 09:02 Random Glucose 113 mg/dL (74-106) H 02/21/18 09:02 Calcium 8.4 mg/dL (8.5-10.1) L 02/21/18 09:02 Phosphorus 2.9 mg/dL (2.5-4.9) 02/21/18 09:02 Magnesium 2.2 mg/dL (1.5-2.5) 02/21/18 09:02 Total Bilirubin 0.5 mg/dL (0.2-1.0) 02/21/18 09:02 AST 10 U/L (15-37) L 02/21/18 09:02 ALT 12 U/L (12-78) 02/21/18 09:02 Alkaline Phosphatase 79 U/L (45-117) 02/21/18 09:02 Total Creatine Kinase 197 U/L (39-308) 02/05/18 16:35 Total Protein 5.5 g/dL (6.4-8.2) L 02/21/18 09:02 Total Protein (PEP) 5.0 gm/dL (6.4-8.2) L 02/06/18 04:40 Albumin 2.2 g/dL (3.4-5.0) L 02/21/18 09:02 Albumin (PEP) 2.79 gm/dL (3.50-5.00) L 02/06/18 04:40 Albumin/Globulin Ratio 1.26 (1.39-2.23) L 02/06/18 04:40 Hlyvg-4-Kgvunxtdx 0.40 gm/dL (0.11-0.29) H 02/06/18 04:40 [place]-5-Tqthrxqsk 0.88 gm/dL (0.22-1.00) 02/06/18 04:40 Beta Globulins 0.66 gm/dL (0.53-1.03) 02/06/18 04:40 Gamma Globulins 0.28 gm/dL (0.50-1.39) L 02/06/18 04:40 PEP Pathologist Comment 02/06/18 04:40 CA 19-9 Antigen Less than 1.2 U/mL (0.0-35.0) 02/06/18 04:40 Free PSA 1.1 ng/mL 02/06/18 04:40 Total PSA 4.3 ng/mL (<=7.2) 02/06/18 04:40 PSA Free/Total Ratio 0.26 ratio 02/06/18 04:40 Ur Collection Type Clean catch 02/05/18 10:50 Urine Color Yellow (Yellw/Straw) 02/05/18 10:50 Urine Clarity Slightly cloudy (Clear) 02/05/18 10:50 Urine pH 6.0 (5.0-8.5) 02/05/18 10:50 Ur Specific [place] 1.010 (1.002-1.035) 02/05/18 10:50 Urine Protein Trace mg/dL (Neg-Trace) 02/05/18 10:50 Urine Glucose (UA) Negative mg/dL (Negative) 02/05/18 10:50 Urine Ketones Negative mg/dL (Negative) 02/05/18 10:50 Urine Occult Blood Trace (Negative) 02/05/18 10:50 Urine Nitrate Positive (Negative) H 02/05/18 10:50 Urine Bilirubin Negative (Negative) 02/05/18 10:50 Urine Urobilinogen 1.0 mg/dL (Less than 2) 02/05/18 10:50 Ur Leukocyte Esterase Moderate (Negative) H 02/05/18 10:50 Urine RBC 0-3 /hpf (0-3) 02/05/18 10:50 Urine WBC 0-5 /hpf (0-5) 02/05/18 10:50 Urine WBC Clumps Occasional (None) H 02/05/18 10:50 Ur Squamous Epith Cells 0-5 /hpf (0-5) 02/05/18 10:50 Urine Bacteria Moderate /hpf (None) H 02/05/18 10:50 Micro UA Comment Culture indicated 02/05/18 10:50 Urine Culture Comments Culture indicated 02/05/18 10:50 IgG 214 mg/dL (690-1690) L 02/06/18 04:40 IgA 53 mg/dL (107-591) L 02/06/18 04:40 IgM 17 mg/dL (37-225) L 02/06/18 04:40 [place]/Lambda Ratio 1.63 (1.57-3.93) 02/06/18 04:40 [facility] Interpretation 02/06/18 04:40 [place] Light Chain Anal 52 mg/dL (170-370) L 02/06/18 04:40 Lambda Light Chain Anal 32 mg/dL (90-210) L 02/06/18 04:40 Hepatitis A IgM Ab Nonreactive (Nonreactive) 02/11/18 15:39 Hep Bs Antigen Nonreactive (Nonreactive) 02/11/18 15:39 Hep B Core IgM Ab Nonreactive (Nonreactive) 02/11/18 15:39 Hep C IgG Ab Nonreactive (Nonreactive) 02/11/18 15:39 Blood Type O Negative 02/05/18 10:30 Blood Type Recheck Not needed 07/16/18 10:30 Antibody Screen Negative 02/05/18 10:[address] 02/05/18 10:17 CONCLUSION: 1. Extensive bilateral neck lymphadenopathy suspicious for metastatic disease or lymphoma. 2. There is a lytic bone lesion within the T3 vertebral body. 3. Multilevel degenerative disc disease throughout the cervical spine, as above. No spinal canal stenosis is identified. There areas of neural foraminal narrowing at multiple levels but is most severe on the right at C5-C6. Head CT 02/05/18 10:17 CONCLUSION: Unremarkable study. Abdomen/Pelvis CT 02/05/18 11:10 CONCLUSION: 1. 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 2. Pathological adenopathy throughout the abdomen and pelvis highly suspicious for metastatic disease. 3. Lytic lesion involving the bony structures the largest one involving the T11 vertebrae and right posterior iliac bone almost certainly metastatic. 4. Possible thrombus within main portal vein. Chest CT 02/05/18 11:10 CONCLUSION: Mass process involving the T10 vertebral body with some degree of canal encroachment which is not optimally evaluated on this conventional CT. CT myelography may be useful for correlation. At least a couple of small right lung nodules and enlarged mediastinal lymph nodes noted. Bone Biopsy CT 02/09/18 09:38 CONCLUSION: Uncomplicated CT guided biopsy of the lytic lesion in the right posterior iliac bone. Lumbar Spine CT 02/10/18 00:00 CONCLUSION: 1. Expansile, lytic, lesion involving the posterior superior medial iliac bone measuring 3 cm, suspicious for metastatic disease. 2. 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 3. Multilevel discogenic degenerative changes throughout the lumbar spine with left lumbar scoliosis. Thoracic Spine CT 02/10/18 00:00 CONCLUSION: 1. Destructive change and sclerosis involving the T10 vertebra consistent with metastatic disease. There is mild retropulsion of portions of vertebral body with mild flattening the anterior thecal sac. There is surrounding soft tissue prominence. Shoulder X-Ray 02/13/18 00:00 CONCLUSION: Negative trauma study with no acute fracture or malalignment. Labs on day of discharge: Labs from last 24 hours 02/21/18 02/21/18 09:02 09:02 WBC 15.9 H RBC 3.27 L Hgb 8.7 L Hct 27.5 L MCV 84.1 MCH 26.5 L MCHC 31.6 L RDW 15.4 Plt Count 185 MPV 8.9 Prelim Diff (Auto) Slide review pending Neut % (Auto) 47.2 Lymph % (Auto) 46.5 H [place] % (Auto) 5.7 Eos % (Auto) 0.5 Baso % (Auto) 0.1 Neut # (Auto) 7.5 Lymph # (Auto) 7.4 H [place] # (Auto) 0.9 Eos # (Auto) 0.1 Baso # (Auto) 0.0 WBC Differential Pending Differential Comment . Sodium 137 Potassium 4.4 Chloride 104 Carbon Dioxide 25.0 Anion Gap 8 BUN 21 H Creatinine 1.33 H Estimated GFR 51 L Random Glucose 113 H Calcium 8.4 L Phosphorus 2.9 Magnesium 2.2 Total Bilirubin 0.5 AST 10 L ALT 12 Alkaline Phosphatase 79 Total Protein 5.5 L Albumin 2.2 L - Impressions ITS Impressions Cervical Spine CT 02/05/18 10:17 CONCLUSION: 1. Extensive bilateral neck lymphadenopathy suspicious for metastatic disease or lymphoma. 2. There is a lytic bone lesion within the T3 vertebral body. 3. Multilevel degenerative disc disease throughout the cervical spine, as above. No spinal canal stenosis is identified. There areas of neural foraminal narrowing at multiple levels but is most severe on the right at C5-C6. Head CT 02/05/18 10:17 CONCLUSION: Unremarkable study. Abdomen/Pelvis CT 02/05/18 11:10 CONCLUSION: 1. 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 2. Pathological adenopathy throughout the abdomen and pelvis highly suspicious for metastatic disease. 3. Lytic lesion involving the bony structures the largest one involving the T11 vertebrae and right posterior iliac bone almost certainly metastatic. 4. Possible thrombus within main portal vein. Chest CT 02/05/18 11:10 CONCLUSION: Mass process involving the T10 vertebral body with some degree of canal encroachment which is not optimally evaluated on this conventional CT. CT myelography may be useful for correlation. At least a couple of small right lung nodules and enlarged mediastinal lymph nodes noted. Bone Biopsy CT 02/09/18 09:38 CONCLUSION: Uncomplicated CT guided biopsy of the lytic lesion in the right posterior iliac bone. Lumbar Spine CT 02/10/18 00:00 CONCLUSION: 1. Expansile, lytic, lesion involving the posterior superior medial iliac bone measuring 3 cm, suspicious for metastatic disease. 2. 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 3. Multilevel discogenic degenerative changes throughout the lumbar spine with left lumbar scoliosis. Thoracic Spine CT 02/10/18 00:00 CONCLUSION: 1. Destructive change and sclerosis involving the T10 vertebra consistent with metastatic disease. There is mild retropulsion of portions of vertebral body with mild flattening the anterior thecal sac. There is surrounding soft tissue prominence. Shoulder X-Ray 02/13/18 00:00 CONCLUSION: Negative trauma study with no acute fracture or malalignment. Discharge Plan - Discharge Disposition Patient Disposition: Discharge to SNF - Discharge Condition Condition: Fair - Discharge Order Discharge Orders: Discharge Order (Routine); Ordered 02/21/18 Ordered By: Keven Song - Discharge Details Anticipated Discharge Date: 02/21/18 Discharge Comment: DC TO SNF - Physicians Team Primary Care Provider: Alexandro Moeller Attending Provider: Keven Song Other Providers: Chaim Mcgill MD ; Damian Nielsen MD ; Chele Pate MD ; Abran Gonsales MD ; [facility],[place]
[2018-02-21] MEDS: Lactic Acid (Ammonium Lactate) 12% Lotion 225 GM Bottle TOPICAL SCH (11:24)
[2018-02-21 11:57] LABS: Blast Cells 2 % (0-0); Lymphocytes 45 % (9-44); Monocytes 1 % (0-8)
[2018-02-21 11:58] LABS: Tear Drop Cells 1+
[2018-02-21 11:59] LABS: Platelet Estimate Normal (Normal); Platelet Morphology Normal (Normal); Smudge Cells Present
== END 2018-02-21 14:41 ==
LOC: PHED 09:19 → PHEDA 12:52 → PHICU 13:33 → HCIN 02-07 17:21
PROVIDERS: ADMIT Hospitalist; ATTEND Hospitalist

== ENCOUNTER 2018-04-18 22:54 | Inpatient (IN) ==
--- NOTE | 2018-04-19 00:45 | XR ---
EXAM DATE: 04/19/2018 12:08 AM EDT AGE/SEX: 83 years / Male INDICATIONS: Evaluate for pneumonia, pneumothorax, or communicable diseases. CLINICAL DATA: This is the patient's initial encounter. Patient reports that signs and symptoms have been present for 1 day and indicates a pain score of 0/10. MEDICAL/SURGICAL HISTORY: None. Pacemaker. COMPARISON: [facility], XR CHEST PA AND LAT, 08/10/2015. . FINDINGS: Single AP view the chest. Single-lead cardiac pacemaker place. Left lower lobe atelectasis versus con solidation medially. Mild blunting of left costophrenic sulcus. Cardiomediastinal silhouette unchange d. CONCLUSION: Left lower lobe consolidation versus atelectasis and small left pleural effusion. Electronically signed by: Chin España MD 04/19/2018 12:44 AM EDT
--- NOTE | 2018-04-19 00:47 | XR ---
EXAM DATE: 04/19/2018 12:08 AM EDT AGE/SEX: 83 years / Male INDICATIONS: Patient complains of left shoulder pain status post fall. CLINICAL DATA: This is the patient's initial encounter. Patient reports that signs and symptoms have been present for 2 days and indicates a pain score of 8/10. MEDICAL/SURGICAL HISTORY: None. None. COMPARISON: No prior exams available for comparison. FINDINGS: There is a fracture of the proximal humerus shaft with 35 degrees lateral angulation of the distal fr agment. Possible bony destructive change of the cortex indicating possible pathologic fracture. CONCLUSION: Angulated fracture of the proximal humerus shaft. Possible pathologic fracture. Electronically signed by: Chin España MD 04/19/2018 12:46 AM EDT
[2018-04-19 00:55] LABS: Baso # (Auto) 0.1 th/mm3 (0.0-0.2); Baso % (Auto) 0.4 % (0.0-2.0); Eos # (Auto) 0.1 th/mm3 (0.0-0.4); Eos % (Auto) 0.2 % (0.0-4.0); Hematocrit 24.7 % (39.0-51.0); Hemoglobin 7.6 gm/dL (13.0-17.0); Lymph # (Auto) 10.3 th/mm3 (1.0-4.8); Lymph % (Auto) 31.2 % (9.0-44.0); Mean Corpuscular Hemoglobin 24.7 pg (27.0-34.0); Mean Platelet Volume 8.1 fL (7.0-11.0); Mono # (Auto) 1.2 th/mm3 (0.0-0.9); Mono % (Auto) 3.5 % (0.0-8.0); Neut # (Auto) 21.3 th/mm3 (1.8-7.7); Neut % (Auto) 64.7 % (16.0-70.0); Platelet Count 203 th/mm3 (150-450); Red Blood Count 3.09 mil/mm3 (4.50-5.90); White Blood Count 32.9 th/mm3 (4.0-11.0)
[2018-04-19 00:58] LABS: Mean Corpuscular HGB Conc 30.9 % (32.0-36.0)
[2018-04-19 01:07] LABS: Calcium 8.5 mg/dL (8.5-10.1); Carbon Dioxide 27.4 meq/L (21.0-32.0); Potassium 4.6 meq/L (3.5-5.1)
[2018-04-19 01:09] LABS: Activated Partial Thrombo Time 44.7 sec (24.3-30.1); INR 3.5 Ratio; Prothrombin Time 35.3 sec (9.8-11.6)
--- NOTE | 2018-04-19 01:49 | ED ---
HPI General Chief Complaint: Extremity Injury, Upper Stated Complaint: Injury to arm Time Seen by Provider: 04/18/18 23:31 Source: patient, family, EMS and old records reviewed Mode of arrival: EMS History of Present Illness HPI narrative: The patient is an 82-year-old male that was brought in from rehab center [place] for evaluation of a possible left shoulder fracture. The patient denies any injuries has bone metastatic disease. He is on Coumadin for atrial fibrillation has been seen here recently for progressive weakness. Patient noticed swelling of the left shoulder past couple of days and is having a lot of pain with movement. Denies any new falls or injuries. Has history of portal vein thrombosis supratherapeutic INR and he is at risk for multiple falls. 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 Related Data Home Medications Medication Instructions Recorded Confirmed ferrous sulfate 325 mg PO DAILY 04/19/18 04/19/18 hydrocodone-acetaminophen [[place]] 1 tab PO Q6H PRN 04/19/18 04/19/18 metoprolol succinate 25 mg PO DAILY 04/19/18 04/19/18 sodium chloride 1,000 mg PO TID 04/19/18 04/19/18 warfarin 3 mg PO DAILY 04/19/18 04/19/18 Previous Rx's Medication Instructions Recorded bisacodyl [Bisac-Evac] 10 mg FL DAILY PRN ea 02/21/18 gabapentin 200 mg PO HS #60 cap 02/21/18 lactulose 30 ml PO DAILY PRN ml 02/21/18 lisinopril 10 mg PO DAILY #30 tab 02/21/18 lorazepam 0.5 mg PO Q6H PRN #12 tab 02/21/18 lovastatin 20 mg PO BID #60 tab 02/21/18 magnesium hydroxide [Milk of 30 ml PO Q12H PRN ml 02/21/18 Magnesia] sennosides-docusate sodium [Senna 2 tab PO BID #120 tab 02/21/18 Plus] Allergies Allergy/AdvReac Type Severity Reaction Status Date / Time No Known Allergies Allergy Verified 04/18/18 23:05 [facility] Social History Social History Substance History: No History of Abuse Second Hand Smoke Exposure: No Smoking Status: Former smoker Tobacco Type: Cigarettes Packs Per Day: 0.5 Cigarettes Per Day: 10.0 Years Smoked: 15 Pack-Years: 7.50 How Often Do You Have a Drink Containing Alcohol: 4 or more times a week Recent Travel in [place] within the Last 8 Weeks: No Recent Out of Country Travel within the Last 8 Weeks: No Course Initial Documented Vital Signs Temperature 97.6 F 04/18/18 23:06 Pulse Rate 71 04/18/18 23:06 Respiratory Rate 16 04/18/18 23:06 Blood Pressure 121/58 L 04/18/18 23:06 Pulse Oximetry 99 04/18/18 23:06 Last Documented Vital Signs Temperature 98.0 F 04/19/18 06:17 Pulse Rate 66 04/19/18 06:30 Respiratory Rate 15 04/19/18 06:30 Blood Pressure 110/57 L 04/19/18 06:30 Pulse Oximetry 99 04/19/18 06:30 Medical Decision Making MDM Narrative Medical decision making narrative: due to the above findings will keep the patient hereWith multiple problems however discussed with niece and appears that he was on hospice but was taken off of hospice to do rehab which could result into pathologic fractures and now he scheduled to go back to care home in 2 days so he can resume hospice care. That being said he appears to have a pneumonia on CT for which he initially received and fluoroquinolones. We were planning to discharge the patient on p.o. antibiotics however he has a supratherapeutic INR and a hemoglobin of 7 which dropped from a 7.6 earlier without the patient being infused with fluids.. His guaiac is negative he is got an angulated fracture of the left humerus that may be causing additional bleeding. The pathologic fracture. He denied any pain if he is not moving. He will be placed on a sling and swath. He is hemodynamically stable. Initially we will made a decision with his niece that we will probably send him back to the care home with a sling if everything else looks okay and the patient will resume hospice care within 2 days when he is good will be transferred from the rehab part of the facility that he currently is in [place] to the care home. However possibly transfuse him at least 1 unit of blood that is have an orthopedic consultation and repeat INR levels to make sure improving to the appropriate range for the patient. Medical Screen Exam Complete: Yes Emergency Medical Condition: Yes Lab Data Result diagrams: 04/19/18 02:10 04/19/18 00:37 Lab Results 04/19/18 04/19/18 04/19/18 Range/Units 00:37 00:37 00:37 WBC 32.9 H (4.0-11.0) th/mm3 RBC 3.09 L (4.50-5.90) mil/mm3 Hgb 7.6 L (13.0-17.0) gm/dL Hct 24.7 L (39.0-51.0) % MCV 80.0 (80.0-100.0) fL MCH 24.7 L (27.0-34.0) pg MCHC 30.9 L (32.0-36.0) % RDW 18.0 H (11.6-17.2) % Plt Count 203 (150-450) th/mm3 MPV 8.1 (7.0-11.0) fL Prelim Diff (Auto) Slide review pending Neut % (Auto) 64.7 (16.0-70.0) % Lymph % (Auto) 31.2 (9.0-44.0) % [place] % (Auto) 3.5 (0.0-8.0) % Eos % (Auto) 0.2 (0.0-4.0) % Baso % (Auto) 0.4 (0.0-2.0) % Neut # (Auto) 21.3 H (1.8-7.7) th/mm3 Lymph # (Auto) 10.3 H (1.0-4.8) th/mm3 [place] # (Auto) 1.2 H (0.0-0.9) th/mm3 Eos # (Auto) 0.1 (0.0-0.4) th/mm3 Baso # (Auto) 0.1 (0.0-0.2) th/mm3 WBC Differential Manual diff final Seg Neuts % (Manual) 58 (16-70) % Lymphocytes % (Manual) 37 (9-44) % Monocytes % (Manual) 5 (0-8) % Eosinophils % (Manual) (0-4) % Abs Neuts (Manual) 19.1 H (1.8-7.7) th/mm3 Differential Comment . Smudge Cells Present H (None) Platelet Estimate Normal (Normal) Platelet Morphology Normal (Normal) Tear Drop Cells (None) Ovalocytes 1+ H (None) Keratocytes Occ H (None) PT 35.3 H (9.8-11.6) sec INR 3.5 Ratio APTT 44.7 H (24.3-30.1) sec Sodium 135 L (136-145) meq/L Potassium 4.6 (3.5-5.1) meq/L Chloride 98 (98-107) meq/L Carbon Dioxide 27.4 (21.0-32.0) meq/L Anion Gap 10 (5-15) meq/L BUN 18 (7-18) mg/dL Creatinine 0.83 (0.60-1.30) mg/dL Estimated GFR 89 (>89) mL/min Random Glucose 104 (74-106) mg/dL Lactic Acid (0.4-2.0) mmol/L Calcium 8.5 (8.5-10.1) mg/dL B-Natriuretic Peptide (0-100) pg/mL Blood Type Blood Type Recheck Antibody Screen MTS Gel Crossmatch 04/19/18 04/19/18 04/19/18 Range/Units 00:37 00:37 02:10 WBC 32.9 H (4.0-11.0) th/mm3 RBC 2.89 L (4.50-5.90) mil/mm3 Hgb 7.0 L (13.0-17.0) gm/dL Hct 23.4 L (39.0-51.0) % MCV 80.9 (80.0-100.0) fL MCH 24.3 L (27.0-34.0) pg MCHC 30.1 L (32.0-36.0) % RDW 17.9 H (11.6-17.2) % Plt Count 201 (150-450) th/mm3 MPV 8.3 (7.0-11.0) fL Prelim Diff (Auto) Slide review pending Neut % (Auto) 62.9 (16.0-70.0) % Lymph % (Auto) 32.4 (9.0-44.0) % [place] % (Auto) 4.0 (0.0-8.0) % Eos % (Auto) 0.3 (0.0-4.0) % Baso % (Auto) 0.4 (0.0-2.0) % Neut # (Auto) 20.7 H (1.8-7.7) th/mm3 Lymph # (Auto) 10.7 H (1.0-4.8) th/mm3 [place] # (Auto) 1.3 H (0.0-0.9) th/mm3 Eos # (Auto) 0.1 (0.0-0.4) th/mm3 Baso # (Auto) 0.1 (0.0-0.2) th/mm3 WBC Differential Manual diff final Seg Neuts % (Manual) 57 (16-70) % Lymphocytes % (Manual) 39 (9-44) % Monocytes % (Manual) 3 (0-8) % Eosinophils % (Manual) 1 (0-4) % Abs Neuts (Manual) 18.8 H (1.8-7.7) th/mm3 Differential Comment . Smudge Cells Present H (None) Platelet Estimate Normal (Normal) Platelet Morphology Normal (Normal) Tear Drop Cells 1+ H (None) Ovalocytes (None) Keratocytes Occ H (None) PT (9.8-11.6) sec INR Ratio APTT (24.3-30.1) sec Sodium (136-145) meq/L Potassium (3.5-5.1) meq/L Chloride (98-107) meq/L Carbon Dioxide (21.0-32.0) meq/L Anion Gap (5-15) meq/L BUN (7-18) mg/dL Creatinine (0.60-1.30) mg/dL Estimated GFR (>89) mL/min Random Glucose (74-106) mg/dL Lactic Acid (0.4-2.0) mmol/L Calcium (8.5-10.1) mg/dL B-Natriuretic Peptide 293 H (0-100) pg/mL Blood Type O Negative Blood Type Recheck Not needed Antibody Screen Negative MTS Gel Crossmatch 04/19/18 04/19/18 Range/Units 02:10 04:59 WBC (4.0-11.0) th/mm3 RBC (4.50-5.90) mil/mm3 Hgb (13.0-17.0) gm/dL Hct (39.0-51.0) % MCV (80.0-100.0) fL MCH (27.0-34.0) pg MCHC (32.0-36.0) % RDW (11.6-17.2) % Plt Count (150-450) th/mm3 MPV (7.0-11.0) fL Prelim Diff (Auto) Neut % (Auto) (16.0-70.0) % Lymph % (Auto) (9.0-44.0) % [place] % (Auto) (0.0-8.0) % Eos % (Auto) (0.0-4.0) % Baso % (Auto) (0.0-2.0) % Neut # (Auto) (1.8-7.7) th/mm3 Lymph # (Auto) (1.0-4.8) th/mm3 [place] # (Auto) (0.0-0.9) th/mm3 Eos # (Auto) (0.0-0.4) th/mm3 Baso # (Auto) (0.0-0.2) th/mm3 WBC Differential Seg Neuts % (Manual) (16-70) % Lymphocytes % (Manual) (9-44) % Monocytes % (Manual) (0-8) % Eosinophils % (Manual) (0-4) % Abs Neuts (Manual) (1.8-7.7) th/mm3 Differential Comment Smudge Cells (None) Platelet Estimate (Normal) Platelet Morphology (Normal) Tear Drop Cells (None) Ovalocytes (None) Keratocytes (None) PT (9.8-11.6) sec INR Ratio APTT (24.3-30.1) sec Sodium (136-145) meq/L Potassium (3.5-5.1) meq/L Chloride (98-107) meq/L Carbon Dioxide (21.0-32.0) meq/L Anion Gap (5-15) meq/L BUN (7-18) mg/dL Creatinine (0.60-1.30) mg/dL Estimated GFR (>89) mL/min Random Glucose (74-106) mg/dL Lactic Acid 0.9 (0.4-2.0) mmol/L Calcium (8.5-10.1) mg/dL B-Natriuretic Peptide (0-100) pg/mL Blood Type Blood Type Recheck Antibody Screen MTS Gel Crossmatch See Detail Imaging Data Radiologist's impression: Chest X-Ray 04/19/18 00:08 CONCLUSION: Left lower lobe consolidation versus atelectasis and small left pleural effusion. Shoulder X-Ray 04/19/18 00:08 CONCLUSION: Angulated fracture of the proximal humerus shaft. Possible pathologic fracture. Chest CT 04/19/18 01:51 CONCLUSION: 1. Left greater than right pulmonary consolidation/atelectasis in the lower lobes. New when compared to prior study. 2. Left greater than right pleural effusions. New when compared to prior study. 3. Increase in size of left axillary lymph nodes. No change in size of mildly enlarged mediastinal lymph nodes. 4. Increase in size of abdominal mass in the region of the pancreatic head and increase in size of adjacent enlarged lymph node. 5. Increase in size of destructive lucent bone lesion in the T10 vertebral body. Discharge Plan Discharge Disposition Patient Disposition: 30 Still Patient Discharge Condition Condition: Fair Discharge Details Diagnosis: Closed comminuted left humeral fracture, Supratherapeutic international normalized ratio (INR), Anemia, Pneumonia Physicians Team ED Provider: Deejay Yañez Primary Care Provider: Alexandro Moeller Attending Provider: Keven Song Other Providers: Adis Wong ; Fernando Garcia Status ED Status: Admitted Observation Patient
[2018-04-19 02:19] LABS: Lymphocytes 37 % (9-44); Monocytes 5 % (0-8)
[2018-04-19 02:20] LABS: Platelet Estimate Normal (Normal); Platelet Morphology Normal (Normal)
[2018-04-19 02:22] LABS: Ovalocytes 1+
[2018-04-19 02:23] LABS: Smudge Cells Present
[2018-04-19 02:32] LABS: Baso # (Auto) 0.1 th/mm3 (0.0-0.2); Baso % (Auto) 0.4 % (0.0-2.0); Eos # (Auto) 0.1 th/mm3 (0.0-0.4); Eos % (Auto) 0.3 % (0.0-4.0); Hematocrit 23.4 % (39.0-51.0); Lymph # (Auto) 10.7 th/mm3 (1.0-4.8); Lymph % (Auto) 32.4 % (9.0-44.0); Mean Corpuscular Hemoglobin 24.3 pg (27.0-34.0); Mean Corpuscular Volume 80.9 fL (80.0-100.0); Mean Platelet Volume 8.3 fL (7.0-11.0); Mono # (Auto) 1.3 th/mm3 (0.0-0.9); Neut # (Auto) 20.7 th/mm3 (1.8-7.7); Neut % (Auto) 62.9 % (16.0-70.0); Platelet Count 201 th/mm3 (150-450); Red Blood Count 2.89 mil/mm3 (4.50-5.90); Red Cell Distribution Width 17.9 % (11.6-17.2); White Blood Count 32.9 th/mm3 (4.0-11.0)
[2018-04-19 02:41] LABS: Mean Corpuscular HGB Conc 30.1 % (32.0-36.0)
--- NOTE | 2018-04-19 03:02 | CT ---
EXAM DATE: 04/19/2018 1:53 AM EDT AGE/SEX: 83 years / Male INDICATIONS: Shortness of breath. CLINICAL DATA: This is the patient's initial encounter. Patient reports that signs and symptoms have been present for 1 day and indicates a pain score of 0/10. MEDICAL/SURGICAL HISTORY: Carcinoma, bladder. Leukemia. Hypertension. Lymphoma. Pacemaker. RADIATION DOSE: 17.17 CTDI (mGy) COMPARISON: [facility], CT ABDOMEN & PELVIS W/O CONTRAST, 02/05/2018. . TECHNIQUE: Multiple contiguous axial images were obtained through the chest without contrast. Image s were obtained in suspended respiration using multiple row detector helical technique. Using automa talib exposure control and adjustment of the mA and/or kV according to patient size, radiation dose was kept as low as reasonably achievable to obtain optimal diagnostic quality images. DICOM format imag e data is available electronically for review and comparison. FINDINGS: Lungs: Moderate-sized area of dependent consolidation/atelectasis in the left lower lobe. Small area of dependent consolidation/atelectasis in the right lower lobe. No discrete pulmonary nodules/masses . Mediastinum: Aortic diameter within normal limits. Coronary artery calcification noted. Mildly enlar ged mediastinal lymph nodes are unchanged. Heart is diffusely enlarged. Pleurae: Moderate-sized left pleural effusion. Small right pleural effusion. Axillae: Multiple enlarged left axillary lymph nodes with the largest measuring 3.0 x 1.3 cm, and in crease in size from 2.5 x 1.2 cm on the prior study. Right axillary lymph nodes are unchanged. Bony Structures: Lucent bone lesion of the T10 vertebral body has increased in size, now measuring 4 .6 cm compared to 3.4 cm on the prior study. More posterior component of the T10 lucency is also more prominent. No new bone lesions identified. Miscellaneous: Pancreatic head mass again seen, now measuring 4.7 cm compared to 3.5 cm on the prior study of January 2018. Adjacent enlarged lymph node is also increased in size, now measuring 4.7 cm com pared to 2.0 cm on the prior study. CONCLUSION: 1. Left greater than right pulmonary consolidation/atelectasis in the lower lobes. New when compared to prior study. 2. Left greater than right pleural effusions. New when compared to prior study. 3. Increase in size of left axillary lymph nodes. No change in size of mildly enlarged mediastinal l ymph nodes. 4. Increase in size of abdominal mass in the region of the pancreatic head and increase in size of a djacent enlarged lymph node. 5. Increase in size of destructive lucent bone lesion in the T10 vertebral body. Electronically signed by: Chin España MD 04/19/2018 3:00 AM EDT
[2018-04-19 03:35] LABS: Eosinophils 1 % (0-4); Lymphocytes 39 % (9-44); Monocytes 3 % (0-8)
[2018-04-19 03:36] LABS: Platelet Estimate Normal (Normal); Platelet Morphology Normal (Normal)
[2018-04-19 03:37] LABS: Smudge Cells Present
[2018-04-19 03:39] LABS: Tear Drop Cells 1+
[2018-04-19] MEDS ORDERED: Phytonadione 5 MG/SWFI 5 ML Oral Syringe PO ONE (03:40)
[2018-04-19] MEDS ORDERED: Bisacodyl 10 MG Supp RECTAL PRN (03:46)
[2018-04-19] MEDS: Sod Chloride 0.9% Inj 1,000 ML IV.CONT SCH ×2 (04:15→21:54)
[2018-04-19] MEDS ORDERED: Sodium Chlor 0.9% Inj 250 ML IV.SIG SCH (05:00)
[2018-04-19] MEDS ORDERED: LORazepam 0.5 MG Tablet PO PRN (05:26)
--- NOTE | 2018-04-19 05:30 | P.HPIM ---
History of Present Illness Service: [facility] Primary Care Physician: Alexandro Moeller MD Chief Complaint: Left shoulder pain History of Present Illness: 83-year-old male with a history of A. fib, pancreatic cancer with metastases to multiple lytic lesions on T11 vertebra and right posterior iliac bone. L8ow- grade chronic lymphoma, bladder cancer hypertension and hyperlipidemia presented to the ED with complaints of left shoulder pain. Patient states that he was at [place] [facility] and during physical therapy he was experiencing increasing pain with movement to the left shoulder. He denies any falls or recent injuries. Patient's at bedside and hospice was discussed. She patient has discussed the final decision of hospice states she will be calling him later on today. Patient describes his pain to the left shoulder as constant, throbbing,8/10, with no radiation or associated symptoms, worse with movement better with pain medication PMFSH - History History Provided By: Medical Record - Medical History Medical History: Medical History (Last Reviewed 04/18/18 @ 23:11 by Ashley Bowser) A-fib Bladder cancer Bladder cancer Chronic lymphocytic leukemia Hyperlipemia Hypertension Lymphoma - Surgical History Surgical History: Surgical History (Last Reviewed 04/18/18 @ 23:11 by Ashley Bowser) H/O cystoscopy History of cystoscopy History of hip replacement - Family History Family History: Family History (Last Reviewed 02/15/18 @ 18:38 by Abran Gonsales MD) Other CAD (coronary artery disease) Colon cancer Stomach cancer - Tobacco History Second Hand Smoke Exposure: No Tobacco Use In Past 30 Days: No Smoking Status: Former smoker Tobacco Type: Cigarettes Packs Per Day: 0.5 Years Smoked: 15 - Alcohol History How Often Do You Have a Drink Containing Alcohol: 4 or more times a week - Substance Use History Substance History: No History of Abuse - Travel History Recent Travel in the [place] Within the Last 8 Weeks: No Recent Travel Out of the Country Within the Last 8 Weeks: No - Immunization History Tetanus Immunization: <5 Years Hx Influenza Vaccine This Season: Yes Medications and Allergies Active Medications: Active Medications Al Hydroxide/Mg Hydroxide (Milk Of Magnesia Liq) 30 ml PO Q12H PRN PRN Reason: Mild Constipation Bisacodyl (Dulcolax Supp) 10 mg RECTAL DAILY PRN PRN Reason: SEVERE CONSITIPATION Sodium Chloride (Ns Inj) 1,000 mls @ 50 mls/hr IV.CONT .Q20H SORIN Last Admin: 04/19/18 04:15 Dose: 50 mls/hr Sodium Chloride (Ns Inj) 250 mls @ 15 mls/hr IV.SIG ONCE SORIN Stop: 04/19/18 21:39 Lactulose (Lactulose Liq) 30 ml PO DAILY PRN PRN Reason: SEVERE CONSITIPATION Sennosides (Senokot) 17.2 mg PO Q12H PRN PRN Reason: Moderate Constipation Allergies Allergy/AdvReac Type Severity Reaction Status Date / Time No Known Allergies Allergy Verified 04/18/18 23:05 Home Medications Medication Instructions Recorded Confirmed Type ferrous sulfate 325 mg PO DAILY 04/19/18 04/19/18 History hydrocodone-acetaminophen [[place]] 1 tab PO Q6H PRN 04/19/18 04/19/18 History metoprolol succinate 25 mg PO DAILY 04/19/18 04/19/18 History sodium chloride 1,000 mg PO TID 04/19/18 04/19/18 History warfarin 3 mg PO DAILY 04/19/18 04/19/18 History Exam Vital signs: Vital Signs 04/18/18 23:06 04/18/18 23:12 04/19/18 02:00 Temperature 97.6 F Pulse Rate 71 77 66 Respiratory Rate 16 16 15 Blood Pressure 121/58 L 118/56 L 139/64 Pulse Oximetry 99 98 100 04/19/18 04:15 Temperature Pulse Rate 72 Respiratory Rate 15 Blood Pressure 108/55 L Pulse Oximetry 98 Intake & Output 04/18/18 04/18/18 04/19/18 06:59 18:59 06:59 Intake Total 150 / 150 Balance 150 / 150 Intake: IV 150 / 150 Levaquin 750 mg Premix Inj 150 150 / 150 ML @ 100 mls/hr IV.SIG ONCE ONE Rx#:[id number] Narrative: GENERAL: This is a well-nourished, well-developed patient, in no apparent distress. SKIN: Ecchymosis noted to the left shoulder EYES: Pupils equal round and reactive, no scleral edema or drainage CARDIOVASCULAR: Regular rate and rhythm without murmurs, gallops, or rubs. RESPIRATORY: Clear to auscultation. Breath sounds equal bilaterally. No wheezes , rales, or rhonchi. GASTROINTESTINAL: Abdomen soft, non-tender, nondistended. MUSCULOSKELETAL: Extremities without clubbing, cyanosis, or edema. NEURO: Alert & Oriented x4 to person, place, time, situation. Moves all ext x4 Results - Labs CBC & Chem 7: 04/19/18 02:10 04/19/18 00:37 Labs: Short CBC 04/19/18 04/19/18 Range/Units 00:37 02:10 WBC 32.9 H 32.9 H (4.0-11.0) th/mm3 Hgb 7.6 L 7.0 L (13.0-17.0) gm/dL Hct 24.7 L 23.4 L (39.0-51.0) % Plt Count 203 201 (150-450) th/mm3 BMP 04/19/18 00:37 Sodium 135 L Potassium 4.6 Chloride 98 Carbon Dioxide 27.4 BUN 18 Creatinine 0.83 Calcium 8.5 - Imaging Impressions Chest X-Ray 04/19/18 00:08 CONCLUSION: Left lower lobe consolidation versus atelectasis and small left pleural effusion. Shoulder X-Ray 04/19/18 00:08 CONCLUSION: Angulated fracture of the proximal humerus shaft. Possible pathologic fracture. Chest CT 04/19/18 01:51 CONCLUSION: 1. Left greater than right pulmonary consolidation/atelectasis in the lower lobes. New when compared to prior study. 2. Left greater than right pleural effusions. New when compared to prior study. 3. Increase in size of left axillary lymph nodes. No change in size of mildly enlarged mediastinal lymph nodes. 4. Increase in size of abdominal mass in the region of the pancreatic head and increase in size of adjacent enlarged lymph node. 5. Increase in size of destructive lucent bone lesion in the T10 vertebral body. Caprini VTE Risk Assessment Caprini VTE Risk Assessment: Moderate/High Risk (score >= 2) Caprini Risk Assessment Model: Point Value = 1 Point Value = 2 Point Value = 3 Point Value = 5 Age 41-60 Minor surgery BMI > 25 kg/m2 Swollen legs Varicose veins or History of unexplained or recurrent spontaneous Oral contraceptives or hormone replacement Sepsis (< 1 month) Serious lung disease, including pneumonia (< 1 month) Abnormal pulmonary function Acute myocardial infarction Congestive heart failure (< 1 month) History of inflammatory bowel disease Medical patient at bed rest Age 61-74 Arthroscopic surgery Major open surgery (> 45 min) Laparoscopic surgery (> 45 min) Malignancy Confined to bed (> 72 hours) Immobilizing plaster cast Central venous access Age >= 75 History of VTE Family history of VTE Factor V Leiden Prothrombin [id number] Lupus anticoagulant Anticardiolipin antibodies Elevated serum homocysteine Heparin-induced thrombocytopenia Other congenital or acquired thrombophilia Stroke (< 1 month) Elective arthroplasty Hip, pelvis, or leg fracture Acute spinal cord injury (< 1 month) Prophylaxis Regimen: Total Risk Factor Score Risk Level Prophylaxis Regimen 0-1 Low Early ambulation 2 Moderate Order ONE of the following: *Sequential Compression Device (SCD) *Heparin 5000 units SQ BID 3-4 Higher Order ONE of the following medications: *Heparin 5000 units SQ TID *Enoxaparin/Lovenox 40 mg SQ daily (WT < 150 kg, CrCl > 30 mL/min) *Enoxaparin/Lovenox 30 mg SQ daily (WT < 150 kg, CrCl > 10-29 mL/min) *Enoxaparin/Lovenox 30 mg SQ BID (WT < 150 kg, CrCl > 30 mL/min) AND/OR *Sequential Compression Device (SCD) 5 or more Highest Order ONE of the following medications: *Heparin 5000 units SQ TID (Preferred with Epidurals) *Enoxaparin/Lovenox 40 mg SQ daily (WT < 150 kg, CrCl > 30 mL/min) *Enoxaparin/Lovenox 30 mg SQ daily (WT < 150 kg, CrCl > 10-29 mL/min) *Enoxaparin/Lovenox 30 mg SQ BID (WT < 150 kg, CrCl > 30 mL/min) AND *Sequential Compression Device (SCD) Assessment and Plan - Plan 83-year-old male with a history of A. fib, pancreatic cancer with metastases to multiple lytic lesions on T11 vertebra and right posterior iliac bone. L8ow- grade chronic lymphoma, bladder cancer hypertension and hyperlipidemia presented to the ED with complaints of left shoulder pain. Humerus fracture Shoulder x-ray reviewed and shows an angulated fracture of the proximal humerus shaft -Consult orthopedics for recommendations -N.p.o. -Pain management with IV morphine while npo Anemia, hemoglobin 7.0 -Continue to monitor -H&H at noon -Transfuse if less than 7 -Resume home ferrous sulfate A. fib, chronic -Resume home medications -hold anticoagulation until evaluated by surgery Metastatic cancer - will decide later today when she wants to start hospice -Consult oncology if needed, Dr. Singh, patient has declined chemo and radiation DVT prophylaxis: SCDs, hold chemical for now Discussed Condition With: Patient, patients and RN
[2018-04-19] MEDS: Morphine Inj 4 MG/ML Vial IV.PUSH PRN (05:39)
--- NOTE | 2018-04-19 08:27 | P.PNOP ---
Subjective Interval history: Patient has a history of bladder cancer with metastases. 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 He presents complaining of pain to the left shoulder. He denies any falls. He states the pain is gotten worse over the past several days to a week. He has difficulty with his history. He denies any numbness or tingling in the arm. He has no other complaints other than his proximal humerus Physical Exam Vital signs: Vital Signs 04/18/18 23:06 04/18/18 23:12 04/19/18 02:00 Temperature 97.6 F Pulse Rate 71 77 66 Respiratory Rate 16 16 15 Blood Pressure 121/58 L 118/56 L 139/64 Pulse Oximetry 99 98 100 04/19/18 04:15 04/19/18 05:30 04/19/18 06:00 Temperature 98.0 F Pulse Rate 72 72 68 Respiratory Rate 15 20 16 Blood Pressure 108/55 L 112/58 L 110/55 L Pulse Oximetry 98 98 99 04/19/18 06:17 04/19/18 06:30 04/19/18 07:10 Temperature 98.0 F 98.3 F Pulse Rate 78 66 65 Respiratory Rate 16 15 18 Blood Pressure 103/56 L 110/57 L 112/55 L Pulse Oximetry 99 99 995 H 04/19/18 07:58 Temperature 97.7 F Pulse Rate 66 Respiratory Rate 16 Blood Pressure 103/58 L Pulse Oximetry 99 Intake & Output 04/18/18 04/19/18 04/19/18 18:59 06:59 18:59 Intake Total 150 / 150 500 / 500 Output Total 400 / 400 Balance -250 / -250 500 / 500 Weight 165 kg Intake: IV 150 / 150 Levaquin 750 mg Premix Inj 150 150 / 150 ML @ 100 mls/hr IV.SIG ONCE ONE Rx#:[id number] Other 100 / 100 Rbc As-3 Leukoreduced Unit 100 / 100 [id number] Intake (Blood Product) Amt 0 / 0 400 / 400 Rbc As-3 Leukoreduced Unit 0 / 0 400 / 400 [id number] Output: Urine 400 / 400 Other: Other Intake Source Rbc As-3 Leukoreduced Unit Saline Solution [id number] Narrative: Right upper extremity: Full range of motion and neurovascularly intact Bilateral lower extremities: Full range of motion and neurovascularly intact Left upper extremity: Pain to palpation of proximal humerus. He is in a sling and swath. Skin is intact with mild swelling and bruising. He has no pain to palpation of the elbow. Distally he has intact sensation with swelling of the hand. He is able to extend his fingers and is able to make a partial fist and blocked by the edema. He has good capillary refills and distal pulses Results - Labs CBC & Chem 7: 04/19/18 02:10 04/19/18 00:37 Laboratory Results - last 24 hr 04/19/18 04/19/18 04/19/18 00:37 00:37 00:37 WBC 32.9 H RBC 3.09 L Hgb 7.6 L Hct 24.7 L MCV 80.0 MCH 24.7 L MCHC 30.9 L RDW 18.0 H Plt Count 203 MPV 8.1 Prelim Diff (Auto) Slide review pending Neut % (Auto) 64.7 Lymph % (Auto) 31.2 [place] % (Auto) 3.5 Eos % (Auto) 0.2 Baso % (Auto) 0.4 Neut # (Auto) 21.3 H Lymph # (Auto) 10.3 H [place] # (Auto) 1.2 H Eos # (Auto) 0.1 Baso # (Auto) 0.1 WBC Differential Manual diff final Seg Neuts % (Manual) 58 Lymphocytes % (Manual) 37 Monocytes % (Manual) 5 Eosinophils % (Manual) Abs Neuts (Manual) 19.1 H Differential Comment . Smudge Cells Present H Platelet Estimate Normal Platelet Morphology Normal Tear Drop Cells Ovalocytes 1+ H Keratocytes Occ H PT 35.3 H INR 3.5 APTT 44.7 H Sodium 135 L Potassium 4.6 Chloride 98 Carbon Dioxide 27.4 Anion Gap 10 BUN 18 Creatinine 0.83 Estimated GFR 89 Random Glucose 104 Lactic Acid Calcium 8.5 B-Natriuretic Peptide Blood Type Blood Type Recheck Antibody Screen MTS Gel Crossmatch 04/19/18 04/19/18 04/19/18 00:37 00:37 02:10 WBC 32.9 H RBC 2.89 L Hgb 7.0 L Hct 23.4 L MCV 80.9 MCH 24.3 L MCHC 30.1 L RDW 17.9 H Plt Count 201 MPV 8.3 Prelim Diff (Auto) Slide review pending Neut % (Auto) 62.9 Lymph % (Auto) 32.4 [place] % (Auto) 4.0 Eos % (Auto) 0.3 Baso % (Auto) 0.4 Neut # (Auto) 20.7 H Lymph # (Auto) 10.7 H [place] # (Auto) 1.3 H Eos # (Auto) 0.1 Baso # (Auto) 0.1 WBC Differential Manual diff final Seg Neuts % (Manual) 57 Lymphocytes % (Manual) 39 Monocytes % (Manual) 3 Eosinophils % (Manual) 1 Abs Neuts (Manual) 18.8 H Differential Comment . Smudge Cells Present H Platelet Estimate Normal Platelet Morphology Normal Tear Drop Cells 1+ H Ovalocytes Keratocytes Occ H PT INR APTT Sodium Potassium Chloride Carbon Dioxide Anion Gap BUN Creatinine Estimated GFR Random Glucose Lactic Acid Calcium B-Natriuretic Peptide 293 H Blood Type O Negative Blood Type Recheck Not needed Antibody Screen Negative MTS Gel Crossmatch 04/19/18 04/19/18 02:10 04:59 WBC RBC Hgb Hct MCV MCH MCHC RDW Plt Count MPV Prelim Diff (Auto) Neut % (Auto) Lymph % (Auto) [place] % (Auto) Eos % (Auto) Baso % (Auto) Neut # (Auto) Lymph # (Auto) [place] # (Auto) Eos # (Auto) Baso # (Auto) WBC Differential Seg Neuts % (Manual) Lymphocytes % (Manual) Monocytes % (Manual) Eosinophils % (Manual) Abs Neuts (Manual) Differential Comment Smudge Cells Platelet Estimate Platelet Morphology Tear Drop Cells Ovalocytes Keratocytes PT INR APTT Sodium Potassium Chloride Carbon Dioxide Anion Gap BUN Creatinine Estimated GFR Random Glucose Lactic Acid 0.9 Calcium B-Natriuretic Peptide Blood Type Blood Type Recheck Antibody Screen MTS Gel Crossmatch See Detail - Imaging Impressions Chest X-Ray 04/19/18 00:08 CONCLUSION: Left lower lobe consolidation versus atelectasis and small left pleural effusion. Shoulder X-Ray 04/19/18 00:08 CONCLUSION: Angulated fracture of the proximal humerus shaft. Possible pathologic fracture. Chest CT 04/19/18 01:51 CONCLUSION: 1. Left greater than right pulmonary consolidation/atelectasis in the lower lobes. New when compared to prior study. 2. Left greater than right pleural effusions. New when compared to prior study. 3. Increase in size of left axillary lymph nodes. No change in size of mildly enlarged mediastinal lymph nodes. 4. Increase in size of abdominal mass in the region of the pancreatic head and increase in size of adjacent enlarged lymph node. 5. Increase in size of destructive lucent bone lesion in the T10 vertebral body. 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 I will discuss with Dr. Watson treatment plan for this gentleman. Due to the pathologic fracture of the humerus and the progression of his cancer both conservative and surgical care will be discussed with Dr. Watson. Surgical intervention could be undertaken but risks and benefits need to be weighed. He has an INR of 3.5 as of this morning. Hospice care is discussed and the decision to proceed is still in process. At this point he will continue to remain in the sling and swath at all times to be nonweightbearing.
[2018-04-19] MEDS: Ferrous Sulfate 325 MG Tablet PO SCH (09:02)
[2018-04-19] MEDS: Lisinopril 10 MG Tablet PO SCH (09:02)
[2018-04-19 10:53] LABS: Prothrombin Time 30.4 sec (9.8-11.6)
--- NOTE | 2018-04-19 11:31 | P.CONOP ---
[facility] Orthopedics Consult Note - [facility] Consult date: 04/19/18 Requesting physician: Malina Leahy Consult reason: fracture (Left humerus) Chief complaint: Left Humeral Fx/Anemia/Pna/Elev INR/Bone Mets/CLL Narrative: Alen is an 83-year-old male who was examined in the emergency room. He has a history of A. fib and has a pacemaker. He has bladder cancer with multiple metastases 1 of which is lytic lesions over the T11 vertebrae and right posterior iliac bone. He denies a fall or trauma, but states that he has had worsening pain to the left arm over the past several weeks. He had marked worsening pain during physical therapy and was and is unable to really use the arm after. He was brought to the emergency room and diagnosed with a fracture of the left proximal humerus. They are considering hospice care due to the significant involvement of the cancer in his metastases throughout his body. Orthopedics is consulted for evaluation of the left humerus fracture. <Joao Veliz - Last Filed: 04/19/18 11:15> Review of Systems Constitutional: Denies body ache(s), Denies chills, Denies headache(s) Eyes: Denies blurry vision, Denies dry eyes, Denies sensitivity to light Ears, Nose, Mouth, and Throat: Denies abnormal hearing, Denies bad breath, Denies difficulty swallowing, Denies mouth lesions Cardiovascular: Reports irregular heart rhythm, Denies chest pain, Denies fainting, Denies shortness of breath Respiratory: Denies chest congestion, Denies coughing up blood, Denies pain on inspiration Gastrointestinal: Denies abdominal pain, Denies difficulty swallowing, Denies heartburn, Denies vomiting Genitourinary: Reports urinary incontinence, Denies blood in urine Musculoskeletal: Reports body aches, Reports limited joint movement Skin/Breast: Denies change in skin color, Denies changing lesions, Denies skin pain, Denies yellowing of the skin Neurologic: Denies abnormal hearing, Denies loss of vision, Denies seizure-like activity Psychiatric: Denies anxiety, Denies depression, Denies mood swings Endocrine: Denies cold intolerance, Denies increased thirst Hematologic/Lymphatic: Denies easy bleeding Allergic/Immunologic: Denies itchy eyes, Denies lip swelling, Denies tongue swelling <Joao Veliz - Jose Filed: 04/19/18 11:15> PMFSH - History History Provided By: Medical Record - Medical History Medical History: Medical History (Last Reviewed 04/19/18 @ 11:23 by ERIBERTO Munroe) A-fib Bladder cancer Bladder cancer Chronic lymphocytic leukemia Hyperlipemia Hypertension Lymphoma - Surgical History Surgical History: Surgical History (Last Reviewed 04/19/18 @ 11:23 by ERIBERTO Munroe) H/O cystoscopy History of cystoscopy History of hip replacement - Family History Family History: Family History (Last Reviewed 04/19/18 @ 11:23 by ERIBERTO Munroe) Other CAD (coronary artery disease) Colon cancer Stomach cancer - Social History I have reviewed the patient's Social History: Yes - Tobacco History Second Hand Smoke Exposure: No Tobacco Use In Past 30 Days: No Smoking Status: Former smoker Tobacco Type: Cigarettes Packs Per Day: 0.5 Years Smoked: 15 - Alcohol History How Often Do You Have a Drink Containing Alcohol: 4 or more times a week - Substance Use History Substance History: No History of Abuse - Travel History Recent Travel in the [place] Within the Last 8 Weeks: No Recent Travel Out of the Country Within the Last 8 Weeks: No - Immunization History Tetanus Immunization: <5 Years Hx Influenza Vaccine This Season: Yes <Joao Veliz - Last Filed: 04/19/18 11:15> - Medical History Medical History: Medical History (Last Reviewed 04/19/18 @ 11:23 by ERIBERTO Munroe) A-fib Bladder cancer Bladder cancer Chronic lymphocytic leukemia Hyperlipemia Hypertension Lymphoma - Surgical History Surgical History: Surgical History (Last Reviewed 04/19/18 @ 11:23 by ERIBERTO Munroe) H/O cystoscopy History of cystoscopy History of hip replacement - Family History Family History: Family History (Last Reviewed 04/19/18 @ 11:23 by ERIBERTO Munroe) Other CAD (coronary artery disease) Colon cancer Stomach cancer <Adis Watson - Last Filed: 04/20/18 12:50> Medications and Allergies Active Medications: Active Medications Al Hydroxide/Mg Hydroxide (Milk Of Magnesia Liq) 30 ml PO Q12H PRN PRN Reason: Mild Constipation Al Hydroxide/Mg Hydroxide (Milk Of Magnesia Liq) 30 ml PO Q12H PRN PRN Reason: Mild Constipation Bisacodyl (Dulcolax Supp) 10 mg RECTAL DAILY PRN PRN Reason: SEVERE CONSITIPATION Ferrous Sulfate (Ferosul) 325 mg PO DAILY [facility] Gabapentin (Neurontin) 200 mg PO HS [facility] Sodium Chloride (Ns Inj) 1,000 mls @ 50 mls/hr IV.CONT .Q20H [facility] Last Admin: 04/19/18 04:15 Dose: 50 mls/hr Sodium Chloride (Ns Inj) 250 mls @ 15 mls/hr IV.SIG ONCE SORIN Stop: 04/19/18 21:39 Last Admin: 04/19/18 06:05 Dose: 15 mls/hr Levofloxacin/Dextrose (Levaquin 750 Mg Premix Inj) 150 mls @ 100 mls/hr IV.SIG Q24H [facility] Lactulose (Lactulose Liq) 30 ml PO DAILY PRN PRN Reason: SEVERE CONSITIPATION Lisinopril (Prinivil) 10 mg PO DAILY [facility] Lorazepam (Ativan) 0.5 mg PO Q6H PRN PRN Reason: anxiety/insomnia Metoprolol Succinate (Toprol Xl) 25 mg PO DAILY [facility] Morphine Sulfate (Morphine Inj) 2 mg IV.PUSH Q3H PRN PRN Reason: pain 1 to 10 while npo Last Admin: 04/19/18 05:39 Dose: 2 mg Pravastatin Sodium (Pravachol) 20 mg PO BID [facility] Sennosides (Senokot) 17.2 mg PO Q12H PRN PRN Reason: Moderate Constipation <Joao Veliz - Last Filed: 04/19/18 11:15> Active Medications: Active Medications Al Hydroxide/Mg Hydroxide (Milk Of Magnesia Liq) 30 ml PO Q12H PRN PRN Reason: Mild Constipation Al Hydroxide/Mg Hydroxide (Milk Of Magnesia Liq) 30 ml PO Q12H PRN PRN Reason: Mild Constipation Bisacodyl (Dulcolax Supp) 10 mg RECTAL DAILY PRN PRN Reason: SEVERE CONSITIPATION Ferrous Sulfate (Ferosul) 325 mg PO DAILY [facility] Last Admin: 04/20/18 08:39 Dose: 325 mg Gabapentin (Neurontin) 200 mg PO HS [facility] Last Admin: 04/19/18 21:51 Dose: 200 mg Sodium Chloride (Ns Inj) 1,000 mls @ 50 mls/hr IV.CONT .Q20H [facility] Last Admin: 04/20/18 03:35 Dose: Not Given Levofloxacin/Dextrose (Levaquin 750 Mg Premix Inj) 150 mls @ 100 mls/hr IV.SIG Q24H [facility] Last Infusion: 04/20/18 05:59 Dose: Infused Lactulose (Lactulose Liq) 30 ml PO DAILY PRN PRN Reason: SEVERE CONSITIPATION Lisinopril (Prinivil) 10 mg PO DAILY [facility] Last Admin: 04/20/18 08:38 Dose: 10 mg Lorazepam (Ativan) 0.5 mg PO Q6H PRN PRN Reason: anxiety/insomnia Metoprolol Succinate (Toprol Xl) 25 mg PO DAILY [facility] Last Admin: 04/20/18 08:38 Dose: 25 mg Morphine Sulfate (Morphine Inj) 2 mg IV.PUSH Q3H PRN PRN Reason: pain 1 to 10 while npo Last Admin: 04/20/18 08:39 Dose: 2 mg Pravastatin Sodium (Pravachol) 20 mg PO BID [facility] Last Admin: 04/20/18 08:39 Dose: 20 mg Sennosides (Senokot) 17.2 mg PO Q12H PRN PRN Reason: Moderate Constipation <Adis Watson - Last Filed: 04/20/18 12:50> Allergies Allergy/AdvReac Type Severity Reaction Status Date / Time No Known Allergies Allergy Verified 04/18/18 23:05 Home Medications Medication Instructions Recorded Confirmed Type ferrous sulfate 325 mg PO DAILY 04/19/18 04/19/18 History hydrocodone-acetaminophen [[place]] 1 tab PO Q6H PRN 04/19/18 04/19/18 History metoprolol succinate 25 mg PO DAILY 04/19/18 04/19/18 History sodium chloride 1,000 mg PO TID 04/19/18 04/19/18 History warfarin 3 mg PO DAILY 04/19/18 04/19/18 History Exam Vital signs: Vital Signs 04/18/18 23:06 04/18/18 23:12 04/19/18 02:00 Temperature 97.6 F Pulse Rate 71 77 66 Respiratory Rate 16 16 15 Blood Pressure 121/58 L 118/56 L 139/64 Pulse Oximetry 99 98 100 04/19/18 04:15 04/19/18 05:30 04/19/18 06:00 Temperature 98.0 F Pulse Rate 72 72 68 Respiratory Rate 15 20 16 Blood Pressure 108/55 L 112/58 L 110/55 L Pulse Oximetry 98 98 99 04/19/18 06:17 04/19/18 06:30 04/19/18 07:10 Temperature 98.0 F 98.3 F Pulse Rate 78 66 65 Respiratory Rate 16 15 18 Blood Pressure 103/56 L 110/57 L 112/55 L Pulse Oximetry 99 99 995 H 04/19/18 07:58 04/19/18 10:10 Temperature 97.7 F Pulse Rate 66 Respiratory Rate 16 Blood Pressure 103/58 L Pulse Oximetry 99 97 Intake & Output 04/18/18 04/19/18 04/19/18 18:59 06:59 18:59 Intake Total 150 / 150 500 / 500 Output Total 400 / 400 Balance -250 / -250 500 / 500 Weight 165 kg Intake: IV 150 / 150 Levaquin 750 mg Premix Inj 150 150 / 150 ML @ 100 mls/hr IV.SIG ONCE ONE Rx#:[id number] Other 100 / 100 Rbc As-3 Leukoreduced Unit 100 / 100 [id number] Intake (Blood Product) Amt 0 / 0 400 / 400 Rbc As-3 Leukoreduced Unit 0 / 0 400 / 400 [id number] Output: Urine 400 / 400 Other: Other Intake Source Rbc As-3 Leukoreduced Unit Saline Solution [id number] - Constitutional no acute distress, cooperative - Routine HEENT Exam Head: Present: normocephalic Eye: Present: EOMI, PERRL ENT: Present: mucous membranes moist - Routine Neck Exam Present: supple, JVD - Routine Chest/Breast/Axilla Exam Chest wall: Absent: tenderness - Routine Respiratory Exam Absent: accessory muscle use, respiratory distress - Routine Cardiovascular Exam Present: irregularly irregular - Routine Abdominal Exam Present: soft. Absent: distended - Routine Extremities Exam Comments: Bilateral lower extremities: No significant pain with movement of bilateral hips knees or ankles. Distally is intact sensation with good capillary refills. He is active dorsiflexion plantarflexion of the foot. He is able to stand but has some gait instability Right upper extremity: Full range of motion neurovascularly intact Left upper extremity: Pain to palpation of proximal humerus. Sling and swath in place. No pain over the elbow wrist or fingers. He does have swelling over the hand but has intact sensation over radial ulnar and median nerve distributions with good capillary refills. He is able to fully extend his fingers and is able to make a fist but is limited by swelling <Joao Veliz - Last Filed: 04/19/18 11:15> Vital signs: Vital Signs 04/19/18 16:00 04/19/18 19:08 04/19/18 23:57 Temperature 97.6 F 98.8 F Pulse Rate 67 70 64 Respiratory Rate 18 18 18 Blood Pressure 110/57 L 108/59 L 105/55 L Pulse Oximetry 99 96 96 04/20/18 03:01 04/20/18 08:00 04/20/18 11:15 Temperature 98.7 F 98.0 F Pulse Rate 71 66 Respiratory Rate 18 16 16 Blood Pressure 110/55 L 104/51 L Pulse Oximetry 96 98 Intake & Output 04/19/18 04/20/18 04/20/18 18:59 06:59 18:59 Intake Total 500 / 500 1520 / 1520 Balance 500 / 500 1520 / 1520 Intake: IV 1400 / 1400 NS Inj 1,000 ML @ 50 mls/hr IV. 1000 / 1000 CONT .Q20H SORIN Rx#:[id number] Levaquin 750 mg Premix Inj 150 150 / 150 ML @ 100 mls/hr IV.SIG Q24H SORIN Rx#:[id number] NS Inj 250 ML @ 15 mls/hr IV. 250 / 250 SIG ONCE SORIN Rx#:[id number] Oral 120 / 120 Other 100 / 100 Rbc As-3 Leukoreduced Unit 100 / 100 [id number] Intake (Blood Product) Amt 400 / 400 Rbc As-3 Leukoreduced Unit 400 / 400 [id number] Other: Other Intake Source Rbc As-3 Leukoreduced Unit Saline Solution [id number] # Voids 3 Date of Last Bowel Movement 04/19/18 04/19/18 # Bowel Movements 2 <Adis Watson - Last Filed: 04/20/18 12:50> Results - Labs Result Diagrams: 04/19/18 02:10 04/19/18 00:37 Labs: Laboratory Results - last 24 hr 04/19/18 04/19/18 04/19/18 00:37 00:37 00:37 WBC 32.9 H RBC 3.09 L Hgb 7.6 L Hct 24.7 L MCV 80.0 MCH 24.7 L MCHC 30.9 L RDW 18.0 H Plt Count 203 MPV 8.1 Prelim Diff (Auto) Slide review pending Neut % (Auto) 64.7 Lymph % (Auto) 31.2 [place] % (Auto) 3.5 Eos % (Auto) 0.2 Baso % (Auto) 0.4 Neut # (Auto) 21.3 H Lymph # (Auto) 10.3 H [place] # (Auto) 1.2 H Eos # (Auto) 0.1 Baso # (Auto) 0.1 WBC Differential Manual diff final Seg Neuts % (Manual) 58 Lymphocytes % (Manual) 37 Monocytes % (Manual) 5 Eosinophils % (Manual) Abs Neuts (Manual) 19.1 H Differential Comment . Smudge Cells Present H Platelet Estimate Normal Platelet Morphology Normal Tear Drop Cells Ovalocytes 1+ H Keratocytes Occ H PT 35.3 H INR 3.5 APTT 44.7 H Sodium 135 L Potassium 4.6 Chloride 98 Carbon Dioxide 27.4 Anion Gap 10 BUN 18 Creatinine 0.83 Estimated GFR 89 Random Glucose 104 Lactic Acid Calcium 8.5 B-Natriuretic Peptide Blood Type Blood Type Recheck Antibody Screen MTS Gel Crossmatch 04/19/18 04/19/18 04/19/18 00:37 00:37 02:10 WBC 32.9 H RBC 2.89 L Hgb 7.0 L Hct 23.4 L MCV 80.9 MCH 24.3 L MCHC 30.1 L RDW 17.9 H Plt Count 201 MPV 8.3 Prelim Diff (Auto) Slide review pending Neut % (Auto) 62.9 Lymph % (Auto) 32.4 [place] % (Auto) 4.0 Eos % (Auto) 0.3 Baso % (Auto) 0.4 Neut # (Auto) 20.7 H Lymph # (Auto) 10.7 H [place] # (Auto) 1.3 H Eos # (Auto) 0.1 Baso # (Auto) 0.1 WBC Differential Manual diff final Seg Neuts % (Manual) 57 Lymphocytes % (Manual) 39 Monocytes % (Manual) 3 Eosinophils % (Manual) 1 Abs Neuts (Manual) 18.8 H Differential Comment . Smudge Cells Present H Platelet Estimate Normal Platelet Morphology Normal Tear Drop Cells 1+ H Ovalocytes Keratocytes Occ H PT INR APTT Sodium Potassium Chloride Carbon Dioxide Anion Gap BUN Creatinine Estimated GFR Random Glucose Lactic Acid Calcium B-Natriuretic Peptide 293 H Blood Type O Negative Blood Type Recheck Not needed Antibody Screen Negative MTS Gel Crossmatch 04/19/18 04/19/18 04/19/18 02:10 04:59 10:05 WBC RBC Hgb Hct MCV MCH MCHC RDW Plt Count MPV Prelim Diff (Auto) Neut % (Auto) Lymph % (Auto) [place] % (Auto) Eos % (Auto) Baso % (Auto) Neut # (Auto) Lymph # (Auto) [place] # (Auto) Eos # (Auto) Baso # (Auto) WBC Differential Seg Neuts % (Manual) Lymphocytes % (Manual) Monocytes % (Manual) Eosinophils % (Manual) Abs Neuts (Manual) Differential Comment Smudge Cells Platelet Estimate Platelet Morphology Tear Drop Cells Ovalocytes Keratocytes PT 30.4 H INR 3.0 APTT Sodium Potassium Chloride Carbon Dioxide Anion Gap BUN Creatinine Estimated GFR Random Glucose Lactic Acid 0.9 Calcium B-Natriuretic Peptide Blood Type Blood Type Recheck Antibody Screen MTS Gel Crossmatch See Detail - Diagnostic results Imaging: Impressions Chest X-Ray 04/19/18 00:08 CONCLUSION: Left lower lobe consolidation versus atelectasis and small left pleural effusion. Shoulder X-Ray 04/19/18 00:08 CONCLUSION: Angulated fracture of the proximal humerus shaft. Possible pathologic fracture. Chest CT 04/19/18 01:51 CONCLUSION: 1. Left greater than right pulmonary consolidation/atelectasis in the lower lobes. New when compared to prior study. 2. Left greater than right pleural effusions. New when compared to prior study. 3. Increase in size of left axillary lymph nodes. No change in size of mildly enlarged mediastinal lymph nodes. 4. Increase in size of abdominal mass in the region of the pancreatic head and increase in size of adjacent enlarged lymph node. 5. Increase in size of destructive lucent bone lesion in the T10 vertebral body. Shoulder x-ray: image reviewed <Joao Veliz - Last Filed: 04/19/18 11:15> - Labs Result Diagrams: 04/20/18 07:05 04/20/18 07:05 Labs: Laboratory Results - last 24 hr 04/19/18 04/20/18 04/20/18 12:05 07:05 07:05 WBC 23.1 H RBC 3.24 L Hgb 8.4 L 7.8 L Hct 27.6 L 26.5 L MCV 81.6 MCH 24.1 L MCHC 29.5 L RDW 17.8 H Plt Count 160 MPV 8.2 Neut % (Auto) 73.9 H Lymph % (Auto) 21.7 [place] % (Auto) 3.6 Eos % (Auto) 0.5 Baso % (Auto) 0.3 Neut # (Auto) 17.1 H Lymph # (Auto) 5.0 H [place] # (Auto) 0.8 Eos # (Auto) 0.1 Baso # (Auto) 0.1 WBC Differential . Differential Comment Auto diff final PT INR Sodium 136 Potassium 4.3 Chloride 101 Carbon Dioxide 25.3 Anion Gap 10 BUN 13 Creatinine 0.58 L Estimated GFR Greater than 89 Random Glucose 65 L Calcium 8.2 L Phosphorus 3.3 Magnesium 2.0 Total Bilirubin 0.8 AST 39 H ALT 53 Alkaline Phosphatase 97 Total Protein 5.0 L Albumin 1.5 L TSH 0.985 Free T4 1.45 04/20/18 07:05 WBC RBC Hgb Hct MCV MCH MCHC RDW Plt Count MPV Neut % (Auto) Lymph % (Auto) [place] % (Auto) Eos % (Auto) Baso % (Auto) Neut # (Auto) Lymph # (Auto) [place] # (Auto) Eos # (Auto) Baso # (Auto) WBC Differential Differential Comment PT 19.7 H D INR 1.9 Sodium Potassium Chloride Carbon Dioxide Anion Gap BUN Creatinine Estimated GFR Random Glucose Calcium Phosphorus Magnesium Total Bilirubin AST ALT Alkaline Phosphatase Total Protein Albumin TSH Free T4 <Adis Watson - Last Filed: 04/20/18 12:50> Assessment and Plan - Problem List (1) Closed fracture of left proximal humerus Code(s): S42.202A - Unspecified fracture of upper end of left humerus, initial encounter for closed fracture Status: Acute Qualifiers: Encounter type: initial encounter - Assessment and Plan Left proximal humerus fracture due to pathologic process Sling and swath at all time Treatment options are discussed with the patient and he states that his niece is his power of trade mark attorney. I will discuss with Dr. Watson treatment plan for this gentleman. Due to the pathologic fracture of the humerus and the progression of his cancer both conservative and surgical care will be discussed with Dr. Watson. Surgical intervention could be undertaken but risks and benefits need to be weighed. He has an INR of 3.5 as of this morning. Hospice care is discussed and the decision to proceed is still in process. At this point he will continue to remain in the sling and swath at all times and will continue to be nonweightbearing. We will continue to follow Mr. Fish concerning his proximal humerus fracture. Thank you for the consultation <Joao Veliz - Last Filed: 04/19/18 11:15> - Problem List (1) Closed fracture of left proximal humerus Code(s): S42.202A - Unspecified fracture of upper end of left humerus, initial encounter for closed fracture Status: Acute - Assessment and Plan History, past medical history, social history, review of systems, physical exam , radiographs, assessment, and plan were reviewed. Plan of care was discussed and established. Plan on nonoperative treatment. A mid-level provider in my office (nurse practitioner or physician accounting assistant) may see this patient on follow-up visits and continue to implement the objectives of this plan including : Starting or adjusting medications, injections, cast application, orthotics, brace application, physical therapy, radiological studies (including x-ray, MRI , CT, ultrasound, bone scan), vascular studies, neurologic studies, specialist consultation, and proceeding with surgical management, as appropriate. <Adis Watson - Last Filed: 04/20/18 12:50>
[2018-04-19 12:55] LABS: Hematocrit 27.6 % (39.0-51.0); Hemoglobin 8.4 gm/dL (13.0-17.0)
--- NOTE | 2018-04-19 17:18 | P.PNIM ---
Subjective Interval history: 83-year-old male with a history of A. fib, pancreatic cancer with metastases to multiple lytic lesions on T11 vertebra and right posterior iliac bone. Low- grade chronic lymphoma, bladder cancer hypertension and hyperlipidemia presented to the ED with complaints of left shoulder pain. Patient states that he was at [facility] and during physical therapy he was experiencing increasing pain with movement to the left shoulder. He denies any falls or recent injuries. Patient's at bedside and hospice was discussed. She STATES patient has discussed the final decision of hospice. SHE states she will be calling him later on today. Patient describes his pain to the left shoulder as constant, throbbing,8/10, with no radiation or associated symptoms, worse with movement better with pain medication SEEN BY ORTHO WHO IS NOT DOING SURGERY TODAY MAY NEED SURGERY WILL BE PLACED IN A SLING AND SWATH AT THIS TIME HAS A PATHOLOGICAL FRACTURE HOSPICE HAS NOT BEEN ACCEPTED YET KEEP LEFT SHOULDER IN SLING AND SWATH AND CONTINUE PAIN CONTROL WILL MAKE NPO AFTER MIDNIGHT IN CASE SURGERY WANT TO REPAIR LEFT ARM Physical Exam Vital signs: Vital Signs 04/18/18 23:06 04/18/18 23:12 04/19/18 02:00 Temperature 97.6 F Pulse Rate 71 77 66 Respiratory Rate 16 16 15 Blood Pressure 121/58 L 118/56 L 139/64 Pulse Oximetry 99 98 100 04/19/18 04:15 04/19/18 05:30 04/19/18 06:00 Temperature 98.0 F Pulse Rate 72 72 68 Respiratory Rate 15 20 16 Blood Pressure 108/55 L 112/58 L 110/55 L Pulse Oximetry 98 98 99 04/19/18 06:17 04/19/18 06:30 04/19/18 07:10 Temperature 98.0 F 98.3 F Pulse Rate 78 66 65 Respiratory Rate 16 15 18 Blood Pressure 103/56 L 110/57 L 112/55 L Pulse Oximetry 99 99 995 H 04/19/18 07:58 04/19/18 10:10 04/19/18 12:00 Temperature 97.7 F 97.9 F Pulse Rate 66 73 Respiratory Rate 16 16 Blood Pressure 103/58 L 106/58 L Pulse Oximetry 99 97 99 Intake & Output 04/18/18 04/19/18 04/19/18 18:59 06:59 18:59 Intake Total 150 / 150 500 / 500 Output Total 400 / 400 Balance -250 / -250 500 / 500 Weight 165 kg Intake: IV 150 / 150 Levaquin 750 mg Premix Inj 150 150 / 150 ML @ 100 mls/hr IV.SIG ONCE ONE Rx#:[id number] Other 100 / 100 Rbc As-3 Leukoreduced Unit 100 / 100 [id number] Intake (Blood Product) Amt 0 / 0 400 / 400 Rbc As-3 Leukoreduced Unit 0 / 0 400 / 400 [id number] Output: Urine 400 / 400 Other: Other Intake Source Rbc As-3 Leukoreduced Unit Saline Solution [id number] Narrative: GENERAL: This is a well-nourished, well-developed patient, in no apparent distress. SKIN: Ecchymosis noted to the left shoulder EYES: Pupils equal round and reactive, no scleral edema or drainage CARDIOVASCULAR: Regular rate and rhythm without murmurs, gallops, or rubs. RESPIRATORY: Clear to auscultation. Breath sounds equal bilaterally. No wheezes , rales, or rhonchi. GASTROINTESTINAL: Abdomen soft, non-tender, nondistended. MUSCULOSKELETAL: Extremities without clubbing, cyanosis, or edema. LEFT ARM IN SLING AND SWATH NEURO: Alert & Oriented x4 to person, place, time, situation. Moves all ext x4 Results - Labs CBC & Chem 7: 04/19/18 12:05 04/19/18 00:37 Laboratory Results - last 24 hr 04/19/18 04/19/18 04/19/18 00:37 00:37 00:37 WBC 32.9 H RBC 3.09 L Hgb 7.6 L Hct 24.7 L MCV 80.0 MCH 24.7 L MCHC 30.9 L RDW 18.0 H Plt Count 203 MPV 8.1 Prelim Diff (Auto) Slide review pending Neut % (Auto) 64.7 Lymph % (Auto) 31.2 [place] % (Auto) 3.5 Eos % (Auto) 0.2 Baso % (Auto) 0.4 Neut # (Auto) 21.3 H Lymph # (Auto) 10.3 H [place] # (Auto) 1.2 H Eos # (Auto) 0.1 Baso # (Auto) 0.1 WBC Differential Manual diff final Seg Neuts % (Manual) 58 Lymphocytes % (Manual) 37 Monocytes % (Manual) 5 Eosinophils % (Manual) Abs Neuts (Manual) 19.1 H Differential Comment . Smudge Cells Present H Platelet Estimate Normal Platelet Morphology Normal Tear Drop Cells Ovalocytes 1+ H Keratocytes Occ H PT 35.3 H INR 3.5 APTT 44.7 H Sodium 135 L Potassium 4.6 Chloride 98 Carbon Dioxide 27.4 Anion Gap 10 BUN 18 Creatinine 0.83 Estimated GFR 89 Random Glucose 104 Lactic Acid Calcium 8.5 B-Natriuretic Peptide Blood Type Blood Type Recheck Antibody Screen MTS Gel Crossmatch 04/19/18 04/19/18 04/19/18 00:37 00:37 02:10 WBC 32.9 H RBC 2.89 L Hgb 7.0 L Hct 23.4 L MCV 80.9 MCH 24.3 L MCHC 30.1 L RDW 17.9 H Plt Count 201 MPV 8.3 Prelim Diff (Auto) Slide review pending Neut % (Auto) 62.9 Lymph % (Auto) 32.4 [place] % (Auto) 4.0 Eos % (Auto) 0.3 Baso % (Auto) 0.4 Neut # (Auto) 20.7 H Lymph # (Auto) 10.7 H [place] # (Auto) 1.3 H Eos # (Auto) 0.1 Baso # (Auto) 0.1 WBC Differential Manual diff final Seg Neuts % (Manual) 57 Lymphocytes % (Manual) 39 Monocytes % (Manual) 3 Eosinophils % (Manual) 1 Abs Neuts (Manual) 18.8 H Differential Comment . Smudge Cells Present H Platelet Estimate Normal Platelet Morphology Normal Tear Drop Cells 1+ H Ovalocytes Keratocytes Occ H PT INR APTT Sodium Potassium Chloride Carbon Dioxide Anion Gap BUN Creatinine Estimated GFR Random Glucose Lactic Acid Calcium B-Natriuretic Peptide 293 H Blood Type O Negative Blood Type Recheck Not needed Antibody Screen Negative MTS Gel Crossmatch 04/19/18 04/19/18 04/19/18 02:10 04:59 10:05 WBC RBC Hgb Hct MCV MCH MCHC RDW Plt Count MPV Prelim Diff (Auto) Neut % (Auto) Lymph % (Auto) [place] % (Auto) Eos % (Auto) Baso % (Auto) Neut # (Auto) Lymph # (Auto) [place] # (Auto) Eos # (Auto) Baso # (Auto) WBC Differential Seg Neuts % (Manual) Lymphocytes % (Manual) Monocytes % (Manual) Eosinophils % (Manual) Abs Neuts (Manual) Differential Comment Smudge Cells Platelet Estimate Platelet Morphology Tear Drop Cells Ovalocytes Keratocytes PT 30.4 H INR 3.0 APTT Sodium Potassium Chloride Carbon Dioxide Anion Gap BUN Creatinine Estimated GFR Random Glucose Lactic Acid 0.9 Calcium B-Natriuretic Peptide Blood Type Blood Type Recheck Antibody Screen MTS Gel Crossmatch See Detail 04/19/18 12:05 WBC RBC Hgb 8.4 L Hct 27.6 L MCV MCH MCHC RDW Plt Count MPV Prelim Diff (Auto) Neut % (Auto) Lymph % (Auto) [place] % (Auto) Eos % (Auto) Baso % (Auto) Neut # (Auto) Lymph # (Auto) [place] # (Auto) Eos # (Auto) Baso # (Auto) WBC Differential Seg Neuts % (Manual) Lymphocytes % (Manual) Monocytes % (Manual) Eosinophils % (Manual) Abs Neuts (Manual) Differential Comment Smudge Cells Platelet Estimate Platelet Morphology Tear Drop Cells Ovalocytes Keratocytes PT INR APTT Sodium Potassium Chloride Carbon Dioxide Anion Gap BUN Creatinine Estimated GFR Random Glucose Lactic Acid Calcium B-Natriuretic Peptide Blood Type Blood Type Recheck Antibody Screen MTS Gel Crossmatch - Imaging Impressions Chest X-Ray 04/19/18 00:08 CONCLUSION: Left lower lobe consolidation versus atelectasis and small left pleural effusion. Shoulder X-Ray 04/19/18 00:08 CONCLUSION: Angulated fracture of the proximal humerus shaft. Possible pathologic fracture. Chest CT 04/19/18 01:51 CONCLUSION: 1. Left greater than right pulmonary consolidation/atelectasis in the lower lobes. New when compared to prior study. 2. Left greater than right pleural effusions. New when compared to prior study. 3. Increase in size of left axillary lymph nodes. No change in size of mildly enlarged mediastinal lymph nodes. 4. Increase in size of abdominal mass in the region of the pancreatic head and increase in size of adjacent enlarged lymph node. 5. Increase in size of destructive lucent bone lesion in the T10 vertebral body. Assessment and Plan - Plan 83-year-old male with a history of A. fib, pancreatic cancer with metastases to multiple lytic lesions on T11 vertebra and right posterior iliac bone. L8ow- grade chronic lymphoma, bladder cancer hypertension and hyperlipidemia presented to the ED with complaints of left shoulder pain. Humerus fracture Shoulder x-ray reviewed and shows an angulated fracture of the proximal humerus shaft -Consult orthopedics for recommendations -Pain management with IV morphine PAIN CONTROL SEEN BY ORTHO NO SURGERY Anemia, hemoglobin 7.0 -Continue to monitor -H&H at noon -Transfuse if less than 7 -Resume home ferrous sulfate A. fib, chronic -Resume home medications -hold anticoagulation until evaluated by surgery HOLD ANTICOAGULATION AT THIS TIME Metastatic cancer-PANCREATIC CANCER - will decide later today when she wants to start hospice -Consult oncology if needed, Dr. Singh, patient has declined chemo and radiation DVT prophylaxis: SCDs, hold chemical for now AM LABS PT INR PAIN CONTROL WILL DEFER TO ORTHO Code Status: FULL CODE Discussed Condition With: RN AND PT Discharge Planning: PENDING ORTHO CLEARANCE
[2018-04-19] MEDS: Gabapentin 100 MG Capsule PO SCH (21:51)
[2018-04-20] MEDS: Sod Chloride 0.9% Inj 1,000 ML IV.CONT SCH ×2 (03:35→20:35)
[2018-04-20 07:51] LABS: Baso # (Auto) 0.1 th/mm3 (0.0-0.2); Baso % (Auto) 0.3 % (0.0-2.0); Eos # (Auto) 0.1 th/mm3 (0.0-0.4); Eos % (Auto) 0.5 % (0.0-4.0); Hematocrit 26.5 % (39.0-51.0); Hemoglobin 7.8 gm/dL (13.0-17.0); Lymph % (Auto) 21.7 % (9.0-44.0); Mean Corpuscular Hemoglobin 24.1 pg (27.0-34.0); Mean Corpuscular Volume 81.6 fL (80.0-100.0); Mean Platelet Volume 8.2 fL (7.0-11.0); Mono # (Auto) 0.8 th/mm3 (0.0-0.9); Mono % (Auto) 3.6 % (0.0-8.0); Neut # (Auto) 17.1 th/mm3 (1.8-7.7); Neut % (Auto) 73.9 % (16.0-70.0); Platelet Count 160 th/mm3 (150-450); Red Blood Count 3.24 mil/mm3 (4.50-5.90); Red Cell Distribution Width 17.8 % (11.6-17.2); White Blood Count 23.1 th/mm3 (4.0-11.0)
[2018-04-20 07:53] LABS: INR 1.9 Ratio; Prothrombin Time 19.7 sec (9.8-11.6)
[2018-04-20 07:57] LABS: Mean Corpuscular HGB Conc 29.5 % (32.0-36.0)
[2018-04-20 08:01] LABS: Albumin 1.5 g/dL (3.4-5.0); Anion Gap 10 meq/L (5-15); Blood Urea Nitrogen 13 mg/dL (7-18); Calcium 8.2 mg/dL (8.5-10.1); Carbon Dioxide 25.3 meq/L (21.0-32.0); Chloride 101 meq/L (98-107); Glucose,Random 65 mg/dL (74-106); Potassium 4.3 meq/L (3.5-5.1); Sodium 136 meq/L (136-145)
[2018-04-20 08:10] LABS: Alanine Aminotransferase 53 U/L (12-78); Alkaline Phosphatase 97 U/L (45-117); Aspartate Aminotransferase 39 U/L (15-37); Free T4 (Free Thyroxine) 1.45 ng/dL (0.76-1.46); Glomerular Filtration Rate Greater Than 89 mL/min (>89); Phosphorus 3.3 mg/dL (2.5-4.9); Thyroid Stimulating Hormone 0.985 uIU/mL (0.358-3.740)
[2018-04-20] MEDS: Lisinopril 10 MG Tablet PO SCH (08:38)
[2018-04-20] MEDS: Morphine Inj 4 MG/ML Vial IV.PUSH PRN (08:39)
[2018-04-20] MEDS: Ferrous Sulfate 325 MG Tablet PO SCH (08:39)
--- NOTE | 2018-04-20 09:04 | MB ---
cc: Addy Jarquin MD DATE: 04/20/2018 REQUESTING PHYSICIAN: . REASON FOR CONSULTATION: Evaluation of metastatic pancreatic cancer. The patient admitted with left shoulder pain. HISTORY OF PRESENT ILLNESS: Mr. Fish is a pleasant 83-year-old gentleman with multiple medical problems and the patient of Dr. Singh with a history of pancreatic cancer with metastasis to multiple lytic lesions in the bones, who refused radiation therapy. Has been recovering in rehab from wounds on the legs. He has been complaining of increasing left shoulder pain. Hence, he was transferred to the emergency room and was noted to have a lytic lesion in the left proximal femur and was admitted to the hospital for pain control and oncology was consulted. Mr. Fish is currently pain-free and is quite comfortable and has been doing otherwise well. He actually wants to go home soon. He has refused chemotherapy and radiation, and he wants to be on palliative care only. REVIEW OF SYSTEMS: He has no headaches or motor or sensory symptoms. He specifically denies back pain and does not have any incontinence. He does have leg weakness and leg swellings bilaterally, but no calf pain or tenderness. He has cough and shortness of breath on exertion, but not at rest and he does not have any hemoptysis. He has abdominal discomfort, but no nausea, vomiting, blood in the stool or black stools. No frequency, urgency or hematuria. No fevers, night sweats, or recent weight loss. PAST MEDICAL HISTORY: Long and complicated with multiple medical problems including atrial fibrillation, pancreatic cancer with multiple bone metastasis, including a large T11 destructive lesion and low-grade lymphoma, bladder cancer, hypertension, hyperlipidemia. PAST SURGICAL HISTORY: He had hip replacement. FAMILY HISTORY: Noncontributory. SOCIAL HISTORY: Ex-smoker and ex-alcohol user. MEDICATIONS: 1. Milk of magnesia. 2. Dulcolax. 3. Lactulose. 4. Senokot. 5. Iron sulfate. 6. Metoprolol. 7. Coumadin. PHYSICAL EXAMINATION: GENERAL: An elderly gentleman, chronically ill appearing, in no acute distress. Pallor present. Trace icterus present. No palpable adenopathy in the neck or axilla, specifically left supraclavicular lymph nodes not palpable. HEENT: Without obvious oropharyngeal lesions, no gum bleeding or hypertrophy. Alert and oriented x4. Left shoulder in a sling with no tenderness in the shoulder or humerus. No spinal tenderness. Moving all 4 extremities. NECK: No JVD. S1, S2. Regular rate and rhythm with a grade 2 systolic murmur. No gallops or rubs. LUNGS: With decreased air entry and dullness to the left base posteriorly. No crackles or wheeze. ABDOMEN: Soft, distended, tender with diffuse tenderness and no point tenderness. No guarding, rigidity or rebound. Clinically, no ascites. EXTREMITIES: 2+ bipedal edema with chronic stasis dermatitis in both legs with healing ulcers with no evidence of active infection or bleeding. No petechia or ecchymosis. LABORATORY DATA: White count of 32.9 with hemoglobin of 7, platelets 201, and lymphocytes 10,700, granulocytes of 20,700. Hemoglobin after transfusion was 8.4 and absolute neutrophils are elevated at 18,800. PT/INR was 3. BNP was 293. Chest x-ray on admission showed left lower lobe consolidation and small left pleural effusion. Left shoulder x-ray showed angulated fracture proximal left humeral shaft. CT chest showed left greater than right pulmonary consolidation/atelectasis in the lower lobes, new compared to prior study, left greater than right pleural effusion, new compared to prior study. Increased size of left axillary lymph nodes. No change in size of mildly enlarged mediastinal lymph nodes. Increase in size of abdominal mass in the region of the pancreatic head and increase in size of enlarged lymph nodes. Increase in size or destructive lucent bone lesion in the T10 vertebral body. IMPRESSION: An 83-year-old gentleman with multiple medical problems, has increasing pancreatic cancer with a left lower lobe pneumonia, neutrophil leukocytosis, in addition to the lymphocytosis from underlying chronic lymphocytic leukemia, and now with a pathologic fracture also of the left humerus. His T11 vertebral body metastatic lesion appears to be not causing him any symptoms or pain at this time. The patient apparently refused aggressive chemotherapy and radiation therapy in the past. Certainly, he is not a candidate for systemic chemotherapy, but he should be considered for palliative radiation to the left humerus lesion, which is new and symptomatic. PLAN: I discussed with the patient and he wants to finalize his decision regarding radiation after discussion with his niece, who makes all his decisions. I will also endorse the case to Dr. Singh, who is his primary oncologist for followup. His pain is very well controlled at this time and his PT/INR is therapeutic without evidence of active bleeding. He did receive transfusion with hemoglobin increasing from 7 to 8.4. His stool occult should be checked to rule out active bleeding. Orthopedic surgery has already been consulted and I will defer radiation consultation to Dr. Singh, who is his primary oncologist. Discussed with the patient and answered all his questions. MD DEIRDRE Bolanos/marilu , 07:33 AM , 07:47 AM
--- NOTE | 2018-04-20 12:14 | P.PN ---
Subjective Interval history: Follow-up on patient with metastatic pancreatic cancer, recent pathologic left humeral fracture, weakness bilateral lower extremities, spinal lytic lesions. Patient seen and examined. Discussed at length with patient and his caregiver Bessy who is his niece. They are both still on the fence about hospice care. They would like to discuss further with oncology possible response from radiation as well as with orthopedic service surgical options. I reached out to [facility] for Dr. Watson who will have Dr. Watson revisit patient in niece to discuss surgical versus nonsurgical options. Patient states his pain is currently well controlled. He denies any fever or chills. Denies any chest pain or shortness of breath. Physical Exam Vital signs: Vital Signs 04/19/18 16:00 04/19/18 19:08 04/19/18 23:57 Temperature 97.6 F 98.8 F Pulse Rate 67 70 64 Respiratory Rate 18 18 18 Blood Pressure 110/57 L 108/59 L 105/55 L Pulse Oximetry 99 96 96 04/20/18 03:01 04/20/18 11:15 Temperature 98.7 F 98.0 F Pulse Rate 71 66 Respiratory Rate 18 16 Blood Pressure 110/55 L 104/51 L Pulse Oximetry 96 98 Intake & Output 04/19/18 04/20/18 04/20/18 18:59 06:59 18:59 Intake Total 500 / 500 1520 / 1520 Balance 500 / 500 1520 / 1520 Intake: IV 1400 / 1400 NS Inj 1,000 ML @ 50 mls/hr IV. 1000 / 1000 CONT .Q20H SORIN Rx#:[id number] Levaquin 750 mg Premix Inj 150 150 / 150 ML @ 100 mls/hr IV.SIG Q24H SORIN Rx#:[id number] NS Inj 250 ML @ 15 mls/hr IV. 250 / 250 SIG ONCE SORIN Rx#:[id number] Oral 120 / 120 Other 100 / 100 Rbc As-3 Leukoreduced Unit 100 / 100 [id number] Intake (Blood Product) Amt 400 / 400 Rbc As-3 Leukoreduced Unit 400 / 400 [id number] Other: Other Intake Source Rbc As-3 Leukoreduced Unit Saline Solution [id number] # Voids 3 Date of Last Bowel Movement 04/19/18 # Bowel Movements 2 Narrative: GENERAL: This is a well-nourished, well-developed elderly male patient , in no apparent distress. Awake and alert. SKIN: Ecchymosis noted to the left shoulder. Bilateral lower extremity venous stasis changes. HEENT: Normocephalic. Pupils equal round and reactive, no scleral edema or drainage. No nasal drainage. MMM. CARDIOVASCULAR: Regular rate and rhythm. +Murmur auscultated. RESPIRATORY: Clear to auscultation anteriorly. Breath sounds equal bilaterally. No wheezes, rales, or rhonchi. GASTROINTESTINAL: Abdomen soft, non-tender, nondistended. +BS. MUSCULOSKELETAL: Extremities without clubbing, cyanosis. 1+ edema BLE. LEFT ARM IN SLING AND SWATH. ROM not tested. NV intact left hand distally. + dystrophic nails left hand. NEURO: Awake and alert. Cranial nerves II through XII grossly intact. Nonfocal. Normal speech. PSYCHIATRIC: Appropriate mood and affect. Normal judgement and insight. Results - Labs CBC & Chem 7: 04/20/18 07:05 04/20/18 07:05 Laboratory Results - last 24 hr 04/19/18 04/20/18 04/20/18 12:05 07:05 07:05 WBC 23.1 H RBC 3.24 L Hgb 8.4 L 7.8 L Hct 27.6 L 26.5 L MCV 81.6 MCH 24.1 L MCHC 29.5 L RDW 17.8 H Plt Count 160 MPV 8.2 Neut % (Auto) 73.9 H Lymph % (Auto) 21.7 [place] % (Auto) 3.6 Eos % (Auto) 0.5 Baso % (Auto) 0.3 Neut # (Auto) 17.1 H Lymph # (Auto) 5.0 H [place] # (Auto) 0.8 Eos # (Auto) 0.1 Baso # (Auto) 0.1 WBC Differential . Differential Comment Auto diff final PT INR Sodium 136 Potassium 4.3 Chloride 101 Carbon Dioxide 25.3 Anion Gap 10 BUN 13 Creatinine 0.58 L Estimated GFR Greater than 89 Random Glucose 65 L Calcium 8.2 L Phosphorus 3.3 Magnesium 2.0 Total Bilirubin 0.8 AST 39 H ALT 53 Alkaline Phosphatase 97 Total Protein 5.0 L Albumin 1.5 L TSH 0.985 Free T4 1.45 04/20/18 07:05 WBC RBC Hgb Hct MCV MCH MCHC RDW Plt Count MPV Neut % (Auto) Lymph % (Auto) [place] % (Auto) Eos % (Auto) Baso % (Auto) Neut # (Auto) Lymph # (Auto) [place] # (Auto) Eos # (Auto) Baso # (Auto) WBC Differential Differential Comment PT 19.7 H D INR 1.9 Sodium Potassium Chloride Carbon Dioxide Anion Gap BUN Creatinine Estimated GFR Random Glucose Calcium Phosphorus Magnesium Total Bilirubin AST ALT Alkaline Phosphatase Total Protein Albumin TSH Free T4 Assessment and Plan - Plan 83-year-old male past medical history significant for atrial fibrillation status post pacemaker, bladder cancer, history of metastatic pancreatic cancer with lytic lesions in thoracic spine and right posterior iliac bone admitted with pathologic fracture left proximal humerus. Pathologic left proximal humerus fracture -Orthopedics following, appreciate assistance. Discussed surgical and nonsurgical interventions. Patient requesting another discussion with Ortho team so he can fully understand the implications of both decisions before moving forward. -Continue nonweightbearing left upper extremity. Sling and swath. -Pain management with bowel regimen Stage IV incurable cancer, patient previously elected for no chemotherapy and desired hospice Metastatic pancreatic cancer Lytic lesions thoracic spine Bladder cancer History of CLL, follows with Dr. Pate -Evaluated by Dr. 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 Pate, appreciate assistance -Consult palliative care, appreciate assistance. Patient considering hospice. LLL PNA CTA shows left greater than right pulmonary consolidation/atelectasis in the lower lobes, new compared to prior study -Continue on Levaquin, change to po -Duonebs -IS and acapella Anemia, hgb 7.0 -Suspect transfusion 1 unit PRBCs, hemoglobin improved 8.4. 7.8 today. Repeat CBC in am. -Continue p.o. ferrous sulfate Atrial fibrillation on Coumadin History of pacemaker placement -Coumadin is on hold for possible surgical intervention. INR 1.9 today. -Continue on metoprolol -Continue to monitor heart rate Hypertension, now hypotensive -Hold Lisinopril. Continue Toprol-XL with hold parameters. -Continue to monitor BP and adjust treatment accordingly DVT prophylaxis -Patient is on Coumadin Code Status: DNR Discussed Condition With: patient, nursing staff, Dr. Humphrey Discharge Planning: Not ready for discharge
--- NOTE | 2018-04-20 13:14 | P.CONPAL ---
Consult Service: Palliative Care Requesting Physician: Marlen Spencer Reason for Consult: a. To assist with evaluation and management of symptoms including: Pain, weakness b. To assist medical decision maker(s) with: better understanding of current medical conditions; weighing benefits/burdens of medical treatment options; making medical treatment decisions. Primary Care Provider: Alexandro Moeller MD History of Present Illness History of Present Illness: This is an 83-year-old male with a history of pancreatic cancer with bone metastasis, atrial fibrillation, hypertension, chronic lymphocytic leukemia , lymphoma, previous bladder cancer, admitted from [facility] and rehab with left shoulder/arm pain. He denies any injuries, fall, trauma of the left shoulder. While in rehab he appears to have reached his potential, however is unable to bear weight on his legs. He requires Mary lift to transfer to wheelchair. He is able to reposition his legs to some degree in bed. His weakness is profound, severe, constant with no exacerbating or relieving factors he had previously lived independently, but due to his progressive decline has remained in [facility] under skilled treatment but is aware that he will need to transition to long-term care at this time due to his progressive debility. He described his presenting shoulder pain as constant, throbbing, 8/10 without radiation or associated symptoms, exacerbated by movement, improved by narcotic pain medication. Clinical findings on admission: * Chest x-ray showed left lower lobe consolidation versus atelectasis and small left pleural effusion, single lead cardiac pacemaker/ICD in place. * Left shoulder x-ray shows fracture of the proximal humerus shaft with 35 degree lateral angulation of the distal fragment. Possible bony destructive change of the cortex indicating possible pathologic fracture. * CT of the chest showed left greater than right pulmonary consolidation/ atelectasis in the lower lobes, new when compared to prior study. Left greater than right pleural effusions, new when compared to prior study. Increase in size of left axillary lymph nodes, no change in size of mildly enlarged mediastinal lymph nodes. Increase in size of abdominal mass in the region of the pancreatic head and increase in size of adjacent enlarged lymph node. Increase in size of destructive lucent bone lesion in the T10 vertebral body. * Presenting labs showed WBC 32.9, hemoglobin 7.8, hematocrit 24.7, platelets 203, INR 3.5, PT 35.3, APTT 44.7, sodium 135, potassium 4.6, BUN 18, creatinine 0.83, B natruretic peptide 293. On evaluation this is a well-developed, well-nourished male sitting up in bed complaining of pain in the left shoulder. His niece, Bessy, is at bedside. She is his healthcare surrogate and his only remaining family. He was seen by Dr. Watson's physician administrative assistant coordinator, Joao Veliz who recommended sling and swath, no weightbearing pending his discussion with Dr. Watson for treatment plan of either conservative or surgical care. The patient states he has not yet seen Dr. Watson to discuss that decision. The patient wishes to determine whether surgical intervention is possible, recommended and what his postoperative course might be. His primary goal is to eliminate pain. Given the pathological nature of the fracture, surgical bone stabilization may be of questionable benefit. He also spoke with Dr. Singh, his oncologist, who stated that radiation might be an option, however patient did not receive the information of benefit versus risk and does not believe that Dr. Singh is aware of his immobility issues. Since he is completely bedbound other than a Mary lift transfers, he is not certain if he could be transferred from wheelchair to the table for radiation. When I spoke with Dr. Singh, he informed me that the patient's oncologist is Dr. Pate and referred all questions to him. Past medical history Atrial fibrillation Bladder cancer Chronic lymphocytic leukemia Hyperlipidemia Hypertension Lymphoma Pancreatic cancer with metastasis to the bone Symptomatic bradycardia PVD Chronic renal insufficiency Osteoarthritis Past surgical history Cystoscopy with BCG infusions in the bladder Left hip replacement Biotronik Evia pacemaker placement TURBT Para aorta lymph node biopsy Colonoscopy Social history Smoked half a pack a day for 15 years quit many years ago. Social alcohol use. Family history Mother from ovarian cancer, father from myocardial infarction. . Function/Cognitive Trajectory: Prior to January he was able to live independently, ambulate with a walker and was independent in his ADLs. He has since required admission to [facility] rehab under skilled services for muscle strengthening. In spite of rehab, he has continued to weaken and is now unable to stand at all. He requires Mary lift for bed to wheelchair transfers and has reached his peak of rehabilitative potential. He has now sustained a pathologic fracture of his left shoulder/humerus and is in a sling/swath pending information from orthopedic as to whether he is a surgical candidate and if the benefit would be worth the risk of the surgery given his metastatic pancreatic cancer diagnosis with extensive bone metastasis. At this time he has only one functional limb, his right arm, which he states is semi-functional due to severe osteoarthritis. He also has lytic lesions to T11 and T10 restricting his movement and even his bed mobility from pain. . Review of Systems Constitutional: Reports weakness Cardiovascular: Reports leg sores Musculoskeletal: Reports back pain, Reports joint pain (Left arm/shoulder, right hand), Reports limited joint movement, Reports muscle weakness PMFSH - History History Provided By: Medical Record - Medical History Medical History: Medical History (Last Reviewed 04/19/18 @ 11:23 by ERIBERTO Munroe) A-fib Bladder cancer Bladder cancer Chronic lymphocytic leukemia Hyperlipemia Hypertension Lymphoma - Surgical History Surgical History: Surgical History (Last Reviewed 04/19/18 @ 11:23 by ERIBERTO Munroe) H/O cystoscopy History of cystoscopy History of hip replacement - Family History Family History: Family History (Last Reviewed 04/19/18 @ 11:23 by ERIBERTO Munroe) Other CAD (coronary artery disease) Colon cancer Stomach cancer - Tobacco History Second Hand Smoke Exposure: No Tobacco Use In Past 30 Days: No Smoking Status: Former smoker Tobacco Type: Cigarettes Packs Per Day: 0.5 Years Smoked: 15 - Alcohol History How Often Do You Have a Drink Containing Alcohol: 4 or more times a week - Substance Use History Substance History: No History of Abuse - Travel History Recent Travel in the [place] Within the Last 8 Weeks: No Recent Travel Out of the Country Within the Last 8 Weeks: No - Immunization History Tetanus Immunization: <5 Years Hx Influenza Vaccine This Season: Yes Medications and Allergies Active Medications: Active Medications Al Hydroxide/Mg Hydroxide (Milk Of Magnesia Liq) 30 ml PO Q12H PRN PRN Reason: Mild Constipation Al Hydroxide/Mg Hydroxide (Milk Of Magnesia Liq) 30 ml PO Q12H PRN PRN Reason: Mild Constipation Bisacodyl (Dulcolax Supp) 10 mg RECTAL DAILY PRN PRN Reason: SEVERE CONSITIPATION Ferrous Sulfate (Ferosul) 325 mg PO DAILY [facility] Last Admin: 04/20/18 08:39 Dose: 325 mg Gabapentin (Neurontin) 200 mg PO HS [facility] Last Admin: 04/19/18 21:51 Dose: 200 mg Sodium Chloride (Ns Inj) 1,000 mls @ 50 mls/hr IV.CONT .Q20H [facility] Last Admin: 04/20/18 03:35 Dose: Not Given Levofloxacin/Dextrose (Levaquin 750 Mg Premix Inj) 150 mls @ 100 mls/hr IV.SIG Q24H [facility] Last Infusion: 04/20/18 05:59 Dose: Infused Lactulose (Lactulose Liq) 30 ml PO DAILY PRN PRN Reason: SEVERE CONSITIPATION Lisinopril (Prinivil) 10 mg PO DAILY [facility] Last Admin: 04/20/18 08:38 Dose: 10 mg Lorazepam (Ativan) 0.5 mg PO Q6H PRN PRN Reason: anxiety/insomnia Metoprolol Succinate (Toprol Xl) 25 mg PO DAILY [facility] Last Admin: 04/20/18 08:38 Dose: 25 mg Morphine Sulfate (Morphine Inj) 2 mg IV.PUSH Q3H PRN PRN Reason: pain 1 to 10 while npo Last Admin: 04/20/18 08:39 Dose: 2 mg Pravastatin Sodium (Pravachol) 20 mg PO BID [facility] Last Admin: 04/20/18 08:39 Dose: 20 mg Sennosides (Senokot) 17.2 mg PO Q12H PRN PRN Reason: Moderate Constipation Allergies Allergy/AdvReac Type Severity Reaction Status Date / Time No Known Allergies Allergy Verified 04/18/18 23:05 Home Medications Medication Instructions Recorded Confirmed Type ferrous sulfate 325 mg PO DAILY 04/19/18 04/19/18 History hydrocodone-acetaminophen [[place]] 1 tab PO Q6H PRN 04/19/18 04/19/18 History metoprolol succinate 25 mg PO DAILY 04/19/18 04/19/18 History sodium chloride 1,000 mg PO TID 04/19/18 04/19/18 History warfarin 3 mg PO DAILY 04/19/18 04/19/18 History Advance Directives Living Will: Unknown Healthcare Surrogate: Yes Health Care Surrogate Name and Number: Bessy Jimenez (niece) Physical Exam Vital Signs: Vital Signs - 24 hr 04/19/18 16:00 04/19/18 19:08 04/19/18 23:57 Temperature 97.6 F 98.8 F Pulse Rate 67 70 64 Respiratory Rate 18 18 Blood Pressure 110/57 L 108/59 L 105/55 L Pulse Oximetry 99 96 96 04/20/18 03:01 04/20/18 11:15 Temperature 98.7 F 98.0 F Pulse Rate 71 66 Respiratory Rate 18 16 Blood Pressure 110/55 L 104/51 L Pulse Oximetry 96 98 I&O: Intake & Output 04/18/18 04/19/18 04/20/18 04/21/18 06:59 06:59 06:59 06:59 Intake Total 150 / 150 2019 Output Total 400 / 400 Balance -250 / -250 2019 Weight 363 lb 12.203 oz Physical Exam: CONSTITUTIONAL/GENERAL: This is an adequately nourished patient, in no apparent distress. TUBES/LINES/DRAINS: RFA PIV SKIN: No jaundice, rashes, or lesions. Ecchymoses on upper extremities. Darkened skin on lower extremities with small wound on right anterior lower leg , skin temperature appropriate. Not diaphoretic. HEAD: Atraumatic. Normocephalic. EYES: Pupils equal and round and reactive. Extraocular motions intact. No scleral icterus. No injection or drainage. Fundi not examined. ENT: Hearing grossly normal. Nose without bleeding or purulent drainage. Throat without visible erythema, exudates, masses, or lesions. NECK: Trachea midline. Supple, nontender. No palpable thyroid enlargement or nodularity. CARDIOVASCULAR: Regular rate and rhythm with 2/6 systolic ejection murmur, no gallops, or rubs. No JVD. Peripheral pulses symmetric. RESPIRATORY/CHEST: Symmetric, unlabored respirations. Clear, diminished to auscultation. Breath sounds equal bilaterally. No wheezes, rales, or rhonchi. GASTROINTESTINAL: Abdomen soft, non-tender, nondistended. No hepato-splenomegaly , or palpable masses. No guarding. Bowel sounds present. GENITOURINARY: Without palpable bladder distension. MUSCULOSKELETAL: Extremities without clubbing, cyanosis, or edema. No calf tenderness. No mottling or clubbing. LYMPHATICS: No palpable cervical or supraclavicular adenopathy. NEUROLOGICAL: Awake and alert. Motor function compromised by left shoulder/arm fracture, bilateral leg weakness, sensory grossly within normal limits. Follows commands. Cognitively sharp. Moves all extremities. PSYCHIATRIC: No obvious anxiety/depression. no apparent hallucinations or other psychotic thought process. . Diagnostic Tests Laboratory: Laboratory Results - last 72 hr 04/19/18 04/19/18 04/19/18 00:37 00:37 00:37 WBC 32.9 H RBC 3.09 L Hgb 7.6 L Hct 24.7 L MCV 80.0 MCH 24.7 L MCHC 30.9 L RDW 18.0 H Plt Count 203 MPV 8.1 Prelim Diff (Auto) Slide review pending Neut % (Auto) 64.7 Lymph % (Auto) 31.2 Lamar % (Auto) 3.5 Eos % (Auto) 0.2 Baso % (Auto) 0.4 Neut # (Auto) 21.3 H Lymph # (Auto) 10.3 H Lamar # (Auto) 1.2 H Eos # (Auto) 0.1 Baso # (Auto) 0.1 WBC Differential Manual diff final Seg Neuts % (Manual) 58 Lymphocytes % (Manual) 37 Monocytes % (Manual) 5 Eosinophils % (Manual) Abs Neuts (Manual) 19.1 H Differential Comment . Smudge Cells Present H Platelet Estimate Normal Platelet Morphology Normal Tear Drop Cells Ovalocytes 1+ H Keratocytes Occ H PT 35.3 H INR 3.5 APTT 44.7 H Sodium 135 L Potassium 4.6 Chloride 98 Carbon Dioxide 27.4 Anion Gap 10 BUN 18 Creatinine 0.83 Estimated GFR 89 Random Glucose 104 Lactic Acid Calcium 8.5 Phosphorus Magnesium Total Bilirubin AST ALT Alkaline Phosphatase B-Natriuretic Peptide Total Protein Albumin TSH Free T4 Blood Type Blood Type Recheck Antibody Screen MTS Gel Crossmatch 04/19/18 04/19/18 04/19/18 00:37 00:37 02:10 WBC 32.9 H RBC 2.89 L Hgb 7.0 L Hct 23.4 L MCV 80.9 MCH 24.3 L MCHC 30.1 L RDW 17.9 H Plt Count 201 MPV 8.3 Prelim Diff (Auto) Slide review pending Neut % (Auto) 62.9 Lymph % (Auto) 32.4 Lamar % (Auto) 4.0 Eos % (Auto) 0.3 Baso % (Auto) 0.4 Neut # (Auto) 20.7 H Lymph # (Auto) 10.7 H Lamar # (Auto) 1.3 H Eos # (Auto) 0.1 Baso # (Auto) 0.1 WBC Differential Manual diff final Seg Neuts % (Manual) 57 Lymphocytes % (Manual) 39 Monocytes % (Manual) 3 Eosinophils % (Manual) 1 Abs Neuts (Manual) 18.8 H Differential Comment . Smudge Cells Present H Platelet Estimate Normal Platelet Morphology Normal Tear Drop Cells 1+ H Ovalocytes Keratocytes Occ H PT INR APTT Sodium Potassium Chloride Carbon Dioxide Anion Gap BUN Creatinine Estimated GFR Random Glucose Lactic Acid Calcium Phosphorus Magnesium Total Bilirubin AST ALT Alkaline Phosphatase B-Natriuretic Peptide 293 H Total Protein Albumin TSH Free T4 Blood Type O Negative Blood Type Recheck Not needed Antibody Screen Negative MTS Gel Crossmatch 04/19/18 04/19/18 04/19/18 02:10 04:59 10:05 WBC RBC Hgb Hct MCV MCH MCHC RDW Plt Count MPV Prelim Diff (Auto) Neut % (Auto) Lymph % (Auto) Lamar % (Auto) Eos % (Auto) Baso % (Auto) Neut # (Auto) Lymph # (Auto) Lamar # (Auto) Eos # (Auto) Baso # (Auto) WBC Differential Seg Neuts % (Manual) Lymphocytes % (Manual) Monocytes % (Manual) Eosinophils % (Manual) Abs Neuts (Manual) Differential Comment Smudge Cells Platelet Estimate Platelet Morphology Tear Drop Cells Ovalocytes Keratocytes PT 30.4 H INR 3.0 APTT Sodium Potassium Chloride Carbon Dioxide Anion Gap BUN Creatinine Estimated GFR Random Glucose Lactic Acid 0.9 Calcium Phosphorus Magnesium Total Bilirubin AST ALT Alkaline Phosphatase B-Natriuretic Peptide Total Protein Albumin TSH Free T4 Blood Type Blood Type Recheck Antibody Screen MTS Gel Crossmatch See Detail 04/19/18 04/20/18 04/20/18 12:05 07:05 07:05 WBC 23.1 H RBC 3.24 L Hgb 8.4 L 7.8 L Hct 27.6 L 26.5 L MCV 81.6 MCH 24.1 L MCHC 29.5 L RDW 17.8 H Plt Count 160 MPV 8.2 Prelim Diff (Auto) Neut % (Auto) 73.9 H Lymph % (Auto) 21.7 Lamar % (Auto) 3.6 Eos % (Auto) 0.5 Baso % (Auto) 0.3 Neut # (Auto) 17.1 H Lymph # (Auto) 5.0 H Lamar # (Auto) 0.8 Eos # (Auto) 0.1 Baso # (Auto) 0.1 WBC Differential . Seg Neuts % (Manual) Lymphocytes % (Manual) Monocytes % (Manual) Eosinophils % (Manual) Abs Neuts (Manual) Differential Comment Auto diff final Smudge Cells Platelet Estimate Platelet Morphology Tear Drop Cells Ovalocytes Keratocytes PT INR APTT Sodium 136 Potassium 4.3 Chloride 101 Carbon Dioxide 25.3 Anion Gap 10 BUN 13 Creatinine 0.58 L Estimated GFR Greater than 89 Random Glucose 65 L Lactic Acid Calcium 8.2 L Phosphorus 3.3 Magnesium 2.0 Total Bilirubin 0.8 AST 39 H ALT 53 Alkaline Phosphatase 97 B-Natriuretic Peptide Total Protein 5.0 L Albumin 1.5 L TSH 0.985 Free T4 1.45 Blood Type Blood Type Recheck Antibody Screen MTS Gel Crossmatch 04/20/18 07:05 WBC RBC Hgb Hct MCV MCH MCHC RDW Plt Count MPV Prelim Diff (Auto) Neut % (Auto) Lymph % (Auto) Lamar % (Auto) Eos % (Auto) Baso % (Auto) Neut # (Auto) Lymph # (Auto) Lamar # (Auto) Eos # (Auto) Baso # (Auto) WBC Differential Seg Neuts % (Manual) Lymphocytes % (Manual) Monocytes % (Manual) Eosinophils % (Manual) Abs Neuts (Manual) Differential Comment Smudge Cells Platelet Estimate Platelet Morphology Tear Drop Cells Ovalocytes Keratocytes PT 19.7 H D INR 1.9 APTT Sodium Potassium Chloride Carbon Dioxide Anion Gap BUN Creatinine Estimated GFR Random Glucose Lactic Acid Calcium Phosphorus Magnesium Total Bilirubin AST ALT Alkaline Phosphatase B-Natriuretic Peptide Total Protein Albumin TSH Free T4 Blood Type Blood Type Recheck Antibody Screen MTS Gel Crossmatch Result Diagrams: 04/20/18 07:05 04/20/18 07:05 Imaging: Chest X-Ray 04/19/18 00:08 CONCLUSION: Left lower lobe consolidation versus atelectasis and small left pleural effusion. Shoulder X-Ray 04/19/18 00:08 CONCLUSION: Angulated fracture of the proximal humerus shaft. Possible pathologic fracture. Chest CT 04/19/18 01:51 CONCLUSION: 1. Left greater than right pulmonary consolidation/atelectasis in the lower lobes. New when compared to prior study. 2. Left greater than right pleural effusions. New when compared to prior study. 3. Increase in size of left axillary lymph nodes. No change in size of mildly enlarged mediastinal lymph nodes. 4. Increase in size of abdominal mass in the region of the pancreatic head and increase in size of adjacent enlarged lymph node. 5. Increase in size of destructive lucent bone lesion in the T10 vertebral body. Patient/Family Conference Present at Family Conference: Held joint conference with the patient, his niece, Bessy, hospice ironworker apprentice Nancy West. Reviewed patient clinical condition, cancer prognosis, pathological fracture and options going forward. Patient is awaiting consultation from Dr. Watson to clarify risk benefit ratio for undergoing orthopedic surgery if he is a candidate. He is aware that due to the impaired bone integrity resulting in the pathologic fracture, surgery may not be a reasonable or desirable option. He is also waiting for Dr. Singh to outline the risks and benefits of palliative radiation for his bone metastasis. He is concerned that since he is bedbound and requires a Mary lift to transfer from wheelchair to bed, that he may not be a candidate for radiation. He needs this information prior to making his decision regarding hospice. Communication has been sent to Dr. Singh via text to try to assist the patient in getting those answers. . Family Conference Location: Bedside Issues Discussed: * Palliative care role, purpose, approach * Additional medical, psychosocial, and spiritual history * Patients general health, functional status, and cognitive changes in the months leading up to the current hospitalization * Patient/family understanding of the current medical problems * Patient/family understanding of prognosis * Patients goals of care as best understood from advance directives and/or conversations and/or values * Current medical treatment options and benefits/burdens of those options * Likely scenarios comparing ongoing aggressive care with a transition to comfort measures only * Questions answered to the best of my ability * Palliative care contact information provided Assessment and Plan - Disease Oriented Problem List (1) Metastasis from pancreatic cancer (2) Supratherapeutic INR (3) Afib (4) HTN (hypertension) (5) CLL (chronic lymphocytic leukemia) (6) Lymphoma (7) Multiple lesions of metastatic malignancy (8) Lytic lesion of bone on x-ray (9) Closed comminuted left humeral fracture - Symptom Scale (1) Pain 0-10 Scale: 8 (2) Weakness 0-10 Scale: 10 Pertinent Non-Medical Issues: Psychosocial:He was born in [facility] and moved to [place] in 1994 for better weather. He retired from the [email or web address], where he worked most of his life. He was previously but now . He has no children. His parents and his siblings are . Spiritual: Plate Filler available Legal: Healthcare surrogate completed naming his nieceBessy as primary and his friend Gerardo Boucher as secondary. Ethical issues impacting care: None noted at this time. . Important Contacts: Niece: Bessy Jimenez , Friend: Gerardo Boucher . Prognosis: His prognosis is poor. He has advanced from progressive weakness in his spine to no function in his lower extremities, now unable to walk. He has metastatic pancreatic cancer with lesions to the spine and bone, widespread, now having a pathological fracture of the left humerus. He is bedbound with Mary lift mobility only. He has left lower lobe pneumonia on this admission with expansion of his T11 vertebral body met metastatic lesion now also affecting T10. As he is immobile, it is unlikely that he would be a candidate for palliative radiation. Given the pathological nature of the fracture of his left humerus, bone integrity may affect his ability to be a surgical candidate for repair. At this time he is stating he wants pain relief. His quality of life is very poor as both legs are too weak to bear weight, his left arm is in sling and swath and his right hand has significant limitations due to severe osteoarthritis. He would be hospice appropriate if goals were consistent. Hospice is following with palliative care while patient weighs his options with the assistance of his niece. . Plan: PLAN: Legal decision maker: Patient is capacitated to make his own decisions however is requesting assistance from his niece, Bessy, who is his primary healthcare surrogate. His alternate healthcare surrogate is his friend, Gerardo Boucher. Goals: CODE STATUS: SYMPTOMS: * Weakness: [place] to be secondary to lytic destruction of T11, T10, in spite of recent rehabilitative therapy, he is now unable to stand and has limited bed mobility of his legs. His left arm is in a sling and swath secondary to humerus pathological fracture. He has reached his rehabilitative peak potential and requires Mary lift transfers. He is discussing further care options to include hospice. * Pain: Secondary to bone metastasis and left humeral pathological fracture as well as bedbound status and severe weakness. He is receiving morphine 2 mg IV every 3 hours as needed and has used 2 doses since his admission. He may benefit from a longer acting opioid, as his primary complaint right now is uncontrolled pain. SUMMARY This is an 83-year-old male with metastatic pancreatic cancer, widespread bony metastasis and pathological fracture to the left humerus. He has a lytic lesions of T10 and T11 and now is bedbound from bilateral lower extremity weakness. He was considering palliative radiation, however, this may not be possible due to his immobility and need for Mary lift transfer or gurney to table transfer to receive radiation. This question has been posed to Dr. Singh and we are pending an answer. He would also accept surgical intervention of his left arm if he felt the benefit were worth the risk and if he were a surgical candidate which is questionable due to the pathological nature of the fracture. Hospice is following, he is certainly hospice appropriate and will make his decision based on the information provided by oncology and orthopedic. Palliative care will continue to follow the patient during hospital course as condition evolves, to assist patient/decision-maker with understanding of their medical conditions, weighing benefits/burdens of treatment options, for clarification of goals of treatment. Additionally will assist with any symptoms of palliative concern. . Appreciation Thank you for the opportunity to participate in the care of Alen Fish. Attestation Attestation: To help prompt me to consider important information that might be impacting today's encounter and assessment, information from prior notes written by myself or my colleagues may have been "brought forward" into today's note. My signature on this note, however, is an attestation that I personally performed the exam, history, and/or decision-making noted today, and, unless otherwise indicated, the interactions with patient, family, and staff as well as the review of records all occurred today. I also attest that the listed assessment and stated plan reflect my best clinical judgment today based on the combination of historical information, prior notes, and today's exam/ interactions. When time spent is documented, it refers only to time spent today by the signer, or if indicated, combined time spent today by collaborating physician/nurse practitioner. .
[2018-04-20] MEDS ORDERED: Dextrose 50% in Water 50 ML Vial IV.PUSH PRN (16:05)
[2018-04-20 17:36] LABS: Hemoglobin A1c 5.1 % (4.3-6.0)
--- NOTE | 2018-04-20 18:03 | P.PNOP ---
Subjective Interval history: Alen is an 83-year-old male. He has multiple medical problems including A. fib, pancreatic cancer with metastases to multiple lytic lesions on T11 vertebra and right posterior iliac bone. He also has low-grade chronic lymphoma , bladder cancer hypertension and hyperlipidemia. Patient states that he was at [facility] and during physical therapy he was experiencing increasing pain with movement to the left arm. He denies any falls or recent injuries. Patient's at bedside and hospice was discussed. He is in the sling and swath. He continues to have some left arm pain. Physical Exam Vital signs: Vital Signs 04/19/18 19:08 04/19/18 23:57 04/20/18 03:01 Temperature 97.6 F 98.8 F 98.7 F Pulse Rate 70 64 71 Respiratory Rate 18 18 18 Blood Pressure 108/59 L 105/55 L 110/55 L Pulse Oximetry 96 96 96 04/20/18 08:00 04/20/18 11:15 04/20/18 13:51 Temperature 98.0 F Pulse Rate 66 68 Respiratory Rate 16 16 16 Blood Pressure 104/51 L 96/56 L Pulse Oximetry 98 97 Intake & Output 04/19/18 04/20/18 04/20/18 18:59 06:59 18:59 Intake Total 500 / 500 1520 / 1520 1480 / 1480 Balance 500 / 500 1520 / 1520 1480 / 1480 Weight 85.6 kg Intake: IV 1400 / 1400 1000 / 1000 NS Inj 1,000 ML @ 50 mls/hr IV. 1000 / 1000 1000 / 1000 CONT .Q20H SORIN Rx#:[id number] Levaquin 750 mg Premix Inj 150 150 / 150 ML @ 100 mls/hr IV.SIG Q24H SORIN Rx#:[id number] NS Inj 250 ML @ 15 mls/hr IV. 250 / 250 SIG ONCE SORIN Rx#:[id number] Oral 120 / 120 480 / 480 Other 100 / 100 Rbc As-3 Leukoreduced Unit 100 / 100 [id number] Intake (Blood Product) Amt 400 / 400 Rbc As-3 Leukoreduced Unit 400 / 400 [id number] Other: Other Intake Source Rbc As-3 Leukoreduced Unit Saline Solution [id number] # Voids 3 1 Date of Last Bowel Movement 04/19/18 04/19/18 # Bowel Movements 2 1 Narrative: GENERAL: This is a well-nourished, well-developed elderly male patient , in no apparent distress. Awake and alert. SKIN: Ecchymosis noted to the left shoulder. Bilateral lower extremity venous stasis changes. HEENT: Normocephalic. CARDIOVASCULAR: Regular rate RESPIRATORY: No wheezes GASTROINTESTINAL: Abdomen soft, non-tender, nondistended. +BS. MUSCULOSKELETAL: Examination of left arm reveals mild tenderness to palpation over the proximal humerus. He has discomfort with attempted shoulder motion. He has minimal pain with gentle elbow or wrist motion. Skin is intact. Radial pulses palpable. Sensation is intact in his fingers. He has no significant pain with right arm or bilateral leg motion. NEURO: Awake and alert. Cranial nerves II through XII grossly intact. Nonfocal. Normal speech. PSYCHIATRIC: Appropriate mood and affect. Normal judgement and insight. Results - Labs CBC & Chem 7: 04/20/18 07:05 04/20/18 07:05 Laboratory Results - last 24 hr 04/20/18 04/20/18 04/20/18 07:05 07:05 07:05 WBC 23.1 H RBC 3.24 L Hgb 7.8 L Hct 26.5 L MCV 81.6 MCH 24.1 L MCHC 29.5 L RDW 17.8 H Plt Count 160 MPV 8.2 Neut % (Auto) 73.9 H Lymph % (Auto) 21.7 [place] % (Auto) 3.6 Eos % (Auto) 0.5 Baso % (Auto) 0.3 Neut # (Auto) 17.1 H Lymph # (Auto) 5.0 H [place] # (Auto) 0.8 Eos # (Auto) 0.1 Baso # (Auto) 0.1 WBC Differential . Differential Comment Auto diff final PT 19.7 H D INR 1.9 Sodium 136 Potassium 4.3 Chloride 101 Carbon Dioxide 25.3 Anion Gap 10 BUN 13 Creatinine 0.58 L Estimated GFR Greater than 89 Random Glucose 65 L Calcium 8.2 L Phosphorus 3.3 Magnesium 2.0 Total Bilirubin 0.8 AST 39 H ALT 53 Alkaline Phosphatase 97 Total Protein 5.0 L Albumin 1.5 L TSH 0.985 Free T4 1.45 Assessment and Plan - Problem List (1) Closed fracture of left proximal humerus Code(s): S42 - Unspecified fracture of upper end of left humerus, initial encounter for closed fracture Status: Acute Qualifiers: Encounter type: initial encounter - Assessment and Plan Alen has pathologic fracture of his left humerus likely related to his pancreatic cancer. Treatment options were discussed regarding his fracture. I discussed surgical and nonsurgical options. Surgical options would include reduction and intramedullary nail fixation of left humerus. Nonsurgical options would include sling and swath. I explained that the fracture is unlikely to heal with or without surgery secondary to the pathologic nature of the injury. He may have decreased pain with stabilization of the fracture with an intramedullary nail. The risk and benefits of surgery were discussed. Patient and his would like to have a discussion with their oncologist prior to making decision regarding surgery. Hospice may be another option for him. The risk and benefits of surgery were discussed in depth with patient. The risk of surgery include bleeding, infection, injuries to arteries, nerves, or blood vessels, infection, wound complications, nonunion, malunion, painful hardware, and need for further surgery. I also discussed medical complications including blood clots, pneumonia, stroke, heart attack, and . A mid-level provider in my office (nurse practitioner or physician technical administrative assistant) may see this patient on follow-up visits and continue to implement the objectives of this plan including: Starting or adjusting medications, injections , cast application, orthotics, brace application, physical therapy, radiological studies (including x-ray, MRI, CT, ultrasound, bone scan), vascular studies, neurologic studies, specialist consultation, and proceeding with surgical management, as appropriate.
[2018-04-20] MEDS: Gabapentin 100 MG Capsule PO SCH (20:34)
[2018-04-20] MEDS: Senna/Docusate Sodium 8.6/50 MG Tablet PO SCH (20:35)
--- NOTE | 2018-04-20 22:41 | MB ---
cc: Fercho Verduzco MD DATE: 04/20/2018 REASON FOR CONSULTATION: A patient with high-grade metastatic pancreatic cancer and a fracture of the left humerus. PATIENT PROFILE: The patient is an 83-year-old white male. He is since 1993. He has no children. Until the recent past, he was independent, living in his own home. He has been in a rehab center in [place] for the past 3 weeks. 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 He stopped smoking 45 years ago. He has approximately 2 drinks per day. HISTORY OF PRESENT ILLNESS: The patient is an 83-year-old male who has a history of a low-grade lymphoma, either CLL or small lymphocytic lymphoma. He also had a superficial bladder cancer in the past, which is not his present problem. He had developed multiple lytic lesions involving bone. He had a biopsy of the right posterior iliac crest performed on 02/09/2018 which showed a poorly differentiated malignancy with the differential including pancreatic cancer. Imaging studies included a CT scan of the abdomen and pelvis on 02/05/2018 which showed a large necrotic mass involving the head of the pancreas. There was pathologic adenopathy throughout the abdomen and pelvis suspicious for metastatic disease. He also had metastatic disease to the thoracic spine with a destructive lesion in the area of T10 with flattening of the anterior thecal sac. The patient was seen by oncology. He was not felt to be a candidate for systemic therapy. He did not receive any radiation. He was transferred to a center for rehab. He developed pain in the left shoulder and had an x-ray of the left shoulder on 04/19/2013 showing a fracture of the proximal humerus with angulation. There was possible bony destructive changes of the cortex suggesting a pathologic fracture. Other studies include a CBC and platelet count on 04/20/2018, hemoglobin 7.8, hematocrit 26, white count 23,000 and platelets 160,000. Electrolytes, BUN and creatinine are unremarkable. Albumin is 1.5. At the present time, he is weak. He is bedridden. He cannot use the left shoulder. He was told that even if he had surgery, he would probably not regain use of the left shoulder or arm and that an option was a sling. He is anorexic. He also tells me that he is resigned to dying and understands that he is terminally ill with not a great deal of time remaining. He understands he cannot take care of himself at home. PAST SURGICAL HISTORY: 1. Bilateral hip replacements. 2. Superficial bladder tumors. 3. Pacemaker placement. PAST MEDICAL HISTORY: 1. Bradycardia. 2. Hypertension. 3. Elevated cholesterol. 4. The patient has a paced rhythm. I do not know if there is underlying atrial fibrillation. MEDICATIONS: Medications prior to admission included Coumadin. Currently, he is taking lactulose, milk of magnesia, Senokot, Pravachol, Prinivil, Toprol, Neurontin, [place]. ALLERGIES: NO KNOWN ALLERGIES. FAMILY HISTORY: Mother, father, 2 brothers and a sister are . No history of malignancy except for the mother, who may have of colon cancer. REVIEW OF SYSTEMS: Most notable for generalized weakness and progressive deterioration. Appetite is poor. No change in vision. Hearing poor. No chest pain, palpitations. He has pain in the area of the left humerus where he has had a fracture. No shortness of breath. Surprisingly, minimal back pain. Generalized weakness in arms and legs. Skin intact. PHYSICAL EXAMINATION: GENERAL: Reveals a gentleman who appears chronically ill and very weak. It is difficult for him to sit up in bed. VITAL SIGNS: Blood pressure 100/60, respiratory rate 16, pulse 70, afebrile, O2 saturation 97%. HEENT: Head is normocephalic. Sclerae and conjunctivae are normal. Oropharynx unremarkable. LYMPHATIC: No cervical, supraclavicular, axillary or inguinal adenopathy. HEART: Regular rhythm. LUNGS: Clear. ABDOMEN: No hepatosplenomegaly. EXTREMITIES: Trace edema. MUSCULOSKELETAL: Pain in the left shoulder. NEUROLOGIC: Weakness of both legs and arms, left arm more than right. ASSESSMENT AND PLAN: The patient is an 83-year-old male who has a pancreatic mass and a poorly differentiated carcinoma involving bone. He is not a candidate for systemic therapy. He is deteriorating and he does not appear to be benefiting from rehabilitation and now has a new pathologic fracture. I do not believe he has a great deal of time remaining. RECOMMENDATIONS: 1. I told him that hospice was a good idea and appropriate as he cannot care for himself. He is agreeable. 2. His niece was present and I spoke to her at length about hospice. This included a discussion about the hospice care center, which I feel might be appropriate for him if he cannot get the necessary care in a snf. 3. I spoke to the patient about radiating the thoracic spine to prevent cord compression. This is not something that he wants to do, and given his limited life expectancy, this appears reasonable. 4. I contacted the hospice by phone and put them in contact with the patient's niece at our meeting. It appears that the niece will be helping make some of the arrangements for the continued and unfortunately terminal care that this man will undergo. At this point, I have nothing further to add. MD SHASHI Marshall/jose francisco , 07:51 PM , 08:08 PM JOVITA
[2018-04-21 07:32] LABS: Baso # (Auto) 0.1 th/mm3 (0.0-0.2); Baso % (Auto) 0.3 % (0.0-2.0); Eos # (Auto) 0.1 th/mm3 (0.0-0.4); Eos % (Auto) 0.4 % (0.0-4.0); Hematocrit 26.8 % (39.0-51.0); Hemoglobin 7.9 gm/dL (13.0-17.0); Lymph # (Auto) 5.4 th/mm3 (1.0-4.8); Lymph % (Auto) 20.9 % (9.0-44.0); Mean Corpuscular Hemoglobin 24.3 pg (27.0-34.0); Mean Corpuscular Volume 82.5 fL (80.0-100.0); Mean Platelet Volume 8.3 fL (7.0-11.0); Mono # (Auto) 1.2 th/mm3 (0.0-0.9); Mono % (Auto) 4.5 % (0.0-8.0); Neut % (Auto) 73.9 % (16.0-70.0); Platelet Count 172 th/mm3 (150-450); Red Blood Count 3.25 mil/mm3 (4.50-5.90); Red Cell Distribution Width 17.9 % (11.6-17.2); White Blood Count 25.7 th/mm3 (4.0-11.0)
[2018-04-21 07:42] LABS: Mean Corpuscular HGB Conc 29.5 % (32.0-36.0)
[2018-04-21] MEDS: Senna/Docusate Sodium 8.6/50 MG Tablet PO SCH ×2 (08:20→20:49)
--- NOTE | 2018-04-21 08:21 | P.PNOP ---
Subjective Interval history: Doing well. Eating breakfast. No significant pain Physical Exam Vital signs: Vital Signs 04/20/18 11:15 04/20/18 13:51 04/20/18 20:00 Temperature 98.0 F 99.4 F Pulse Rate 66 68 69 Respiratory Rate 16 16 20 Blood Pressure 104/51 L 96/56 L 96/54 L Pulse Oximetry 98 97 98 04/20/18 20:02 04/21/18 00:00 04/21/18 04:00 Temperature 98.8 F 97.8 F Pulse Rate 65 80 Respiratory Rate 20 20 Blood Pressure 109/57 L 101/52 L Pulse Oximetry 96 99 100 04/21/18 07:00 Temperature Pulse Rate 73 Respiratory Rate Blood Pressure Pulse Oximetry Intake & Output 04/20/18 04/21/18 04/21/18 18:59 06:59 18:59 Intake Total 1480 / 1480 480 / 480 Balance 1480 / 1480 480 / 480 Weight 85.6 kg 85.5 kg Intake: IV 1000 / 1000 NS Inj 1,000 ML @ 50 mls/hr IV. 1000 / 1000 CONT .Q20H SORIN Rx#:[id number] Oral 480 / 480 480 / 480 Other: # Voids 1 2 Date of Last Bowel Movement 04/19/18 04/21/18 # Bowel Movements 1 2 Narrative: Sling left arm. Mild swelling. No significant pain to examination Results - Labs CBC & Chem 7: 04/21/18 06:00 04/20/18 07:05 Laboratory Results - last 24 hr 04/20/18 04/21/18 04/21/18 07:05 01:54 06:00 WBC 25.7 H RBC 3.25 L Hgb 7.9 L Hct 26.8 L MCV 82.5 MCH 24.3 L MCHC 29.5 L RDW 17.9 H Plt Count 172 MPV 8.3 Prelim Diff (Auto) Slide review pending Neut % (Auto) 73.9 H Lymph % (Auto) 20.9 [place] % (Auto) 4.5 Eos % (Auto) 0.4 Baso % (Auto) 0.3 Neut # (Auto) 19.0 H Lymph # (Auto) 5.4 H [place] # (Auto) 1.2 H Eos # (Auto) 0.1 Baso # (Auto) 0.1 Differential Comment . POC Glucose 81 Hemoglobin A1c 5.1 09/29/18 08:12 WBC RBC Hgb Hct MCV MCH MCHC RDW Plt Count MPV Prelim Diff (Auto) Neut % (Auto) Lymph % (Auto) [place] % (Auto) Eos % (Auto) Baso % (Auto) Neut # (Auto) Lymph # (Auto) [place] # (Auto) Eos # (Auto) Baso # (Auto) Differential Comment POC Glucose 84 Hemoglobin A1c Assessment and Plan - Problem List (1) Closed fracture of left proximal humerus Code(s): S42.202A - Unspecified fracture of upper end of left humerus, initial encounter for closed fracture Status: Acute Qualifiers: Encounter type: initial encounter - Assessment and Plan Pathologic fracture left proximal humerus. History of pancreatic carcinoma. PLAN: Discussion regarding surgical versus nonsurgical care. Patient has not decided this time. His niece is coming in and they will likely have further conversations. Orthopedically stable at this time
[2018-04-21] MEDS: Ferrous Sulfate 325 MG Tablet PO SCH (08:22)
[2018-04-21] MEDS: levoFLOXacin 750 MG Tablet PO SCH (08:23)
[2018-04-21 09:19] LABS: Eosinophils 2 % (0-4); Lymphocytes 28 % (9-44); Monocytes 6 % (0-8)
[2018-04-21 09:21] LABS: Ovalocytes 1+; Platelet Estimate Normal (Normal); Platelet Morphology Normal (Normal)
[2018-04-21 09:22] LABS: Tear Drop Cells 1+
--- NOTE | 2018-04-21 12:43 | P.PNIM ---
Subjective Interval history: Patient this morning reported that he could walk, after discussion with staff it seems he has been using a Mary lift to get onto a wheelchair. He is not able to transition and therefore not able to go home. I had a discussion with his niece regarding plans for going home. Hospice nurse was present we discussed hospice care center versus going straight to a [facility]. Further discussion with case management this afternoon. Physical Exam Vital signs: Vital Signs 04/20/18 13:51 04/20/18 20:00 04/20/18 20:02 Temperature 99.4 F Pulse Rate 68 69 Respiratory Rate 16 20 Blood Pressure 96/56 L 96/54 L Pulse Oximetry 97 98 96 04/21/18 00:00 04/21/18 04:00 04/21/18 07:00 Temperature 98.8 F 97.8 F Pulse Rate 65 80 73 Respiratory Rate 20 20 Blood Pressure 109/57 L 101/52 L Pulse Oximetry 99 100 04/21/18 08:00 04/21/18 08:18 04/21/18 11:00 Temperature 98.2 F Pulse Rate 76 67 Respiratory Rate 16 16 Blood Pressure 141/56 H Pulse Oximetry 95 Intake & Output 04/20/18 04/21/18 04/21/18 18:59 06:59 18:59 Intake Total 1480 / 1480 480 / 480 Balance 1480 / 1480 480 / 480 Weight 85.6 kg 85.5 kg Intake: IV 1000 / 1000 NS Inj 1,000 ML @ 50 mls/hr IV. 1000 / 1000 CONT .Q20H SORIN Rx#:[id number] Oral 480 / 480 480 / 480 Other: # Voids 1 2 Date of Last Bowel Movement 04/19/18 04/21/18 # Bowel Movements 1 2 Narrative: GENERAL: AAOx3, no acute distress, generally weak SKIN: Warm and dry. No rashes HEAD: Atruamtic, normocephalic. EYES: No scleral icterus. No injection or drainage. ENT: Moist mucous membranes, patent nares, no erythema of oropharynx. NECK: Supple, trachea midline. No JVD or lymphadenopathy. Normal thyroid. CARDIOVASCULAR: Regular rate and rhythm. No murmurs, gallops, or rubs. RESPIRATORY: Scattered congestive sounds in bilateral lungs with bibasilar atelectasis.. No accessory muscle use. GASTROINTESTINAL: Abdomen soft, non-tender, nondistended, normal active bowel sounds MUSCULOSKELETAL: No cyanosis, or edema. Left arm in sling NEURO: CN II-XII grossly intact, no focal deficits, no slurring of speech Results - Labs CBC & Chem 7: 04/21/18 06:00 04/20/18 07:05 Laboratory Results - last 24 hr 04/20/18 04/21/18 04/21/18 07:05 01:54 06:00 WBC 25.7 H RBC 3.25 L Hgb 7.9 L Hct 26.8 L MCV 82.5 MCH 24.3 L MCHC 29.5 L RDW 17.9 H Plt Count 172 MPV 8.3 Prelim Diff (Auto) Slide review pending Neut % (Auto) 73.9 H Lymph % (Auto) 20.9 [place] % (Auto) 4.5 Eos % (Auto) 0.4 Baso % (Auto) 0.3 Neut # (Auto) 19.0 H Lymph # (Auto) 5.4 H [place] # (Auto) 1.2 H Eos # (Auto) 0.1 Baso # (Auto) 0.1 WBC Differential Manual diff final Seg Neuts % (Manual) 61 Band Neuts % (Manual) 3 Lymphocytes % (Manual) 28 Monocytes % (Manual) 6 Eosinophils % (Manual) 2 Abs Neuts (Manual) 16.4 H Differential Comment . Platelet Estimate Normal Platelet Morphology Normal Tear Drop Cells 1+ H Ovalocytes 1+ H POC Glucose 81 Hemoglobin A1c 5.1 04/21/18 08:12 WBC RBC Hgb Hct MCV MCH MCHC RDW Plt Count MPV Prelim Diff (Auto) Neut % (Auto) Lymph % (Auto) [place] % (Auto) Eos % (Auto) Baso % (Auto) Neut # (Auto) Lymph # (Auto) [place] # (Auto) Eos # (Auto) Baso # (Auto) WBC Differential Seg Neuts % (Manual) Band Neuts % (Manual) Lymphocytes % (Manual) Monocytes % (Manual) Eosinophils % (Manual) Abs Neuts (Manual) Differential Comment Platelet Estimate Platelet Morphology Tear Drop Cells Ovalocytes POC Glucose 84 Hemoglobin A1c Assessment and Plan - Plan 83-year-old male past medical history significant for atrial fibrillation status post pacemaker, bladder cancer, history of metastatic pancreatic cancer with lytic lesions in thoracic spine and right posterior iliac bone admitted with pathologic fracture left proximal humerus. Pathologic left proximal humerus fracture Discussed surgical and nonsurgical interventions. Family is leaning towards nonsurgical at this time. 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 Pate Lesions present in thoracic spine, not a candidate for chemotherapy Palliative radiation to left humerus would likely not reduce his pain since it will not heal his fracture Hospice is consulted and offering hospice care center is transition for pain control and comfort of breathing Appreciate hospice consult LLL PNA CTA shows left greater than right pulmonary consolidation/atelectasis in the lower lobes, new compared to prior study Continue on Levaquin po Continue incentive spirometry, Acapella, duo nebs Anemia Hemoglobin 7.0 on admission, s/p transfusion 1 unit PRBCs, hemoglobin improved Continue p.o. ferrous sulfate Atrial fibrillation on Coumadin History of pacemaker placement Coumadin resumed, continue metoprolol, continue telemetry Hypertension Lisinopril held due to hypotension Continue Toprol-XL for management of A. fib DVT prophylaxis Coumadin
[2018-04-21] MEDS: Sod Chloride 0.9% Inj 1,000 ML IV.CONT SCH (16:49)
[2018-04-21] MEDS: Gabapentin 100 MG Capsule PO SCH (20:48)
[2018-04-22] MEDS ORDERED: Sodium Chlor 0.9% Inj 500 ML IV.SIG ONE (07:00)
[2018-04-22] MEDS: Senna/Docusate Sodium 8.6/50 MG Tablet PO SCH (08:39)
[2018-04-22] MEDS: Ferrous Sulfate 325 MG Tablet PO SCH (08:39)
[2018-04-22] MEDS: levoFLOXacin 750 MG Tablet PO SCH (12:44)
[2018-04-22] MEDS: Sod Chloride 0.9% Inj 1,000 ML IV.CONT SCH (12:45)
[2018-04-22 12:56] VITALS: BP 93/53; PULSE 64; RESP 18; TEMP 97.6; O2SAT 98
--- NOTE | 2018-04-22 13:00 | P.DS ---
Date of admission: 04/19/18 17:46 Primary care physician: Alexandro Moeller MD Brief History from admission: 83-year-old male with a history of A. fib, pancreatic cancer with metastases to multiple lytic lesions on T11 vertebra and right posterior iliac bone. L8ow- grade chronic lymphoma, bladder cancer hypertension and hyperlipidemia presented to the ED with complaints of left shoulder pain. Patient states that he was at [facility] and during physical therapy he was experiencing increasing pain with movement to the left shoulder. He denies any falls or recent injuries. Patient's at bedside and hospice was discussed. She patient has discussed the final decision of hospice states she will be calling him later on today. Patient describes his pain to the left shoulder as constant, throbbing,8/10, with no radiation or associated symptoms, worse with movement better with pain medication DS: Summary Hospital Course: 83-year-old male with widespread metastasis of pancreatic cancer including lytic lesions to T11 vertebrae and right posterior ileocolic bone presented to the hospital with left upper arm pain and was determined to have a pathological fracture of the left proximal humerus. Additionally he was found to have left lower lobe pneumonia started on Levaquin for that. His niece has been at bedside and assisting with decision making. Major fork in the road was to determine whether Mr. Fish wanted to proceed with physical therapy, which resulted in his humerus fracture, or focus on comfort with the assistance of hospice. He has elected to proceed with hospice and would prefer to go to the hospice care center rather than going to [facility]. His hospice nurse is currently present at bedside to assist with transition to the care center. His pain has been adequately controlled with p.o. medications. He still requires oxygen and is still on treatment with Levaquin 750 mg p.o. daily which I am recommending for 5 more days. His niece is supportive of his decision and will be going to visit the care center today. - Time Spent with Patient Total time spent providing and/or coordinating discharge services: Less than 30 minutes Exam Vital signs: Vital Signs 04/21/18 12:58 04/21/18 15:00 04/21/18 16:24 Temperature 98.4 F Pulse Rate 69 71 77 Respiratory Rate 16 16 Blood Pressure 154/64 H Pulse Oximetry 95 04/21/18 16:34 04/21/18 20:00 04/21/18 20:49 Temperature 98.4 F 97.4 F L Pulse Rate 68 70 68 Respiratory Rate 16 16 Blood Pressure 124/56 L 116/93 H Pulse Oximetry 97 94 L 04/22/18 00:00 04/22/18 04:00 04/22/18 08:00 Temperature 97.1 F L 97.7 F 97.7 F Pulse Rate 69 71 66 Respiratory Rate 16 16 18 Blood Pressure 100/43 L 102/52 L 95/48 L Pulse Oximetry 92 L 97 99 04/22/18 08:23 Temperature Pulse Rate 66 Respiratory Rate 14 Blood Pressure Pulse Oximetry 100 Intake & Output 04/21/18 04/22/18 04/22/18 18:59 06:59 18:59 Intake Total 1350 / 1350 480 / 480 1500 / 1500 Balance 1350 / 1350 480 / 480 1500 / 1500 Weight 86.9 kg Intake: IV 1000 / 1000 1500 / 1500 NS Inj 1,000 ML @ 50 mls/hr IV. 1000 / 1000 1000 / 1000 CONT .Q20H SORIN Rx#:[id number] NS Inj 500 ML @ As Directed IV. 500 / 500 SIG BOLUS ONE Rx#:[id number] Oral 350 / 350 480 / 480 Other: # Voids 0 # Incontinent Voids 3 0 Date of Last Bowel Movement 04/21/18 04/21/18 Results Procedures completed during hospitalization: none - Impressions ITS Impressions Chest X-Ray 04/19/18 00:08 CONCLUSION: Left lower lobe consolidation versus atelectasis and small left pleural effusion. Shoulder X-Ray 04/19/18 00:08 CONCLUSION: Angulated fracture of the proximal humerus shaft. Possible pathologic fracture. Chest CT 04/19/18 01:51 CONCLUSION: 1. Left greater than right pulmonary consolidation/atelectasis in the lower lobes. New when compared to prior study. 2. Left greater than right pleural effusions. New when compared to prior study. 3. Increase in size of left axillary lymph nodes. No change in size of mildly enlarged mediastinal lymph nodes. 4. Increase in size of abdominal mass in the region of the pancreatic head and increase in size of adjacent enlarged lymph node. 5. Increase in size of destructive lucent bone lesion in the T10 vertebral body. Discharge Plan - Discharge Disposition Patient Disposition: 50 Hospice/Home - Discharge Condition Condition: Fair - Discharge Order Discharge Orders: Discharge Order (Routine); Ordered 04/22/18 Ordered By: Kolby Day - Physicians Team Primary Care Provider: Alexandro Moeller Attending Provider: Kolby Day Other Providers: Adis Wong MD ; Fernando Garcia MD ; Addy Jarquin MD ; [facility][1] ; Salena Adame MD ; Fercho Verduzco MD
--- NOTE | 2018-04-22 16:04 | OTSOAPIP ---
TIME SESSION COMPLETED: TREATMENT TIME: 0 MINS. CHART REVIEWED. INTERDISCIPLINARY COMMUNICATION: CONSULTED WITH NURSING PATIENT HAS ELECTED TO PROCEED WITH HOSPICE FOR COMFORT CARE. PLAN: OCCUPATIONAL THERAPY SIGNING OFF : Therapist: Radha Doll Signature on file
== END 2018-04-22 16:25 | disposition hospice, inpatient (51) ==
LOC: NEDA 22:54 → NEPC 22:54 → HCIN 04-19 06:55 → NEPGCP 04-19 07:29 → HCIN 04-20 13:39
PROVIDERS: ADMIT Family Medicine; ATTEND Family Medicine